=== PATIENT | female | born 1955 | race African-American/Black ===

== ENCOUNTER → 2017-02-01 | Outpatient (CLI) | payer MEDICAID, OTHER ==
--- NOTE | 2017-02-02 12:59 | RADIOLOGY REPORT (SQ) ---
EXAM DESCRIPTION: MRI RT LOWER JOINT WITHOUT COMPLETED DATE/TIME: 02/01/2017 7:17 pm REASON FOR STUDY: Pain in right hip M25.551 PAIN IN RIGHT HIP COMPARISON: None. TECHNIQUE: Righthip images acquired and stored on PACS. Multiplanar images to include fat sensitive sequences as T1, fluid sensitive sequences as T2/STIR and gradient echo sequences. Large FOV fat and fluid sensitive sequences include pelvis and opposite hip. LIMITATIONS: None. FINDINGS: BONE CORTEX AND MARROW: No generalized marrow replacement. No occult fracture. TARGETED HIP: FEMORAL HEAD: Subchondral cystic change posterior humeral head with some adjacent edema. Flattening of the femoral head. Ring osteophytes. A ACETABULUM: No acetabular dysplasia. No subchondral cysts. LABRUM: No loss of cartilage or delamination. Labrum is intact. No paralabral cysts. TROCHANTER: No trochanteric bursal effusion. No edema/fluid at the insertions of the gluteus medius and gluteus minimus. OPPOSITE HIP: [place] shaped area of signal alteration along the femoral head weight-bearing surface without collapse or deformity. PELVIS, LOWER LUMBAR SPINE, SACROILIAC JOINTS: PELVIS : No insufficiency/stress fractures. No significant degenerative changes. Sacroiliac joints normal. L SPINE: Diffuse lumbar did degenerative disc disease with reactive endplate changes. MUSCLES AND SOFT TISSUES: Adductors and piriformis normal. Abductors and greater trochanteric bursa n ormal without edema or fluid. Iliopsoas bursa without fluid. Hamstring attachments without edema or t ear. PELVIC SOFT TISSUES: No masses or adenopathy. SCIATIC NERVE: Identified, without masses or abnormal signal. OTHER: No other significant finding. 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 Avascular necrosis of the left femoral head without contour deformity or fracture. TECHNICAL DOCUMENTATION: JOB ID: [id number]- All Rights Reserved
== END ==
LOC: RAD 18:23
PROVIDERS: ATTEND Orthopaedic Surgery Sports Medicine
DX: M87.851 Other osteonecrosis, right femur (principal); M25.551 Pain in right hip

== ENCOUNTER 2017-09-24 04:21 | Emergency (ER) | payer OTHER ==
[2017-09-24] MEDS ORDERED: IPRATROPIUM/ALBUTEROL 0.5-2.5 MG/3 ML AMPUL NEB ONE ×2 (04:35→04:38)
[2017-09-24] MEDS ORDERED: METHYLPREDNISOLONE INJ 125 MG/2 ML SDV ONE (04:35)
[2017-09-24] MEDS ORDERED: ALBUTEROL SULFATE 0.083% NEB 2.5 MG/3 ML AMPUL NEB ONE ×2 (04:38→05:48)
[2017-09-24] MEDS ORDERED: METHYLPREDNISOLONE INJ 125 MG/2 ML SDV IV ONE (04:38)
--- NOTE | 2017-09-24 04:40 | ER Document Report ---
ED Respiratory Problem - General Mode of Arrival: Ambulatory Information source: Patient TRAVEL OUTSIDE OF THE [place] IN LAST 30 DAYS: No <SELENA GENAO - Last Filed: 09/24/17 06:31> <EVELIA MCKEON - Last Filed: 09/24/17 07:17> - General Chief Complaint: COPD Exacerbation Stated Complaint: DIFFICULTY BREATHING Time Seen by Provider: 09/24/17 04:35 Notes: Patient is a 62 year old female with a history of COPD, asthma, and hypertension presents to the emergency department due to difficulty breathing. Patient states she has had a cough for 2 weeks with intermittent fevers. Patient states she normally takes albuterol although it has not been effective the last 4 days. Patient's breathing is labored at bedside. (SELENA GENAO) - Related Data Allergies/Adverse Reactions: No Known Allergies Allergy (Verified 09/24/17 04:44) Past Medical History - General Information source: Patient - Social History Smoking Status: Former Smoker Cigarette use (# per day): No Chew tobacco use (# tins/day): No Smoking Education Provided: No Frequency of alcohol use: None Drug Abuse: None Family History: Reviewed & Not Pertinent Pulmonary Medical History: Reports: Hx Asthma, Hx COPD GI Medical History: Reports: Hx Gastroesophageal Reflux Disease Past Surgical History: Reports: Hx Hysterectomy, Hx Thyroid Surgery - Immunizations Hx Diphtheria, Pertussis, Tetanus Vaccination: Yes - 2008 Hx Pneumococcal Vaccination: 08/20/09 <SELENA GENAO - Last Filed: 09/24/17 06:31> Review of Systems - Review of Systems Constitutional: See HPI, Fever EENT: No symptoms reported Cardiovascular: No symptoms reported Respiratory: See HPI, Cough, Short of breath Gastrointestinal: No symptoms reported Genitourinary: No symptoms reported Female Genitourinary: No symptoms reported Musculoskeletal: No symptoms reported Skin: No symptoms reported Hematologic/Lymphatic: No symptoms reported Neurological/Psychological: No symptoms reported -: Yes All other systems reviewed and negative <SELENA GENAO - Last Filed: 09/24/17 06:31> Physical Exam <SELENA GENAO - Last Filed: 09/24/17 06:31> <EVELIA MCKEON - Last Filed: 09/24/17 07:17> - Vital signs Vitals: Temp Pulse Resp BP Pulse Ox 97.9 F 104 H 28 H 192/101 H 94 09/24/17 04:29 09/24/17 04:29 09/24/17 04:29 09/24/17 04:29 09/24/17 04:29 - Notes Notes: GENERAL: Alert, anxious, acutely short of breath. HEAD: Normocephalic, atraumatic. EYES: Pupils equal, round, and reactive to light. Extraocular movements intact. ENT: Oral mucosa moist, tongue midline. NECK: Full range of motion. Supple. Trachea midline. LUNGS: Tachypneic. Diffuse expiratory wheezing, prolonged expiratory phase, short of breath, uses accessory muscles. HEART: Tachycardic. No murmurs, gallops, or rubs. ABDOMEN: Soft, non-tender. Non-distended. Bowel sounds present in all 4 quadrants. EXTREMITIES: Moves all 4 extremities spontaneously. NEUROLOGICAL: Alert and oriented x3. Normal speech. PSYCH: Anxious. SKIN: Warm, dry, normal turgor. No rashes or lesions noted. (SELENA GENAO) Course - Laboratory Result Diagrams: 09/24/17 04:41 09/24/17 04:41 <SELENA GENAO - Last Filed: 09/24/17 06:31> - Laboratory Result Diagrams: 09/24/17 04:41 09/24/17 04:41 <EVELIA MCKEON - Last Filed: 09/24/17 07:17> - Re-evaluation Re-evalutation: 09/24/17 07:12 CXR negative, significantly improved after breathing treatments and steroids. Already has an albuterol inhaler. Prescribed steroids and discharged home. No indication for antibiotics. 09/24/17 07:12 CBC and chemistries unremarkable. (EVELIA MCKEON) - Vital Signs Vital signs: Temp Pulse Resp BP Pulse Ox 97.9 F 96 20 164/104 H 100 09/24/17 04:38 09/24/17 04:40 09/24/17 06:01 09/24/17 06:01 09/24/17 06:01 - Laboratory Laboratory results interpreted by me: 09/24/17 04:41 RDW 16.5 H Discharge <SELENA GENAO - Last Filed: 09/24/17 06:31> <EVELIA MCKEON - Last Filed: 09/24/17 07:17> - Discharge Clinical Impression: Viral upper respiratory tract infection Acute asthma exacerbation Qualifiers: Asthma severity: moderate Asthma persistence: persistent Qualified Code(s): J45.41 - Moderate persistent asthma with (acute) exacerbation Hypertension Qualifiers: Hypertension type: essential hypertension Qualified Code(s): I10 - Essential ( primary) hypertension Condition: Stable Disposition: HOME, SELF-CARE Additional Instructions: Please use your inhaler and take the prednisone as directed. If you are not having significant improvement in 3 days please start taking the antibiotics. Otherwise throw away the prescription for the antibiotics. Prescriptions: Amox Tr/Potassium Clavulanate [Augmentin 875-125 Tablet] 1 tab PO BID 7 Days tablet Prednisone 60 mg PO DAILY #12 tablet Forms: Elevated Blood Pressure Referrals: GOLDY HILL FNP [Primary Care Provider] - Follow up in 3-5 days Scribe Attestation: 09/24/17 07:17 I personally performed the services described in the documentation, reviewed and edited the documentation which was dictated to the scribe in my presence, and it accurately records my words and actions. (EVELIA MCKEON) Scribe Documentation - Scribe Written by Olie:: David Anand, 09/24/2017 04:49 acting as scribe for :: Juanjo <SELENA GENAO - Last Filed: 09/24/17 06:31>
[2017-09-24 04:52] LABS: ABSOLUTE EOSINOPHILS # (AUTO) 0.1 10^3/uL (0.0-0.6); ABSOLUTE LYMPHOCYTES (AUTO) 2.3 10^3/uL (0.5-4.7); ABSOLUTE MONOCYTES (AUTO) 0.8 10^3/uL (0.1-1.4); BASOPHILS % (AUTO) 0.4 % (0-2); EOSINOPHILS % (AUTO) 1.6 % (0-6); HEMATOCRIT 41.6 % (36.0-47.0); HEMOGLOBIN 13.7 g/dL (12.0-15.5); LYMPHOCYTES % (AUTO) 32.1 % (13-45); MEAN CORPUSCULAR HEMOGLOBIN 28.6 pg (27.0-33.4); MEAN CORPUSCULAR HGB CONC 32.9 g/dL (32.0-36.0); MEAN CORPUSCULAR VOLUME 87 fl (80-97); MONOCYTES % (AUTO) 10.6 % (3-13); PLATELET COUNT 221 10^3/uL (150-450); RED BLOOD COUNT 4.79 10^6/uL (3.72-5.28); RED CELL DISTRIBUTION WIDTH 16.5 % (11.5-14.0); SEGMENTED NEUTROPHILS % (AUTO) 55.3 % (42-78); TOTAL CELLS COUNTED % (AUTO) 100 %; WHITE BLOOD COUNT 7.2 10^3/uL (4.0-10.5)
[2017-09-24 05:07] LABS: ALANINE AMINOTRANSFERASE 20 U/L (9-52); ALBUMIN 4.6 g/dL (3.5-5.0); ALKALINE PHOSPHATASE 101 U/L (38-126); ANION GAP 14 (5-19); ASPARTATE AMINO TRANSFERASE 20 U/L (14-36); BILIRUBIN,DIRECT 0.2 mg/dL (0.0-0.4); BILIRUBIN,TOTAL 0.3 mg/dL (0.2-1.3); BLOOD UREA NITROGEN 8 mg/dL (7-20); CALCIUM 9.9 mg/dL (8.4-10.2); CARBON DIOXIDE 24 mmol/L (22-30); CHLORIDE 105 mmol/L (98-107); GLUCOSE 99 mg/dL (75-110); SODIUM 142.8 mmol/L (137-145); TOTAL PROTEIN 7.6 g/dL (6.3-8.2)
--- NOTE | 2017-09-24 05:17 | RADIOLOGY REPORT (SQ) ---
EXAM DESCRIPTION: CHEST SINGLE VIEW COMPLETED DATE/TIME: 09/24/2017 5:08 am REASON FOR STUDY: cough, fever, SOB, r/o PNA COMPARISON: Chest x-ray 06/17/2017. EXAM PARAMETERS: NUMBER OF VIEWS: One view. TECHNIQUE: Single frontal radiographic view of the chest acquired. RADIATION DOSE: NA LIMITATIONS: None. FINDINGS: LUNGS AND PLEURA: No consolidation, pneumothorax or pleural effusion. MEDIASTINUM AND HILAR STRUCTURES: No masses. Contour normal. HEART AND VASCULAR STRUCTURES: Heart normal in size. Normal vasculature. BONES: No acute findings. HARDWARE: Surgical clips at the soft tissues of the neck. IMPRESSION: No acute radiographic finding in the chest. TECHNICAL DOCUMENTATION: JOB ID: [id number] [id number]- All Rights Reserved
[2017-09-24 08:03] VITALS: BP 149/89
== END 2017-09-24 08:11 | disposition home or self-care (01) ==
LOC: ER 04:21
DX: J06.9 Acute upper respiratory infection, unspecified (principal); J45.41 Moderate persistent asthma with (acute) exacerbation; I10 Essential (primary) hypertension; Z90.710 Acquired absence of both cervix and uterus
CPT/HCPCS: 94640 ×2; 99285; 96374; 36415; 85025; 80053; 71045; J2930; J7620

== ENCOUNTER 2017-11-09 13:55 | Emergency (ER) | payer OTHER ==
[2017-11-09] MEDS ORDERED: IPRATROPIUM/ALBUTEROL 0.5-2.5 MG/3 ML AMPUL NEB ONE (15:20)
[2017-11-09] MEDS ORDERED: ACETAMINOPHEN 325 MG TABLET PO ONE (15:27)
--- NOTE | 2017-11-09 15:57 | RADIOLOGY REPORT (SQ) ---
EXAM DESCRIPTION: CHEST PA/LAT COMPLETED DATE/TIME: 11/09/2017 3:02 pm REASON FOR STUDY: cough, copd COMPARISON: 2017. NUMBER OF VIEWS: Two view. TECHNIQUE: Frontal and lateral radiographic views of the chest acquired. LIMITATIONS: None. FINDINGS: LUNGS AND PLEURA: No opacities, masses or pneumothorax. No pleural effusion. Attenuated bl ood vessels and flattened mary-diaphragms. MEDIASTINUM AND HILAR STRUCTURES: No masses. No contour abnormalities. HEART AND VASCULAR STRUCTURES: Left ventricular enlargement. No evidence of failure. Stable contour s. BONES: No acute findings. HARDWARE: None in the chest. OTHER: No other significant finding. IMPRESSION: COPD. NO ACUTE RADIOGRAPHIC FINDING IN THE CHEST. TECHNICAL DOCUMENTATION: JOB ID: [id number] [employer]- All Rights Reserved Reading location - IP/workstation name: [email or web address]
[2017-11-09 16:05] VITALS: BP 148/89
--- NOTE | 2017-11-09 16:14 | ER Document Report ---
ED General - General Chief Complaint: Shortness Of Breath Stated Complaint: BREATHING ISSUES Time Seen by Provider: 11/09/17 14:50 Mode of Arrival: Ambulatory Information source: Patient Notes: 62-year-old female history of COPD presents with complaints of cough of one- month duration. Patient notes initially was productive, patient was treated with antibiotics and the productivity of the cough has since resolved, patient admits to shortness of breath on ambulation TRAVEL OUTSIDE OF THE [place] IN LAST 30 DAYS: No - HPI Onset: Other Onset/Duration: Persistent Quality of pain: Achy Severity: Mild Pain Level: 1 Associated symptoms: Nonproductive cough, Shortness of breath Exacerbated by: Walking, Coughing Relieved by: Denies Similar symptoms previously: Yes Recently seen / treated by doctor: Yes - Related Data Allergies/Adverse Reactions: No Known Allergies Allergy (Verified 11/09/17 13:56) Past Medical History - Social History Smoking Status: Never Smoker Cigarette use (# per day): No Chew tobacco use (# tins/day): No Smoking Education Provided: No Family History: Reviewed & Not Pertinent Patient has suicidal ideation: No Patient has homicidal ideation: No Pulmonary Medical History: Reports: Hx Asthma, Hx COPD Renal/ Medical History: Denies: Hx Peritoneal Dialysis GI Medical History: Reports: Hx Gastroesophageal Reflux Disease Past Surgical History: Reports: Hx Hysterectomy, Hx Thyroid Surgery - Immunizations Hx Diphtheria, Pertussis, Tetanus Vaccination: Yes - 2008 Hx Pneumococcal Vaccination: 08/20/09 Review of Systems - Review of Systems Notes: REVIEW OF SYSTEMS: CONSTITUTIONAL : Denies fever, chills, or sweats. Denies recent illness. EENT: Denies eye, ear, throat, or mouth pain or symptoms. Denies nasal or sinus congestion or discharge. Denies throat, tongue, or mouth swelling or difficulty swallowing. CARDIOVASCULAR: Denies chest pain. Denies palpitations or racing or irregular heart beat. Denies ankle edema. RESPIRATORY: Admits to cough shortness of breath GASTROINTESTINAL: Denies abdominal pain or distention. Denies nausea, vomiting , or diarrhea. Denies blood in vomitus, stools, or per rectum. Denies black, tarry stools. Denies constipation. GENITOURINARY: Denies difficulty urinating, painful urination, burning, frequency, blood in urine, or discharge. FEMALE GENITOURINARY: Denies vaginal bleeding, heavy or abnormal periods, irregular periods. Denies vaginal discharge or odor. MUSCULOSKELETAL: Denies back or neck pain or stiffness. Denies joint pain or swelling. SKIN: Denies rash, lesions or sores. HEMATOLOGIC : Denies easy bruising or bleeding. LYMPHATIC: Denies swollen, enlarged glands. NEUROLOGICAL: Denies confusion or altered mental status. Denies passing out or loss of consciousness. Denies dizziness or lightheadedness. Denies headache. Denies weakness or paralysis or loss of use of either side. Denies problems with gait or speech. Denies sensory loss, numbness, or tingling. Denies seizures. PSYCHIATRIC: Denies anxiety or stress. Denies depression, suicidal ideation, or homicidal ideation. ALL OTHER SYSTEMS REVIEWED AND NEGATIVE. PHYSICAL EXAMINATION: GENERAL: Well-appearing, well-nourished and in no acute distress. HEAD: Atraumatic, normocephalic. EYES: Pupils equal round and reactive to light, extraocular movements intact, conjunctiva are normal. ENT: Nares patent, oropharynx clear without exudates. Moist mucous membranes. NECK: Normal range of motion, supple without lymphadenopathy LUNGS: Bilateral inspiratory expiratory wheezing noted initially after breathing treatment and symptoms resolved HEART: Regular rate and rhythm without murmurs ABDOMEN: Soft, nontender, nondistended abdomen. No guarding, no rebound. No masses appreciated. Female : deferred Musculoskeletal: Normal range of motion, no pitting or edema. No cyanosis. NEUROLOGICAL: Cranial nerves grossly intact. Normal speech, normal gait. Normal sensory, motor exams PSYCH: Normal mood, normal affect. SKIN: Warm, Dry, normal turgor, no rashes or lesions noted. Dictation was performed using [employer] voice recognition software Physical Exam - Vital signs Vitals: Temp Pulse Resp BP Pulse Ox 98.0 F 115 H 26 H 171/97 H 92 11/09/17 14:02 11/09/17 14:02 11/09/17 14:02 11/09/17 14:02 11/09/17 14:02 Course - Re-evaluation Re-evalutation: Patient presented with complaints of cough of now 1 month duration she has been on multiple antibiotic and steroid doses, she denies any productivity to cough, x-ray was consistent with COPD, she has no signs of pulmonary emboli therefore I do believe is appropriate treated with further steroids at this time and have her follow-up with primary care physician Patient notes significant improvement of breathing after DuoNeb 11/09/17 20:11 Patient's vital signs which were taken initially are noted to be inaccurate, she has very long acrylic nails and a good pulse ox was not obtained, the pulse ox of 100% is noted on her ear After performing a Medical Screening Examination, I estimate there is LOW risk for ACUTE CORONARY SYNDROME, PULMONARY EMBOLI, RESPIRATORY FAILURE, SEPSIS OR MENINGITIS, thus I consider the discharge disposition reasonable. I have reevaluated this patient multiple times and no significant life threatening changes are noted. The patient and I have discussed the diagnosis and risks, and we agree with discharging home with close follow-up. We also discussed returning to the Emergency Department immediately if new or worsening symptoms occur. We have discussed the symptoms which are most concerning (e.g., changing or worsening pain, trouble swallowing or breathing, neck stiffness, fever) that necessitate immediate return. - Vital Signs Vital signs: Temp Pulse Resp BP Pulse Ox 98.5 F 90 22 H 148/89 H 96 11/09/17 16:04 11/09/17 16:04 11/09/17 16:04 11/09/17 16:04 11/09/17 16:16 - Diagnostic Test Radiology reviewed: Image reviewed - copd noted , report given to patient, Reports reviewed Discharge - Discharge Clinical Impression: COPD exacerbation HTN (hypertension) Qualifiers: Hypertension type: essential hypertension Qualified Code(s): I10 - Essential ( primary) hypertension Condition: Stable Disposition: HOME, SELF-CARE Instructions: Chronic Obstructive Lung Disease ([facility]) Prescriptions: Prednisone [Deltasone 20 mg Tablet] 3 tab PO DAILY 5 Days tablet Referrals: GOLDY HILL FNP [Primary Care Provider] - Follow up in 3-5 days
== END 2017-11-09 16:20 | disposition home or self-care (01) ==
LOC: ER 13:55
DX: J44.1 Chronic obstructive pulmonary disease with (acute) exacerbation (principal); R05 Cough; R06.02 Shortness of breath; I10 Essential (primary) hypertension
CPT/HCPCS: 94640; 99284; 71046; J7620

== ENCOUNTER 2018-01-05 12:20 | Inpatient (IN) | payer OTHER ==
[2018-01-05 12:52] LABS: ABSOLUTE EOSINOPHILS # (AUTO) 0.1 10^3/uL (0.0-0.6); ABSOLUTE LYMPHOCYTES (AUTO) 1.6 10^3/uL (0.5-4.7); ABSOLUTE MONOCYTES (AUTO) 0.6 10^3/uL (0.1-1.4); ABSOLUTE NEUT (AUTO) 3.9 10^3/uL (1.7-8.2); BASOPHILS % (AUTO) 0.4 % (0-2); EOSINOPHILS % (AUTO) 1.2 % (0-6); HEMATOCRIT 42.5 % (36.0-47.0); HEMOGLOBIN 14.2 g/dL (12.0-15.5); LYMPHOCYTES % (AUTO) 25.5 % (13-45); MEAN CORPUSCULAR HEMOGLOBIN 29.9 pg (27.0-33.4); MEAN CORPUSCULAR HGB CONC 33.4 g/dL (32.0-36.0); MEAN CORPUSCULAR VOLUME 90 fl (80-97); MONOCYTES % (AUTO) 9.5 % (3-13); PLATELET COUNT 260 10^3/uL (150-450); RED BLOOD COUNT 4.74 10^6/uL (3.72-5.28); RED CELL DISTRIBUTION WIDTH 13.7 % (11.5-14.0); SEGMENTED NEUTROPHILS % (AUTO) 63.4 % (42-78); TOTAL CELLS COUNTED % (AUTO) 100 %; WHITE BLOOD COUNT 6.1 10^3/uL (4.0-10.5)
--- NOTE | 2018-01-05 12:58 | ER Document Report ---
ED General - General Chief Complaint: Shortness Of Breath Stated Complaint: DIFFICULTY BREATHING Time Seen by Provider: 01/05/18 12:35 Mode of Arrival: Ambulatory Information source: Patient Notes: This is a 62-year-old female with a history of COPD that presents with progressively worsening shortness of breath, wheezing and cough over the past week. Patient was brought in by EMS. She was given to NORBERTO treatments in route along with 125 mg of IV Solu-Medrol. TRAVEL OUTSIDE OF THE [place] IN LAST 30 DAYS: No - HPI Onset: Just prior to arrival Onset/Duration: Gradual Quality of pain: No pain Severity: None Pain Level: Denies Associated symptoms: Shortness of breath. denies: Chest pain, Earache, Fever Exacerbated by: Movement Relieved by: Denies Similar symptoms previously: Yes Recently seen / treated by doctor: No - Related Data Allergies/Adverse Reactions: No Known Allergies Allergy (Verified 11/09/17 13:56) Past Medical History - General Information source: Patient - Social History Smoking Status: Former Smoker Cigarette use (# per day): No Chew tobacco use (# tins/day): No Frequency of alcohol use: None Drug Abuse: None Lives with: Family Family History: Reviewed & Not Pertinent Patient has suicidal ideation: No Patient has homicidal ideation: No - Past Medical History Cardiac Medical History: Reports: Hx Hypertension Pulmonary Medical History: Reports: Hx Asthma, Hx COPD Renal/ Medical History: Denies: Hx Peritoneal Dialysis GI Medical History: Reports: Hx Gastroesophageal Reflux Disease Past Surgical History: Reports: Hx Hysterectomy, Hx Orthopedic Surgery - hip replacement, Hx Thyroid Surgery - Immunizations Hx Diphtheria, Pertussis, Tetanus Vaccination: Yes - 2008 Hx Pneumococcal Vaccination: 08/20/09 Review of Systems - Review of Systems Constitutional: denies: Chills, Fever EENT: No symptoms reported Cardiovascular: No symptoms reported Respiratory: See HPI Gastrointestinal: No symptoms reported Genitourinary: No symptoms reported Female Genitourinary: No symptoms reported Musculoskeletal: No symptoms reported Skin: No symptoms reported Hematologic/Lymphatic: No symptoms reported Neurological/Psychological: No symptoms reported Physical Exam - Vital signs Vitals: Resp 22 H 01/05/18 12:28 Notes: Physical exam: GENERAL: 62-year-old female, alert and oriented 3, appears short of breath, tachypneic (25), tachycardic (105), blood pressure 140/85, O2 sat 97% on 2 L. HEAD: Atraumatic, normocephalic. EYES: Pupils equal round and reactive to light, extraocular movements intact, sclera anicteric, conjunctiva are normal. ENT: TMs normal, nares patent, oropharynx clear without exudates. Moist mucous membranes. NECK: Normal range of motion, supple without obvious mass. LUNGS: Tight breath sounds with bilateral wheezing HEART: Regular rate and rhythm without murmurs, rubs or gallops. ABDOMEN: Soft, normoactive bowel sounds. No tenderness to palpation. No guarding, no rebound. No masses appreciated. EXTREMITIES: Normal range of motion, no pitting or edema. No clubbing or cyanosis. NEUROLOGICAL: Cranial nerves II through XII grossly intact. Normal speech, moving all extremities. PSYCH: Normal mood, normal affect. SKIN: Warm, Dry, normal turgor, no rashes or lesions noted. Course - Vital Signs Vital signs: Temp Pulse Resp BP Pulse Ox 98 F 109 H 18 135/93 H 95 01/05/18 16:50 01/05/18 16:50 01/05/18 16:50 01/05/18 16:50 01/05/18 18:02 - Laboratory Result Diagrams: 01/05/18 12:00 01/05/18 13:13 Laboratory results interpreted by me: 01/05/18 01/05/18 13:13 13:13 Sodium 146.5 H Glucose 113 H Creatine Kinase 278 H - Diagnostic Test Radiology reviewed: Image reviewed, Reports reviewed - Chest x-ray shows no infiltrates - EKG Interpretation by Me Rate: Normal Rhythm: NSR - EKG shows normal sinus rhythm with a ventricular rate of 99, left axis deviation, no acute ST-T wave changes. There are no changes compared to EKG in June 17, 2017 Discharge - Discharge Clinical Impression: COPD exacerbation Condition: Stable Disposition: ADMITTED INPATIENT Admitting Provider: Hospitalist - Dr Rosado Unit Admitted: Telemetry
[2018-01-05] MEDS ORDERED: MAGNESIUM SULFATE/D5W 1 GM/100 ML RTUPB IV ONE (13:00)
[2018-01-05] MEDS ORDERED: IPRATROPIUM/ALBUTEROL 0.5-2.5 MG/3 ML AMPUL NEB ONE ×2 (13:00→14:28)
--- NOTE | 2018-01-05 13:29 | RADIOLOGY REPORT (SQ) ---
EXAM DESCRIPTION: CHEST SINGLE VIEW COMPLETED DATE/TIME: 01/05/2018 1:20 pm REASON FOR STUDY: sob COMPARISON: 11/09/2017. EXAM PARAMETERS: NUMBER OF VIEWS: One view. TECHNIQUE: Single frontal radiographic view of the chest acquired. RADIATION DOSE: NA LIMITATIONS: None. FINDINGS: LUNGS AND PLEURA: No opacities, masses or pneumothorax. No pleural effusion. MEDIASTINUM AND HILAR STRUCTURES: No masses. Contour normal. HEART AND VASCULAR STRUCTURES: Heart normal in size. Normal vasculature. BONES: No acute findings. HARDWARE: Surgical clips in the lower neck. OTHER: No other significant finding. IMPRESSION: NO ACUTE RADIOGRAPHIC FINDING IN THE CHEST. TECHNICAL DOCUMENTATION: JOB ID: [id number] [employer]- All Rights Reserved Reading location - IP/workstation name: [email or web address]
[2018-01-05 13:55] LABS: ALANINE AMINOTRANSFERASE 36 U/L (9-52); ALBUMIN 4.2 g/dL (3.5-5.0); ALKALINE PHOSPHATASE 79 U/L (38-126); ANION GAP 15 (5-19); ASPARTATE AMINO TRANSFERASE 31 U/L (14-36); BILIRUBIN,DIRECT 0.3 mg/dL (0.0-0.4); BILIRUBIN,TOTAL 0.3 mg/dL (0.2-1.3); BLOOD UREA NITROGEN 7 mg/dL (7-20); CALCIUM 9.8 mg/dL (8.4-10.2); CARBON DIOXIDE 29 mmol/L (22-30); CHLORIDE 103 mmol/L (98-107); GLUCOSE 113 mg/dL (75-110); POTASSIUM 4.5 mmol/L (3.6-5.0); SODIUM 146.5 mmol/L (137-145); TOTAL PROTEIN 7.4 g/dL (6.3-8.2)
[2018-01-05 14:03] LABS: CREATINE KINASE MB 3.47 ng/mL (<4.55)
[2018-01-05] MEDS ORDERED: LEVOFLOXACIN 500 MG/D5W RTU 500 MG/100 ML RTUPB IV ONE (14:29)
[2018-01-05] MEDS ORDERED: TEMAZEPAM 7.5 MG CAPSULE PO PRN (15:07)
[2018-01-05] MEDS ORDERED: ONDANSETRON HCL INJ/PF 4 MG/2 ML SDV IV PRN (15:07)
[2018-01-05] MEDS ORDERED: ONDANSETRON 4 MG TAB.RAPDIS PO PRN (15:07)
[2018-01-05] MEDS ORDERED: METHYLPREDNISOLONE INJ 40 MG/1 ML SDV IV SCH (15:15)
--- NOTE | 2018-01-05 15:27 | PDOC H&P ---
History of Present Illness Admission Date/PCP: 01/05/18 14:34 Dr[facility] in [place], [place] Patient complains of: Dyspnea and cough History of Present Illness: 62 year old female with history of COPD not on home O2 Prior smoker Hypertension Home meds: Losartan/HCTZ 100/25 mg daily Prilosec 40mg daily Azelastine one spray both nostrils daily Flonase daily Symbicort Spiriva Cetirizine 10 mg PO daily Duonebs prn Vit D 50,000 units weekly Zileuton ER 600mg BID She presented to the hospital for progressively worsening dyspnea, cough and mucoid expectoration. No fevers/chills/sore throat/sick contacts. Denies exposure to second hand smoke. Full code. Healthcare POA daughter Sanjeev [phone]. Past Medical History Cardiac Medical History: Reports: Hypertension Pulmonary Medical History: Reports: Asthma, Chronic Obstructive Pulmonary Disease (COPD) GI Medical History: Reports: Gastroesophageal Reflux Disease Past Surgical History Past Surgical History: Reports: Hysterectomy, Orthopedic Surgery - hip replacement Social History Smoking Status: Former Smoker Family History Family History: Hypertension Parental Family History Reviewed: Yes Children Family History Reviewed: Yes Sibling(s) Family History Reviewed.: Yes Medication/Allergy Allergies/Adverse Reactions: No Known Allergies Allergy (Verified 11/09/17 13:56) Review of Systems Constitutional: PRESENT: headache(s). ABSENT: fever(s) Eyes: ABSENT: visual disturbances Ears: ABSENT: hearing changes Nose, Mouth, and Throat: ABSENT: sore throat Cardiovascular: PRESENT: dyspnea on exertion. ABSENT: edema Respiratory: PRESENT: cough, dyspnea, sputum Gastrointestinal: ABSENT: diarrhea, vomiting Genitourinary: ABSENT: dysuria Musculoskeletal: ABSENT: joint swelling Integumentary: ABSENT: pruritus Neurological: ABSENT: focal weakness Psychiatric: ABSENT: hallucinations Endocrine: ABSENT: heat intolerance Hematologic/Lymphatic: ABSENT: easy bleeding Allergic/Immunologic: PRESENT: seasonal rhinorrhea Physical Exam Vital Signs: Temp Pulse Resp BP Pulse Ox 20 140/85 H 01/05/18 12:37 01/05/18 12:37 General appearance: PRESENT: mild distress Head exam: PRESENT: normocephalic Eye exam: PRESENT: PERRLA, other - bilateral cataracts Ear exam: PRESENT: normal external ear exam Mouth exam: PRESENT: moist Neck exam: ABSENT: tracheal deviation Respiratory exam: PRESENT: symmetrical, wheezes. ABSENT: crackles Cardiovascular exam: PRESENT: RRR GI/Abdominal exam: PRESENT: normal bowel sounds, soft. ABSENT: tenderness Rectal exam: PRESENT: deferred Gentrourinary exam: ABSENT: indwelling catheter Extremities exam: ABSENT: joint swelling, pedal edema Neurological exam: PRESENT: alert, awake, oriented to person, oriented to place , oriented to time, oriented to situation Psychiatric exam: PRESENT: appropriate affect Skin exam: ABSENT: petechiae Results Impressions: Chest X-Ray 01/05/18 13:00 IMPRESSION: NO ACUTE RADIOGRAPHIC FINDING IN THE CHEST. Assessment & Plan - Diagnosis (1) COPD exacerbation Plan: Supplemental oxygen, duonebs, mucolytics, steroids. Continue Symbicort and flonase. Start spiriva (2) Hypertension Is this a current diagnosis for this admission?: Yes Plan: Continue Losartan (3) GERD (gastroesophageal reflux disease) Is this a current diagnosis for this admission?: Yes Plan: PPI (4) Headache Is this a current diagnosis for this admission?: Yes Plan: Fioricet prn (5) Muscle spasm Is this a current diagnosis for this admission?: Yes Plan: Flexeril prn - Time Time Spent: 50 to 70 Minutes - Inpatient Certification Medical Necessity: Need for Nebulizer Therapy and Monitoring of Response, Risk of Complication if Not Cared For in Hospital
[2018-01-05] MEDS ORDERED: PHARMACY COMMUNICATION ORDER MC NR (15:30)
[2018-01-05] MEDS ORDERED: METHYLPREDNISOLONE INJ 40 MG/1 ML SDV IV ONE (16:00)
[2018-01-05] MEDS: GUAIFENESIN 600 MG TABLET.SA PO SCH (17:15)
[2018-01-05] MEDS: BUDESONIDE/FORMOTEROL 160-4.5 MCG 60 PUFF/6 GM MDI IH SCH (17:15)
[2018-01-05] MEDS: BUTALB/ACETAMINOPHEN/CAFFEINE 1 TAB EACH PO PRN (17:20)
[2018-01-05] MEDS: CYCLOBENZAPRINE HCL 10 MG TABLET PO PRN (17:23)
[2018-01-05] MEDS: IPRATROPIUM/ALBUTEROL 0.5-2.5 MG/3 ML AMPUL NEB SCH (20:08)
--- NOTE | 2018-01-05 20:33 | EKG REPORT ---
SEVERITY:- ABNORMAL ECG - SINUS RHYTHM LAD, CONSIDER LEFT ANTERIOR FASCICULAR BLOCK : Confirmed by: Dao Escobedo 05-Jan-2018 17:32:20
[2018-01-05] MEDS: ACETAMINOPHEN WITH CODEINE #3 TABLET PO PRN (21:21)
[2018-01-05] MEDS: METHYLPREDNISOLONE INJ 40 MG/1 ML SDV IV SCH (21:21)
[2018-01-06] MEDS: ALBUTEROL SULFATE 0.083% NEB 2.5 MG/3 ML AMPUL NEB PRN ×2 (01:43→05:03)
[2018-01-06] MEDS: ACETAMINOPHEN WITH CODEINE #3 TABLET PO PRN ×3 (01:45→21:33)
[2018-01-06] MEDS: BUTALB/ACETAMINOPHEN/CAFFEINE 1 TAB EACH PO PRN ×2 (03:54→09:41)
[2018-01-06] MEDS: GUAIFENESIN 600 MG TABLET.SA PO SCH ×2 (05:03→17:03)
[2018-01-06] MEDS: LANSOPRAZOLE 15 MG TAB.RAP.DR PO SCH (05:03)
[2018-01-06] MEDS: METHYLPREDNISOLONE INJ 40 MG/1 ML SDV IV SCH ×3 (05:04→21:30)
[2018-01-06] MEDS: IPRATROPIUM/ALBUTEROL 0.5-2.5 MG/3 ML AMPUL NEB SCH ×4 (08:57→19:48)
[2018-01-06] MEDS: DOCUSATE SODIUM 100 MG CAPSULE PO SCH (09:42)
[2018-01-06] MEDS: LOSARTAN POTASSIUM 50 MG TABLET PO SCH (09:42)
[2018-01-06] MEDS: MONTELUKAST SODIUM 10 MG TABLET PO SCH (09:43)
[2018-01-06] MEDS: CYCLOBENZAPRINE HCL 10 MG TABLET PO PRN ×2 (09:43→17:03)
[2018-01-06] MEDS: BUDESONIDE/FORMOTEROL 160-4.5 MCG 60 PUFF/6 GM MDI IH SCH ×2 (09:45→17:03)
--- NOTE | 2018-01-06 12:20 | PDOC PROGRESS REPORT ---
Subjective Progress Note for:: 01/06/18 Subjective:: Feels better. Cough and dyspnea improving. Was unable to sleep last night- Temazepam dose will be increased. Reason For Visit: COPD EXACERBATION Physical Exam Vital Signs: Temp Pulse Resp BP Pulse Ox 98.4 F 96 16 113/81 96 01/06/18 10:54 01/06/18 12:03 01/06/18 12:03 01/06/18 10:54 01/06/18 12:03 Intake & Output 01/05/18 01/06/18 01/07/18 06:59 06:59 06:59 Intake Total 1610 Balance 1610 Weight 101.2 kg General appearance: PRESENT: no acute distress Head exam: PRESENT: normocephalic Eye exam: ABSENT: scleral icterus Ear exam: PRESENT: normal external ear exam Mouth exam: PRESENT: moist Neck exam: ABSENT: tracheal deviation Respiratory exam: PRESENT: symmetrical, wheezes Cardiovascular exam: PRESENT: RRR GI/Abdominal exam: PRESENT: normal bowel sounds, soft. ABSENT: tenderness Rectal exam: PRESENT: deferred Gentrourinary exam: ABSENT: indwelling catheter Musculoskeletal exam: PRESENT: normal inspection Neurological exam: PRESENT: alert, awake, oriented to person, oriented to time, oriented to situation Psychiatric exam: PRESENT: appropriate affect Results Impressions: Chest X-Ray 01/05/18 13:00 IMPRESSION: NO ACUTE RADIOGRAPHIC FINDING IN THE CHEST. Assessment & Plan - Diagnosis (1) COPD exacerbation Is this a current diagnosis for this admission?: Yes Plan: Supplemental oxygen, duonebs, mucolytics, steroids. Continue Symbicort and flonase and Spiriva (2) Hypertension Is this a current diagnosis for this admission?: Yes Plan: Continue Losartan (3) GERD (gastroesophageal reflux disease) Is this a current diagnosis for this admission?: Yes Plan: PPI (4) Headache Is this a current diagnosis for this admission?: Yes Plan: Fioricet prn (5) Muscle spasm Is this a current diagnosis for this admission?: Yes Plan: Flexeril prn (6) Insomnia Is this a current diagnosis for this admission?: Yes Plan: Temazepam QHS PRN - Time Time Spent with patient: 35 or more minutes - Inpatient Certification Based on my medical assessment, after consideration of the patient's comorbidities, presenting symptoms, or acuity I expect that the services needed warrant INPATIENT care.: Yes I certify that my determination is in accordance with my understanding of Medicare's requirements for reasonable and necessary INPATIENT services [42 CFR 412.3e].: Yes
[2018-01-06] MEDS ORDERED: NEOMY/BACITRAC ZN/POLY OINT 15 GM TP ONE (12:30)
[2018-01-06] MEDS ORDERED: CETIRIZINE 10 MG TABLET PO SCH (13:00)
[2018-01-06] MEDS: NEOMY/BACITRAC ZN/POLY OINT 15 GM TP SCH (17:04)
[2018-01-06] MEDS: TEMAZEPAM 7.5 MG CAPSULE PO PRN (23:01)
[2018-01-07] MEDS: ALBUTEROL SULFATE 0.083% NEB 2.5 MG/3 ML AMPUL NEB PRN ×2 (00:11→02:46)
[2018-01-07] MEDS: GUAIFENESIN 600 MG TABLET.SA PO SCH ×2 (06:40→17:10)
[2018-01-07] MEDS: LANSOPRAZOLE 15 MG TAB.RAP.DR PO SCH (06:41)
[2018-01-07] MEDS: METHYLPREDNISOLONE INJ 40 MG/1 ML SDV IV SCH ×3 (06:41→21:45)
[2018-01-07] MEDS: IPRATROPIUM/ALBUTEROL 0.5-2.5 MG/3 ML AMPUL NEB SCH ×4 (08:48→19:31)
[2018-01-07] MEDS: DOCUSATE SODIUM 100 MG CAPSULE PO SCH (09:00)
[2018-01-07] MEDS: MONTELUKAST SODIUM 10 MG TABLET PO SCH (09:00)
[2018-01-07] MEDS: NEOMY/BACITRAC ZN/POLY OINT 15 GM TP SCH ×2 (09:01→17:11)
[2018-01-07] MEDS: BUDESONIDE/FORMOTEROL 160-4.5 MCG 60 PUFF/6 GM MDI IH SCH ×2 (09:01→21:45)
[2018-01-07] MEDS: LOSARTAN POTASSIUM 50 MG TABLET PO SCH (09:01)
--- NOTE | 2018-01-07 13:58 | PDOC PROGRESS REPORT ---
Subjective Progress Note for:: 01/07/18 Subjective:: No complaints. feels better. Rested well last night. Still gets quite dyspneic with walking Requesting change of Flexeril to Tizanidine prn muscle spasms. Reason For Visit: COPD EXACERBATION Physical Exam Vital Signs: Temp Pulse Resp BP Pulse Ox 98.5 F 100 16 128/83 H 94 01/07/18 07:23 01/07/18 11:53 01/07/18 11:53 01/07/18 07:23 01/07/18 11:53 Intake & Output 01/06/18 01/07/18 01/08/18 06:59 06:59 06:59 Intake Total 1610 1010 Output Total 3 Balance 1610 1007 Weight 101.2 kg 99.7 kg General appearance: PRESENT: no acute distress, well-developed, well-nourished Head exam: PRESENT: normocephalic Eye exam: ABSENT: scleral icterus Ear exam: PRESENT: normal external ear exam Mouth exam: PRESENT: moist Neck exam: ABSENT: tracheal deviation Respiratory exam: PRESENT: symmetrical, unlabored. ABSENT: crackles Cardiovascular exam: PRESENT: RRR GI/Abdominal exam: PRESENT: normal bowel sounds, soft. ABSENT: tenderness Rectal exam: PRESENT: deferred Gentrourinary exam: ABSENT: indwelling catheter Extremities exam: ABSENT: pedal edema Musculoskeletal exam: PRESENT: normal inspection Neurological exam: PRESENT: alert, awake, oriented to person, oriented to place , oriented to time, oriented to situation Psychiatric exam: PRESENT: appropriate affect, normal mood Results Impressions: Chest X-Ray 01/05/18 13:00 IMPRESSION: NO ACUTE RADIOGRAPHIC FINDING IN THE CHEST. Assessment & Plan - Diagnosis (1) COPD exacerbation Is this a current diagnosis for this admission?: Yes Plan: Supplemental oxygen, duonebs, mucolytics, taper steroids. Continue Symbicort and flonase and Spiriva (2) Hypertension Is this a current diagnosis for this admission?: Yes Plan: Continue Losartan (3) GERD (gastroesophageal reflux disease) Is this a current diagnosis for this admission?: Yes Plan: PPI (4) Headache Is this a current diagnosis for this admission?: Yes Plan: Fioricet prn (5) Muscle spasm Is this a current diagnosis for this admission?: Yes Plan: Tizanidine prn (6) Insomnia Is this a current diagnosis for this admission?: Yes Plan: Temazepam QHS PRN - Time Time Spent with patient: 25-34 minutes
[2018-01-07] MEDS ORDERED: ONDANSETRON HCL INJ/PF 4 MG/2 ML SDV IV PRN (15:00)
[2018-01-07] MEDS ORDERED: ONDANSETRON 4 MG TAB.RAPDIS PO PRN (15:00)
[2018-01-07] MEDS: TIZANIDINE HCL 4 MG TABLET PO PRN (21:49)
[2018-01-07] MEDS: TEMAZEPAM 7.5 MG CAPSULE PO PRN (22:51)
[2018-01-08] MEDS: ALBUTEROL SULFATE 0.083% NEB 2.5 MG/3 ML AMPUL NEB PRN ×2 (00:06→05:23)
[2018-01-08] MEDS: METHYLPREDNISOLONE INJ 40 MG/1 ML SDV IV SCH ×3 (05:35→21:33)
[2018-01-08] MEDS: LANSOPRAZOLE 15 MG TAB.RAP.DR PO SCH (05:35)
[2018-01-08] MEDS: GUAIFENESIN 600 MG TABLET.SA PO SCH ×2 (05:35→17:59)
[2018-01-08] MEDS: IPRATROPIUM/ALBUTEROL 0.5-2.5 MG/3 ML AMPUL NEB SCH ×4 (08:19→20:15)
[2018-01-08] MEDS: TIZANIDINE HCL 4 MG TABLET PO PRN ×2 (08:37→21:33)
[2018-01-08] MEDS: DOCUSATE SODIUM 100 MG CAPSULE PO SCH (09:06)
[2018-01-08] MEDS: CETIRIZINE 10 MG TABLET PO SCH (09:06)
[2018-01-08] MEDS: LOSARTAN POTASSIUM 50 MG TABLET PO SCH (09:06)
[2018-01-08] MEDS: BUDESONIDE/FORMOTEROL 160-4.5 MCG 60 PUFF/6 GM MDI IH SCH ×2 (09:08→21:33)
[2018-01-08] MEDS: NEOMY/BACITRAC ZN/POLY OINT 15 GM TP SCH ×2 (09:08→18:00)
[2018-01-08] MEDS ORDERED: BISACODYL 5 MG TABEC PO ONE (11:57)
--- NOTE | 2018-01-08 13:15 | PDOC PROGRESS REPORT ---
Subjective Progress Note for:: 01/08/18 Subjective:: Breathing is better. Reports constipation Reason For Visit: COPD EXACERBATION Physical Exam Vital Signs: Temp Pulse Resp BP Pulse Ox 98.5 F 85 16 115/63 98 01/08/18 11:09 01/08/18 12:01 01/08/18 12:01 01/08/18 11:09 01/08/18 12:01 Intake & Output 01/07/18 01/08/18 01/09/18 06:59 06:59 06:59 Intake Total 1010 1392 Output Total 3 Balance 1007 1392 Weight 99.7 kg 101 kg General appearance: PRESENT: no acute distress, well-developed, well-nourished Head exam: PRESENT: normocephalic Eye exam: ABSENT: scleral icterus Mouth exam: PRESENT: moist Neck exam: ABSENT: tracheal deviation Respiratory exam: PRESENT: rhonchi, symmetrical, unlabored Cardiovascular exam: PRESENT: RRR GI/Abdominal exam: PRESENT: normal bowel sounds, soft. ABSENT: tenderness Rectal exam: PRESENT: deferred Gentrourinary exam: ABSENT: indwelling catheter Extremities exam: ABSENT: pedal edema Neurological exam: PRESENT: alert, awake, oriented to person, oriented to place Psychiatric exam: PRESENT: appropriate affect Results Impressions: Chest X-Ray 01/05/18 13:00 IMPRESSION: NO ACUTE RADIOGRAPHIC FINDING IN THE CHEST. Assessment & Plan - Diagnosis (1) COPD exacerbation Is this a current diagnosis for this admission?: Yes Plan: Supplemental oxygen, duonebs, mucolytics, taper steroids. Continue Symbicort and flonase and Spiriva (2) Hypertension Is this a current diagnosis for this admission?: Yes Plan: Continue Losartan (3) GERD (gastroesophageal reflux disease) Is this a current diagnosis for this admission?: Yes Plan: PPI (4) Headache Is this a current diagnosis for this admission?: Yes Plan: Fioricet prn (5) Muscle spasm Is this a current diagnosis for this admission?: Yes Plan: Tizanidine prn (6) Insomnia Is this a current diagnosis for this admission?: Yes Plan: Temazepam QHS PRN (7) Constipated Is this a current diagnosis for this admission?: Yes Plan: Laxatives - Time Time Spent with patient: 25-34 minutes
[2018-01-08] MEDS: LACTULOSE SYRUP 20 GM/30 ML UDCUP PO SCH (18:00)
[2018-01-08] MEDS ORDERED: MONTELUKAST SODIUM 10 MG TABLET PO SCH (22:00)
[2018-01-08] MEDS: TEMAZEPAM 7.5 MG CAPSULE PO PRN (23:40)
[2018-01-09] MEDS: ALBUTEROL SULFATE 0.083% NEB 2.5 MG/3 ML AMPUL NEB PRN (01:15)
[2018-01-09] MEDS: GUAIFENESIN 600 MG TABLET.SA PO SCH (05:35)
[2018-01-09] MEDS: LANSOPRAZOLE 15 MG TAB.RAP.DR PO SCH (05:35)
[2018-01-09] MEDS: METHYLPREDNISOLONE INJ 40 MG/1 ML SDV IV SCH ×2 (05:35→13:49)
[2018-01-09] MEDS: IPRATROPIUM/ALBUTEROL 0.5-2.5 MG/3 ML AMPUL NEB SCH ×2 (09:37→12:52)
[2018-01-09] MEDS: LOSARTAN POTASSIUM 50 MG TABLET PO SCH (10:06)
[2018-01-09] MEDS: NEOMY/BACITRAC ZN/POLY OINT 15 GM TP SCH (10:06)
[2018-01-09] MEDS: CETIRIZINE 10 MG TABLET PO SCH (10:06)
[2018-01-09] MEDS: BUDESONIDE/FORMOTEROL 160-4.5 MCG 60 PUFF/6 GM MDI IH SCH (10:06)
[2018-01-09] MEDS: LACTULOSE SYRUP 20 GM/30 ML UDCUP PO SCH (10:06)
[2018-01-09 12:42] VITALS: BP 126/87
--- NOTE | 2018-01-09 18:43 | PDOC DISCHARGE SUMMARY ---
General - Admit/Disc Date/PCP Admission Date/Primary Care Provider: 01/05/18 14:34 IVY ASHER PA-C Discharge Date: 01/09/18 - Discharge Diagnosis (1) Sinusitis Is this a current diagnosis for this admission?: Yes Summary: She will be discharged on a course of Augmentin and follow-up as an outpatient. 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 (3) COPD exacerbation Is this a current diagnosis for this admission?: Yes Summary: Stable on room air. She will be discharged on a course of steroids, and follow- up as an outpatient. (4) Hypertension Is this a current diagnosis for this admission?: Yes Summary: Home medications were continued. - Additional Information Discharge Diet: As Tolerated, Regular Discharge Activity: Activity As Tolerated Prescriptions: Amoxicillin/Potassium Clav [Augmentin 500-125 Tablet] 1 each PO TID #30 tablet Prednisone 20 mg PO BID #10 tablet Home Medications: Ascorbic Acid [Vitamin C 500 mg Tablet] 500 mg PO DAILY 01/05/18 Budesonide/Formoterol Fumarate [Symbicort HFA 160-4.5 mcg Inhaler 6 gm] 2 puff IH Q12 01/05/18 Cetirizine HCl [Zyrtec 10 mg Tablet] 10 mg PO DAILY 01/05/18 Cod Liver Oil 1 cap PO DAILY 01/05/18 Ergocalciferol (Vitamin D2) [Drisdol 50,000 unit (1.25MG) Capsule] 50,000 unit PO FR@1000 01/05/18 Fluticasone Propionate [Flonase Nasal [place] 50 Mcg/[place] 16 gm] 2 sprays NASL DAILY 01/05/18 Fluticasone Propionate [Flovent Hfa 44 Mcg Inhalation Aerosol 10.6 gm] 2 puff IH Q12 01/05/18 Guaifenesin [Mucus Relief] 600 mg PO Q12HP PRN 01/05/18 Ibuprofen/Famotidine [Duexis 800-26.6 mg Tablet] 1 each PO TIDP PRN 01/05/18 Ipratropium/Albuterol Sulfate [Duoneb 3 ml Ampul] 3 ml NEB RTQ6HP PRN 01/05/18 Losartan/Hydrochlorothiazide [Losartan-Hctz 100-25 mg Tab] 1 tab PO DAILY Mepolizumab [Nucala] 100 mg SQ .QMONTHLY 01/05/18 Montelukast Sodium [Singulair 10 mg Tablet] 10 mg PO QHS 01/05/18 Multivitamin [Tab-A-Nupur (Multiple Vitamin) Tablet] 1 tab PO DAILY 01/05/18 Pyridoxine HCl [Vitamin B-6 Tablet 50 mg] 50 mg PO DAILY 01/05/18 Tiotropium [place] [Spiriva Respimat] 2 puff IH DAILY 01/05/18 Amoxicillin/Potassium Clav [Augmentin 500-125 Tablet] 1 each PO TID #30 tablet 01/09/18 Prednisone 20 mg PO BID #10 tablet 01/09/18 History of Present Illness Patient complains of: Short of breath and a cough History of Present Illness: 62 year old female with history of COPD not on home O2 Prior smoker Hypertension Home meds: Losartan/HCTZ 100/25 mg daily Prilosec 40mg daily Azelastine one spray both nostrils daily Flonase daily Symbicort Spiriva Cetirizine 10 mg PO daily Duonebs prn Vit D 50,000 units weekly Zileuton ER 600mg BID She presented to the hospital for progressively worsening dyspnea, cough and mucoid expectoration. No fevers/chills/sore throat/sick contacts. Denies exposure to second hand smoke. Hospital Course Hospital Course: She was treated with steroids, nebulizers, oxygen per nasal cannula. Oxygen has been weaned off, she is maintaining saturations greater than 90% when ambulating on room air. I think she can complete her convalescence at home. She continued to complain of purulent drainage down the back of her throat along with pain and maxillary region, so she was started on empiric antibiotics for sinusitis, and those will be continued at discharge. Physical Exam Vital Signs: Temp Pulse Resp BP Pulse Ox 98.4 F 101 H 18 126/87 H 93 01/09/18 13:45 01/09/18 13:45 01/09/18 13:45 01/09/18 13:45 01/09/18 13:45 Intake & Output 01/08/18 01/09/18 01/10/18 05:59 05:59 05:59 Intake Total 1608 1532 795 Output Total 3 Balance 1605 1532 795 Weight 222 lb 10.67 oz 221 lb 5.506 oz General appearance: PRESENT: no acute distress, obese Respiratory exam: PRESENT: clear to auscultation nayely, decreased breath sounds, unlabored. ABSENT: rhonchi, wheezes Cardiovascular exam: PRESENT: RRR GI/Abdominal exam: PRESENT: soft Extremities exam: ABSENT: pedal edema Neurological exam: PRESENT: alert Psychiatric exam: PRESENT: appropriate affect Skin exam: PRESENT: dry, warm Results Impressions: Chest X-Ray 01/05/18 13:00 IMPRESSION: NO ACUTE RADIOGRAPHIC FINDING IN THE CHEST. Qualifiers - * PATIENT BEING DISCHARGED WITH ANY OF THE FOLLOWING DIAGNOSIS: No
== END 2018-01-09 15:50 | disposition home or self-care (01) | DRG 192 ==
LOC: ER 12:20 → EH 14:34 → 4S 16:49
PROVIDERS: ADMIT Internal Medicine; ATTEND Internal Medicine
PROC: 3E0F73Z Introduction of Anti-inflammatory into Respiratory Tract, Via Natural or Artificial Opening (ICD-10-PCS; principal; 2018-01-05)
DX: J44.1 Chronic obstructive pulmonary disease with (acute) exacerbation (principal); J32.9 Chronic sinusitis, unspecified; J30.9 Allergic rhinitis, unspecified; I10 Essential (primary) hypertension; K21.9 Gastro-esophageal reflux disease without esophagitis; R51 Headache; M62.838 Other muscle spasm; G47.00 Insomnia, unspecified; K59.00 Constipation, unspecified; Z79.899 Other long term (current) drug therapy; Z87.891 Personal history of nicotine dependence; Z90.710 Acquired absence of both cervix and uterus; Z96.649 Presence of unspecified artificial hip joint; Z82.49 Family history of ischemic heart disease and other diseases of the circulatory system
CPT/HCPCS: 36415; 71045; 80053; 82550; 82553; 83735; 83880; 84484; 85025; 87040; 93005; 93010; 94640; 94667; 94799; 96365; 99285; J1956; J2920; J3475; J3490; J7620

== ENCOUNTER 2018-02-17 19:22 | Emergency (ER) | payer OTHER ==
--- NOTE | 2018-02-17 20:01 | ER Document Report ---
ED Medical Screen (RME) - General Chief Complaint: Syncope Stated Complaint: POSSIBLE SYNCOPE Time Seen by Provider: 02/17/18 19:56 Mode of Arrival: Wheelchair Information source: Patient, Relative Notes: 63 yr old female presents with h of copd recently placed on 2 L nasal cannula with complaints of sob, wheezing , 1 episode of syncope on . pt ntoes she gets sob when ambulating. I have greeted and performed a rapid initial assessment of this patient. A comprehensive ED assessment and evaluation of the patient, analysis of test results and completion of the medical decision making process will be conducted by additional ED providers. PHYSICAL EXAMINATION: GENERAL: Well-appearing, well-nourished and in no acute distress. HEAD: Atraumatic, normocephalic. EYES: Pupils equal round extraocular movements intact, conjunctiva are normal. ENT: Nares patent NECK: Normal range of motion LUNGS: No respiratory distress, pt on 2L nc Musculoskeletal: Normal range of motion NEUROLOGICAL: Normal speech, normal gait. PSYCH: Normal mood, normal affect. SKIN: Warm, Dry, normal turgor, no rashes or lesions noted. TRAVEL OUTSIDE OF THE [place] IN LAST 30 DAYS: No - Related Data Allergies/Adverse Reactions: No Known Allergies Allergy (Verified 11/09/17 13:56) Past Medical History - Past Medical History Cardiac Medical History: Reports: Hx Hypertension Pulmonary Medical History: Reports: Hx Asthma, Hx COPD Renal/ Medical History: Denies: Hx Peritoneal Dialysis GI Medical History: Reports: Hx Gastroesophageal Reflux Disease Past Surgical History: Reports: Hx Hysterectomy, Hx Orthopedic Surgery - hip replacement, Hx Thyroid Surgery - Immunizations Hx Diphtheria, Pertussis, Tetanus Vaccination: Yes - 2008 Doctor's Discharge - Discharge Referrals: IVY ASHER PA-C [Primary Care Provider] - Follow up as needed
--- NOTE | 2018-02-17 20:30 | RADIOLOGY REPORT (SQ) ---
EXAM DESCRIPTION: CHEST 2 VIEWS COMPLETED DATE/TIME: 02/17/2018 8:19 pm REASON FOR STUDY: copd COMPARISON: 11/09/2017 EXAM PARAMETERS: NUMBER OF VIEWS: two views TECHNIQUE: Digital Frontal and Lateral radiographic views of the chest acquired. RADIATION DOSE: NA LIMITATIONS: none FINDINGS: LUNGS AND PLEURA: No opacities, masses or pneumothorax. No pleural effusion. MEDIASTINUM AND HILAR STRUCTURES: No masses or contour abnormalities. HEART AND VASCULAR STRUCTURES: Heart normal size. No evidence for failure. BONES: No acute findings. HARDWARE: None in the chest. OTHER: No other significant finding. IMPRESSION: NO ACUTE RADIOGRAPHIC FINDING IN THE CHEST. TECHNICAL DOCUMENTATION: JOB ID: [id number] [employer]- All Rights Reserved Reading location - IP/workstation name: [email or web address]
[2018-02-17 21:23] LABS: ABSOLUTE EOSINOPHILS # (AUTO) 0.1 10^3/uL (0.0-0.6); ABSOLUTE LYMPHOCYTES (AUTO) 1.9 10^3/uL (0.5-4.7); ABSOLUTE MONOCYTES (AUTO) 0.8 10^3/uL (0.1-1.4); ABSOLUTE NEUT (AUTO) 5.5 10^3/uL (1.7-8.2); BASOPHILS % (AUTO) 0.5 % (0-2); EOSINOPHILS % (AUTO) 0.9 % (0-6); HEMATOCRIT 40.5 % (36.0-47.0); HEMOGLOBIN 13.7 g/dL (12.0-15.5); LYMPHOCYTES % (AUTO) 22.9 % (13-45); MEAN CORPUSCULAR HGB CONC 33.9 g/dL (32.0-36.0); MEAN CORPUSCULAR VOLUME 89 fl (80-97); MONOCYTES % (AUTO) 9.1 % (3-13); PLATELET COUNT 263 10^3/uL (150-450); RED BLOOD COUNT 4.57 10^6/uL (3.72-5.28); RED CELL DISTRIBUTION WIDTH 13.9 % (11.5-14.0); SEGMENTED NEUTROPHILS % (AUTO) 66.6 % (42-78); TOTAL CELLS COUNTED % (AUTO) 100 %; WHITE BLOOD COUNT 8.3 10^3/uL (4.0-10.5)
[2018-02-17 21:39] LABS: ALANINE AMINOTRANSFERASE 24 U/L (9-52); ALBUMIN 4.2 g/dL (3.5-5.0); ALKALINE PHOSPHATASE 72 U/L (38-126); ANION GAP 13 (5-19); ASPARTATE AMINO TRANSFERASE 22 U/L (14-36); BILIRUBIN,DIRECT 0.3 mg/dL (0.0-0.4); BILIRUBIN,TOTAL 0.4 mg/dL (0.2-1.3); BLOOD UREA NITROGEN 17 mg/dL (7-20); CALCIUM 9.8 mg/dL (8.4-10.2); CARBON DIOXIDE 28 mmol/L (22-30); CHLORIDE 99 mmol/L (98-107); CREATINE KINASE 97 U/L (30-135); GLUCOSE 121 mg/dL (75-110); POTASSIUM 3.1 mmol/L (3.6-5.0); SODIUM 139.8 mmol/L (137-145); TOTAL PROTEIN 7.4 g/dL (6.3-8.2)
[2018-02-17 21:49] LABS: CREATINE KINASE MB 0.99 ng/mL (<4.55); NT PRO BNP < 11 pg/mL (5-900); TROPONIN I < 0.012 ng/mL
[2018-02-17] MEDS ORDERED: BENZONATATE 100 MG CAPSULE PO ONE (23:24)
--- NOTE | 2018-02-17 23:28 | ER Document Report ---
ED General - General Chief Complaint: Syncope Stated Complaint: POSSIBLE SYNCOPE Time Seen by Provider: 02/17/18 19:56 Mode of Arrival: Wheelchair Notes: Patient is a 63-year-old female with a past medical history of hypertension, morbid obesity, COPD with 2 L of oxygen dependence who presents with several months of exertional dyspnea for which she was recently placed on supplemental oxygen by her charger. The patient relates that she is concerned about an episode of syncope that occurred 4 days ago in which she had persistent coughing and apparently coughs so hard that she actually lost consciousness. The patient has not had a recurrence of similar symptoms since that time. She denies any chest pain or current shortness of breath. She denies any symptoms at the time of my assessment. No change in symptoms that prompted her to come to the emergency department today other than that she states she continues to have severe coughing particularly when she goes outside in humidity. He states he is time she goes outside in the heat she feels that she cannot breathe and has increased secretions in her pharynx that make her feel like she is choking and causes her to persistently cough. Nothing improves or worsens the symptoms when present. She is currently following with her charger regarding these issues. TRAVEL OUTSIDE OF THE [place] IN LAST 30 DAYS: No - Related Data Allergies/Adverse Reactions: No Known Allergies Allergy (Verified 02/17/18 22:57) Past Medical History - General Information source: Patient, Relative - Social History Smoking Status: Former Smoker Chew tobacco use (# tins/day): No Frequency of alcohol use: Occasional Drug Abuse: None Lives with: Family Family History: Reviewed & Not Pertinent Patient has suicidal ideation: No Patient has homicidal ideation: No - Past Medical History Cardiac Medical History: Reports: Hx Hypertension Pulmonary Medical History: Reports: Hx Asthma, Hx COPD Renal/ Medical History: Denies: Hx Peritoneal Dialysis GI Medical History: Reports: Hx Gastroesophageal Reflux Disease Past Surgical History: Reports: Hx Hysterectomy, Hx Orthopedic Surgery - R hip replacement, Hx Thyroid Surgery - Immunizations Hx Diphtheria, Pertussis, Tetanus Vaccination: Yes - 2008 Hx Pneumococcal Vaccination: 08/20/09 Review of Systems - Review of Systems Notes: Constitutional: Negative for fever. HENT: Negative for sore throat. Eyes: Negative for visual changes. Cardiovascular: Negative for chest pain. Respiratory: Positive for shortness of breath. Gastrointestinal: Negative for abdominal pain, vomiting or diarrhea. Genitourinary: Negative for dysuria. Musculoskeletal: Negative for back pain. Skin: Negative for rash. Neurological: Negative for headaches, weakness or numbness. 10 point ROS negative except as marked above and in HPI. Physical Exam - Vital signs Vitals: Resp Pulse Ox 19 95 02/17/18 22:27 02/17/18 22:27 Interpretation: Normal Notes: PHYSICAL EXAMINATION: GENERAL: Well-appearing, well-nourished and in no acute distress. HEAD: Atraumatic, normocephalic. EYES: Pupils equal round and reactive to light, extraocular movements intact, sclera anicteric, conjunctiva are normal. ENT: nares patent, oropharynx clear without exudates. Moist mucous membranes. NECK: Normal range of motion, supple without lymphadenopathy LUNGS: Breath sounds clear to auscultation bilaterally and equal. No wheezes rales or rhonchi. HEART: Regular rate and rhythm without murmurs ABDOMEN: Soft, nontender, normoactive bowel sounds. No guarding, no rebound. No masses appreciated. EXTREMITIES: Normal range of motion, no pitting or edema. No cyanosis. NEUROLOGICAL: No focal neurological deficits. Moves all extremities spontaneously and on command. PSYCH: Normal mood, normal affect. SKIN: Warm, Dry, normal turgor, no rashes or lesions noted. Course - Re-evaluation Re-evalutation: 02/17/18 23:25 Patient presents with a syncopal episode that happened 4 days ago but no recurrence of syncope since that time. The patient's main concern is that each time she exits into the humidity outside she develops a sensation of choking and thick mucosal secretions in her pharynx. She states that this makes her have a persistent cough and when she did have syncope on Sunday it was after apparently coughing for approximately 1 minute. Patient denies any symptoms at the time of my assessment. Her physical examination is unremarkable without any wheezing or diminished air movement. Her vitals are within normal limits on her 2 L of baseline supplemental oxygen. Labs are noted to be unremarkable. EKG without any concerning findings. I have emphasized that the patient needs to follow-up with her general doctor and charger regarding today's concerns and will start her on Tessalon Perles for her persistent cough. I have also emphasized that she should try to stay in a dry, cool place to prevent recurrence of these episodes. Based on exam, history well appearance I do not suspect that the patient has ACS, an acute pulmonary embolus, aortic dissection, pneumothorax, severe COPD exacerbation, or any alternatively threatening pathology. - Vital Signs Vital signs: Temp Pulse Resp BP Pulse Ox 98.0 F 18 106/72 97 02/17/18 23:40 02/17/18 23:39 02/17/18 23:39 02/17/18 23:39 - Laboratory Result Diagrams: 02/17/18 21:01 02/17/18 21:01 Laboratory results interpreted by me: 02/17/18 21:01 Potassium 3.1 L Glucose 121 H - Diagnostic Test Radiology reviewed: Image reviewed, Reports reviewed Radiology results interpreted by me: 02/17/18 23:26 Chest x-ray: No acute infiltrate or pneumothorax - EKG Interpretation by Me Additional EKG results interpreted by me: 02/17/18 23:[address] elevations or depressions. Rate 111. QTC is 468. Discharge - Discharge Clinical Impression: Persistent cough COPD (chronic obstructive pulmonary disease) Qualifiers: COPD type: unspecified COPD Qualified Code(s): J44.9 - Chronic obstructive pulmonary disease, unspecified Syncope Qualifiers: Syncope type: unspecified Qualified Code(s): R55 - Syncope and collapse Condition: Good Disposition: HOME, SELF-CARE Additional Instructions: You were seen today after an episode of passing out. Your EKG here is normal. At this time, we do not feel that your episode of passing out was from any life- threatening cause. Please drink plenty of fluids over the next several days. Return to emergency department if you have any further episodes of syncope, headache, weakness, numbness, chest pain, or shortness of breath. Please follow up closely with your primary care physician. Prescriptions: Benzonatate [Tessalon Perles 100 mg Capsule] 100 mg PO Q8HP PRN #40 capsule PRN Reason: Referrals: IVY ASHER PA-C [NO LOCAL MD] - Follow up tomorrow
[2018-02-17 23:45] VITALS: BP 106/72
--- NOTE | 2018-02-18 06:52 | EKG REPORT ---
SEVERITY:- ABNORMAL ECG - SINUS TACHYCARDIA LEFT ANTERIOR FASCICULAR BLOCK : Confirmed by: Miya Downey MD 18-Feb-2018 06:52:08
== END 2018-02-17 23:45 | disposition home or self-care (01) ==
LOC: ER 19:22
DX: J44.9 Chronic obstructive pulmonary disease, unspecified (principal); R55 Syncope and collapse; R05 Cough; I10 Essential (primary) hypertension; Z99.81 Dependence on supplemental oxygen; Z87.891 Personal history of nicotine dependence; R06.02 Shortness of breath
CPT/HCPCS: 36415; 71046; 80053; 82550; 82553; 83880; 84484; 85025; 93005; 93010; 99284

== ENCOUNTER 2018-07-24 02:50 | Inpatient (IN) | payer OTHER ==
[2018-07-24] MEDS ORDERED: MAGNESIUM SULFATE/D5W 2 GM/200 ML RTUPB IV ONE (02:52)
[2018-07-24] MEDS ORDERED: IPRATROPIUM/ALBUTEROL 0.5-2.5 MG/3 ML AMPUL NEB ONE (02:56)
[2018-07-24] MEDS: MAGNESIUM SULFATE/D5W 1 GM/100 ML RTUPB IV SCH ×2 (02:56→03:12)
[2018-07-24] MEDS ORDERED: ALBUTEROL SULFATE 0.083% NEB 2.5 MG/3 ML AMPUL NEB ONE ×2 (02:56→03:59)
--- NOTE | 2018-07-24 03:03 | ER Document Report ---
ED General - General Stated Complaint: DIFFICULTY BREATHING Time Seen by Provider: 07/24/18 02:56 Notes: Patient is a 63-year-old female who presents with complaint of difficulty breathing and wheezing. No recent fevers or infections. She says she has had some worsening wheezing over the last 3 days. She has a history of COPD and asthma. She is a former smoker who quit 15-20 years ago. She has been on ventilator in the past. She has been admitted several times for difficulty breathing. She is says that approximately week ago she was placed on prednisone by her primary care doctor. She finished that course and her wheezing started to recur again. No other complaints at this time. No chest pain. No abdominal pain. No fever. No headache. No vomiting. In the ambulance she was given Solu-Medrol as well as 2 DuoNeb's. TRAVEL OUTSIDE OF THE [place] IN LAST 30 DAYS: No - Related Data Allergies/Adverse Reactions: No Known Allergies Allergy (Verified 02/17/18 22:57) Past Medical History - Social History Smoking Status: Former Smoker Frequency of alcohol use: None Drug Abuse: None Family History: Reviewed & Not Pertinent - Past Medical History Cardiac Medical History: Reports: Hx Hypertension Pulmonary Medical History: Reports: Hx Asthma, Hx COPD Renal/ Medical History: Denies: Hx Peritoneal Dialysis GI Medical History: Reports: Hx Gastroesophageal Reflux Disease Past Surgical History: Reports: Hx Hysterectomy, Hx Orthopedic Surgery - R hip replacement, Hx Thyroid Surgery - Immunizations Hx Diphtheria, Pertussis, Tetanus Vaccination: Yes - 2008 Hx Pneumococcal Vaccination: 08/20/09 Physical Exam - Vital signs Vitals: Pulse Resp BP Pulse Ox 125 H 38 H 170/100 H 90 L 07/24/18 02:50 07/24/18 02:50 07/24/18 02:50 07/24/18 02:50 Course - Re-evaluation Re-evalutation: 07/24/18 03:59 Patient's work of breathing is much improved on the BiPAP. She is now much more comfortable. She still has a lot of tightness and wheezing in her lung quiles. I will give her another breathing treatment through the BiPAP. 07/24/18 04:48 Mrs. Redman continues to have slightly improved air movement with repeat breathing treatment but still has a lot of tightness and wheezing. Her work of breathing continues to be calm when she is on the BiPAP. She does have a respiratory acidosis for which we will continue the BiPAP. At this time I feel patient is appropriate for admission due to the fact that she still has a lot of tightness and wheezing despite multiple breathing treatments, magnesium, and Solu-Medrol. I will speak with the hospitalist for consideration for admission. Dictation of this chart was performed using voice recognition software; therefore, there may be some unintended grammatical errors. 07/24/18 04:52 Spoke with the hospitalist, Dr. Bess, agrees to await the patient for admission. - Vital Signs Vital signs: Temp Pulse Resp BP Pulse Ox 125 H 19 170/100 H 94 07/24/18 02:50 07/24/18 04:18 07/24/18 02:50 07/24/18 04:18 - Laboratory Result Diagrams: 07/24/18 03:00 07/24/18 03:00 Laboratory results interpreted by me: 07/24/18 07/24/18 07/24/18 03:00 03:00 03:00 WBC 12.2 H VBG pH 7.28 L VBG pCO2 70.5 H* VBG HCO3 32.7 H Glucose 118 H - EKG Interpretation by Me Additional EKG results interpreted by me: 07/24/18 03:20 EKG is reviewed and interpreted by me. EKG shows sinus tachycardia with a rate of [address] segment elevation or depression. No ischemic T wave inversions. ID interval, QRS duration, QTc intervals are within normal range. Discharge - Discharge Clinical Impression: COPD exacerbation, Respiratory acidosis Condition: Stable Disposition: ADMITTED OBSERVATION Admitting Provider: Hospitalist Unit Admitted: Telemetry Referrals: REVA ARGUETA MD [Primary Care Provider] - Follow up as needed
[2018-07-24 03:18] LABS: VENOUS BLOOD BASE EXCESS 3.5 mmol/L; VENOUS BLOOD HCO3 32.7 mmol/L (20-32); VENOUS BLOOD PH 7.28 (7.30-7.42)
[2018-07-24 03:19] LABS: ABSOLUTE BASOPHILS # (AUTO) 0.1 10^3/uL (0.0-0.2); ABSOLUTE EOSINOPHILS # (AUTO) 0.1 10^3/uL (0.0-0.6); ABSOLUTE LYMPHOCYTES (AUTO) 2.9 10^3/uL (0.5-4.7); ABSOLUTE MONOCYTES (AUTO) 1.4 10^3/uL (0.1-1.4); ABSOLUTE NEUT (AUTO) 7.7 10^3/uL (1.7-8.2); BASOPHILS % (AUTO) 0.4 % (0-2); EOSINOPHILS % (AUTO) 0.6 % (0-6); HEMATOCRIT 41.9 % (36.0-47.0); HEMOGLOBIN 13.8 g/dL (12.0-15.5); LYMPHOCYTES % (AUTO) 24.2 % (13-45); MEAN CORPUSCULAR HEMOGLOBIN 29.8 pg (27.0-33.4); MEAN CORPUSCULAR HGB CONC 32.9 g/dL (32.0-36.0); MEAN CORPUSCULAR VOLUME 91 fl (80-97); MONOCYTES % (AUTO) 11.1 % (3-13); PLATELET COUNT 238 10^3/uL (150-450); RED BLOOD COUNT 4.62 10^6/uL (3.72-5.28); RED CELL DISTRIBUTION WIDTH 13.7 % (11.5-14.0); SEGMENTED NEUTROPHILS % (AUTO) 63.7 % (42-78); TOTAL CELLS COUNTED % (AUTO) 100 %; WHITE BLOOD COUNT 12.2 10^3/uL (4.0-10.5)
[2018-07-24 03:22] LABS: VENOUS BLOOD PCO2 70.5 mmHg (35-63)
--- NOTE | 2018-07-24 03:37 | RADIOLOGY REPORT (SQ) ---
EXAM DESCRIPTION: XR CHEST 1 VIEW COMPLETED DATE/TME: 07/24/2018 02:56 CLINICAL HISTORY: 63 years Female, dyspnea COMPARISON:02/17/2018 NUMBER OF VIEWS/TECHNIQUE: 1/AP FINDINGS: Increased lung volume, clear parenchyma, normal cardiac silhouette, atherosclerosis, and lower cervical clips.. IMPRESSION: No acute cardiopulmonary findings.
[2018-07-24 03:39] LABS: ALANINE AMINOTRANSFERASE 27 U/L (9-52); ALBUMIN 4.5 g/dL (3.5-5.0); ALKALINE PHOSPHATASE 88 U/L (38-126); ANION GAP 11 (5-19); ASPARTATE AMINO TRANSFERASE 26 U/L (14-36); BILIRUBIN,DIRECT 0.2 mg/dL (0.0-0.4); BILIRUBIN,TOTAL 0.5 mg/dL (0.2-1.3); BLOOD UREA NITROGEN 9 mg/dL (7-20); CALCIUM 9.6 mg/dL (8.4-10.2); CARBON DIOXIDE 30 mmol/L (22-30); CHLORIDE 101 mmol/L (98-107); GLUCOSE 118 mg/dL (75-110); POTASSIUM 3.8 mmol/L (3.6-5.0); SODIUM 141.8 mmol/L (137-145); TOTAL PROTEIN 7.8 g/dL (6.3-8.2)
[2018-07-24] MEDS ORDERED: IPRATROPIUM/ALBUTEROL 0.5-2.5 MG/3 ML AMPUL NEB PRN (04:54)
[2018-07-24] MEDS ORDERED: HYDRALAZINE HCL INJ/PF 20 MG/1 ML SDV IV PRN (04:54)
[2018-07-24] MEDS ORDERED: CHLORPHENIRAMINE MALEATE 4 MG TABLET PO ONE (05:15)
[2018-07-24] MEDS: HEPARIN SOD (PORCINE) 5,000 UNIT/ML 1 ML SYRINGE SUBCUT SCH ×3 (06:01→21:13)
[2018-07-24] MEDS: LEVOFLOXACIN 750 MG/D5W RTU 750 MG/150 ML RTUPB IV SCH (06:02)
[2018-07-24] MEDS: FLUTICASONE NASAL SPRAY 50 MCG/SPRY 120 SPRAY/16 GM NASL SCH ×3 (06:03→21:13)
--- NOTE | 2018-07-24 07:51 | PDOC H&P ---
History of Present Illness Admission Date/PCP: 07/24/18 05:10 REVA ARGUETA MD Patient complains of: Shortness of breath History of Present Illness: ELIJAH REED is a 63 year old female with a past medical history of oxygen dependent COPD and chronic bronchitis. She presents with 10 days of shortness of breath and nonproductive cough started on prednisone by primary care finishing regiment 24 hours ago with a rapid worsening of symptoms she presents to the emergency room with hypoxia. She received supplemental oxygen, BiPAP, steroids and referred to the hospitalist for admission. She denies rhinorrhea, sore throat, acid reflux. 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 Past Medical History Cardiac Medical History: Reports: Hypertension Pulmonary Medical History: Reports: Asthma, Chronic Obstructive Pulmonary Disease (COPD) GI Medical History: Reports: Gastroesophageal Reflux Disease Past Surgical History Past Surgical History: Reports: Hysterectomy, Orthopedic Surgery - R hip replacement Social History Information Source: Patient Lives with: Family Smoking Status: Former Smoker Frequency of Alcohol Use: None Hx Recreational Drug Use: No Drugs: None - Advance Directive Resuscitation Status: Full Code Family History Family History: COPD Parental Family History Reviewed: Yes Children Family History Reviewed: Yes Sibling(s) Family History Reviewed.: Yes Medication/Allergy Home Medications: Ascorbic Acid [Vitamin C 500 mg Tablet] 500 mg PO DAILY 01/05/18 Budesonide/Formoterol Fumarate [Symbicort HFA 160-4.5 mcg Inhaler 6 gm] 2 puff IH Q12 01/05/18 Cetirizine HCl [Zyrtec 10 mg Tablet] 10 mg PO DAILY 01/05/18 Cod Liver Oil 1 cap PO DAILY 01/05/18 Ergocalciferol (Vitamin D2) [Drisdol 50,000 unit (1.25MG) Capsule] 50,000 unit PO FR@1000 01/05/18 Fluticasone Propionate [Flonase Nasal [place] 50 Mcg/[place] 16 gm] 2 sprays NASL DAILY 01/05/18 Fluticasone Propionate [Flovent Hfa 44 Mcg Inhalation Aerosol 10.6 gm] 2 puff IH Q12 01/05/18 Guaifenesin [Mucus Relief] 600 mg PO Q12HP PRN 01/05/18 Ibuprofen/Famotidine [Duexis 800-26.6 mg Tablet] 1 each PO TIDP PRN 01/05/18 Ipratropium/Albuterol Sulfate [Duoneb 3 ml Ampul] 3 ml NEB RTQ6HP PRN 01/05/18 Losartan/Hydrochlorothiazide [Losartan-Hctz 100-25 mg Tab] 1 tab PO DAILY Mepolizumab [Nucala] 100 mg SQ .QMONTHLY 01/05/18 Montelukast Sodium [Singulair 10 mg Tablet] 10 mg PO QHS 01/05/18 Multivitamin [Tab-A-Nupur (Multiple Vitamin) Tablet] 1 tab PO DAILY 01/05/18 Pyridoxine HCl [Vitamin B-6 Tablet 50 mg] 50 mg PO DAILY 01/05/18 Tiotropium [place] [Spiriva Respimat] 2 puff IH DAILY 01/05/18 Amoxicillin/Potassium Clav [Augmentin 500-125 Tablet] 1 each PO TID #30 tablet 01/09/18 Prednisone 20 mg PO BID #10 tablet 01/09/18 Benzonatate [Tessalon Perles 100 mg Capsule] 100 mg PO Q8HP PRN #40 capsule 09/06 Allergies/Adverse Reactions: No Known Allergies Allergy (Verified 02/17/18 22:57) Review of Systems Constitutional: ABSENT: chills, fever(s), headache(s), weight gain, weight loss Eyes: ABSENT: visual disturbances Ears: ABSENT: hearing changes Cardiovascular: ABSENT: chest pain, dyspnea on exertion, edema, orthropnea, palpitations Respiratory: ABSENT: cough, hemoptysis Gastrointestinal: ABSENT: abdominal pain, constipation, diarrhea, hematemesis, hematochezia, nausea, vomiting Genitourinary: ABSENT: dysuria, hematuria Musculoskeletal: ABSENT: joint swelling Integumentary: ABSENT: rash, wounds Neurological: ABSENT: abnormal gait, abnormal speech, confusion, dizziness, focal weakness, syncope Psychiatric: ABSENT: anxiety, depression, homidical ideation, suicidal ideation Endocrine: ABSENT: cold intolerance, heat intolerance, polydipsia, polyuria Hematologic/Lymphatic: ABSENT: easy bleeding, easy bruising Physical Exam Vital Signs: Temp Pulse Resp BP Pulse Ox 98.6 F 125 H 17 108/63 95 07/24/18 04:21 07/24/18 02:50 07/24/18 07:11 07/24/18 07:11 07/24/18 07:10 General appearance: PRESENT: cooperative, mild distress, obese. ABSENT: disheveled Head exam: PRESENT: atraumatic, normocephalic Eye exam: PRESENT: conjunctiva pink, EOMI, PERRLA. ABSENT: scleral icterus Ear exam: PRESENT: normal external ear exam Mouth exam: PRESENT: moist, tongue midline Neck exam: ABSENT: carotid bruit, JVD, lymphadenopathy, thyromegaly Respiratory exam: PRESENT: accessory muscle use, crackles, retraction, symmetrical, tachypnea, wheezes. ABSENT: rales, rhonchi Cardiovascular exam: PRESENT: RRR. ABSENT: diastolic murmur, rubs, systolic murmur Pulses: PRESENT: normal dorsalis pedis pul Vascular exam: PRESENT: normal capillary refill GI/Abdominal exam: PRESENT: normal bowel sounds, soft. ABSENT: distended, guarding, mass, organolmegaly, rebound, tenderness Rectal exam: PRESENT: deferred Extremities exam: PRESENT: full ROM. ABSENT: calf tenderness, clubbing, pedal edema Neurological exam: PRESENT: alert, awake, oriented to person, oriented to place , oriented to time, oriented to situation, CN II-XII grossly intact. ABSENT: motor sensory deficit Psychiatric exam: PRESENT: appropriate affect, normal mood. ABSENT: homicidal ideation, suicidal ideation Skin exam: PRESENT: dry, intact, warm. ABSENT: cyanosis, rash Results Impressions: Chest X-Ray 07/24/18 02:56 IMPRESSION: No acute cardiopulmonary findings. Assessment & Plan - Diagnosis (1) Acute bronchitis Is this a current diagnosis for this admission?: Yes Plan: Flutter valve, prednisone, aggressive pulmonary toilet. (2) COPD exacerbation Is this a current diagnosis for this admission?: Yes Plan: Incentive spirometry, supplemental oxygen, albuterol and Atrovent. - Time Time Spent: 30 to 50 Minutes
[2018-07-24] MEDS: IPRATROPIUM/ALBUTEROL 0.5-2.5 MG/3 ML AMPUL NEB SCH ×2 (08:22→16:09)
[2018-07-24] MEDS: ASCORBIC ACID 500 MG TABLET PO SCH (10:10)
[2018-07-24] MEDS: PREDNISONE 20 MG TABLET PO SCH ×2 (10:11→18:51)
--- NOTE | 2018-07-24 11:57 | EKG REPORT ---
SEVERITY:- ABNORMAL ECG - SINUS TACHYCARDIA VENTRICULAR PREMATURE COMPLEX AREN, CONSIDER BIATRIAL ABNORMALITIES INCOMPLETE RBBB AND LAFB : Confirmed by: Dao Escobedo 24-Jul-2018 11:57:26
[2018-07-24] MEDS: ACETAMINOPHEN 325 MG TABLET PO PRN (21:48)
[2018-07-25] MEDS: IPRATROPIUM/ALBUTEROL 0.5-2.5 MG/3 ML AMPUL NEB SCH ×3 (00:33→15:21)
[2018-07-25 05:30] LABS: ABSOLUTE LYMPHOCYTES (AUTO) 1.1 10^3/uL (0.5-4.7); ABSOLUTE NEUT (AUTO) 14.8 10^3/uL (1.7-8.2); BASOPHILS % (AUTO) 0.1 % (0-2); HEMOGLOBIN 12.8 g/dL (12.0-15.5); LYMPHOCYTES % (AUTO) 6.5 % (13-45); MEAN CORPUSCULAR HEMOGLOBIN 30.4 pg (27.0-33.4); MEAN CORPUSCULAR HGB CONC 33.6 g/dL (32.0-36.0); MEAN CORPUSCULAR VOLUME 90 fl (80-97); MONOCYTES % (AUTO) 6.2 % (3-13); PLATELET COUNT 216 10^3/uL (150-450); RED BLOOD COUNT 4.21 10^6/uL (3.72-5.28); RED CELL DISTRIBUTION WIDTH 13.4 % (11.5-14.0); SEGMENTED NEUTROPHILS % (AUTO) 87.2 % (42-78); TOTAL CELLS COUNTED % (AUTO) 100 %
[2018-07-25] MEDS: LEVOFLOXACIN 750 MG/D5W RTU 750 MG/150 ML RTUPB IV SCH (05:32)
[2018-07-25] MEDS: HEPARIN SOD (PORCINE) 5,000 UNIT/ML 1 ML SYRINGE SUBCUT SCH ×3 (05:33→21:45)
[2018-07-25 05:53] LABS: ANION GAP 11 (5-19); BLOOD UREA NITROGEN 16 mg/dL (7-20); CALCIUM 9.6 mg/dL (8.4-10.2); CARBON DIOXIDE 28 mmol/L (22-30); CHLORIDE 101 mmol/L (98-107); GLUCOSE 125 mg/dL (75-110); POTASSIUM 4.4 mmol/L (3.6-5.0); SODIUM 139.6 mmol/L (137-145)
[2018-07-25] MEDS: ACETAMINOPHEN 325 MG TABLET PO PRN ×3 (05:58→21:45)
[2018-07-25] MEDS: PREDNISONE 20 MG TABLET PO SCH ×2 (09:51→17:16)
[2018-07-25] MEDS: FLUTICASONE NASAL SPRAY 50 MCG/SPRY 120 SPRAY/16 GM NASL SCH ×2 (09:51→21:47)
[2018-07-25] MEDS: ASCORBIC ACID 500 MG TABLET PO SCH (09:51)
[2018-07-25] MEDS: GUAIFENESIN SYRP 200 MG/10 ML UDC PO PRN (15:15)
--- NOTE | 2018-07-25 16:41 | PDOC PROGRESS REPORT ---
Subjective Progress Note for:: 07/25/18 Subjective:: MS. REED is a 63 year old female with a past medical history of oxygen dependent COPD and chronic bronchitis. She presents with 10 days of shortness of breath and nonproductive cough started on prednisone by primary care finishing regiment 24 hours ago but had recurrence of worsening of symptoms. She presented to the emergency room with hypoxia. She was admitted for COPD exacerbation. No acute event overnight. Patient says her breathing improved overnight but she says she is definitely not at her baseline yet. She is on 2 L of home oxygen. She says at home and on her baseline, she gets short of breath from walking from her bedroom to her car. Reason For Visit: COPD EXACERBATION Physical Exam Vital Signs: Temp Pulse Resp BP Pulse Ox 97.9 F 104 H 18 123/64 98 07/25/18 12:08 07/25/18 15:20 07/25/18 15:20 07/25/18 12:08 07/25/18 15:20 Pulse Oximeter Continuous Start: 07/24/18 04: 55 Freq: RTQ4 Status: Complete Document 07/24/18 12:55 HCR (Rec: 07/24/18 13:39 HCR [id number]) Pulse Oximetry Assessment Oxygen Saturation (92-100) 95 Oxygen Delivery Method Bi-pap Fraction of Inspired Oxygen (FIO2) 62 Equipment Usage Equipment Standby Continuous SpO2 Machine # X Intake & Output 07/24/18 07/25/18 07/26/18 06:59 06:59 06:59 Intake Total 748 Balance 748 Weight 230 lb General appearance: PRESENT: no acute distress, well-developed, well-nourished Head exam: PRESENT: atraumatic, normocephalic Eye exam: PRESENT: conjunctiva pink, EOMI, PERRLA. ABSENT: scleral icterus Ear exam: PRESENT: normal external ear exam Mouth exam: PRESENT: moist, tongue midline Neck exam: ABSENT: carotid bruit, JVD, lymphadenopathy, thyromegaly Respiratory exam: PRESENT: clear to auscultation nayely, wheezes - Occasional bilateral wheezing. ABSENT: rales, rhonchi Cardiovascular exam: PRESENT: RRR. ABSENT: diastolic murmur, rubs, systolic murmur Pulses: PRESENT: normal dorsalis pedis pul Vascular exam: PRESENT: normal capillary refill GI/Abdominal exam: PRESENT: normal bowel sounds, soft. ABSENT: distended, guarding, mass, organolmegaly, rebound, tenderness Rectal exam: PRESENT: deferred Neurological exam: PRESENT: alert, awake, oriented to person, oriented to place , oriented to time, oriented to situation, CN II-XII grossly intact. ABSENT: motor sensory deficit Results Laboratory Results: 07/25/18 04:40 07/25/18 04:40 07/25/18 07/25/18 04:40 04:40 WBC 17.0 H RBC 4.21 Hgb 12.8 Hct 38.0 MCV 90 MCH 30.4 MCHC 33.6 RDW 13.4 Plt Count 216 Seg Neutrophils % 87.2 H Lymphocytes % 6.5 L Monocytes % 6.2 Eosinophils % 0.0 Basophils % 0.1 Absolute Neutrophils 14.8 H Absolute Lymphocytes 1.1 Absolute Monocytes 1.0 Absolute Eosinophils 0.0 Absolute Basophils 0.0 Sodium 139.6 Potassium 4.4 Chloride 101 Carbon Dioxide 28 Anion Gap 11 BUN 16 Creatinine 0.67 Est GFR ( Amer) > 60 Est GFR (Non-Af Amer) > 60 Glucose 125 H Calcium 9.6 Impressions: Chest X-Ray 07/24/18 02:56 IMPRESSION: No acute cardiopulmonary findings. Assessment & Plan - Diagnosis (1) COPD exacerbation Is this a current diagnosis for this admission?: Yes Plan: Continue steroids. Continue breathing treatments with DuoNeb. Discontinue levofloxacin and switch to PO azithromycin. - Time Time Spent with patient: 15-24 minutes
[2018-07-26] MEDS: IPRATROPIUM/ALBUTEROL 0.5-2.5 MG/3 ML AMPUL NEB SCH ×3 (00:27→16:12)
[2018-07-26] MEDS: HEPARIN SOD (PORCINE) 5,000 UNIT/ML 1 ML SYRINGE SUBCUT SCH ×2 (05:54→13:30)
[2018-07-26] MEDS: ACETAMINOPHEN 325 MG TABLET PO PRN ×2 (05:57→20:46)
[2018-07-26] MEDS: FLUTICASONE NASAL SPRAY 50 MCG/SPRY 120 SPRAY/16 GM NASL SCH (09:11)
[2018-07-26] MEDS: ASCORBIC ACID 500 MG TABLET PO SCH (09:11)
[2018-07-26] MEDS: PREDNISONE 20 MG TABLET PO SCH ×2 (09:11→17:29)
[2018-07-26] MEDS: AZITHROMYCIN 250 MG TABLET PO SCH (09:12)
[2018-07-26] MEDS: GUAIFENESIN SYRP 200 MG/10 ML UDC PO PRN ×2 (14:02→20:47)
[2018-07-27] MEDS: HEPARIN SOD (PORCINE) 5,000 UNIT/ML 1 ML SYRINGE SUBCUT SCH ×2 (00:02→05:35)
[2018-07-27] MEDS: IPRATROPIUM/ALBUTEROL 0.5-2.5 MG/3 ML AMPUL NEB SCH ×2 (00:33→09:02)
[2018-07-27] MEDS: AZITHROMYCIN 250 MG TABLET PO SCH (09:06)
[2018-07-27] MEDS: ASCORBIC ACID 500 MG TABLET PO SCH (09:06)
[2018-07-27] MEDS: PREDNISONE 20 MG TABLET PO SCH (09:06)
[2018-07-27] MEDS: FLUTICASONE NASAL SPRAY 50 MCG/SPRY 120 SPRAY/16 GM NASL SCH ×2 (09:06)
--- NOTE | 2018-07-27 10:40 | PDOC PROGRESS REPORT ---
Subjective Progress Note for:: 07/26/18 Subjective:: MS. REED is a 63 year old female with a past medical history of oxygen dependent COPD and chronic bronchitis. She presents with 10 days of shortness of breath and nonproductive cough started on prednisone by primary care finishing regiment 24 hours ago but had recurrence of worsening of symptoms. She presented to the emergency room with hypoxia. She was admitted for COPD exacerbation. No acute event overnight. Patient is saturating well on room air however when she ambulated patient had significant shortness of breath and had wheezing. She is on 2 L of home oxygen. She says at home and on her baseline, she gets short of breath from walking from her bedroom to her car. Reason For Visit: COPD EXACERBATION Physical Exam Vital Signs: Temp Pulse Resp BP Pulse Ox 98.3 F 85 16 123/74 99 07/26/18 15:40 07/26/18 16:14 07/26/18 16:14 07/26/18 15:40 07/26/18 16:14 Pulse Oximeter Continuous Start: 07/24/18 04: 55 Freq: RTQ4 Status: Complete Document 07/24/18 12:55 HCR (Rec: 07/24/18 13:39 HCR [id number]) Pulse Oximetry Assessment Oxygen Saturation (92-100) 95 Oxygen Delivery Method Bi-pap Fraction of Inspired Oxygen (FIO2) 62 Equipment Usage Equipment Standby Continuous SpO2 Machine # X Intake & Output 07/25/18 07/26/18 07/27/18 06:59 06:59 06:59 Intake Total 1498 920 Balance 1498 920 Weight 230 lb 237 lb 10.533 oz General appearance: PRESENT: no acute distress, well-developed, well-nourished Head exam: PRESENT: atraumatic, normocephalic Eye exam: PRESENT: conjunctiva pink, EOMI, PERRLA. ABSENT: scleral icterus Ear exam: PRESENT: normal external ear exam Mouth exam: PRESENT: moist, tongue midline Neck exam: ABSENT: carotid bruit, JVD, lymphadenopathy, thyromegaly Respiratory exam: PRESENT: clear to auscultation nayely, wheezes - occasioanl wheezes. ABSENT: rales, rhonchi Cardiovascular exam: PRESENT: RRR. ABSENT: diastolic murmur, rubs, systolic murmur Pulses: PRESENT: normal dorsalis pedis pul Rectal exam: PRESENT: deferred Neurological exam: PRESENT: alert, awake, oriented to person, oriented to place , oriented to time, oriented to situation, CN II-XII grossly intact. ABSENT: motor sensory deficit Results Laboratory Results: 07/25/18 04:40 07/25/18 04:40 Impressions: Chest X-Ray 07/24/18 02:56 IMPRESSION: No acute cardiopulmonary findings. Assessment & Plan - Diagnosis (1) COPD exacerbation Is this a current diagnosis for this admission?: Yes Plan: Continue steroids. Continue breathing treatments with DuoNeb. On PO azithromycin. - Time Time Spent with patient: 15-24 minutes
[2018-07-27 11:16] VITALS: BP 129/84
--- NOTE | 2018-07-27 17:46 | PDOC DISCHARGE SUMMARY ---
General - Admit/Disc Date/PCP Admission Date/Primary Care Provider: 07/24/18 11:24 REVA ARGUETA MD Discharge Date: 07/27/18 - Discharge Diagnosis (1) COPD exacerbation Is this a current diagnosis for this admission?: Yes - Additional Information Resuscitation Status: Full Code Discharge Diet: Regular Discharge Activity: Activity As Tolerated Prescriptions: Benzonatate [Tessalon Perles 100 mg Capsule] 100 mg PO BID PRN #20 capsule PRN Reason: for cough Prednisone [Deltasone 20 mg Tablet] 20 mg PO BID 5 Days #10 tablet Home Medications: Budesonide/Formoterol Fumarate [Symbicort HFA 160-4.5 mcg Inhaler 6 gm] 1 puff IH Q12 01/05/18 Cetirizine HCl [Zyrtec 10 mg Tablet] 10 mg PO DAILY 01/05/18 Fluticasone Propionate [Flonase Nasal [place] 50 Mcg/[place] 16 gm] 1 sprays NASL DAILY 01/05/18 Ipratropium/Albuterol Sulfate [Duoneb 3 ml Ampul] 3 ml NEB RTQ6HP PRN 01/05/18 Losartan/Hydrochlorothiazide [Losartan-Hctz 100-25 mg Tab] 1 tab PO DAILY Montelukast Sodium [Singulair 10 mg Tablet] 10 mg PO QHS 01/05/18 Multivitamin [Tab-A-Nupur (Multiple Vitamin) Tablet] 1 tab PO DAILY 01/05/18 Tiotropium [place] [Spiriva Respimat] 2 puff IH DAILY 01/05/18 Azelastine HCl 1 spray NS DAILY 07/24/18 Cholecalciferol (Vitamin D3) [Vitamin D3 5000 unit Capsule] 5,000 unit PO DAILY 07/24/18 Esomeprazole Magnesium [Nexium] 20 mg PO DAILY 07/24/18 Magnesium Oxide [Magnesium] 400 mg PO DAILY 07/24/18 Benzonatate [Tessalon Perles 100 mg Capsule] 100 mg PO BID PRN #20 capsule 07/27 Prednisone [Deltasone 20 mg Tablet] 20 mg PO BID 5 Days #10 tablet 07/27/18 History of Present Illness History of Present Illness: Admitting hospitalist's H&P: ELIJAH REED is a 63 year old female with a past medical history of oxygen dependent COPD and chronic bronchitis. She presents with 10 days of shortness of breath and nonproductive cough started on prednisone by primary care finishing regimen 24 hours ago with a rapid worsening of symptoms she presents to the emergency room with hypoxia. She received supplemental oxygen, BiPAP, steroids and referred to the hospitalist for admission. She denies rhinorrhea, sore throat, acid reflux. Patient did have recent sick contact with her mother did have UTI symptoms recently. Hospital Course Hospital Course: MS. REED is a 63 year old female with a past medical history of oxygen dependent COPD and chronic bronchitis who presented with increasing shortness of breath and cough. She presented to the emergency room with hypoxia. She was admitted for COPD exacerbation. Started on IV steroids, azithromycin and scheduled breathing treatments. Patient did have slow but gradual improvement of her breathing status. Upon day of discharge, patient did say that she was back to her baseline. She ambulated well and felt that she was at her baseline. Patient will be discharged on 5 more days of oral steroids. She will continue her home inhaler regimen. Physical Exam Vital Signs: Temp Pulse Resp BP Pulse Ox 98.0 F 102 H 16 129/84 H 98 07/27/18 11:15 07/27/18 11:15 07/27/18 11:15 07/27/18 11:15 07/27/18 11:15 Pulse Oximeter Continuous Start: 07/24/18 04: 55 Freq: RTQ4 Status: Complete Document 07/24/18 12:55 HCR (Rec: 07/24/18 13:39 HCR [id number]) Pulse Oximetry Assessment Oxygen Saturation (92-100) 95 Oxygen Delivery Method Bi-pap Fraction of Inspired Oxygen (FIO2) 62 Equipment Usage Equipment Standby Continuous SpO2 Machine # X Intake & Output 07/26/18 07/27/18 07/28/18 06:59 06:59 06:59 Intake Total 1498 1844 Balance 1498 1844 Weight 237 lb 10.533 oz 184 lb 1.376 oz Results Laboratory Results: 07/25/18 04:40 07/25/18 04:40 Impressions: Chest X-Ray 07/24/18 02:56 IMPRESSION: No acute cardiopulmonary findings. Qualifiers - * PATIENT BEING DISCHARGED WITH ANY OF THE FOLLOWING DIAGNOSIS: No
== END 2018-07-27 11:30 | disposition home or self-care (01) | DRG 192 ==
LOC: ER 02:50 → EH 05:10 → OBSVTOIN 11:24 → 4W 14:11 → 4S 07-25 19:21
PROVIDERS: ADMIT Internal Medicine; ATTEND Internal Medicine
PROC: 5A09457 Assistance with Respiratory Ventilation, 24-96 Consecutive Hours, Continuous Positive Airway Pressure (ICD-10-PCS; principal; 2018-07-24)
DX: J44.1 Chronic obstructive pulmonary disease with (acute) exacerbation (principal); Z99.81 Dependence on supplemental oxygen; Z79.51 Long term (current) use of inhaled steroids; Z90.710 Acquired absence of both cervix and uterus; Z96.641 Presence of right artificial hip joint; Z87.891 Personal history of nicotine dependence; Z83.6 Family history of other diseases of the respiratory system; Z79.899 Other long term (current) drug therapy
CPT/HCPCS: 36415; 71045; 80048; 80053; 82803; 83735; 85025; 93005; 93010; 94640; 94660; 94667; 94668; 96365; 99285; G0378; J1644; J1956; J3475; J3490; J7512; J7620

== ENCOUNTER 2019-02-11 09:55 | Emergency (ER) | payer MEDICARE, OTHER ==
[2019-02-11] MEDS ORDERED: ASPIRIN 81 MG TABLET, CHEWABLE PO ONE (10:22)
[2019-02-11] MEDS ORDERED: MAGNESIUM SULFATE/D5W 1 GM/100 ML RTUPB IV ONE (10:23)
[2019-02-11] MEDS ORDERED: METHYLPREDNISOLONE INJ 125 MG/2 ML SDV IV ONE (10:23)
[2019-02-11] MEDS ORDERED: IPRATROPIUM/ALBUTEROL 0.5-2.5 MG/3 ML AMPUL NEB ONE (10:23)
[2019-02-11 10:43] LABS: ABSOLUTE LYMPHOCYTES (AUTO) 1.1 10^3/uL (0.5-4.7); ABSOLUTE MONOCYTES (AUTO) 0.6 10^3/uL (0.1-1.4); BASOPHILS % (AUTO) 0.6 % (0-2); EOSINOPHILS % (AUTO) 0.7 % (0-6); HEMATOCRIT 40.8 % (36.0-47.0); HEMOGLOBIN 13.5 g/dL (12.0-15.5); LYMPHOCYTES % (AUTO) 19.1 % (13-45); MEAN CORPUSCULAR HEMOGLOBIN 29.8 pg (27.0-33.4); MEAN CORPUSCULAR HGB CONC 33.1 g/dL (32.0-36.0); MEAN CORPUSCULAR VOLUME 90 fl (80-97); PLATELET COUNT 247 10^3/uL (150-450); RED BLOOD COUNT 4.54 10^6/uL (3.72-5.28); SEGMENTED NEUTROPHILS % (AUTO) 69.6 % (42-78); TOTAL CELLS COUNTED % (AUTO) 100 %; WHITE BLOOD COUNT 5.7 10^3/uL (4.0-10.5)
--- NOTE | 2019-02-11 11:02 | RADIOLOGY REPORT (SQ) ---
EXAM DESCRIPTION: CHEST SINGLE VIEW COMPLETED DATE/TIME: 02/11/2019 10:43 am REASON FOR STUDY: sob COMPARISON: 07/24/2018 EXAM PARAMETERS: NUMBER OF VIEWS: One view. TECHNIQUE: Single frontal radiographic view of the chest acquired. RADIATION DOSE: NA LIMITATIONS: None. FINDINGS: LUNGS AND PLEURA: No opacities, masses or pneumothorax. No pleural effusion. MEDIASTINUM AND HILAR STRUCTURES: No masses. Contour normal. HEART AND VASCULAR STRUCTURES: Heart normal in size. Normal vasculature. BONES: No acute findings. HARDWARE: None in the chest. OTHER: No other significant finding. IMPRESSION: NO ACUTE RADIOGRAPHIC FINDING IN THE CHEST. TECHNICAL DOCUMENTATION: JOB ID: [id number] [employer]- All Rights Reserved Reading location - IP/workstation name: [email or web address]
[2019-02-11 11:05] LABS: ALANINE AMINOTRANSFERASE 28 U/L (9-52); ALBUMIN 4.4 g/dL (3.5-5.0); ALKALINE PHOSPHATASE 76 U/L (38-126); ANION GAP 8 (5-19); ASPARTATE AMINO TRANSFERASE 29 U/L (14-36); BILIRUBIN,DIRECT 0.3 mg/dL (0.0-0.4); BILIRUBIN,TOTAL 0.4 mg/dL (0.2-1.3); BLOOD UREA NITROGEN 14 mg/dL (7-20); CALCIUM 9.9 mg/dL (8.4-10.2); CARBON DIOXIDE 33 mmol/L (22-30); CHLORIDE 99 mmol/L (98-107); CREATINE KINASE 361 U/L (30-135); GLUCOSE 103 mg/dL (75-110); TOTAL PROTEIN 7.5 g/dL (6.3-8.2)
[2019-02-11 11:17] LABS: TROPONIN I < 0.012 ng/mL
[2019-02-11 11:52] LABS: VENOUS BLOOD BASE EXCESS 4.5 mmol/L; VENOUS BLOOD HCO3 31.5 mmol/L (20-32); VENOUS BLOOD PCO2 55.1 mmHg (35-63); VENOUS BLOOD PH 7.38 (7.30-7.42)
[2019-02-11] MEDS ORDERED: PREDNISONE 20 MG TABLET PO ONE (12:38)
[2019-02-11] MEDS ORDERED: AZITHROMYCIN 250 MG TABLET PO ONE (12:39)
[2019-02-11 13:07] VITALS: BP 118/74
--- NOTE | 2019-02-11 13:07 | ER Document Report ---
ED General - General Chief Complaint: Shortness Of Breath Stated Complaint: DIFFICULTY BREATHING Time Seen by Provider: 02/11/19 10:22 Primary Care Provider: REVA ARGUETA MD [Primary Care Provider] - Follow up as needed TRAVEL OUTSIDE OF THE [place] IN LAST 30 DAYS: No - HPI Patient complains to provider of: Shortness of breath Notes: Patient has shortness of breath ongoing for the last few days. Patient doesuse home oxygen at home. States saw an urgent care was given to breathing treatments at home patient states no recent steroids no recent antibiotics. Patient states scant yellow sputum production. Patient denies any chest pain denies any fever chills nausea vomiting diarrhea. Patient otherwise resting comfortably upon my evaluation. - Related Data Allergies/Adverse Reactions: No Known Allergies Allergy (Verified 02/11/19 09:59) Past Medical History - Social History Smoking Status: Unknown if Ever Smoked Family History: COPD Patient has suicidal ideation: No Patient has homicidal ideation: No - Past Medical History Cardiac Medical History: Reports: Hx Hypertension Pulmonary Medical History: Reports: Hx Asthma, Hx COPD Renal/ Medical History: Denies: Hx Peritoneal Dialysis GI Medical History: Reports: Hx Gastroesophageal Reflux Disease Past Surgical History: Reports: Hx Hysterectomy, Hx Orthopedic Surgery - R hip replacement, Hx Thyroid Surgery - Immunizations Hx Diphtheria, Pertussis, Tetanus Vaccination: Yes - 2008 Hx Pneumococcal Vaccination: 08/20/09 Review of Systems - Review of Systems Constitutional: No symptoms reported EENT: No symptoms reported Cardiovascular: No symptoms reported Respiratory: Short of breath Gastrointestinal: No symptoms reported Genitourinary: No symptoms reported Female Genitourinary: No symptoms reported Musculoskeletal: No symptoms reported Skin: No symptoms reported Hematologic/Lymphatic: No symptoms reported Neurological/Psychological: No symptoms reported Physical Exam - Vital signs Vitals: Temp Pulse Resp BP Pulse Ox 98.2 F 113 H 26 H 124/80 88 L 02/11/19 09:59 02/11/19 09:59 02/11/19 09:59 02/11/19 09:59 02/11/19 09:59 Interpretation: Normal - General General appearance: Appears well, Alert - HEENT Head: Normocephalic, Atraumatic Eyes: Normal Pupils: PERRL - Respiratory Respiratory status: No respiratory distress Chest status: Nontender Breath sounds: Wheezing Chest palpation: Normal - Cardiovascular Rhythm: Regular Heart sounds: Normal auscultation Murmur: No - Abdominal Inspection: Normal Distension: No distension Bowel sounds: Normal Tenderness: Nontender Organomegaly: No organomegaly - Back Back: Normal, Nontender - Extremities General upper extremity: Normal inspection, Nontender, Normal color, Normal ROM, Normal temperature General lower extremity: Normal inspection, Nontender, Normal color, Normal ROM, Normal temperature, Normal weight bearing. No: Andrey's sign - Neurological Neuro grossly intact: Yes Cognition: Normal Orientation: AAOx4 Leggett Coma Scale Eye Opening: Spontaneous Leggett Coma Scale Verbal: Oriented Tony Coma Scale Motor: Obeys Commands Tony Coma Scale Total: 15 Speech: Normal Motor strength normal: LUE, RUE, LLE, RLE Sensory: Normal - Psychological Associated symptoms: Normal affect, Normal mood - Skin Skin Temperature: Warm Skin Moisture: Dry Skin Color: Normal Course - Re-evaluation Re-evalutation: 02/11/19 14:28 pt able to able to ambulate states feeling better. We will start patient on steroids azithromycin for the scant sputum production. Patient is continue her treatments at home. - Vital Signs Vital signs: Temp Pulse Resp BP Pulse Ox 97.9 F 113 H 19 118/74 95 02/11/19 13:01 02/11/19 09:59 02/11/19 13:01 02/11/19 13:01 02/11/19 13:01 - Laboratory Result Diagrams: 02/11/19 10:26 02/11/19 10:26 Laboratory results interpreted by me: 02/11/19 10:26 Carbon Dioxide 33 H Creatine Kinase 361 H Discharge - Discharge Clinical Impression: COPD exacerbation Condition: Good Disposition: HOME, SELF-CARE Instructions: Chronic Obstructive Lung Disease ([facility]) Additional Instructions: Your chest x-ray laboratory studies not show any critical pathology at this time. You have improved vital signs and states that your breathing has improved. We will start you on steroids and antibiotic called azithromycin. Please make sure you continue nebulizer treatments at least every 4 hours for the next 3 days and then performing nebulizer treatments as needed. Follow-up with your primary care physician in 48 hours. Prescriptions: Azithromycin [Zithromax] 250 mg PO DAILY #4 tablet Metaxalone [Skelaxin 800 mg Tablet] 800 mg PO ASDIR PRN #20 tablet PRN Reason: Prednisone [Deltasone] 60 mg PO DAILY #24 tablet Forms: Return to Work Referrals: REVA ARGUETA MD [Primary Care Provider] - Follow up as needed
--- NOTE | 2019-02-11 20:23 | EKG REPORT ---
SEVERITY:- ABNORMAL ECG - SINUS RHYTHM RIGHT ATRIAL ABNORMALITY LEFT ANTERIOR FASCICULAR BLOCK : Confirmed by: Dao Escobedo 11-Feb-2019 20:23:02
== END 2019-02-11 13:41 | disposition home or self-care (01) ==
LOC: ER 09:55
DX: J44.1 Chronic obstructive pulmonary disease with (acute) exacerbation (principal); Z99.81 Dependence on supplemental oxygen; R06.02 Shortness of breath; I10 Essential (primary) hypertension
CPT/HCPCS: 93005; 94640; 99285; 96374; 96375; 36415; 82553; 82550; 85025; 80053; 84484; 82803; 71045; 93010; A9270 ×4; J2930; J3475; J7512; J7620

== ENCOUNTER 2019-04-06 08:16 | Inpatient (IN) | payer MEDICARE, OTHER ==
[2019-04-06] MEDS ORDERED: ALBUTEROL SULFATE 0.083% NEB 2.5 MG/3 ML AMPUL NEB ONE (08:28)
[2019-04-06] MEDS ORDERED: MAGNESIUM SULFATE/D5W 1 GM/100 ML RTUPB IV ONE ×2 (08:28→08:33)
--- NOTE | 2019-04-06 08:39 | ER Document Report ---
ED General - General Stated Complaint: DIFFICULTY BREATHING Time Seen by Provider: 04/06/19 08:21 Primary Care Provider: REVA ARGUETA MD [Primary Care Provider] - Follow up as needed TRAVEL OUTSIDE OF THE [place] IN LAST 30 DAYS: No - HPI Notes: Patient is a 64-year-old female with a history of asthma and COPD that is oxygen dependent at home who presents complaining of shortness of breath, wheezing, dry semi-productive cough that began 2 weeks ago, but has continued to worsen. Patient is a former smoker. She has been on a ventilator in the past. Patient has been admitted several times for COPD exacerbation as well. Patient arrived by EMS and was given 1 DuoNeb treatment, 1 albuterol nebulizer treatment, and Solu-Medrol 125 mg. Patient states that she feels like she needs to be on BiPAP . She has no other concerns or complaints. She is urinating normally and having normal bowel movements. Denies any headache, fever, neck pain, URI, sore throat, chest pain, palpitations, syncope, abdominal pain, nausea/vomiting/diarrhea, urinary retention, dysuria, hematuria, or rash. - Related Data Allergies/Adverse Reactions: No Known Allergies Allergy (Verified 02/11/19 09:59) Past Medical History - Social History Smoking Status: Former Smoker Family History: COPD - Past Medical History Cardiac Medical History: Reports: Hx Hypertension Pulmonary Medical History: Reports: Hx Asthma, Hx COPD Renal/ Medical History: Denies: Hx Peritoneal Dialysis GI Medical History: Reports: Hx Gastroesophageal Reflux Disease Past Surgical History: Reports: Hx Hysterectomy, Hx Orthopedic Surgery - R hip replacement, Hx Thyroid Surgery - Immunizations Hx Diphtheria, Pertussis, Tetanus Vaccination: Yes - 2008 Hx Pneumococcal Vaccination: 08/20/09 Review of Systems - Review of Systems -: Yes All other systems reviewed and negative Physical Exam - Vital signs Vitals: Pulse Ox 100 04/06/19 08:27 - Notes Notes: PHYSICAL EXAMINATION: GENERAL: moderate resp distress noted with diaphoresis on her forehead. HEAD: Atraumatic, normocephalic. EYES: Pupils equal round and reactive to light, extraocular movements intact, sclera anicteric, conjunctiva are normal. ENT: Nares patent and without discharge. oropharynx clear without exudates. No tonsilar hypertrophy or erythema. Moist mucous membranes. NECK: Normal range of motion, supple without lymphadenopathy LUNGS: diminished throughout, wheezing throughout, some pursed lip breathing noted. no retractions HEART: Regular rate and rhythm without murmurs, rubs, gallops. ABDOMEN: Soft, nontender, nondistended abdomen. No guarding, no rebound. Normal bowel sounds present. No CVA tenderness bilaterally. Extremities: Peripheral pulses 2+. Capillary refill less than 3 seconds. NEUROLOGICAL: Normal speech. Cranial nerves grossly intact. PSYCH: Normal mood, normal affect. SKIN: see above Course - Re-evaluation Re-evalutation: 04/06/19 08:34 Patient arrived by EMS after receiving 1 DuoNeb treatment, 1 albuterol treatment, Solu-Medrol 125 mg. Patient continues to be on oxygen via nonrebreather at 7 L. Patient is in moderate respiratory distress at this time with diminished breath sounds throughout as well as wheezing. We will continue management of COPD exacerbation (add magnesium IV and give more breathing treatments) and place the patient on BiPAP. Patient has been placed on cardiac monitoring. Labs and imaging ordered. 04/06/19 10:08 Call placed for admission for hypercarbia, respiratory acidosis, COPD exacer bation and on Bipap. Hospitalist wants an ABG ordered. She is feeling much better on Bipap. Vitals currently acceptable with HR 70, RR 22, O2 95%, 122/86. 04/06/19 10:10 CMP resulted so I called Dr. Fajardo back who will come evaluate the patient and accept for admission. - Vital Signs Vital signs: Temp Pulse Resp BP Pulse Ox 97.6 F 23 H 127/96 H 100 04/06/19 08:34 04/06/19 09:00 04/06/19 09:01 04/06/19 09:00 - Laboratory Result Diagrams: 04/06/19 09:32 04/06/19 09:32 Laboratory results interpreted by me: 04/06/19 04/06/19 04/06/19 09:32 09:32 09:32 Seg Neutrophils % 80.8 H Lymphocytes % 12.9 L VBG pH 7.26 L VBG pCO2 70.1 H* Glucose 157 H Magnesium 3.2 H Direct Bilirubin 0.5 H Critical Care Note - Critical Care Note Total time excluding time spent on procedures (mins): 36 Comments: spent with consults and pt care Discharge - Discharge Clinical Impression: Hypercarbia, Respiratory acidosis, COPD exacerbation Condition: Stable Disposition: ADMITTED INPATIENT Admitting Provider: Scotty (Hospitalist) Unit Admitted: IMCU Referrals: REVA ARGUETA MD [Primary Care Provider] - Follow up as needed
[2019-04-06 09:42] LABS: VENOUS BLOOD BASE EXCESS 1.6 mmol/L; VENOUS BLOOD HCO3 30.8 mmol/L (20-32); VENOUS BLOOD PH 7.26 (7.30-7.42)
--- NOTE | 2019-04-06 09:42 | RADIOLOGY REPORT (SQ) ---
EXAM DESCRIPTION: CHEST SINGLE VIEW COMPLETED DATE/TIME: 04/06/2019 9:21 am REASON FOR STUDY: wheeze, sob COMPARISON: 02/11/2019 EXAM PARAMETERS: NUMBER OF VIEWS: One view. TECHNIQUE: Single frontal radiographic view of the chest acquired. RADIATION DOSE: NA LIMITATIONS: None. FINDINGS: LUNGS AND PLEURA: No opacities, masses or pneumothorax. No pleural effusion. MEDIASTINUM AND HILAR STRUCTURES: No masses. Contour normal. HEART AND VASCULAR STRUCTURES: Heart normal in size. Normal vasculature. BONES: No acute findings. HARDWARE: None in the chest. OTHER: No other significant finding. IMPRESSION: NO ACUTE RADIOGRAPHIC FINDING IN THE CHEST. TECHNICAL DOCUMENTATION: JOB ID: [id number] [email or web address] All Rights Reserved Reading location - IP/workstation name: [email or web address]
[2019-04-06 09:45] LABS: VENOUS BLOOD PCO2 70.1 mmHg (35-63)
[2019-04-06 09:50] LABS: ABSOLUTE EOSINOPHILS # (AUTO) 0.2 10^3/uL (0.0-0.6); ABSOLUTE LYMPHOCYTES (AUTO) 1.2 10^3/uL (0.5-4.7); ABSOLUTE MONOCYTES (AUTO) 0.4 10^3/uL (0.1-1.4); ABSOLUTE NEUT (AUTO) 7.5 10^3/uL (1.7-8.2); BASOPHILS % (AUTO) 0.4 % (0-2); EOSINOPHILS % (AUTO) 1.8 % (0-6); HEMATOCRIT 41.6 % (36.0-47.0); HEMOGLOBIN 13.8 g/dL (12.0-15.5); LYMPHOCYTES % (AUTO) 12.9 % (13-45); MEAN CORPUSCULAR HEMOGLOBIN 30.1 pg (27.0-33.4); MEAN CORPUSCULAR HGB CONC 33.2 g/dL (32.0-36.0); MEAN CORPUSCULAR VOLUME 91 fl (80-97); MONOCYTES % (AUTO) 4.1 % (3-13); PLATELET COUNT 218 10^3/uL (150-450); RED BLOOD COUNT 4.59 10^6/uL (3.72-5.28); RED CELL DISTRIBUTION WIDTH 13.8 % (11.5-14.0); SEGMENTED NEUTROPHILS % (AUTO) 80.8 % (42-78); TOTAL CELLS COUNTED % (AUTO) 100 %; WHITE BLOOD COUNT 9.3 10^3/uL (4.0-10.5)
[2019-04-06 10:07] LABS: ALBUMIN 4.2 g/dL (3.5-5.0); ALKALINE PHOSPHATASE 77 U/L (38-126); ANION GAP 11 (5-19); ASPARTATE AMINO TRANSFERASE 33 U/L (14-36); BILIRUBIN,DIRECT 0.5 mg/dL (0.0-0.4); BILIRUBIN,TOTAL 0.6 mg/dL (0.2-1.3); BLOOD UREA NITROGEN 12 mg/dL (7-20); CALCIUM 9.3 mg/dL (8.4-10.2); CARBON DIOXIDE 29 mmol/L (22-30); CHLORIDE 99 mmol/L (98-107); GLUCOSE 157 mg/dL (75-110); POTASSIUM 3.8 mmol/L (3.6-5.0); TOTAL PROTEIN 7.4 g/dL (6.3-8.2)
[2019-04-06 10:23] LABS: ARTERIAL BLOOD BASE EXCESS 4.6 mmol/L; ARTERIAL BLOOD H2CO3 1.63 mmol/L (1.05-1.35); ARTERIAL BLOOD HCO3 31.3 mmol/L (20-24); ARTERIAL BLOOD O2 SATURATION 90.5 % (94-98); ARTERIAL BLOOD PCO2 54.3 mmHg (35-45); ARTERIAL BLOOD PH 7.38 (7.35-7.45); ARTERIAL BLOOD TOTAL CO2 32.9 mmol/L (21-25)
[2019-04-06 10:26] LABS: ARTERIAL BLOOD FIO2 25%
[2019-04-06] MEDS ORDERED: PROMETHAZINE HCL 25 MG TABLET PO PRN (10:44)
--- NOTE | 2019-04-06 10:44 | PDOC H&P ---
History of Present Illness Admission Date/PCP: 04/06/19 10:29 REVA ARGUETA MD History of Present Illness: ELIJAH REED is a 64 year old black female patient with past medical history of COPD/asthma chronic respiratory failure O2 dependent 12/03, hypertension, former smoker presented with chief complaint of shortness of breath cough productive of whitish sputum and associated wheezing. Patient reports this despite using her home oxygen and breathing treatment continue to have shortness of breath which is worsening progressively. Patient denies any fever, chills, chest pain, palpitation, diaphoresis, nausea, vomiting, abdominal pain, urinary complaints in the form of urinary retention, dysuria hematuria or urgency. No headache dizziness or blurring of vision. Her blood works are unremarkable except her VBG shows PCO2 of 71. Her chest x-ray is also unremarkable. After patient started on BiPAP she reports this improvement in her breathing status. Past Medical History Cardiac Medical History: Reports: Hypertension Pulmonary Medical History: Reports: Asthma, Chronic Obstructive Pulmonary Disease (COPD) GI Medical History: Reports: Gastroesophageal Reflux Disease Past Surgical History Past Surgical History: Reports: Hysterectomy, Orthopedic Surgery - R hip replacement Social History Smoking Status: Former Smoker Frequency of Alcohol Use: Occasional Hx Recreational Drug Use: No Drugs: None Hx Prescription Drug Abuse: No - Advance Directive Resuscitation Status: Full Code Family History Family History: COPD Parental Family History Reviewed: Yes Children Family History Reviewed: Yes Sibling(s) Family History Reviewed.: Yes Medication/Allergy Home Medications: Budesonide/Formoterol Fumarate [Symbicort HFA 160-4.5 mcg Inhaler 6 gm] 1 puff IH Q12 01/05/18 Cetirizine HCl [Zyrtec 10 mg Tablet] 10 mg PO DAILY 01/05/18 Fluticasone Propionate [Flonase Nasal [place] 50 Mcg/[place] 16 gm] 1 sprays NASL DAILY 01/05/18 Ipratropium/Albuterol Sulfate [Duoneb 3 ml Ampul] 3 ml NEB [id number] PRN 01/05/18 Losartan/Hydrochlorothiazide [Losartan-Hctz 100-25 mg Tab] 1 tab PO DAILY 01/05/18 Montelukast Sodium [Singulair 10 mg Tablet] 10 mg PO QHS 01/05/18 Multivitamin [Tab-A-Nupur (Multiple Vitamin) Tablet] 1 tab PO DAILY 01/05/18 Tiotropium [place] [Spiriva Respimat] 2 puff IH DAILY 01/05/18 Azelastine HCl 1 spray NS DAILY 07/24/18 Cholecalciferol (Vitamin D3) [Vitamin D3 5000 unit Capsule] 5,000 unit PO DAILY 07/24/18 Esomeprazole Magnesium [Nexium] 20 mg PO DAILY 07/24/18 Magnesium Oxide [Magnesium] 400 mg PO DAILY 07/24/18 Benzonatate [Tessalon Perles 100 mg Capsule] 100 mg PO BID PRN #20 capsule 07/27/18 Prednisone [Deltasone 20 mg Tablet] 20 mg PO BID 5 Days #10 tablet 07/27/18 Azithromycin [Zithromax] 250 mg PO DAILY #4 tablet 02/11/19 Metaxalone [Skelaxin 800 mg Tablet] 800 mg PO ASDIR PRN #20 tablet 02/11/19 Prednisone [Deltasone] 60 mg PO DAILY #24 tablet 02/11/19 Allergies/Adverse Reactions: No Known Allergies Allergy (Verified 02/11/19 09:59) Review of Systems Respiratory: PRESENT: cough, dyspnea, other - Wheezing Physical Exam Vital Signs: Temp Pulse Resp BP Pulse Ox 97.6 F 21 H 122/86 H 96 04/06/19 08:34 04/06/19 10:00 04/06/19 10:00 04/06/19 10:00 Intake & Output 04/05/19 04/06/19 04/07/19 06:59 06:59 06:59 Intake Total 200 Balance 200 Weight 99.8 kg General appearance: PRESENT: mild distress Eye exam: PRESENT: conjunctiva pale Neck exam: ABSENT: carotid bruit, JVD, lymphadenopathy, thyromegaly Respiratory exam: PRESENT: decreased breath sounds, wheezes GI/Abdominal exam: PRESENT: normal bowel sounds, soft. ABSENT: distended, guarding, mass, organolmegaly, rebound, tenderness Neurological exam: PRESENT: alert, awake, oriented to person, oriented to place, oriented to time Results Laboratory Results: 04/06/19 09:32 04/06/19 09:32 04/06/19 04/06/19 04/06/19 09:32 09:32 09:32 WBC 9.3 RBC 4.59 Hgb 13.8 Hct 41.6 MCV 91 MCH 30.1 MCHC 33.2 RDW 13.8 Plt Count 218 Seg Neutrophils % 80.8 H Lymphocytes % 12.9 L Monocytes % 4.1 Eosinophils % 1.8 Basophils % 0.4 Absolute Neutrophils 7.5 Absolute Lymphocytes 1.2 Absolute Monocytes 0.4 Absolute Eosinophils 0.2 Absolute Basophils 0.0 Carbonic Acid HCO3/H2CO3 Ratio ABG pH ABG pCO2 ABG pO2 ABG HCO3 ABG O2 Saturation ABG Base Excess VBG pH 7.26 L VBG pCO2 70.1 H* VBG HCO3 30.8 VBG Base Excess 1.6 FiO2 Sodium 138.5 Potassium 3.8 Chloride 99 Carbon Dioxide 29 Anion Gap 11 BUN 12 Creatinine 0.63 Est GFR ( Amer) > 60 Est GFR (Non-Af Amer) > 60 Glucose 157 H Calcium 9.3 Magnesium 3.2 H Total Bilirubin 0.6 AST 33 Alkaline Phosphatase 77 Total Protein 7.4 Albumin 4.2 04/06/19 10:13 WBC RBC Hgb Hct MCV MCH MCHC RDW Plt Count Seg Neutrophils % Lymphocytes % Monocytes % Eosinophils % Basophils % Absolute Neutrophils Absolute Lymphocytes Absolute Monocytes Absolute Eosinophils Absolute Basophils Carbonic Acid 1.63 H HCO3/H2CO3 Ratio 19:1 ABG pH 7.38 ABG pCO2 54.3 H ABG pO2 61.0 L ABG HCO3 31.3 H ABG O2 Saturation 90.5 L ABG Base Excess 4.6 VBG pH VBG pCO2 VBG HCO3 VBG Base Excess FiO2 25% Sodium Potassium Chloride Carbon Dioxide Anion Gap BUN Creatinine Est GFR ( Amer) Est GFR (Non-Af Amer) Glucose Calcium Magnesium Total Bilirubin AST Alkaline Phosphatase Total Protein Albumin 04/06/19 09:32 Troponin I 0.051 Impressions: Chest X-Ray 04/06/19 08:23 IMPRESSION: NO ACUTE RADIOGRAPHIC FINDING IN THE CHEST. Assessment and Plan - Diagnosis (1) Acute and chronic respiratory failure with hypercapnia Is this a current diagnosis for this admission?: Yes Plan: We will continue intermittent BiPAP and supplemental oxygen. (2) COPD exacerbation Is this a current diagnosis for this admission?: Yes Plan: We will put her on bronchodilators, supplemental oxygen and Solu-Medrol. (3) Hypertension Qualifiers: Hypertension type: essential hypertension Qualified Code(s): I10 - [place] [facility] (primary) hypertension Is this a current diagnosis for this admission?: Yes Plan: Continue home medication - Inpatient Certification Medical Necessity: Need for IV Antibiotics Post Hospital Care: Other - Failed outpatient treatment
[2019-04-06] MEDS ORDERED: AZITHROMYCIN INJ 500 MG VIAL IV ONE (11:04)
[2019-04-06] MEDS: ENOXAPARIN SODIUM INJ 40 MG/0.4 ML DISP.SYRIN SUBCUT SCH (11:11)
[2019-04-06] MEDS: PANTOPRAZOLE SODIUM 40 MG TABLET.DR PO SCH (11:11)
[2019-04-06] MEDS: AZITHROMYCIN 500 MG in DEXTROSE 5%-WATER 250 ML IV SCH (11:14)
--- NOTE | 2019-04-06 11:29 | EKG REPORT ---
SEVERITY:- ABNORMAL ECG - SINUS RHYTHM RIGHT ATRIAL ABNORMALITY LAD, CONSIDER LEFT ANTERIOR FASCICULAR BLOCK : Confirmed by: Dao Escobedo 06-Apr-2019 11:28:29
[2019-04-06] MEDS: IPRATROPIUM/ALBUTEROL 0.5-2.5 MG/3 ML AMPUL NEB SCH ×4 (12:29→23:14)
[2019-04-06] MEDS: METHYLPREDNISOLONE INJ 125 MG/2 ML SDV IV SCH ×2 (13:51→21:03)
[2019-04-06] MEDS: ACETAMINOPHEN 325 MG TABLET PO PRN ×2 (13:51→22:27)
[2019-04-06] MEDS ORDERED: METHYLPREDNISOLONE INJ 40 MG/1 ML SDV IV SCH (14:00)
[2019-04-06] MEDS ORDERED: (PENDING PHARMACY ID) (Telmisartan/Hydrochlorothiazid [Micardis Hct 80-25 Mg Tablet] 1 EAC PO SCH (18:45)
[2019-04-06] MEDS ORDERED: DULOXETINE HCL 20 MG CAPSULE.DR PO ONE (19:45)
[2019-04-06] MEDS ORDERED: LOSARTAN POTASSIUM 50 MG TABLET PO ONE (20:00)
[2019-04-06] MEDS ORDERED: METHOCARBAMOL 750 MG TABLET PO ONE (20:00)
[2019-04-06] MEDS ORDERED: HYDROCHLOROTHIAZIDE 25 MG TABLET PO ONE (20:00)
[2019-04-06] MEDS: MONTELUKAST SODIUM 10 MG TABLET PO SCH (21:04)
[2019-04-06] MEDS ORDERED: AMOXICILLIN PO SCH (22:00)
[2019-04-06] MEDS ORDERED: POTASSIUM CLAV PO SCH (22:00)
[2019-04-06] MEDS ORDERED: (PENDING PHARMACY ID) (Budesonide/Formoterol Fumarate 1 PUFF) IH SCH (22:00)
[2019-04-07] MEDS: IPRATROPIUM/ALBUTEROL 0.5-2.5 MG/3 ML AMPUL NEB SCH ×5 (03:36→20:14)
[2019-04-07] MEDS: PANTOPRAZOLE SODIUM 40 MG TABLET.DR PO SCH (05:53)
[2019-04-07] MEDS: METHYLPREDNISOLONE INJ 125 MG/2 ML SDV IV SCH ×3 (05:53→21:07)
[2019-04-07] MEDS ORDERED: (PENDING PHARMACY ID) (Donepezil Hcl [Aricept] 10 MG) PO SCH (10:00)
[2019-04-07] MEDS ORDERED: (PENDING PHARMACY ID) (Tiotropium Bromide [Spiriva Respimat] 2 PUFF) IH SCH (10:00)
[2019-04-07] MEDS: FLUTICASONE/VILANTEROL 100-25 MCG/DOSE IH SCH (10:15)
[2019-04-07] MEDS: HYDROCHLOROTHIAZIDE 25 MG TABLET PO SCH (10:16)
[2019-04-07] MEDS: DONEPEZIL HCL 5 MG TABLET PO SCH (10:16)
[2019-04-07] MEDS: TIOTROPIUM BROMIDE DPI 5 CAP/KIT (18 MCG/CAP) IH SCH (10:16)
[2019-04-07] MEDS: DULOXETINE HCL 20 MG CAPSULE.DR PO SCH (10:16)
[2019-04-07] MEDS: CETIRIZINE 10 MG TABLET PO SCH (10:16)
[2019-04-07] MEDS: LOSARTAN POTASSIUM 50 MG TABLET PO SCH (10:17)
[2019-04-07] MEDS: METHOCARBAMOL 750 MG TABLET PO SCH ×2 (10:17→21:08)
[2019-04-07] MEDS: ENOXAPARIN SODIUM INJ 40 MG/0.4 ML DISP.SYRIN SUBCUT SCH (10:18)
--- NOTE | 2019-04-07 12:43 | PDOC PROGRESS REPORT ---
Subjective Progress Note for:: 04/07/19 Subjective:: ELIJAH REED is a 64 year old black female patient with past medical history of COPD/asthma chronic respiratory failure O2 dependent 12/03, hypertension, former smoker presented with chief complaint of shortness of breath cough productive of whitish sputum and associated wheezing. Patient reports this despite using her home oxygen and breathing treatment continue to have shortness of breath which is worsening progressively. Patient denies any fever, chills, chest pain, palpitation, diaphoresis, nausea, vomiting, abdominal pain, urinary complaints in the form of urinary retention, dysuria hematuria or urgency. No headache dizziness or blurring of vision. Her blood works are unremarkable except her VBG shows PCO2 of 71. Her chest x-ray is also unremarkable. After patient started on BiPAP she reports this improvement in her breathing status. 04/07/2019: Patient seen and examined while sitting back up in bed. She is being on full facemask BiPAP. She is awake alert and oriented. She reported some shortness of breath is subsiding. On examination he states she has occasional wheezing bilaterally and mild distress. If patient remained stable she is candidate for discharge in the coming 24 to 48 hours. Reason For Visit: ACUTE ON CHRONIC HYPERCARBIC RESPIRATORY FAILURE Physical Exam Vital Signs: Temp Pulse Resp BP Pulse Ox 97.8 F 100 23 H 121/69 97 04/07/19 09:43 04/07/19 11:04 04/07/19 11:04 04/07/19 11:04 04/07/19 11:04 Intake & Output 04/06/19 04/07/19 04/08/19 06:59 06:59 06:59 Intake Total 700 Balance 700 Weight 101.9 kg General appearance: PRESENT: mild distress Neck exam: ABSENT: carotid bruit, JVD, lymphadenopathy, thyromegaly Respiratory exam: PRESENT: wheezes Cardiovascular exam: PRESENT: RRR. ABSENT: diastolic murmur, rubs, systolic murmur GI/Abdominal exam: PRESENT: normal bowel sounds, soft. ABSENT: distended, guarding, mass, organolmegaly, rebound, tenderness Neurological exam: PRESENT: alert, awake, oriented to person, oriented to place, oriented to time, oriented to situation Results Laboratory Results: 04/06/19 09:32 04/06/19 09:32 08/19/19 06:04 Magnesium 2.2 D 04/06/19 09:32 Troponin I 0.051 Impressions: Chest X-Ray 04/06/19 08:23 IMPRESSION: NO ACUTE RADIOGRAPHIC FINDING IN THE CHEST. Assessment and Plan - Diagnosis (1) Acute and chronic respiratory failure with hypercapnia Is this a current diagnosis for this admission?: Yes Plan: Has be resolving (2) COPD exacerbation Is this a current diagnosis for this admission?: Yes Plan: Continue current regimen (3) Hypertension Qualifiers: Hypertension type: essential hypertension Qualified Code(s): I10 - Essential (primary) hypertension Is this a current diagnosis for this admission?: Yes Plan: Continue home medication
[2019-04-07] MEDS: AZITHROMYCIN 500 MG in DEXTROSE 5%-WATER 250 ML IV SCH (13:43)
--- NOTE | 2019-04-07 15:48 | EKG REPORT ---
SEVERITY:- ABNORMAL ECG - SINUS RHYTHM LAD Diffuse T inversion consistent with ischemia. : Confirmed by: Miya Downey MD 07-Apr-2019 15:47:42
[2019-04-07 16:04] LABS: CREATINE KINASE MB 2.47 ng/mL (<4.55)
[2019-04-07 16:20] LABS: TROPONIN I 0.168 ng/mL
[2019-04-07] MEDS: NITROGLYCERIN 2% OINTMENT 1 GM PACKET TP SCH (17:51)
[2019-04-07] MEDS ORDERED: ENOXAPARIN SODIUM INJ 100 MG/1 ML DISP.SYRIN SUBCUT SCH (18:00)
--- NOTE | 2019-04-07 19:36 | PDOC CONSULTATION ---
Consultation-Blank Consultation: CARDIOLOGY CONSULTATION by Dr. Miya Downey on 04/07/2019. Patient seen at 1600. 60 minutes spent on this patient with more than 50% time spent under patient care. REASON FOR CONSULTATION: Patient with you subendocardial T wave inversions diffusely and also elevated troponin. CONSULT REQUESTING PHYSICIAN: [facility]. HISTORY OF PRESENT ILLNESS: Patient is a 64-year-old Afro-[place] female with known history of asthma and COPD and chronic respiratory failure with hypercapnia, admitted with increasing shortness of breath and wheezing and cough productive of whitish sputum. The patient did improve slightly with the patient being on respiratory treatments and BiPAP and antibiotics. The patient today although she is asymptomatic without any chest pain or discomfort has some bradycardia with T wave inversion diffuse leads and a troponin elevation consist ent with a non-ST elevation MN. These T wave changes are dramatic and new. On repeated questioning the patient denies any anginal or anginal equal symptoms symptoms. She continues to have some shortness of breath although she is not wheezing anymore. She still requires BiPAP. Her venous blood gases on admission showed a high PCO2. She was also slightly hypoxic on ABGs. She denies any history of coronary artery disease, past MN or anginal symptoms. No prior history of congestive heart failure or arrhythmias. She denies any history of diabetes mellitus or thyroid disease. Of note the patient has no palpitations or history of tachyarrhythmia this admission or arrhythmia seen on this monitor this admission. Hence cannot invoke a diagnosis of post tachycardia T wave inversions syndrome. Also the patient is awake alert and has no [employer] symptoms suggest suggest that this is cerebral T waves inversions. Hence need to assume that the patient is having a non-ST elevation MN, and treat accordingly. Past Medical History Cardiac Medical History: Reports: Hypertension. Denies history of coronary artery disease, prior history of MN or anginal symptoms. There is no history of hyperlipidemia. There is no history of cardiac arrhythmia. No history of congestive heart failure. No syncope. Pulmonary Medical History: Reports: Asthma, Chronic Obstructive Pulmonary Disease (COPD) no history of pulmonary embolism or sleep apnea. GI Medical History: Reports: Gastroesophageal Reflux Disease. No history of GI bleed. ENDOCRINE: No history of thyroid disease. No history of diabetes mellitus. Musculoskeletal: She has a history of chronic back pain and arthritis. [employer]OR [employer]S: No history of TIA CVA. No history of headaches migraines or seizures. PSYCHIATRIC: No history of anxiety or depression. Renal: She has no history of chronic kidney disease. History of recurrent urinary tract infections. Past Surgical History Past Surgical History: Reports: Hysterectomy, Orthopedic Surgery - R hip replacement Social History Smoking Status: Former Smoker, she states she quit smoking about 10 years ago. Frequency of Alcohol Use: Occasional Hx Recreational Drug Use: No Drugs: None Hx Prescription Drug Abuse: No - Advance Directive Resuscitation Status: Full Code. Her daughter is her surrogate healthcare decision maker. Family History Family History: COPD Parental Family History Reviewed: Yes Children Family History Reviewed: Yes Sibling(s) Family History Reviewed.: Yes Medication/Allergy Home Medications: Budesonide/Formoterol Fumarate [Symbicort HFA 160-4.5 mcg Inhaler 6 gm] 1 puff IH Q12 01/05/18 Cetirizine HCl [Zyrtec 10 mg Tablet] 10 mg PO DAILY 01/05/18 Fluticasone Propionate [Flonase Nasal Sheldon 50 Mcg/Sheldon 16 gm] 1 sprays NASL DAILY 01/05/18 Ipratropium/Albuterol Sulfate [Duoneb 3 ml Ampul] 3 ml NEB RTQ6HP PRN 01/05/18 Losartan/Hydrochlorothiazide [Losartan-Hctz 100-25 mg Tab] 1 tab PO DAILY 01/05/18 Montelukast Sodium [Singulair 10 mg Tablet] 10 mg PO QHS 01/05/18 Multivitamin [Tab-A-Nupur (Multiple Vitamin) Tablet] 1 tab PO DAILY 01/05/18 Tiotropium Martin [Spiriva Respimat] 2 puff IH DAILY 01/05/18 Azelastine HCl 1 spray NS DAILY 07/24/18 Cholecalciferol (Vitamin D3) [Vitamin D3 5000 unit Capsule] 5,000 unit PO DAILY 07/24/18 Esomeprazole Magnesium [Nexium] 20 mg PO DAILY 07/24/18 Magnesium Oxide [Magnesium] 400 mg PO DAILY 07/24/18 Benzonatate [Tessalon Perles 100 mg Capsule] 100 mg PO BID PRN #20 capsule 07/27/18 Prednisone [Deltasone 20 mg Tablet] 20 mg PO BID 5 Days #10 tablet 07/27/18 Azithromycin [Zithromax] 250 mg PO DAILY #4 tablet 02/11/19 Metaxalone [Skelaxin 800 mg Tablet] 800 mg PO ASDIR PRN #20 tablet 02/11/19 Prednisone [Deltasone] 60 mg PO DAILY #24 tablet 02/11/19 Allergies/Adverse Reactions: No Known Allergies Allergy Review of Systems Respiratory: PRESENT: cough, dyspnea, other - Wheezing. Cough productive of whitish sputum. No pleuritic chest pain. No history of proptosis. CONSTITUTIONAL: Denies any fever chills or rigors. Complains of generalized fatigue and weakness. HEAD: No history of headaches or head injury. EYES: No swelling palpate diplopia no history of amaurosis fugax. EARS: No history of tinnitus. No history of recurrent ear infections. NOSE: No history of deviated nasal septum. No nosebleeds. No nasal polyps. MOUTH: Nose to bleeding from the gums. No altered taste sensation THROAT: No history of odynophagia or dysphagia. No recurrent sore throats. SKIN: No history of pruritus. No history of yellowish discoloration of the skin. No history of eczema or psoriasis. NECK: No history of swelling in the neck. No goiter. Heart: No history of coronary artery disease. Patient with traumatic subepicardial T wave inversions diffusely and with elevated troponin this admission. No prior history of MN. The patient in spite of this is no anginal symptoms at present. She has no history of PND or leg edema. She does have orthopnea. There is no palpitations or syncope. Review of the monitor shows no arrhythmias. RENAL: No history of hematuria prior dysuria. No symptoms a UTI. ENDOCRINE: No polydipsia polyuria. No history of heat or cold intolerance. [employer]: No history of TIA CVA. No history of C headaches migraines or seizures. No gait imbalance. PSYCHIATRIC: No history of anxiety or depression. No suicidal ideation. No homicidal ideation. GI: History of GERD present. No history of GI bleed. No history of cirrhosis. No history of fatty food intolerance. VASCULAR: No history of DVT. No history of calf or buttock claudication. HEMATOLOGICAL: No history of bleeding diathesis or clotting disorders. MUSCULAR skeletal: Does have chronic back pain and arthritis but no collagen vascular disease. PHYSICAL EXAMINATION: The patient is mildly obese. She appears to be chronically ill. She is in mild distress she is on the BiPAP. Selected Entries 04/07/19 16:00 Temperature 97.4 F Temperature Oral Source Pulse Rate 91 Respiratory 22 H Rate Blood Pressure 103/64 [Left Upper Arm ] Blood Pressure 77 Mean [Left Upper Arm] O2 Sat by Pulse 97 Oximetry Oxygen Delivery Bi-pap Method ( includes room air) HEAD: Is atraumatic normocephalic. EYES: Pupils are equal round regular reactive light accommodation. Extraocular movements are normal. There is no conjunctival pallor. There is no scleral icterus. EARS: Tympanic membranes are intact. External auditory canals are clear. NOSE: There is no deviated nasal septum. There is no inflammation of the nasal mucous membrane. MOUTH:. Mucous membranes of mouth are moist. There is no ulcers. There is no bleeding from the gums. THROAT: There is no redness of the oropharynx. There is no neck EXUDATES. Skin: There is no skin rashes or skin lesions. There is no particular ecchymosis. NECK: Supple. There is no JVD. Carotids are equal there is no bruit there is no lymphadenopathy. There is no goiter. There is no accessory muscle respiration use. Trachea central. LUNGS: Shows diminished air entry with few scattered rhonchi. There is diminished air entry and prolonged expiration throughout. On percussion there is hyperresonance. There is no crackles of pneumonia or rales of CHF. Palpation there is no chest wall tenderness. HEART: S1-S2 is heard. There is no S3 gallop. There is no S4 gallop. There is systolic murmur left sternal border and the apex there is no rub. ABDOMEN: Is soft. There are nontender. There is no hepatospleno megaly. Bowel sounds are well heard. EXTREMITIES: Femorals are diminished femorals are deep. There is no femoral bruits. Leg pulses are diminished. There is trace pedal edema bilaterally. There is no DVT or cellulitis. There is no sinus or clubbing. Capillary refill is normal. [employer]: The patient is conscious awake alert oriented x3 with no focal deficit. PSYCHIATRIC: The patient judgment insight are intact her affect is normal. Current Medications Acetaminophen (Tylenol 325 Mg Tablet) 650 mg PO Q6HP PRN PRN Reason: FOR PAIN Stop: 05/06/19 13:01 Last Admin: 04/06/19 22:27 Dose: 650 mg Documented by: Albuterol/Ipratropium (Duoneb 3 Ml Ampul) 3 ml NEB RTQ4 BRANDY Stop: 05/06/19 11:59 Last Admin: 04/07/19 15:47 Dose: 3 ml Documented by: Cetirizine HCl (Zyrtec 10 Mg Tablet) 10 mg PO DAILY BRANDY Stop: 05/07/19 09:59 Last Admin: 04/07/19 10:16 Dose: 10 mg Documented by: Donepezil HCl (Aricept 5 Mg Tablet) 10 mg PO DAILY BRANDY Stop: 05/07/19 09:59 Last Admin: 04/07/19 10:16 Dose: 10 mg Documented by: Duloxetine HCl (Cymbalta 20 Mg Capsule.Dr) 20 mg PO DAILY BRANDY Stop: 05/07/19 09:59 Last Admin: 04/07/19 10:16 Dose: 20 mg Documented by: Enoxaparin Sodium (Lovenox Inj 100 Mg/1 Ml Disp.Syrin) 100 mg SUBCUT Q12 BRANDY Stop: 05/07/19 21:59 Fluticasone/Vilanterol (Breo 100-25 Mcg Ellipta 14 Dose/Dpi) 1 inh IH RTDAILY [facility] Stop: 05/07/19 07:59 Last Admin: 04/07/19 10:15 Dose: 1 inhaler Documented by: Hydrochlorothiazide (Hydrodiuril 25 Mg Tablet) 25 mg PO DAILY BR[facility]Y Stop: 05/07/19 09:59 Last Admin: 04/07/19 10:16 Dose: 25 mg Documented by: Azithromycin 500 mg/ Dextrose 250 mls @ 250 mls/hr IV NOON [facility] Stop: 04/13/19 11:59 Last Infusion: 04/07/19 14:57 Dose: Infused Documented by: Losartan Potassium (Cozaar 50 Mg Tablet) 100 mg PO DAILY [facility] Stop: 05/07/19 09:59 Last Admin: 04/07/19 10:17 Dose: 100 mg Documented by: Methocarbamol (Robaxin 750 Mg Tablet) 750 mg PO Q12 [facility] Stop: 05/07/19 09:59 Last Admin: 04/07/19 10:17 Dose: 750 mg Documented by: Methylprednisolone Sodium Succinate (Solu-Medrol Inj/Pf 125 Mg/2 Ml Sdv) 80 mg IV Q8 [facility] Stop: 05/06/19 13:59 Last Admin: 04/07/19 13:43 Dose: 80 mg Documented by: Montelukast Sodium (Singulair 10 Mg Tablet) 10 mg PO QHS [facility] Stop: 05/06/19 21:59 Last Admin: 04/06/19 21:04 Dose: 10 mg Documented by: Nitroglycerin (Nitrol 2% Ointment 1gm Packet) 1 gm TP Q6 [facility] Stop: 05/07/19 17:59 Last Admin: 04/07/19 17:51 Dose: 1 gm Documented by: Pantoprazole Sodium (Protonix [address] Tablet) 40 mg PO Q6AM [facility] Stop: 05/06/19 10:59 Last Admin: 04/07/19 05:53 Dose: 40 mg Documented by: Promethazine HCl (Phenergan 25 Mg Tablet) 12.5 mg PO Q4HP PRN PRN Reason: FOR NAUSEA/VOMITING Stop: 05/06/19 10:43 Tiotropium Martin (Spiriva Handihaler 5 Cap/Kit (18 Mcg/Cap)) 1 cap IH RTDAILY [facility] Stop: 05/07/19 07:59 Last Admin: 04/07/19 10:16 Dose: 1 cap Documented by: Discontinued Medications Albuterol (Ventolin 0.083% Neb 2.5 Mg/3 Ml Ampul) 5 mg NEB NOW ONE Stop: 04/06/19 08:29 Last Admin: 04/06/19 08:41 Dose: 5 mg Documented by: Azithromycin (Zithromax Inj 500 Mg Vial) Confirm Administered Dose 500 mg IV .STK-MED ONE Stop: 04/06/19 11:05 Last Admin: 04/06/19 11:14 Dose: Not Given Documented by: Duloxetine HCl (Cymbalta 20 Mg Capsule.Dr) 20 mg PO NOW ONE Stop: 04/06/19 19:46 Last Admin: 04/06/19 20:59 Dose: 20 mg Documented by: Enoxaparin Sodium (Lovenox Inj 40 Mg/0.4 Ml Disp.Syrin) 40 mg SUBCUT DAILY [facility] Stop: 05/06/19 10:59 Last Admin: 04/07/19 10:18 Dose: 40 mg Documented by: Enoxaparin Sodium (Lovenox Inj 100 Mg/1 Ml Disp.Syrin) 100 mg SUBCUT Q12A [facility] Stop: 05/07/19 17:59 Hydrochlorothiazide (Hydrodiuril 25 Mg Tablet) 25 mg PO NOW ONE Stop: 04/06/19 20:01 Last Admin: 04/06/19 21:00 Dose: 25 mg Documented by: Magnesium Sulfate/Dextrose (Magnesium Sulfate Rtu-D5w 1 Gm/100 Ml Premix) 1 gm in 100 mls @ 0 mls/hr IV NOW ONE Stop: 04/06/19 08:29 Last Infusion: 04/06/19 08:53 Dose: Infused Documented by: Magnesium Sulfate/Dextrose (Magnesium Sulfate Rtu-D5w 1 Gm/100 Ml Premix) 1 gm in 100 mls @ 0 mls/hr IV NOW ONE Stop: 04/06/19 08:34 Last Infusion: 04/06/19 09:04 Dose: Infused Documented by: Losartan Potassium (Cozaar 50 Mg Tablet) 100 mg PO NOW ONE Stop: 04/06/19 20:01 Last Admin: 04/06/19 21:04 Dose: 100 mg Documented by: Methocarbamol (Robaxin 750 Mg Tablet) 750 mg PO NOW ONE Stop: 04/06/19 20:01 Last Admin: 04/06/19 20:59 Dose: 750 mg Documented by: Patient Own Medication (Amoxicillin/Potassium Clav [Amox-Clav 875-125 Mg Tablet]) 1 each PO Q12 [facility] Stop: 05/06/19 21:59 Labs- Entire Visit 04/06/19 04/06/19 04/06/19 09:32 09:32 09:32 WBC 9.3 RBC 4.59 Hgb 13.8 Hct 41.6 MCV 91 MCH 30.1 MCHC 33.2 RDW 13.8 Plt Count 218 Seg Neutrophils % 80.8 H Lymphocytes % 12.9 L Monocytes % 4.1 Eosinophils % 1.8 Basophils % 0.4 Absolute Neutrophils 7.5 Absolute Lymphocytes 1.2 Absolute Monocytes 0.4 Absolute Eosinophils 0.2 Absolute Basophils 0.0 Carbonic Acid HCO3/H2CO3 Ratio ABG pH ABG pCO2 ABG pO2 ABG HCO3 ABG Total CO2 ABG O2 Saturation ABG Base Excess VBG pH 7.26 L VBG pCO2 70.1 H* VBG HCO3 30.8 VBG Base Excess 1.6 FiO2 Sodium 138.5 Potassium 3.8 Chloride 99 Carbon Dioxide 29 Anion Gap 11 BUN 12 Creatinine 0.63 Est GFR ( Amer) > 60 Est GFR (Non-Af Amer) > 60 Glucose 157 H Calcium 9.3 Magnesium 3.2 H Total Bilirubin 0.6 Direct Bilirubin 0.5 H Neonat Total Bilirubin Not Reportable Neonat Direct Bilirubin Not Reportable Neonat Indirect Bili Not Reportable AST 33 ALT 21 Alkaline Phosphatase 77 Creatine Kinase CK-MB (CK-2) Troponin I Total Protein 7.4 Albumin 4.2 04/06/19 04/06/19 04/07/19 09:32 10:13 06:04 WBC RBC Hgb Hct MCV MCH MCHC RDW Plt Count Seg Neutrophils % Lymphocytes % Monocytes % Eosinophils % Basophils % Absolute Neutrophils Absolute Lymphocytes Absolute Monocytes Absolute Eosinophils Absolute Basophils Carbonic Acid 1.63 H HCO3/H2CO3 Ratio 19:1 ABG pH 7.38 ABG pCO2 54.3 H ABG pO2 61.0 L ABG HCO3 31.3 H ABG Total CO2 32.9 H ABG O2 Saturation 90.5 L ABG Base Excess 4.6 VBG pH VBG pCO2 VBG HCO3 VBG Base Excess FiO2 25% Sodium Potassium Chloride Carbon Dioxide Anion Gap BUN Creatinine Est GFR ( Amer) Est GFR (Non-Af Amer) Glucose Calcium Magnesium 2.2 D Total Bilirubin Direct Bilirubin Neonat Total Bilirubin Neonat Direct Bilirubin Neonat Indirect Bili AST ALT Alkaline Phosphatase Creatine Kinase CK-MB (CK-2) Troponin I 0.051 Total Protein Albumin 04/07/19 04/07/19 14:52 14:52 WBC RBC Hgb Hct MCV MCH MCHC RDW Plt Count Seg Neutrophils % Lymphocytes % Monocytes % Eosinophils % Basophils % Absolute Neutrophils Absolute Lymphocytes Absolute Monocytes Absolute Eosinophils Absolute Basophils Carbonic Acid HCO3/H2CO3 Ratio ABG pH ABG pCO2 ABG pO2 ABG HCO3 ABG Total CO2 ABG O2 Saturation ABG Base Excess VBG pH VBG pCO2 VBG HCO3 VBG Base Excess FiO2 Sodium Potassium Chloride Carbon Dioxide Anion Gap BUN Creatinine Est GFR ( Amer) Est GFR (Non-Af Amer) Glucose Calcium Magnesium Total Bilirubin Direct Bilirubin Neonat Total Bilirubin Neonat Direct Bilirubin Neonat Indirect Bili AST ALT Alkaline Phosphatase Creatine Kinase 119 CK-MB (CK-2) 2.47 Troponin I 0.168 Total Protein Albumin Chest X-Ray 04/06/19 08:23 IMPRESSION: NO ACUTE RADIOGRAPHIC FINDING IN THE CHEST. The patient is EKG from 04/06 shows sinus rhythm left intravascular block. Left atrial enlargement. The patient is EKG of today shows sinus rhythm. Left intravascular block. Diffuse subendocardial T wave inversion consistent with subendocardial ischemia. In view of the patient's troponin being elevated this becomes a non-ST elevation MN. Impression/RECOMMENDATION: 1. Non-ST elevation MN: This diagnosed this has to be made in view of the patient's significant EKG changes and elevated troponin I, in spite of the patient having no anginal symptoms. The patient has no [employer] symptoms or history of any tachyarrhythmia to make a diagnosis of cerebral T wave inversions versus post tachycardia T wave syndrome. Hence would strongly recommend to treat this as a non-ST elevation MN. We will start the patient on Lovenox at 1 mg/kg subcutaneous every 12 hours. We will also add Nitropaste 1 inch to the chest wall every 6 hours. Will later start the patient on a beta-kat, since beta- blockers are known to decrease her subendocardial l ischemia. We will continue the patient on aspirin. Will get serial EKGs and enzymes. Also check the patient's echocardiogram this has been discussed with the patient and patient's daughter. Later depending on the patient's clinical scenario that unfolds will decide whether to subject the patient to a IV Lexiscan Cardiolite stress test versus directly go to cardiac catheterization. 2. Acute on chronic hypoxic hypercapnic respiratory failure: Continue the patient on BiPAP, continue the patient on oxygen and continue the patient on antibiotics, steroids and respiratory treatments. 3. Acute asthmatic attack in a patient with history of asthma. Continue anti- asthmatic treatments and steroids. 4. Hypertension: Blood pressure seems to be well controlled. 5.? Lipid status. We will check the patient's lipid status in a.m. Medications reviewed. Medications added. Medical decision making is of high complexity. Management plan discussed with attending physician on the case. 60 minutes spent with patient with more than 50% of time spent on direct patient care. Will follow.
[2019-04-07] MEDS: ASPIRIN 81 MG TABLET, ENT COATED PO SCH (21:08)
[2019-04-07] MEDS: MONTELUKAST SODIUM 10 MG TABLET PO SCH (21:08)
[2019-04-07] MEDS: ENOXAPARIN SODIUM INJ 100 MG/1 ML DISP.SYRIN SUBCUT SCH (21:08)
[2019-04-08] MEDS: NITROGLYCERIN 2% OINTMENT 1 GM PACKET TP SCH ×4 (00:08→18:10)
[2019-04-08] MEDS: IPRATROPIUM/ALBUTEROL 0.5-2.5 MG/3 ML AMPUL NEB SCH ×6 (00:27→20:38)
[2019-04-08] MEDS: METHYLPREDNISOLONE INJ 125 MG/2 ML SDV IV SCH ×3 (05:52→22:09)
[2019-04-08] MEDS: PANTOPRAZOLE SODIUM 40 MG TABLET.DR PO SCH (05:52)
[2019-04-08] MEDS: FLUTICASONE/VILANTEROL 100-25 MCG/DOSE IH SCH (08:50)
[2019-04-08] MEDS: TIOTROPIUM BROMIDE DPI 5 CAP/KIT (18 MCG/CAP) IH SCH (08:50)
[2019-04-08] MEDS: DULOXETINE HCL 20 MG CAPSULE.DR PO SCH (08:59)
[2019-04-08] MEDS: HYDROCHLOROTHIAZIDE 25 MG TABLET PO SCH (08:59)
[2019-04-08] MEDS: LOSARTAN POTASSIUM 50 MG TABLET PO SCH (08:59)
[2019-04-08] MEDS: DONEPEZIL HCL 5 MG TABLET PO SCH (08:59)
[2019-04-08] MEDS: METHOCARBAMOL 750 MG TABLET PO SCH ×2 (09:00→22:08)
[2019-04-08] MEDS: CETIRIZINE 10 MG TABLET PO SCH (09:00)
[2019-04-08] MEDS: ENOXAPARIN SODIUM INJ 100 MG/1 ML DISP.SYRIN SUBCUT SCH ×2 (09:00→22:09)
--- NOTE | 2019-04-08 10:10 | EKG REPORT ---
SEVERITY:- ABNORMAL ECG - SINUS RHYTHM NONSPECIFIC IVCD WITH LAD DIFFUDE T INVRSION CONSISTENT WITH SUBENDOCARDIAL ISCHEMIA : Confirmed by: Miya Downey MD 08-Apr-2019 10:10:21
[2019-04-08] MEDS: DOCUSATE SODIUM 100 MG CAPSULE PO SCH ×2 (13:05→18:10)
[2019-04-08] MEDS: METOPROLOL TARTRATE 25 MG TABLET PO SCH ×2 (13:05→22:08)
[2019-04-08] MEDS: AZITHROMYCIN 500 MG in DEXTROSE 5%-WATER 250 ML IV SCH (13:06)
--- NOTE | 2019-04-08 16:15 | Progress Note Acknowledgement ---
Progress Note Acknowledgement Progess Note Acknowledgement: I, the undersigned member of the medical staff with appropriate privileges and with supervisory authority over [ PAC ], a dependent practice allied health professional, acknowledge that I have reviewed the progress notes entered on this patient, and in my professional judgment believe that the assessment made and/or any care evidenced was appropriate
--- NOTE | 2019-04-08 16:21 | PDOC PROGRESS REPORT ---
Subjective Progress Note for:: 04/08/19 Subjective:: 64-year-old female knitted 2 days ago shortness of breath, cough, sputum production, increased wheezing. Patient has been using her home oxygen and nebulizer treatments but getting worse patient was started on BiPAP in the emergency room and is feeling better with BiPAP On admission her white counts [id number] patient will be admitted with BiPAP and supplemental oxygen bronchodilators Solu-Medrol other home meds Reason For Visit: ACUTE ON CHRONIC HYPERCARBIC RESPIRATORY FAILURE Physical Exam Vital Signs: Temp Pulse Resp BP Pulse Ox 98.4 F 86 18 126/80 H 94 04/08/19 11:52 04/08/19 14:00 04/08/19 13:41 04/08/19 11:52 04/08/19 13:41 Intake & Output 04/07/19 04/08/19 04/09/19 06:59 06:59 06:59 Intake Total 700 250 250 Balance 700 250 250 Weight 101.9 kg 102.3 kg General appearance: PRESENT: mild distress Respiratory exam: PRESENT: decreased breath sounds, wheezes Cardiovascular exam: PRESENT: RRR. ABSENT: diastolic murmur, rubs, systolic murmur Neurological exam: PRESENT: alert, awake, oriented to person, oriented to place, oriented to time, oriented to situation, CN II-XII grossly intact. ABSENT: motor sensory deficit Psychiatric exam: PRESENT: appropriate affect, normal mood. ABSENT: homicidal ideation, suicidal ideation Results Laboratory Results: 04/06/19 09:32 04/06/19 09:32 04/06/19 04/07/19 04/07/19 09:32 14:52 14:52 Creatine Kinase 119 CK-MB (CK-2) 2.47 Troponin I 0.051 0.168 04/08/19 05:36 Creatine Kinase CK-MB (CK-2) Troponin I 0.075 Impressions: Chest X-Ray 04/06/19 08:23 IMPRESSION: NO ACUTE RADIOGRAPHIC FINDING IN THE CHEST. Assessment and Plan - Diagnosis (1) COPD exacerbation Is this a current diagnosis for this admission?: Yes Plan: Is on Zithromax tablets, Singulair 10 mg daily, Breo 100/25 daily, Spiriva daily albuterol as needed, and Solu-Medrol 80 mg IV every 8 hours (2) Hypertension Qualifiers: Hypertension type: essential hypertension Qualified Code(s): I10 - Essent ial (primary) hypertension Is this a current diagnosis for this admission?: Yes Plan: Continue home medication 04/08/2019 patient is on Toprol 25 mg every 12 hours and HCTZ milligrams daily patient is also taking Cozaar 100 mg a day - Time Time Spent with patient: 25-34 minutes
[2019-04-08] MEDS: MONTELUKAST SODIUM 10 MG TABLET PO SCH (22:08)
[2019-04-08] MEDS: ASPIRIN 81 MG TABLET, ENT COATED PO SCH (22:08)
--- NOTE | 2019-04-08 22:58 | Progress Note ---
Provider Note Provider Note: CARDIOLOGY PROGRESS NOTE by Dr. Miya Fried on 04/08/2019. SUBJECTIVE: The patient's wheezing is stopped. She is still short of breath. She is off the BiPAP. She is now on a nasal cannula. She denies any chest pain or discomfort. There is orthopnea but no PND. There is no leg edema. There is no arrhythmia seen on the monitor. Note that the patient is EKG still shows subendocardial diffuse T wave inversion. But the patient's troponin I peaked at 0.168 and is trended down to 0.075. We will start the patient on Lopressor. We will continue the patient on Lovenox at 1 mg/g subcutaneously every 12 hours for 48 hours. We will recheck the patient's troponin and EKG in the a.m. PHYSICAL EXAMINATION: The patient is moderately obese. In no acute distress. Selected Entries 04/08/19 04/08/19 08:00 08:17 Temperature 98.4 F Temperature Oral Source Pulse Rate 107 H Respiratory 24 H Rate Blood Pressure 145/59 H [Left Upper Arm ] Blood Pressure 87 Mean [Left Upper Arm] O2 Sat by Pulse 98 Oximetry Oxygen Delivery Nasal Cannula Method ( includes room air) Oxygen Flow 2 Rate HEAD: Is atraumatic normocephalic. EYES: Pupils are equal round regular reactive light accommodation. Extraocular movements are normal. There is no conjunctival pallor. There is no scleral icterus. EARS: Tympanic membranes are intact. External auditory canals are clear. NOSE: There is no deviated nasal septum. There is no inflammation of the nasal mucous membrane. MOUTH:. Mucous membranes of mouth are moist. There is no ulcers. There is no bleeding from the gums. THROAT: There is no redness of the oropharynx. There is no neck EXUDATES. Skin: There is no skin rashes or skin lesions. There is no particular ecchymosis. NECK: Supple. There is no JVD. Carotids are equal there is no bruit there is no lymphadenopathy. There is no goiter. There is no accessory muscle of respiration use. Trachea central. LUNGS: Shows diminished air entry without rhonchi. There is diminished air entry and prolonged expiration throughout. On percussion there is hyperresonance. There is no crackles of pneumonia or rales of CHF. There is no wheezing. Palpation there is no chest wall tenderness. HEART: S1-S2 is heard. There is no S3 gallop. There is no S4 gallop. There is systolic murmur left sternal border and the apex there is no rub. ABDOMEN: Is soft. There are nontender. There is no hepatospleno megaly. Bowel sounds are well heard. EXTREMITIES: Femorals are diminished femorals are deep. There is no femoral bruits. Leg pulses are diminished. There is trace pedal edema bilaterally. There is no DVT or cellulitis. There is no sinus or clubbing. Capillary refill is normal. PAIN MANAGEMENT PHYSICIAN: The patient is conscious awake alert oriented x3 with no focal deficit. PSYCHIATRIC: The patient judgment insight are intact her affect is normal. Labs- All tests 24 hr 04/08/19 05:36 Troponin I 0.075 Chest X-Ray 04/06/19 08:23 IMPRESSION: NO ACUTE RADIOGRAPHIC FINDING IN THE CHEST. Patient is EKG shows sinus rhythm left axis deviation with left anterior hemiblock. Nonspecific IVCD. Diffuse subendocardial T wave inversion unchanged. Impression/RECOMMENDATION: 1. Non-ST elevation CT: This diagnosed this has to be made in view of the patient's significant EKG changes and elevated troponin I, in spite of the patient having no anginal symptoms. The patient has no PAIN MANAGEMENT PHYSICIAN symptoms or history of any tachyarrhythmia to make a diagnosis of cerebral T wave inversions versus post tachycardia T wave syndrome. Hence would strongly recommend to treat this as a non-ST elevation CT. We will start the patient on Lovenox at 1 mg/kg subcutaneous every 12 hours. We will also continue Nitropaste 1 inch to the chest wall every 6 hours. Will later start the patient on a beta-kat, since beta-blockers are known to decrease her subendocardial l ischemia. We will continue the patient on aspirin. Will get serial EKGs and enzymes. Also check the patient's echocardiogram this has been discussed with the patient and patient's daughter. Beta-kat has been started. We will increase it to 50 mg p.o. every 12 hours. Later depending on the patient's clinical scenario that unfolds will decide whether to subject the patient to a IV Lexiscan Cardiolite stress test versus directly go to cardiac catheterization. 2. Acute on chronic hypoxic hypercapnic respiratory failure: Continue the patient on BiPAP, continue the patient on oxygen and continue the patient on antibiotics, steroids and respiratory treatments. 3. Acute asthmatic attack in a patient with history of asthma. Continue anti- asthmatic treatments and steroids. 4. Hypertension: Blood pressure seems to be well controlled. 5.? Lipid status. We will check the patient's lipid status in a.m. Medications reviewed. Medications adjusted. Management plan discussed with the attending provider on the case. Medical decision making is of high complexity. 40 minutes spent on this patient more than 50% of time spent in direct patient care. Will follow.
[2019-04-09] MEDS: IPRATROPIUM/ALBUTEROL 0.5-2.5 MG/3 ML AMPUL NEB SCH ×6 (00:20→20:00)
[2019-04-09] MEDS: NITROGLYCERIN 2% OINTMENT 1 GM PACKET TP SCH ×4 (00:30→17:55)
[2019-04-09] MEDS ORDERED: MORPHINE SULFATE 10 MG/ML INJ ONE (05:41)
[2019-04-09] MEDS: METHYLPREDNISOLONE INJ 125 MG/2 ML SDV IV SCH ×3 (05:48→22:18)
[2019-04-09] MEDS: PANTOPRAZOLE SODIUM 40 MG TABLET.DR PO SCH (05:50)
[2019-04-09] MEDS ORDERED: MORPHINE SULFATE 10 MG/ML INJ IV PRN ×3 (06:42→06:43)
[2019-04-09 08:28] LABS: CHOLESTEROL 225.66 mg/dL (0-200); TRIGLYCERIDES 108 mg/dL (<150)
[2019-04-09 08:39] LABS: DIRECT LDL 127 mg/dL (<100)
[2019-04-09] MEDS: TIOTROPIUM BROMIDE DPI 5 CAP/KIT (18 MCG/CAP) IH SCH (08:43)
[2019-04-09] MEDS: FLUTICASONE/VILANTEROL 100-25 MCG/DOSE IH SCH (08:43)
[2019-04-09] MEDS: LOSARTAN POTASSIUM 50 MG TABLET PO SCH (10:13)
[2019-04-09] MEDS: CETIRIZINE 10 MG TABLET PO SCH (10:13)
[2019-04-09] MEDS: METOPROLOL TARTRATE 50 MG TABLET PO SCH ×2 (10:13→22:19)
[2019-04-09] MEDS: ENOXAPARIN SODIUM INJ 100 MG/1 ML DISP.SYRIN SUBCUT SCH (10:14)
[2019-04-09] MEDS: DONEPEZIL HCL 5 MG TABLET PO SCH (10:14)
[2019-04-09] MEDS: DOCUSATE SODIUM 100 MG CAPSULE PO SCH ×2 (10:14→18:01)
[2019-04-09] MEDS: HYDROCHLOROTHIAZIDE 25 MG TABLET PO SCH (10:14)
[2019-04-09] MEDS: AZITHROMYCIN 250 MG TABLET PO SCH (10:14)
[2019-04-09] MEDS: DULOXETINE HCL 20 MG CAPSULE.DR PO SCH (10:15)
[2019-04-09] MEDS: METHOCARBAMOL 750 MG TABLET PO SCH ×2 (10:16→22:18)
--- NOTE | 2019-04-09 14:04 | PDOC PROGRESS REPORT ---
Subjective Progress Note for:: 04/09/19 Subjective:: 64-year-old female knitted 2 days ago shortness of breath, cough, sputum production, increased wheezing. Patient has been using her home oxygen and nebulizer treatments but getting worse patient was started on BiPAP in the emergency room and is feeling better with BiPAP On admission her white counts 9300 patient will be admitted with BiPAP and supplemental oxygen bronchodilators Solu-Medrol other home meds 04/09/2019 she is vital signs are stable blood pressure 110/69 temperature 98.2 pulse 79 O2 sat 96% on 3 L nasal cannula Cultures no growth in [address] Erwin has seen the patient in consultation audiology follow-up. Appreciate his input concerning medications and treatment recommending Lovenox every 12 hours well as Cozaar 100 mg daily pressor 50 mg every 12 hours, nitroglycerin paste every 6 hours daily aspirin It is his thought that the patient has had non-ST AR will follow with troponins as well as EKGs and echo will continue treating hypertension asthma as well as her lipids Reason For Visit: ACUTE ON CHRONIC HYPERCARBIC RESPIRATORY FAILURE Physical Exam Vital Signs: Temp Pulse Resp BP Pulse Ox 98.2 F 79 20 110/69 96 04/09/19 11:14 04/09/19 11:43 04/09/19 11:43 04/09/19 11:14 04/09/19 11:43 Intake & Output 04/08/19 04/09/19 04/10/19 06:59 06:59 06:59 Intake Total 250 250 Balance 250 250 Weight 102.3 kg 102 kg General appearance: PRESENT: no acute distress, well-developed, well-nourished, other - Patient seems comfortable in no distress Respiratory exam: PRESENT: clear to auscultation nayely. ABSENT: rales, rhonchi, wheezes Cardiovascular exam: PRESENT: RRR. ABSENT: diastolic murmur, rubs, systolic murmur Neurological exam: PRESENT: alert, awake, oriented to person, oriented to place, oriented to time, oriented to situation, CN II-XII grossly intact. ABSENT: motor sensory deficit Psychiatric exam: PRESENT: appropriate affect, normal mood, other - Very ple asant. ABSENT: homicidal ideation, suicidal ideation Results Laboratory Results: 04/06/19 09:32 04/06/19 09:32 04/09/19 07:30 Triglycerides 108 Cholesterol 225.66 H LDL Cholesterol Direct 127 H VLDL Cholesterol 22.0 HDL Cholesterol 79 04/06/19 04/07/19 04/07/19 09:32 14:52 14:52 Creatine Kinase 119 CK-MB (CK-2) 2.47 Troponin I 0.051 0.168 04/08/19 04/09/19 05:36 07:30 Creatine Kinase CK-MB (CK-2) Troponin I 0.075 0.021 Impressions: Chest X-Ray 04/06/19 08:23 IMPRESSION: NO ACUTE RADIOGRAPHIC FINDING IN THE CHEST. Assessment and Plan - Diagnosis (1) COPD exacerbation Is this a current diagnosis for this admission?: Yes Plan: Is on Zithromax tablets, Singulair 10 mg daily, Breo 100/25 daily, Spiriva daily albuterol as needed, and Solu-Medrol 80 mg IV every 8 hours Continue COPD treatment with her BiPAP, as well as her other medications respiratory distress (2) Hypertension Qualifiers: Hypertension type: essential hypertension Qualified Code(s): I10 - Essential (primary) hypertension Is this a current diagnosis for this admission?: Yes Plan: Continue home medication 04/08/2019 patient is on Toprol 25 mg every 12 hours and HCTZ milligrams daily patient is also taking Cozaar 100 mg a day 04/09/2019 blood pressures well controlled 110/69 pulse is approximately 80 she is afebrile 98 2 O2 sat 96% on 3 L Continue above medications in addition to new cardiac meds (3) NSTEMI (non-ST elevated myocardial infarction) Is this a current diagnosis for this admission?: Yes Plan: Appreciate cardiology's input will follow with serial EKGs as well as troponins as troponin was 0.021 which is normal these have been trending down, echo is pending currently treating with Lovenox 100 mg subcu every 12 hours, as well as the Lopressor 50 mg every 12 hours. With the addition of Nitropaste every 6 hours. Admit patient is medically stable having no chest pain and has had no chest pain - Time Time Spent with patient: 25-34 minutes
--- NOTE | 2019-04-09 17:28 | EKG REPORT ---
SEVERITY:- ABNORMAL ECG - SINUS RHYTHM NONSPECIFIC IVCD WITH LAD DIFFUSE T INVERSION CONSISTENT WITH ISCHEMIA : Confirmed by: Miya Downey MD 09-Apr-2019 17:27:39
--- NOTE | 2019-04-09 21:32 | Progress Note ---
Provider Note Provider Note: CARDIOLOGY PROGRESS NOTE by Dr. Miya Fried on 04/09/2019. SUBJECTIVE: The patient states that shortness of breath is better. She still came she is wheezing but on examination there is no wheezing. She denies any cough. She has orthopnea but no PND. There is no chest pain or discomfort. There is no leg edema. There is no arrhythmia seen on the monitor. There is no TIA CVA symptoms. There is no bleeding on full dose Lovenox. Physical EXAMINATION: The patient is mild to moderately obese. In no acute d istress. She is well-groomed. Selected Entries 04/09/19 15:29 Temperature 98.9 F Temperature Oral Source Pulse Rate 64 Respiratory 16 Rate Blood Pressure 119/67 Blood Pressure 84 Mean BP Location Right Arm BP Position Supine O2 Sat by Pulse 94 Oximetry Oxygen Flow 3.00 Rate Oxygen Delivery Nasal Cannula Method HEAD: Is atraumatic normocephalic. EYES: Pupils are equal round regular reactive light accommodation. Extraocular movements are normal. There is no conjunctival pallor. There is no scleral icterus. EARS: Tympanic membranes are intact. External auditory canals are clear. NOSE: There is no deviated nasal septum. There is no inflammation of the nasal mucous membrane. MOUTH:. Mucous membranes of mouth are moist. There is no ulcers. There is no bleeding from the gums. THROAT: There is no redness of the oropharynx. There is no neck EXUDATES. Skin: There is no skin rashes or skin lesions. There is no particular ecchymosis. NECK: Supple. There is no JVD. Carotids are equal there is no bruit there is no lymphadenopathy. There is no goiter. There is no accessory muscle of respiration use. Trachea central. LUNGS: Shows diminished air entry without rhonchi. There is diminished air entry and prolonged expiration throughout. On percussion there is hyperresonance. There is no crackles of pneumonia or rales of CHF. There is no wheezing. Palpation there is no chest wall tenderness. HEART: S1-S2 is heard. There is no S3 gallop. There is no S4 gallop. There is systolic murmur left sternal border and the apex there is no rub. ABDOMEN: Is soft. There are nontender. There is no hepatospleno megaly. Bowel sounds are well heard. EXTREMITIES: Femorals are diminished femorals are deep. There is no femoral bruits. Leg pulses are diminished. There is trace pedal edema bilaterally. There is no DVT or cellulitis. There is no sinus or clubbing. Capillary refill is normal. 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 PSYCHIATRIC: The patient judgment insight are intact her affect is normal. The patient is EKG: Shows sinus rhythm. Left axis deviation due to left an terior fascicular block. Nonspecific IVCD. Diffuse T wave inversion consistent with subendocardial ischemia. Labs- All tests 24 hr 04/09/19 04/09/19 07:30 07:30 Troponin I 0.021 Triglycerides 108 Cholesterol 225.66 H LDL Cholesterol Direct 127 H VLDL Cholesterol 22.0 HDL Cholesterol 79 Chest X-Ray 04/06/19 08:23 IMPRESSION: NO ACUTE RADIOGRAPHIC FINDING IN THE CHEST. 1. Non-ST elevation [place]: This diagnosed this has to be made in view of the patient's significant EKG changes and elevated troponin I, in spite of the patient having no anginal symptoms. The patient has no HOUSE FURNISHINGS SUPERVISOR symptoms or history of any tachyarrhythmia to make a diagnosis of cerebral T wave inversions versus post tachycardia T wave syndrome. Hence would strongly recommend to treat this as a non-ST elevation [place]. We will start the patient on Lovenox at 1 mg/kg subcutaneous every 12 hours. We will also continue Nitropaste 1 inch to the chest wall every 6 hours. Will later start the patient on a beta-kat, since beta-blockers are known to decrease her subendocardial l ischemia. We will continue the patient on aspirin. Will get serial EKGs and enzymes. Also check the patient's echocardiogram this has been discussed with the patient and patient's daughter. In spite of dramatic EKG changes., There is only marginally increase the patient's troponin I which is decreased. Also patient has no anginal symptoms. Hence we will schedule the patient for IV Lexiscan Cardiolite stress test. The risk of sometimes Lexiscan triggering an asthmatic attack has been discussed with the patient and the patient's daughter. But will have Aminophyllin to be given intravenously if necessary radiate had during the stress test. In view of the stress test will stop the patient's Nitropaste and also hold the patient's beta-kat. Will also stop the patient's Lovenox at 1 mg/kg subcutaneously every 12 hours in view of patient having received it for 48 hours, and the troponin trending down. 2. Acute on chronic hypoxic hypercapnic respiratory failure: Continue the patient on BiPAP, continue the patient on oxygen and continue the patient on antibiotics, steroids and respiratory treatments. 3. Acute asthmatic attack in a patient with history of asthma. Continue anti- asthmatic treatments and steroids. 4. Hypertension: Blood pressure seems to be well controlled. 5. Hyperlipidemia: We will start the patient on statin. Occasions reviewed medications adjusted. Medical decision making is of high complexity. Stress test ordered. The procedure the benefits risks and complications stress test have been discussed in detail with the patient and the patient's daughter. Discussed management plan with attending physician on the case. 40 minutes spent on this patient with more than 50% of time spent in direct patient care. Will follow.
[2019-04-09] MEDS ORDERED: ATORVASTATIN CALCIUM 40 MG TABLET PO SCH (22:00)
[2019-04-09] MEDS: MONTELUKAST SODIUM 10 MG TABLET PO SCH (22:18)
[2019-04-09] MEDS: ASPIRIN 81 MG TABLET, ENT COATED PO SCH (22:18)
[2019-04-09] MEDS: ATORVASTATIN CALCIUM 20 MG TABLET PO SCH (22:18)
[2019-04-10] MEDS: IPRATROPIUM/ALBUTEROL 0.5-2.5 MG/3 ML AMPUL NEB SCH ×6 (00:02→20:24)
[2019-04-10] MEDS: PANTOPRAZOLE SODIUM 40 MG TABLET.DR PO SCH (05:33)
[2019-04-10] MEDS: METHYLPREDNISOLONE INJ 125 MG/2 ML SDV IV SCH (05:38)
[2019-04-10] MEDS: DONEPEZIL HCL 5 MG TABLET PO SCH (09:58)
[2019-04-10] MEDS: DOCUSATE SODIUM 100 MG CAPSULE PO SCH ×2 (09:59→17:14)
[2019-04-10] MEDS: LOSARTAN POTASSIUM 50 MG TABLET PO SCH (09:59)
[2019-04-10] MEDS: CETIRIZINE 10 MG TABLET PO SCH (09:59)
[2019-04-10] MEDS: AZITHROMYCIN 250 MG TABLET PO SCH (09:59)
[2019-04-10] MEDS: HYDROCHLOROTHIAZIDE 25 MG TABLET PO SCH (10:01)
[2019-04-10] MEDS: FLUTICASONE/VILANTEROL 100-25 MCG/DOSE IH SCH (10:02)
[2019-04-10] MEDS: TIOTROPIUM BROMIDE DPI 5 CAP/KIT (18 MCG/CAP) IH SCH (10:02)
[2019-04-10] MEDS: DULOXETINE HCL 20 MG CAPSULE.DR PO SCH (10:31)
[2019-04-10] MEDS: METHOCARBAMOL 750 MG TABLET PO SCH ×2 (10:31→22:44)
[2019-04-10] MEDS ORDERED: REGADENOSON INJ 0.4 MG/5 ML DISP.SYRIN IV ONE (11:51)
[2019-04-10] MEDS: ACETAMINOPHEN 325 MG TABLET PO PRN (11:56)
--- NOTE | 2019-04-10 15:39 | PDOC PROGRESS REPORT ---
Subjective Progress Note for:: 04/10/19 Subjective:: 64-year-old female knitted 2 days ago shortness of breath, cough, sputum production, increased wheezing. Patient has been using her home oxygen and nebulizer treatments but getting worse patient was started on BiPAP in the emergency room and is feeling better with BiPAP On admission her white counts 9300 patient will be admitted with BiPAP and supplemental oxygen bronchodilators Solu-Medrol other home meds 04/09/2019 she is vital signs are stable blood pressure 110/69 temperature 98.2 pulse 79 O2 sat 96% on 3 L nasal cannula Cultures no growth in [address] Erwin has seen the patient in consultation cardiology follow-up. Appreciate his input concerning medications and treatment recommending Lovenox every 12 hours well as Cozaar 100 mg daily lopressor 50 mg every 12 hours, nitroglycerin paste every 6 hours daily aspirin It is his thought that the patient has had non-ST AR will follow with troponins as well as EKGs and echo will continue treating hypertension asthma as well as her lipids 03/31/2019 patient's cardiac work-up has been completed and it is felt that the patient is safe to discharge tomorrow, follow-up in the office. She has req [employer] come to her house to 3 days a week for couple hours. I will consult discharge planning to assist with this IV Solu-Medrol has been tapered back to 40 mg IV every 12 hours we will discharge her home on a Medrol Dosepak as well as the above cardiac meds Patient did have a Cardiolite stress test done today which did not show any anemia Reason For Visit: ACUTE ON CHRONIC HYPERCARBIC RESPIRATORY FAILURE Physical Exam Vital Signs: Temp Pulse Resp BP Pulse Ox 97.5 F 77 18 113/64 95 04/10/19 04:07 04/10/19 12:07 04/10/19 12:07 04/10/19 04:07 04/10/19 12:07 Intake & Output 04/09/19 04/10/19 04/11/19 06:59 06:59 06:59 Intake Total 250 360 720 Output Total 1500 Balance 250 360 -780 Weight 102 kg 101.5 kg General appearance: PRESENT: no acute distress, well-developed, well-nourished, other - She is up at the sink and walking around the room Respiratory exam: PRESENT: clear to auscultation nayely. ABSENT: rales, rhonchi, wheezes Cardiovascular exam: PRESENT: RRR. ABSENT: diastolic murmur, rubs, systolic murmur Neurological exam: PRESENT: alert, awake, oriented to person, oriented to place, oriented to time, oriented to situation, CN II-XII grossly intact. ABSENT: motor sensory deficit Psychiatric exam: PRESENT: appropriate affect, normal mood. ABSENT: homicidal ideation, suicidal ideation Results Laboratory Results: 04/06/19 09:32 04/06/19 09:32 04/06/19 04/07/19 04/07/19 09:32 14:52 14:52 Creatine Kinase 119 CK-MB (CK-2) 2.47 Troponin I 0.051 0.168 04/08/19 04/09/19 05:36 07:30 Creatine Kinase CK-MB (CK-2) Troponin I 0.075 0.021 Impressions: Chest X-Ray 04/06/19 08:23 IMPRESSION: NO ACUTE RADIOGRAPHIC FINDING IN THE CHEST. Assessment and Plan - Diagnosis (1) COPD exacerbation Is this a current diagnosis for this admission?: Yes Plan: Is on Zithromax tablets, Singulair 10 mg daily, Breo 100/25 daily, Spiriva daily albuterol as needed, and Solu-Medrol 80 mg IV every 8 hours Continue COPD treatment with her BiPAP, as well as her other medications respiratory distress 04/10/2019 Solu-Medrol has been decreased to 40 mg every 12 hours, patient's O2 sats are well-maintained 2.5 L cannula 5%. Does not require BiPAP (2) Hypertension Qualifiers: Hypertension type: essential hypertension Qualified Code(s): I10 - Essential (primary) hypertension Is this a current diagnosis for this admission?: Yes Plan: Continue home medication 04/08/2019 patient is on Toprol 25 mg every 12 hours and HCTZ milligrams daily patient is also taking Cozaar 100 mg a day 04/09/2019 blood pressures well controlled 110/69 pulse is approximately 80 she is afebrile 98 2 O2 sat 96% on 3 L Continue above medications in addition to new cardiac meds 04/10/2019 patient's blood pressure is well controlled and remained stable at 113/64 (3) NSTEMI (non-ST elevated myocardial infarction) Is this a current diagnosis for this admission?: Yes Plan: Appreciate cardiology's input will follow with serial EKGs as well as troponins as troponin was 0.021 which is normal these have been trending down, echo is pending currently treating with Lovenox 100 mg subcu every 12 hours, as well as the Lopressor 50 mg every 12 hours. With the addition of Nitropaste every 6 hours. Admit patient is medically stable having no chest pain and has had no chest pain 04/10/2019 she is currently taking HydroDIURIL 25 mg daily, enteric-coated 81 mg aspirin daily, Lopressor 50 mg every 12 hours, Lipitor 20 mg daily. Zithromax 500 mg daily was started yesterday. She will need 3 more days after being discharged - Time Time Spent with patient: 25-34 minutes
[2019-04-10] MEDS: METHYLPREDNISOLONE INJ 40 MG/1 ML SDV IV SCH (17:14)
--- NOTE | 2019-04-10 18:35 | XCELERA REPORT ---
[address] [address] Transthoracic Echocardiogram Report Name: ELIJAH REED Age: 64 yrs Gender: Female : 1955 Patient Status: Inpatient Patient Location: [address] [place] [address] Study Date: 04/09/2019 08:53 AM Height: 68 in Weight: 225 lb BSA: 2.1 m2 Procedure: A two-dimensional transthoracic echocardiogram with color flow and Doppler was performed. Study Quality: Poor. The study was technically limited with all images being suboptimal in quality. Images were not obtained from all of the standard acoustic windows due to the limited scope of the study. Reason For Study: Abnormal EKG / SOB History: Abnormal EKG / SOB. Ordering Physician: MIYA ALMEIDA Performed By: Lamar Parkinson Interpretation Summary The left ventricle is normal in size. There is normal left ventricular wall thickness. No 'True 2 chamber ' views obtained.Hence cannot comment on the apical and basal inferior ,and the apical and basal anterior bean.The mid anterior ,the mid inferior , and the rest of the LV waaaalls contract normally.The LVEF in these limited views is normal and greater than 60%. Doppler measurements suggest impaired left ventricular relaxation, which is associated with grade I/IV or mild diastolic dysfunction No Thrombus.Cannot assess ASD ,VSD , or PFO. The right ventricle is not well visualized secondary to technical limitations Right atrium not well visualized secondary to technical limitations The left atrial size is normal. There is no evidence of mitral valve prolapse. There is no vegetation seen on the mitral valve. There is no mitral valve stenosis. There is a trace amount of mitral regurgitation There is no aortic valvular vegetation. There is aortic sclerosis without aortic stenosis. There is no aortic valve stenosis No aortic regurgitation is present. There is no tricuspid stenosis. There is a trace amount of tricuspid regurgitation There is moderate pulmonary hypertension by echo RVSP is at least 50 mm of Hg , with RA mean of at least 20. The pulmonic valve is not well visualized. The aortic root is not well visualized but is probably normal size. The inferior vena cava appeared dilated and did not change with respiration (RAP > 20 mmHg) There is no pericardial effusion. MMode/2D Measurements & Calculations RVDd: 3.2 cm LVIDd: 4.5 cm FS: 35.1 % Ao root diam: 3.0 cm IVSd: 0.98 cm LVIDs: 2.9 cm EDV(Teich): 94.5 ml Ao root area: 7.0 cm2 LVPWd: 1.0 cm ESV(Teich): 33.6 ml EF(Teich): 64.5 % Doppler Measurements & Calculations MV E max simoen: MV dec slope: Ao V2 max: LV V1 max P.8 cm/sec 480.9 cm/sec2 155.5 cm/sec 4.2 mmHg MV A max simeon: MV dec time: 0.15 secAo max PG: LV V1 max: 79.4 cm/sec 9.7 mmHg 102.3 cm/sec MV E/A: 0.90 PA V2 max: TR max simeon: 134.7 cm/sec 274.9 cm/sec PA max P.3 mmHg TR max P.2 mmHg Left Ventricle The left ventricle is normal in size. There is normal left ventricular wall thickness. No 'True 2 chamber ' views obtained.Hence cannot comment on the apical and basal inferior ,and the apical and basal anterior bean.The mid anterior ,the mid inferior , and the rest of the LV waaaalls contract normally.The LVEF in these limited views is normal and greater than 60%. Doppler measurements suggest impaired left ventricular relaxation, which is associated with grade I/IV or mild diastolic dysfunction. No Thrombus.Cannot assess ASD ,VSD , or PFO. Right Ventricle The right ventricle is not well visualized secondary to technical limitations. Atria Right atrium not well visualized secondary to technical limitations. The left atrial size is normal. Mitral Valve There is no evidence of mitral valve prolapse. There is no vegetation seen on the mitral valve. There is no mitral valve stenosis. There is a trace amount of mitral regurgitation. Aortic Valve There is no aortic valvular vegetation. There is aortic sclerosis without aortic stenosis. There is no aortic valve stenosis. No aortic regurgitation is present. Tricuspid Valve There is no tricuspid stenosis. There is a trace amount of tricuspid regurgitation. There is moderate pulmonary hypertension by echo. RVSP is at least 50 mm of Hg , with RA mean of at least 20. Pulmonic Valve The pulmonic valve is not well visualized. Great Vessels The aortic root is not well visualized but is probably normal size. The inferior vena cava appeared dilated and did not change with respiration (RAP > 20 mmHg). Effusions There is no pericardial effusion. : MIYA ALMEIDA > Miya Almeida
--- NOTE | 2019-04-10 22:05 | Progress Note ---
Provider Note Provider Note: CARDIOLOGY PROGRESS NOTE by Dr. Miya Downey on 04/10/2019. SUBJECTIVE: The patient denies any further chest pain or discomfort. There is no further wheezing. There is no shortness of breath. There is no PND orthopnea. The patient underwent IV Lexiscan Cardiolite stress test. Surprisingly this did not show any reversible ischemia or scar. The patient's echocardiogram done yesterday shows moderate pulmonary hypertension with normal left ventricular systolic function although some bean may not seen due to technical limitations of the study. This raises the possibility of pulmonary emboli chronic. Hence we will get a CT scan of the chest. Physical EXAMINATION: The patient is mildly obese in no acute distress. Selected Entries 04/10/19 15:25 Temperature 99.1 F Temperature Oral Source Pulse Rate 80 Respiratory 18 Rate Blood Pressure 135/70 H Blood Pressure 91 Mean BP Location Right Arm BP Position Supine O2 Sat by Pulse 97 Oximetry Oxygen Flow 2.00 Rate Oxygen Delivery Nasal Cannula Method HEAD: Is atraumatic normocephalic. EYES: Pupils are equal round regular reactive light accommodation. Extraocular movements are normal. There is no conjunctival pallor. There is no scleral icterus. EARS: Tympanic membranes are intact. External auditory canals are clear. NOSE: There is no deviated nasal septum. There is no inflammation of the nasal mucous membrane. MOUTH:. Mucous membranes of mouth are moist. There is no ulcers. There is no bleeding from the gums. THROAT: There is no redness of the oropharynx. There is no neck EXUDATES. Skin: There is no skin rashes or skin lesions. There is no particular ecchymosis. NECK: Supple. There is no JVD. Carotids are equal there is no bruit there is no lymphadenopathy. There is no goiter. There is no accessory muscle of respiration use. Trachea central. LUNGS: Shows diminished air entry without rhonchi. There is diminished air entry and prolonged expiration throughout. On percussion there is hyperresonance. There is no crackles of pneumonia or rales of CHF. There is no wheezing. Palpation there is no chest wall tenderness. HEART: S1-S2 is heard. There is no S3 gallop. There is no S4 gallop. There is systolic murmur left sternal border and the apex there is no rub. ABDOMEN: Is soft. There are nontender. There is no hepatospleno megaly. Bowel sounds are well heard. EXTREMITIES: Femorals are diminished femorals are deep. There is no femoral bruits. Leg pulses are diminished. There is trace pedal edema bilaterally. There is no DVT or cellulitis. There is no sinus or clubbing. Capillary refill is normal. 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 PSYCHIATRIC: The patient judgment insight are intact her affect is normal. IMPRESSION/RECOMMENDATION: 1. Non-ST elevation MT: Patient only with a mild elevation of troponin, but very abnormal EKG patient had a negative IV Lexiscan Cardiolite stress test for MT or ischemia. 2. Moderate pulmonary hypertension: Will check a pulmonary CT angiogram to make sure per patient does not have chronic pulmonary emboli. In view of the patient's recent Cardiolite stress test, cannot do a VQ scan. In view of the patient moderate pulmonary hypertension we will change the patient to Cardizem CD. 3. Acute asthmatic attack in a patient with history of asthma. There is a resolved. Patient back to baseline. 4. Hypertension: Blood pressure seems to be well controlled. 5. Hyperlipidemia: We will start the patient on statin. . Abnormal EKG with subendocardial ischemia. As mentioned earlier we will treat the patient with aspirin, nitrates and Cardizem.
[2019-04-10] MEDS: ASPIRIN 81 MG TABLET, ENT COATED PO SCH (22:44)
[2019-04-10] MEDS: MONTELUKAST SODIUM 10 MG TABLET PO SCH (22:44)
[2019-04-10] MEDS: METOPROLOL TARTRATE 50 MG TABLET PO SCH (22:44)
[2019-04-10] MEDS: ATORVASTATIN CALCIUM 20 MG TABLET PO SCH (22:44)
[2019-04-11] MEDS: IPRATROPIUM/ALBUTEROL 0.5-2.5 MG/3 ML AMPUL NEB SCH ×4 (00:04→11:49)
[2019-04-11] MEDS: METHYLPREDNISOLONE INJ 40 MG/1 ML SDV IV SCH (06:42)
[2019-04-11] MEDS: PANTOPRAZOLE SODIUM 40 MG TABLET.DR PO SCH (06:42)
[2019-04-11] MEDS: TIOTROPIUM BROMIDE DPI 5 CAP/KIT (18 MCG/CAP) IH SCH (08:14)
[2019-04-11] MEDS: FLUTICASONE/VILANTEROL 100-25 MCG/DOSE IH SCH (08:14)
[2019-04-11] MEDS: DONEPEZIL HCL 5 MG TABLET PO SCH (09:36)
[2019-04-11] MEDS: AZITHROMYCIN 250 MG TABLET PO SCH (09:36)
[2019-04-11] MEDS: DOCUSATE SODIUM 100 MG CAPSULE PO SCH (09:36)
[2019-04-11] MEDS: CETIRIZINE 10 MG TABLET PO SCH (09:37)
[2019-04-11] MEDS: METHOCARBAMOL 750 MG TABLET PO SCH (09:37)
[2019-04-11] MEDS: HYDROCHLOROTHIAZIDE 25 MG TABLET PO SCH (09:37)
[2019-04-11] MEDS: DULOXETINE HCL 20 MG CAPSULE.DR PO SCH (09:37)
[2019-04-11] MEDS: LOSARTAN POTASSIUM 50 MG TABLET PO SCH (09:39)
[2019-04-11] MEDS ORDERED: DILTIAZEM HCL 120 MG CAP.SR.24H PO SCH ×2 (10:00)
--- NOTE | 2019-04-11 10:38 | RADIOLOGY REPORT (SQ) ---
EXAM DESCRIPTION: CTA CHEST COMPLETED DATE/TIME: 04/11/2019 10:26 am REASON FOR STUDY: Assess Pulmonary emboli COMPARISON: CHEST X-RAY DATED 04/06/2019 TECHNIQUE: CT scan of the chest performed using helical scanning technique with dynamic intravenous contrast injection. Images reviewed with lung, soft tissue and bone windows. Reconstructed coronal and sagittal MPR images reviewed. Additional 3 dimensional post-processing performed to develop Maximal Intensity Projection images (MO P). All images stored on PACS. All CT scanners at this facility use dose modulation, iterative reconstruction, and/or weight based d osing when appropriate to reduce radiation dose to as low as reasonably achievable (ALARA). [facility]: Dose Right [facility]: CareDose [facility]: Dose Right [facility]: Teradose 4D [facility]: GridCure CONTRAST TYPE AND DOSE: contrast/concentration: Isovue 350.00 mg/ml; Total Contrast Delivered: 64.0 ml; Total Saline Delivered: 80.0 ml Contrast bolus not optimized for the pulmonary arteries. RENAL FUNCTION: BUN 12, CREATININE 0.63 RADIATION DOSE: CT Rad equipment meets quality standard of care and radiation dose reduction techniq ues were employed. CTDIvol: 15.0 - 15.2 mGy. DLP: 567 mGy-cm. . LIMITATIONS: DUE TO TIMING OF THE BOLUS THE SEGMENTAL AND SUBSEGMENTAL BRANCHES CANNOT BE ADEQUATELY EVALUATED. FINDINGS: LUNGS AND PLEURA: Minimal linear atelectasis in the lung bases. No consolidation or effus ions. AORTA AND GREAT VESSELS: No aneurysm. Contrast bolus not optimized for the aorta. HEART: No pericardial effusion. No significant coronary artery calcifications. PULMONARY ARTERIES: No central pulmonary emboli. Smaller branches cannot be adequately evaluated due to timing of the bolus. HILAR AND MEDIASTINAL STRUCTURES: No identified masses or abnormal nodes. HARDWARE: None in the chest. UPPER ABDOMEN: No significant findings. Limited exam. THYROID AND OTHER SOFT TISSUES: Enlarged left lobe of the thyroid g with multiple nodules. Presumabl e right thyroidectomy. BONES: No acute or significant finding. 3D MIPS: Confirm above findings. OTHER: No other significant finding. IMPRESSION: Limited study due to timing of the bolus. No central pulmonary emboli. Smaller branche s cannot be adequately assessed due to timing of the bolus. COMMENT: Quality ID # [id number]: Final reports with documentation of one or more dose reduction techniques (e.g., Automated exposure control, adjustment of the mA and/or kV according to patient size, use of iterative reconstruction technique) TECHNICAL DOCUMENTATION: JOB ID: [id number] [employer]- All Rights Reserved Reading location - IP/workstation name: [email or web address]
[2019-04-11 14:49] VITALS: BP 114/57
--- NOTE | 2019-04-13 01:08 | DRAGON STRESS TEST REPORT ---
Intravenous Lexiscan Cardiolite stress test using single photon emmision computerized tomography. Date of procedure: 04/10/2019. Ordering Provider: Dr. Miya Downey.Patient's status: Inpatient. Indication: Abnormal EKG, shortness of breath, and elevated troponin.. Coronary risk factors: Age, hypertension, dyslipidemia, and family history of coronary artery disease. Resting EKG: Sinus Rhythm. Diffuse T inversion Stress EKG: No changes of Lexiscan induced ischemia. The patient had no chest pain or discomfort, and there were no arrhythmias seen. Reason for termination: Protocol. Conclusions: Normal EKG and hemodynamic response to IV Lexiscan. Nuclear data: At rest the patient was given 14.97 millicuries of technetium 99m sestamibi injected intravenously. As per protocol rest non gated SPECT images were obtained. Subsequently the patient was given intravenous Lexiscan at a dose of 0.4 mg in 5 mL intravenously, followed by flush with normal saline. Subsequently the stress dose of 44.6 millicuries of technetium 99m sestamibi was injected intravenously. As per protocol stress gated images were obtained. Nuclear interpretation: Review of images showed that there was breast attenuation artifact. In spite of this all segments of the myocardium had normal perfusion at rest, and normal perfusion post stress with IV Lexiscan. All segments of the myocardium had normal motion, contraction, and thickening by gated study. T. I D. ratio was normal at 1.11. There is no transient ischemic dilatation of the left ventricle. Computer read rest, and stress left ventricular ejection fraction were 57 %, and 55 %, respectively. Conclusion: 1. There is no scintigraphic evidence of Lexiscan induced myocardial ischemia. 2. There is no scintigraphic evidence of myocardial infarction/scar. Recommendations: Aggressive risk factor modification, and treating the underlying co- morbidities. [facility]
== END 2019-04-11 15:10 | disposition home or self-care (01) | DRG 280 ==
LOC: ER 08:16 → EH 10:29 → 3S 11:56
PROVIDERS: ADMIT Internal Medicine; ATTEND Internal Medicine
DX: I21.4 Non-ST elevation (NSTEMI) myocardial infarction (principal); J96.22 Acute and chronic respiratory failure with hypercapnia; J96.21 Acute and chronic respiratory failure with hypoxia; J44.1 Chronic obstructive pulmonary disease with (acute) exacerbation; E87.2 Acidosis; I44.4 Left anterior fascicular block; I10 Essential (primary) hypertension; K21.9 Gastro-esophageal reflux disease without esophagitis; Z96.641 Presence of right artificial hip joint; Z99.81 Dependence on supplemental oxygen; Z87.891 Personal history of nicotine dependence; Z79.51 Long term (current) use of inhaled steroids; Z79.899 Other long term (current) drug therapy
CPT/HCPCS: 36415; 71045; 71275; 78452; 80053; 80061; 82550; 82553; 82803; 82962; 83735; 84484; 85025; 87040; 93005; 93010; 93017; 93306; 94660; 96374; 99291; A9500; J0456; J1650; J2270; J2785; J2920; J2930; J3475; J3490; J7060; J7620; Q9969

== ENCOUNTER → 2019-09-24 | Outpatient (CLI) | payer MEDICARE, OTHER ==
--- NOTE | 2019-09-24 17:25 | RADIOLOGY REPORT (SQ) ---
EXAM DESCRIPTION: CHEST 2 VIEWS COMPLETED DATE/TIME: 09/24/2019 5:12 pm REASON FOR STUDY: J06.9 ACUTE UPPER RESPIRATORY INFECTION, UNSPECIFIED COMPARISON: 04/06/2019. EXAM PARAMETERS: NUMBER OF VIEWS: two views TECHNIQUE: Digital Frontal and Lateral radiographic views of the chest acquired. RADIATION DOSE: NA LIMITATIONS: none FINDINGS: LUNGS AND PLEURA: No opacities, masses or pneumothorax. No pleural effusion. MEDIASTINUM AND HILAR STRUCTURES: No masses or contour abnormalities. HEART AND VASCULAR STRUCTURES: Heart normal size. No evidence for failure. BONES: No acute findings. HARDWARE: None in the chest. Clips in the soft tissues of the neck. OTHER: No other significant finding. IMPRESSION: NO ACUTE RADIOGRAPHIC FINDING IN THE CHEST. TECHNICAL DOCUMENTATION: JOB ID: [id number] [employer]- All Rights Reserved Reading location - IP/workstation name: [email or web address]
== END ==
LOC: RAD 16:55
PROVIDERS: ATTEND Internal Medicine Pulmonary Disease
DX: J06.9 Acute upper respiratory infection, unspecified (principal)
CPT/HCPCS: 71046

== ENCOUNTER → 2019-10-13 | Outpatient (CLI) | payer MEDICARE, OTHER | LOC: RAD 07:35 | PROVIDERS: ATTEND Physician Assistant | DX: R10.30 Lower abdominal pain, unspecified (principal) | CPT/HCPCS: 74021 ==

== ENCOUNTER → 2020-01-02 | Outpatient (CLI) | payer MEDICARE, OTHER ==
--- NOTE | 2020-01-02 11:23 | RADIOLOGY REPORT (SQ) ---
EXAM DESCRIPTION: U/S ABDOMEN LIMITED W/O DOP IMAGES COMPLETED DATE/TIME: 01/02/2020 11:09 am REASON FOR STUDY: R74.8 ABNORMAL LEVELS OF OTHER SERUM ENZYMES R74.8 ABNORMAL LEVELS OF OTHER SERUM ENZYMES R10.84 GENERALIZED ABDOMINAL PAIN COMPARISON: None. TECHNIQUE: Dynamic and static grayscale images acquired of the abdomen and recorded on PACS. Additio nal selected color Doppler and spectral images recorded. LIMITATIONS: None. FINDINGS: PANCREAS: No masses. Visualized pancreatic duct normal caliber. LIVER: Normal size Echo texture normal. No focal masses LIVER VASCULATURE: Normal directional flow of the main portal vein and hepatic veins. GALLBLADDER: No stones. Normal wall thickness. No pericholecystic fluid. ULTRASOUND-DETECTED LASSITER'S SIGN: Negative. INTRAHEPATIC DUCTS AND COMMON DUCT: CBD and intrahepatic ducts normal caliber. No filling defects. RIGHT KIDNEY: Normal size. Normal echogenicity. No solid or suspicious masses. There is a small right renal cyst. No hydronephrosis. No calcifications. PERITONEAL AND RIGHT PLEURAL SPACE: No ascites or effusions. OTHER: No other significant findings. IMPRESSION: NORMAL RIGHT UPPER QUADRANT ULTRASOUND VISUALIZED. TECHNICAL DOCUMENTATION: JOB ID: [id number] 2010 [employer]- All Rights Reserved Reading location - IP/workstation name: [email or web address]
== END ==
LOC: RAD 10:43
PROVIDERS: ATTEND Physician Assistant
DX: R74.8 Abnormal levels of other serum enzymes (principal); R10.84 Generalized abdominal pain
CPT/HCPCS: 76705

== ENCOUNTER 2020-02-25 06:58 | Day surgery (SDC) | payer MEDICARE, OTHER ==
[2020-02-25] MEDS ORDERED: PROPOFOL INJ 200 MG/20 ML VIAL IV ONE (07:58)
[2020-02-25 09:39] VITALS: BP 129/89
--- NOTE | 2020-02-25 11:05 | Operative Report ---
Operative Report DATE OF SURGERY: 02/25/20 Operative Report: The risk, benefits and alternatives of the procedure including the risk of bleeding, perforation requiring surgery have been explained to the patient in detail and informed consent has been obtained. Patient is placed in the left, lateral decubital position. Timeout was called. Propofol medication is administered. Rectal examination is done which did not reveal any masses, tears or fissures. An Olympus videoscope was introduced into the patient's rectum. Scope was then carefully advanced all the way to the cecum. Cecum was identified by the usual anatomical landmarks of the ileocecal valve as well as the appendiceal office. Photodocumentation is obtained. Scope was then sequentially pulled back via the various segments of the colon including the ascending colon, hepatic flexure, transverse colon, splenic flexure, descending colon finally into the rectosigmoid portions of the colon. Retroflexion maneuvers performed. The risks benefits and alternatives of the procedure explained to the patient in detail and informed consent is obtained.A GIF Olympus video scope was inserted into the patient's mouth and hypopharynx, the esophagus is identified intubated and insufflated ,the scope was then advanced through the esophagus stomach and duodenum, retroflexion maneuver is done ,the esophagus stomach and first and second portions of the duodenum examined PREOPERATIVE DIAGNOSIS: Change of bowel habits. Nausea vomiting POSTOPERATIVE DIAGNOSIS: Full colon polyps in the ascending colon. 1 was approximating 1 cm at least in diameter and sessile it was removed via snare polypectomy, the site was injected with Alis ink for future determination if pathology does show malignancy. Diverticulosis. Internal hemorrhoids. Gastritis status post biopsy OPERATION: Colonoscopy with snare polypectomy. Submucosal injection of tattoo ink. EGD with biopsy SURGEON: AARON GARCIA ANESTHESIA: LMAC TISSUE REMOVED OR ALTERED: As noted above. COMPLICATIONS: None. ESTIMATED BLOOD LOSS: None. INTRAOPERATIVE FINDINGS: As noted above. PROCEDURE: Patient tolerated the procedure well. No immediate postprocedure complications are noted. Patient is discharged in good condition. Discharge date 02/25/2020. Discharge diet: Regular. Discharge activity: Regular. 2 to 3-week follow-up to discuss findings. 3 to 5-year surveillance colonoscopy depending on the pathology of the polyp. Patient is instructed to call the office or proceed to the emergency room should there be any further problems or questions.
== END 2020-02-25 09:45 | disposition home or self-care (01) ==
LOC: END 06:58
PROVIDERS: ATTEND Internal Medicine Gastroenterology
DX: D12.3 Benign neoplasm of transverse colon (principal); K57.30 Diverticulosis of large intestine without perforation or abscess without bleeding; K64.8 Other hemorrhoids; K29.50 Unspecified chronic gastritis without bleeding; Z87.891 Personal history of nicotine dependence; Z86.010 Personal history of colon polyps; E89.0 Postprocedural hypothyroidism; Z79.899 Other long term (current) drug therapy; Z79.82 Long term (current) use of aspirin; J43.9 Emphysema, unspecified; J45.909 Unspecified asthma, uncomplicated; Z99.81 Dependence on supplemental oxygen; Z03.818 Encounter for observation for suspected exposure to other biological agents ruled out
CPT/HCPCS: 43239; 45385; 45381; 88305 ×2; U0003; J2704; C9803; 813; 87635

== ENCOUNTER → 2020-03-05 | Outpatient (CLI) | payer MEDICARE, OTHER ==
[2020-03-05 13:19] LABS: ABSOLUTE LYMPHOCYTES (AUTO) 1.4 10^3/uL (0.5-4.7); ABSOLUTE MONOCYTES (AUTO) 0.5 10^3/uL (0.1-1.4); ABSOLUTE NEUT (AUTO) 4.2 10^3/uL (1.7-8.2); BASOPHILS % (AUTO) 0.4 % (0-2); HEMATOCRIT 36.6 % (36.0-47.0); LYMPHOCYTES % (AUTO) 23.3 % (13-45); MEAN CORPUSCULAR HGB CONC 32.9 g/dL (32.0-36.0); MEAN CORPUSCULAR VOLUME 88 fl (80-97); MONOCYTES % (AUTO) 7.6 % (3-13); PLATELET COUNT 244 10^3/uL (150-450); RED BLOOD COUNT 4.15 10^6/uL (3.72-5.28); RED CELL DISTRIBUTION WIDTH 13.1 % (11.5-14.0); SEGMENTED NEUTROPHILS % (AUTO) 68.7 % (42-78); TOTAL CELLS COUNTED % (AUTO) 100 %; WHITE BLOOD COUNT 6.2 10^3/uL (4.0-10.5)
== END ==
LOC: OD 12:28
PROVIDERS: ATTEND Internal Medicine Pulmonary Disease
DX: J45.20 Mild intermittent asthma, uncomplicated (principal)
CPT/HCPCS: 36415; 82785; 85025

== ENCOUNTER 2020-05-04 18:37 | Inpatient (IN) | payer MEDICARE, OTHER ==
--- NOTE | 2020-05-04 18:47 | ER Document Report ---
ED GI/ - General Chief Complaint: Abdominal Pain Stated Complaint: ABDOMINAL PAIN Time Seen by Provider: 05/04/20 18:40 Primary Care Provider: DARON JACKSON MD [ACTIVE STAFF] - Follow up as needed TRAVEL OUTSIDE OF THE [place] IN LAST 30 DAYS: No - HPI Notes: 65-year-old female presents with abdominal pain. Patient states that she developed abdominal pain around 3 AM this morning. States that is mainly located in her left upper quadrant, however now is generalized and radiates down to the lower abdomen. Pain is sharp and stabbing, has been constant its onset since this morning. She has had nausea, no vomiting. She states that she has had 2 small bowel movements described as being hard and orange, these are not normal for her, no blood in stool. She states that potentially she might have food poisoning, as her symptoms started after eating a [employer] barbecue, and has had food poisoning in the past and this feels similar. No fever. No previous abdominal surgeries. Has history of diverticulitis. Has not taken any medications at home. Denies chronic narcotic use. - Related Data Allergies/Adverse Reactions: No Known Allergies Allergy (Verified 02/25/20 07:13) Past Medical History - General Information source: Patient - Social History Smoking Status: Unknown if Ever Smoked Family History: COPD - Past Medical History Cardiac Medical History: Reports: Hx Hypertension Denies: Hx Coronary Artery Disease, Hx Heart Attack Pulmonary Medical History: Reports: Hx Asthma, Hx Bronchitis, Hx COPD Denies: Hx Pneumonia Neurological Medical History: Denies: Hx Cerebrovascular Accident, Hx Seizures Renal/ Medical History: Denies: Hx Peritoneal Dialysis GI Medical History: Reports: Hx Gastroesophageal Reflux Disease Musculoskeletal Medical History: Reports Hx Arthritis Past Surgical History: Reports: Hx Hysterectomy, Hx Orthopedic Surgery - R hip replacement, Hx Thyroid Surgery - Immunizations Hx Diphtheria, Pertussis, Tetanus Vaccination: Yes - 2008 Hx Pneumococcal Vaccination: 08/20/09 Review of Systems - Review of Systems Constitutional: denies: Fever EENT: No symptoms reported Cardiovascular: denies: Chest pain Respiratory: denies: Cough, Short of breath Gastrointestinal: Abdominal pain, Nausea, Constipation. denies: Vomiting Genitourinary: No symptoms reported Musculoskeletal: No symptoms reported Skin: No symptoms reported Neurological/Psychological: No symptoms reported Physical Exam - Vital signs Vitals: Resp Pulse Ox 19 100 05/04/20 18:44 05/04/20 18:44 - General General appearance: Appears well, Alert In distress: None - HEENT Head: Normocephalic, Atraumatic Conjunctiva: No: Icteric Extraocular movements intact: Yes Pupils: PERRL - Respiratory Breath sounds: Normal - Cardiovascular Rhythm: Regular - Abdominal Distension: No distension Bowel sounds: Normal Tenderness: Tender - Generalized. No: Guarding, Rebound - Extremities General lower extremity: No: Edema - Neurological Neuro grossly intact: Yes Cognition: Normal Orientation: AAOx4 - Psychological Associated symptoms: Normal affect - Skin Skin Temperature: Warm Course - Re-evaluation Re-evalutation: 65-year-old female with abdominal pain onset this morning at 3 AM along with what sounds like some constipation, potentially related to consuming barbecue food. On exam she is well-appearing, nontoxic, has some generalized tenderness, abdomen is overall non-peritoneal. Possible foodborne illness versus gastritis versus PUD versus diverticulitis. CT abdomen ordered to assess. Will start with Pepcid and Toradol for symptoms. 05/04/20 20:28 Labs reviewed. No leukocytosis. No acute anemia. Electrolytes within normal limits. Creatinine within normal limits. No elevation of LFTs, T bili or lipase. 05/04/20 20:50 CT abdomen has resulted, there is concern for high-grade small bowel obstruction. I went in to update patient on results. She is feeling better. She states that she has had a hysterectomy. She is passing a small amount of gas. She also states that a couple months ago she had a colonoscopy, states that she was told there was some polyps however negative for cancer per her report. NG tube with continuous low wall suction ordered. Additionally states it is time for a breathing treatment, duoneb ordered. 05/04/20 21:20 Surgery paged x2 05/04/20 21:30 Surgery paged 05/04/20 21:40 I discussed patient and CT with report concerning for high grade SBO with Dr Rosario. He has requested small bowel follow thru with gastrografin then a call back. Care turned over to Dr Owens - Vital Signs Vital signs: Temp Pulse Resp BP Pulse Ox 97.7 F 72 22 H 138/85 H 100 05/04/20 18:54 05/04/20 18:54 05/04/20 19:01 05/04/20 19:01 05/04/20 19:01 - Laboratory Result Diagrams: 05/04/20 19:08 05/04/20 19:08 Laboratory results interpreted by me: 05/04/20 05/04/20 19:08 19:08 RDW 15.4 H Seg Neutrophils % 80.4 H Sodium 136.9 L Creatinine 0.51 L Glucose 129 H Alkaline Phosphatase 129 H Lipase 21.9 L - Diagnostic Test Radiology reviewed: Image reviewed, Reports reviewed Discharge - Discharge Clinical Impression: SBO (small bowel obstruction) Disposition: ADMITTED INPATIENT Unit Admitted: Surgical Floor Referrals: DARON JACKSON MD [ACTIVE STAFF] - Follow up as needed
[2020-05-04] MEDS ORDERED: FAMOTIDINE INJ/PF 20 MG/2 ML SDV IV ONE (18:49)
[2020-05-04] MEDS ORDERED: KETOROLAC TROMETHAMINE INJ/PF 30 MG/1 ML SDV IV ONE (18:50)
[2020-05-04 19:23] LABS: ABSOLUTE BASOPHILS # (AUTO) 0.1 10^3/uL (0.0-0.2); ABSOLUTE LYMPHOCYTES (AUTO) 1.4 10^3/uL (0.5-4.7); ABSOLUTE MONOCYTES (AUTO) 0.5 10^3/uL (0.1-1.4); BASOPHILS % (AUTO) 0.5 % (0-2); HEMATOCRIT 42.2 % (36.0-47.0); HEMOGLOBIN 14.1 g/dL (12.0-15.5); LYMPHOCYTES % (AUTO) 14.3 % (13-45); MEAN CORPUSCULAR HEMOGLOBIN 28.8 pg (27.0-33.4); MEAN CORPUSCULAR HGB CONC 33.4 g/dL (32.0-36.0); MEAN CORPUSCULAR VOLUME 86 fl (80-97); MONOCYTES % (AUTO) 4.8 % (3-13); PLATELET COUNT 288 10^3/uL (150-450); RED BLOOD COUNT 4.89 10^6/uL (3.72-5.28); RED CELL DISTRIBUTION WIDTH 15.4 % (11.5-14.0); SEGMENTED NEUTROPHILS % (AUTO) 80.4 % (42-78); TOTAL CELLS COUNTED % (AUTO) 100 %
[2020-05-04 19:45] LABS: ALBUMIN 4.1 g/dL (3.5-5.0); ALKALINE PHOSPHATASE 129 U/L (38-126); ANION GAP 6 (5-19); ASPARTATE AMINO TRANSFERASE 20 U/L (14-36); BILIRUBIN,DIRECT 0.3 mg/dL (0.0-0.4); BILIRUBIN,TOTAL 0.6 mg/dL (0.2-1.3); BLOOD UREA NITROGEN 10 mg/dL (7-20); CALCIUM 9.5 mg/dL (8.4-10.2); CARBON DIOXIDE 28 mmol/L (22-30); CHLORIDE 103 mmol/L (98-107); GLUCOSE 129 mg/dL (75-110); POTASSIUM 4.5 mmol/L (3.6-5.0); TOTAL PROTEIN 7.1 g/dL (6.3-8.2)
--- NOTE | 2020-05-04 20:43 | RADIOLOGY REPORT (SQ) ---
EXAM DESCRIPTION: CT ABDOMEN PELVIS WITH IV CONTRAST COMPLETED DATE/TME: 05/04/2020 18:48 CLINICAL HISTORY: 65 years Female generalized abd pain COMPARISON: None. TECHNIQUE: Contiguous axial images obtained through the abdomen and pelvis following IV contrast. Reformatted images obtained. This exam was performed according to our department optimization program which includes automated exposure control, adjustment of the mA and/or kv according to patient size and/or use of iterative reconstruction technique. FINDINGS: Motion artifact limits evaluation. There is free fluid in the abdomen and pelvis. Liver, spleen and pancreas appear unremarkable. No adrenal masses. The kidneys appear unremarkable. No hydronephrosis. The gallbladder is visualized. No aneurysmal dilatation of the aorta. There is moderate fluid-filled distention of small bowel in a pattern consistent with obstruction. There is edema in the mesentery. Distal small bowel is decompressed. Suspect that the area of transition is in the central anterior abdomen where loops of small bowel are closely applied to the anterior abdominal wall which may reflect adhesion. The appendix is nonvisualized. IMPRESSION: Findings consistent with high-grade small bowel obstruction with zone of transition in the anterior lower pelvis Edema and fluid in the mesentery and within the abdomen and pelvis
[2020-05-04] MEDS ORDERED: IPRATROPIUM/ALBUTEROL 0.5-2.5 MG/3 ML AMPUL NEB ONE (20:50)
[2020-05-04] MEDS ORDERED: RINGERS SOLUTION,LACTATED 1,000 ML IV ONE (21:07)
[2020-05-04 21:16] LABS: APPEARANCE,URINE CLEAR; BILIRUBIN,URINE NEGATIVE (NEGATIVE); COLOR,URINE YELLOW; GLUCOSE, URINE NEGATIVE (NEGATIVE); KETONES,URINE NEGATIVE (NEGATIVE); LEUKOCYTE ESTERASE,URINE NEGATIVE (NEGATIVE); NITRITE,URINE NEGATIVE (NEGATIVE); PROTEIN,URINE NEGATIVE (NEGATIVE); URINE SPECIFIC GRAVITY 1.042; UROBILINOGEN,URINE NEGATIVE mg/dL (<2.0)
[2020-05-04] MEDS ORDERED: ALBUTEROL SULFATE 0.083% NEB 2.5 MG/3 ML AMPUL NEB ONE (22:03)
[2020-05-04] MEDS ORDERED: METHYLPREDNISOLONE INJ 125 MG/2 ML SDV IV ONE (22:35)
[2020-05-04] MEDS ORDERED: ACETAMINOPHEN 325 MG TABLET PO PRN (22:45)
--- NOTE | 2020-05-04 23:14 | RADIOLOGY REPORT (SQ) ---
EXAM DESCRIPTION: XR CHEST 1 VIEW COMPLETED DATE/TME: 05/04/2020 22:33 CLINICAL HISTORY: 65 years, Female, SOB COPD COMPARISON: 04/06/2019 chest NUMBER OF VIEWS: 1 TECHNIQUE: Portable chest LIMITATIONS: None. FINDINGS: Heart size is normal. Underlying COPD. No pneumothorax. Surgical clips in the neck. Lungs are clear. IMPRESSION: COPD. Lungs are clear copyright 2010 [employer]- All Rights Reserved
[2020-05-04 23:19] LABS: VENOUS BLOOD BASE EXCESS -1.9 mmol/L; VENOUS BLOOD HCO3 25.5 mmol/L (20-32); VENOUS BLOOD PCO2 53.5 mmHg (35-63); VENOUS BLOOD PH 7.3 (7.30-7.42)
[2020-05-04 23:22] LABS: NT PRO BNP 29 pg/mL (<125)
[2020-05-04 23:39] LABS: TROPONIN I < 0.012 ng/mL
[2020-05-04] MEDS: IPRATROPIUM/ALBUTEROL 0.5-2.5 MG/3 ML AMPUL NEB SCH ×2 (23:42→23:43)
[2020-05-04] MEDS ORDERED: BUDESONIDE NEB 0.5 MG/2 ML AMPUL NEB ONE (23:45)
[2020-05-04] MEDS ORDERED: PANTOPRAZOLE SODIUM 40 MG VIAL IV ONE (23:45)
[2020-05-04] MEDS ORDERED: CEFEPIME 2 GM/D5W RTU 2 GM/50 ML RTUPB IV ONE (23:45)
--- NOTE | 2020-05-05 00:34 | PDOC CONSULTATION ---
Consultation Consult Date: 05/05/20 Attending physician:: JEYSON TAYLOR Provider Consulted: JENY TOBIAS Consult reason:: abdomina pain, small bowel obstruction History of Present Illness Admission Date/PCP: 05/04/20 23:02 JEYSON TAYLOR MD History of Present Illness: ELIJAH REED is a 65 year old female6 presents with abdominal pain for 1 day. Patient states that she developed abdominal pain around 3 AM this morning. States that is mainly located in her left upper quadrant, however now is generalized and radiates down to the lower abdomen. Pain is sharp and stabbing, has been constant its onset since this morning. She has had nausea, no vomiting. She states that she has had 2 small bowel movements described as being hard and orange, these are not normal for her, no blood in stool. She states that potentially she might have food poisoning, as her symptoms started after eating a [employer] barbecue, and has had food poisoning in the past and this feels similar. No fever. No previous abdominal surgeries. Has history of diverticulitis. Has not taken any medications at home. Denies chronic narcotic use pt states she has had chronic abd pains for last yr, with cramps and bloating. Past Medical History Cardiac Medical History: Reports: Hypertension Denies: Coronary Artery Disease, Myocardial Infarction Pulmonary Medical History: Reports: Asthma, Bronchitis, Chronic Obstructive P ulmonary Disease (COPD) Denies: Pneumonia Neurological Medical History: Denies: Seizures GI Medical History: Reports: Gastroesophageal Reflux Disease Musculoskeltal Medical History: Reports: Arthritis Hematology: Denies: Anemia Past Surgical History Past Surgical History: Reports: Hysterectomy, Orthopedic Surgery - R hip replacement Social History Smoking Status: Unknown if Ever Smoked Frequency of Alcohol Use: Occasional Hx Recreational Drug Use: No Drugs: None Hx Prescription Drug Abuse: No Family History Family History: COPD Parental Family History Reviewed: No Children Family History Reviewed: NA Sibling(s) Family History Reviewed.: NA Medication/Allergy Home Medications: Budesonide/Formoterol Fumarate [Symbicort HFA 160-4.5 mcg Inhaler 6 gm] 1 puff IH Q12 01/05/18 Cetirizine HCl [Zyrtec 10 mg Tablet] 10 mg PO DAILY 01/05/18 Ipratropium/Albuterol Sulfate [Duoneb 3 ml Ampul] 3 ml NEB RTQ6HP PRN 01/05/18 Montelukast Sodium [Singulair 10 mg Tablet] 10 mg PO QHS 01/05/18 Tiotropium [place] [Spiriva Respimat] 2 puff IH DAILY 01/05/18 Donepezil HCl [Aricept] 10 mg PO DAILY 04/06/19 Duloxetine HCl [Cymbalta 20 mg Capsule.dr] 20 mg PO DAILY 04/06/19 Telmisartan/Hydrochlorothiazid [Micardis HCT 80-25 mg Tablet] 1 each PO DAILY 04/06/19 Allergies/Adverse Reactions: No Known Allergies Allergy (Verified 02/25/20 07:13) Physical Exam Vital Signs: Temp Pulse Resp BP Pulse Ox 97.7 F 72 44 H 104/82 100 05/04/20 18:54 05/04/20 18:54 05/04/20 22:30 05/04/20 22:30 05/04/20 22:30 Intake & Output 05/03/20 05/04/20 05/05/20 06:59 06:59 06:59 Intake Total 10 Balance 10 Weight 85.9 kg General appearance: PRESENT: mild distress Head exam: PRESENT: normocephalic Eye exam: PRESENT: EOMI Ear exam: PRESENT: normal external ear exam Mouth exam: PRESENT: other - on bipap Neck exam: PRESENT: full ROM Respiratory exam: PRESENT: decreased breath sounds, wheezes Cardiovascular exam: PRESENT: RRR, tachycardia Pulses: PRESENT: normal radial pulses, normal femoral pulses Vascular exam: PRESENT: normal capillary refill Breast: PRESENT: Normal GI/Abdominal exam: PRESENT: diminished bowel sounds, distended, tenderness Rectal exam: PRESENT: deferred Extremities exam: PRESENT: full ROM Musculoskeletal exam: PRESENT: full ROM Neurological exam: PRESENT: alert, awake, oriented to person, oriented to place Psychiatric exam: PRESENT: appropriate affect Skin exam: PRESENT: dry Results Laboratory Results: 05/04/20 19:08 05/04/20 19:08 05/04/20 05/04/20 05/04/20 19:08 19:08 20:39 WBC 10.0 RBC 4.89 Hgb 14.1 Hct 42.2 MCV 86 MCH 28.8 MCHC 33.4 RDW 15.4 H Plt Count 288 Seg Neutrophils % 80.4 H VBG pH VBG pCO2 VBG HCO3 VBG Base Excess Sodium 136.9 L Potassium 4.5 Chloride 103 Carbon Dioxide 28 Anion Gap 6 BUN 10 Creatinine 0.51 L Est GFR ( Amer) > 60 Glucose 129 H Calcium 9.5 Total Bilirubin 0.6 AST 20 Alkaline Phosphatase 129 H Total Protein 7.1 Albumin 4.1 Lipase 21.9 L Urine Color YELLOW Urine Appearance CLEAR Urine pH 5.0 Ur Specific [place] 1.042 Urine Protein NEGATIVE Urine Glucose (UA) NEGATIVE Urine Ketones NEGATIVE Urine Blood NEGATIVE Urine Nitrite NEGATIVE Ur Leukocyte Esterase NEGATIVE Urine WBC (Auto) 2 Urine RBC (Auto) 4 05/04/20 22:50 WBC RBC Hgb Hct MCV MCH MCHC RDW Plt Count Seg Neutrophils % VBG pH 7.30 VBG pCO2 53.5 VBG HCO3 25.5 VBG Base Excess -1.9 Sodium Potassium Chloride Carbon Dioxide Anion Gap BUN Creatinine Est GFR ( Amer) Glucose Calcium Total Bilirubin AST Alkaline Phosphatase Total Protein Albumin Lipase Urine Color Urine Appearance Urine pH Ur Specific [place] Urine Protein Urine Glucose (UA) Urine Ketones Urine Blood Urine Nitrite Ur Leukocyte Esterase Urine WBC (Auto) Urine RBC (Auto) 05/04/20 19:08 Troponin I < 0.012 NT-Pro-B Natriuret Pep 29 Impressions: Abdomen/Pelvis CT 05/04/20 18:48 IMPRESSION: Findings consistent with high-grade small bowel obstruction with zone of transition in the anterior lower pelvis Edema and fluid in the mesentery and within the abdomen and pelvis Chest X-Ray 05/04/20 22:33 IMPRESSION: COPD. Lungs are clear copyright 2010 [employer]- All Rights Reserved Assessment & Plan - Plan Summary Plan Summary: impression small bowel obstruction vs constipation complicated by exacerbation of her copd requiring bipap ct c/w sbo with transition pt recommend ng tube as her stomach is distended and full of fluid and with bipap she is a aspiration risk hold off on small bowel series for now untill her respiratory status improves surgery will follow.
--- NOTE | 2020-05-05 00:47 | EKG REPORT ---
SEVERITY:- ABNORMAL ECG - SINUS TACHYCARDIA LEFT ANTERIOR FASCICULAR BLOCK PROBABLE LEFT VENTRICULAR HYPERTROPHY : Confirmed by: Dao Escobedo 05-May-2020 00:46:31
--- NOTE | 2020-05-05 01:20 | RADIOLOGY REPORT (SQ) ---
CLINICAL HISTORY: VERIFY NG TUBE PLACEMENT COMPARISON: 05/04/2020. TECHNIQUE: XR CHEST 1 VIEW 05/05/2020 12:38 AM CDT FINDINGS: Cardiac silhouette is normal in size. Lungs are clear without consolidation, atelectasis, mass or edema. There is no pleural effusion. There is no pneumothorax. There are no acute osseous findings. NG tube tip is in the stomach. IMPRESSION: NG tube tip in the stomach.
[2020-05-05] MEDS ORDERED: METHYLPREDNISOLONE INJ 125 MG/2 ML SDV IV SCH ×2 (06:00)
[2020-05-05 06:11] LABS: HEMOGLOBIN 13.3 g/dL (12.0-15.5); MEAN CORPUSCULAR HEMOGLOBIN 28.9 pg (27.0-33.4); MEAN CORPUSCULAR HGB CONC 33.2 g/dL (32.0-36.0); MEAN CORPUSCULAR VOLUME 87 fl (80-97); PLATELET COUNT 279 10^3/uL (150-450); RED CELL DISTRIBUTION WIDTH 15.1 % (11.5-14.0); WHITE BLOOD COUNT 15.4 10^3/uL (4.0-10.5)
[2020-05-05 06:17] LABS: ALBUMIN 3.8 g/dL (3.5-5.0); ALKALINE PHOSPHATASE 110 U/L (38-126); ANION GAP 12 (5-19); ASPARTATE AMINO TRANSFERASE 19 U/L (14-36); BILIRUBIN,DIRECT 0.3 mg/dL (0.0-0.4); BILIRUBIN,TOTAL 0.7 mg/dL (0.2-1.3); BLOOD UREA NITROGEN 18 mg/dL (7-20); CALCIUM 9.3 mg/dL (8.4-10.2); CARBON DIOXIDE 23 mmol/L (22-30); CHLORIDE 102 mmol/L (98-107); GLUCOSE 145 mg/dL (75-110); PHOSPHORUS 4.9 mg/dL (2.5-4.5); POTASSIUM 4.8 mmol/L (3.6-5.0); TOTAL PROTEIN 6.5 g/dL (6.3-8.2)
[2020-05-05 06:49] LABS: ABSOLUTE LYMPHOCYTES# (MANUAL) 0.6 10^3/uL (0.5-4.7); ABSOLUTE MONOCYTES # (MANUAL) 0.3 10^3/uL (0.1-1.4); BASOPHILS % (MANUAL) 0 % (0-2); EOSINOPHILS % (MANUAL) 0 % (0-6); LYMPHOCYTES % (MANUAL) 4 % (13-45); MONOCYTES % (MANUAL) 2 % (3-13); SEGMENTED NEUTROPHILS % (MAN) 94 % (42-78); TOTAL CELLS COUNTED 100
[2020-05-05] MEDS: ONDANSETRON HCL INJ/PF 4 MG/2 ML SDV IV PRN ×3 (06:50→14:53)
[2020-05-05 06:51] LABS: ANISOCYTOSIS SLIGHT; OVALOCYTES SLIGHT; PLATELET COMMENT ADEQUATE; POIKILOCYTOSIS SLIGHT; TEAR DROP CELLS SLIGHT; TOXIC GRANULATION SLIGHT
[2020-05-05] MEDS: IPRATROPIUM/ALBUTEROL 0.5-2.5 MG/3 ML AMPUL NEB SCH ×4 (07:47→20:57)
[2020-05-05] MEDS: BUDESONIDE NEB 0.5 MG/2 ML AMPUL NEB SCH ×2 (07:47→20:57)
[2020-05-05] MEDS: PANTOPRAZOLE SODIUM 40 MG VIAL IV SCH ×2 (09:29→22:25)
[2020-05-05] MEDS: NORMAL SALINE 1000 ML 1,000 ML IV PRN ×2 (09:30→22:24)
[2020-05-05] MEDS: ENOXAPARIN SODIUM INJ 40 MG/0.4 ML DISP.SYRIN SUBCUT SCH (09:30)
--- NOTE | 2020-05-05 09:50 | RADIOLOGY REPORT (SQ) ---
EXAM DESCRIPTION: KUB/ABDOMEN (SINGLE VIEW) IMAGES COMPLETED DATE/TIME: 05/05/2020 9:15 am REASON FOR STUDY: NG tube placement COMPARISON: None. NUMBER OF VIEWS: One view. TECHNIQUE: Supine radiographic image of the abdomen acquired. LIMITATIONS: None. FINDINGS: BOWEL GAS PATTERN: Mild dilated small bowel loops. CALCIFICATIONS: No suspicious calcifications. SOFT TISSUES: No gross mass or suggestion of organomegaly. HARDWARE: NG tube tip in the stomach BONES: Right total hip replacement. OTHER: Contrast in the bladder. IMPRESSION: NG tube tip in the stomach. TECHNICAL DOCUMENTATION: JOB ID: [id number] 2010 [employer]- All Rights Reserved Reading location - IP/workstation name: [email or web address]
[2020-05-05] MEDS ORDERED: CEFEPIME 2 GM/D5W RTU 2 GM/50 ML RTUPB IV SCH (10:00)
[2020-05-05] MEDS: CEFEPIME HCL 2 GM in DEXTROSE 5%-WATER 50 ML IV SCH ×2 (10:24→22:24)
--- NOTE | 2020-05-05 11:46 | PDOC H&P ---
History of Present Illness Admission Date/PCP: 05/04/20 23:02 JEYSON TAYLOR MD Patient complains of: Abdominal pain History of Present Illness: ELIJAH REED is a 65 year old female This 65-year-old female's with a history of the COPD steroid-dependent using the BiPAP at night with a history of the coronary artery disease history of the hypertensions hyperlipidemia came to the emergency department with a complaining of sudden onset of abdominal pain for 1 day after eating the barbecue especially describing the left lower quadrant area and the patient's in the emergency department CT abdomen pelvis suggest them small bowel obstructions Surgery was consulted and suggest that require more further testing and a put NG tube Patient have a history of the hysterectomy in the past and recently a colonoscopy done by Dr. Rodríguez couple of months back was all stable Patient also have a significant history of the COPD currently follow Dr. Rock with the significant history of the steroid dependent currently try to wean off from the steroid History of non-ST CO seen by Dr. Atkinson last stress test was done in March 2019 was all stable In the emergency department patient's started developing the shortness of the breath and wheezing and required a BiPAP and patient giving the steroid and nebulizer treatments and getting better When I saw the patient on the floor the daughter is on the bedside patient is feeling much better patient's denied any abdominal pain anymore currently an NG tube was in place patient's denied any chest pain no short of breath Discussed with the Dr. Rock with a significant history of the COPD to follow- up in the hospital for further adjustment of the medications Past Medical History Cardiac Medical History: Reports: Coronary Artery Disease, Myocardial Infarction, Hypertension Pulmonary Medical History: Reports: Asthma, Bronchitis, Chronic Obstructive Pu lmonary Disease (COPD) Denies: Pneumonia Neurological Medical History: Denies: Seizures GI Medical History: Reports: Gastroesophageal Reflux Disease Musculoskeltal Medical History: Reports: Arthritis Psychiatric Medical History: Denies: Depression Hematology: Denies: Anemia Past Surgical History Past Surgical History: Reports: Hysterectomy, Orthopedic Surgery - R hip replacement Social History Information Source: Patient Smoking Status: Former Smoker Frequency of Alcohol Use: Occasional Hx Recreational Drug Use: No Drugs: None Hx Prescription Drug Abuse: No Family History Family History: COPD Parental Family History Reviewed: Yes Children Family History Reviewed: Yes Sibling(s) Family History Reviewed.: Yes Medication/Allergy Home Medications: Budesonide/Formoterol Fumarate [Symbicort HFA 160-4.5 mcg Inhaler 6 gm] 1 puff IH Q12 01/05/18 Cetirizine HCl [Zyrtec 10 mg Tablet] 10 mg PO DAILY 01/05/18 Ipratropium/Albuterol Sulfate [Duoneb 3 ml Ampul] 3 ml NEB [id number] PRN 01/05/18 Montelukast Sodium [Singulair 10 mg Tablet] 10 mg PO QHS 01/05/18 Tiotropium [place] [Spiriva Respimat] 2 puff IH DAILY 01/05/18 Donepezil HCl [Aricept] 10 mg PO DAILY 04/06/19 Duloxetine HCl [Cymbalta 20 mg Capsule.dr] 20 mg PO DAILY 04/06/19 Telmisartan/Hydrochlorothiazid [Micardis HCT 80-25 mg Tablet] 1 each PO DAILY 04/06/19 Allergies/Adverse Reactions: No Known Allergies Allergy (Verified 02/25/20 07:13) Review of Systems Constitutional: ABSENT: chills, fever(s), headache(s), weight gain, weight loss Eyes: ABSENT: visual disturbances Ears: ABSENT: hearing changes Cardiovascular: ABSENT: chest pain, dyspnea on exertion, edema, orthropnea, palpitations Respiratory: ABSENT: cough, hemoptysis Gastrointestinal: PRESENT: abdominal pain, nausea. ABSENT: constipation, diarrhea, hematemesis, hematochezia, vomiting Genitourinary: ABSENT: dysuria, hematuria Musculoskeletal: ABSENT: joint swelling Integumentary: ABSENT: rash, wounds Neurological: ABSENT: abnormal gait, abnormal speech, confusion, dizziness, focal weakness, syncope Psychiatric: ABSENT: anxiety, depression, homidical ideation, suicidal ideation Endocrine: ABSENT: cold intolerance, heat intolerance, menstrual abnormalities, polydipsia, polyuria Hematologic/Lymphatic: ABSENT: easy bleeding, easy bruising, lymphadenopathy Physical Exam Vital Signs: Temp Pulse Resp BP Pulse Ox 98.1 F 121 H 18 109/72 98 05/05/20 04:15 05/05/20 07:47 05/05/20 07:47 05/05/20 04:15 05/05/20 07:47 Intake & Output 05/04/20 05/05/20 05/06/20 06:59 06:59 06:59 Intake Total 60 60 Balance 60 60 Weight 85.9 kg General appearance: PRESENT: no acute distress, well-developed, well-nourished Head exam: PRESENT: atraumatic, normocephalic Eye exam: PRESENT: conjunctiva pink, EOMI, PERRLA. ABSENT: scleral icterus Ear exam: PRESENT: normal external ear exam Mouth exam: PRESENT: moist, tongue midline Neck exam: PRESENT: full ROM. ABSENT: carotid bruit, JVD, lymphadenopathy, thyromegaly Respiratory exam: PRESENT: decreased breath sounds Cardiovascular exam: PRESENT: RRR. ABSENT: diastolic murmur, rubs, systolic murmur Pulses: PRESENT: normal dorsalis pedis pul, +2 pedal pulses bilateral Vascular exam: PRESENT: normal capillary refill GI/Abdominal exam: PRESENT: diminished bowel sounds, soft. ABSENT: distended, guarding, mass, organolmegaly, rebound, tenderness Rectal exam: PRESENT: deferred Neurological exam: PRESENT: alert, awake, oriented to person, oriented to place, oriented to time, oriented to situation, CN II-XII grossly intact. ABSENT: motor sensory deficit Psychiatric exam: PRESENT: appropriate affect, normal mood. ABSENT: homicidal ideation, suicidal ideation Skin exam: PRESENT: dry, intact, warm. ABSENT: cyanosis, rash Results Laboratory Results: 05/05/20 05:26 05/05/20 05:26 05/04/20 05/04/20 05/04/20 19:08 19:08 20:39 WBC 10.0 RBC 4.89 Hgb 14.1 Hct 42.2 MCV 86 MCH 28.8 MCHC 33.4 RDW 15.4 H Plt Count 288 Seg Neutrophils % 80.4 H VBG pH VBG pCO2 VBG HCO3 VBG Base Excess Sodium 136.9 L Potassium 4.5 Chloride 103 Carbon Dioxide 28 Anion Gap 6 BUN 10 Creatinine 0.51 L Est GFR ( Amer) > 60 Glucose 129 H Calcium 9.5 Phosphorus Total Bilirubin 0.6 AST 20 Alkaline Phosphatase 129 H Total Protein 7.1 Albumin 4.1 Lipase 21.9 L Urine Color YELLOW Urine Appearance CLEAR Urine pH 5.0 Ur Specific [place] 1.042 Urine Protein NEGATIVE Urine Glucose (UA) NEGATIVE Urine Ketones NEGATIVE Urine Blood NEGATIVE Urine Nitrite NEGATIVE Ur Leukocyte Esterase NEGATIVE Urine WBC (Auto) 2 Urine RBC (Auto) 4 09/05/05/20 05/05/20 22:50 05:26 05:26 WBC 15.4 H RBC 4.60 Hgb 13.3 Hct 40.0 MCV 87 MCH 28.9 MCHC 33.2 RDW 15.1 H Plt Count 279 Seg Neutrophils % Not Reportable VBG pH 7.30 VBG pCO2 53.5 VBG HCO3 25.5 VBG Base Excess -1.9 Sodium 137.4 Potassium 4.8 Chloride 102 Carbon Dioxide 23 Anion Gap 12 BUN 18 Creatinine 0.73 Est GFR ( Amer) > 60 Glucose 145 H Calcium 9.3 Phosphorus 4.9 H Total Bilirubin 0.7 AST 19 Alkaline Phosphatase 110 Total Protein 6.5 Albumin 3.8 Lipase Urine Color Urine Appearance Urine pH Ur Specific [place] Urine Protein Urine Glucose (UA) Urine Ketones Urine Blood Urine Nitrite Ur Leukocyte Esterase Urine WBC (Auto) Urine RBC (Auto) 05/04/20 19:08 Troponin I < 0.012 NT-Pro-B Natriuret Pep 29 Impressions: Abdomen/Pelvis CT 05/04/20 18:48 IMPRESSION: Findings consistent with high-grade small bowel obstruction with zone of transition in the anterior lower pelvis Edema and fluid in the mesentery and within the abdomen and pelvis KUB X-Ray 05/05/20 00:00 IMPRESSION: NG tube tip in the stomach. Chest X-Ray 05/05/20 00:38 IMPRESSION: NG tube tip in the stomach. Assessment & Plan - Diagnosis (1) SBO (small bowel obstruction) Is this a current diagnosis for this admission?: Yes Plan: Currently follow with the surgery and NG tube in place (2) COPD with exacerbation Is this a current diagnosis for this admission?: Yes Plan: Continues on nebulizer treatment and IV Solu-Medrol (3) Coronary artery disease Qualifiers: Coronary Disease-Associated Artery/Lesion type: unspecified vessel or lesion type Is this a current diagnosis for this admission?: Yes Plan: We will consult the cardiology for further evaluations if the patient is going for the surgery (4) Acute and chronic respiratory failure with hypercapnia Is this a current diagnosis for this admission?: Yes Plan: Patients require BiPAP at night but unfortunately right now in the NG tube un able to use the BiPAP will continues to monitor consult the Dr. Milner and discussed with him to further evaluate (5) GERD (gastroesophageal reflux disease) Qualifiers: Esophagitis presence: without esophagitis Qualified Code(s): K21.9 - Gastro-esophageal reflux disease without esophagitis Is this a current diagnosis for this admission?: Yes Plan: Will continues the Protonix (6) Hypertension Qualifiers: Hypertension type: essential hypertension Qualified Code(s): I10 - Essential (primary) hypertension Is this a current diagnosis for this admission?: Yes Plan: Currently all stable - Time Time Spent: 50 to 70 Minutes Medications reviewed and adjusted accordingly: Yes Anticipated Discharge Disposition: Home with Home Health Anticipated Discharge Timeframe: When the patients get better - Inpatient Certification Based on my medical assessment, after consideration of the patient's comorbidities, presenting symptoms, or acuity I expect that the services needed warrant INPATIENT care.: Yes I certify that my determination is in accordance with my understanding of [facility]'s requirements for reasonable and necessary INPATIENT services [42 CFR 412.3e].: Yes Medical Necessity: Significant Comorbidiites Make Outpatient Treatment Too Risky, Need Close Monitoring Due to Risk of Patient Decompensation, Need For IV Fluids, Need For Continuous Telemetry Monitoring, Need for Nebulizer Therapy and Monitoring of Response, Need for Pain Control, Need for IV Antibiotics Post Hospital Care: D/C Youth [employer] Director Documentation - Plan Summary Plan Summary: Discussed with the patient and the daughter at bedside regarding the patient's current conditions discussed with the other individual pension consultant
--- NOTE | 2020-05-05 13:43 | PDOC CONSULTATION ---
Consultation Consult Date: 05/05/20 Attending physician:: JEYSON TAYLOR Provider Consulted: DARON JACKSON Consult reason:: Chronic respiratory failure History of Present Illness Admission Date/PCP: 05/04/20 23:02 JEYSON TAYLOR MD History of Present Illness: ELIJAH REED is a 65 year old female complaining of increasing abdominal pain for the last 3 days. She denies having a bowel movement in that time. She uses noninvasive positive pressure ventilation at home along with oxygen due to COPD she has hypoxic as well as hypercapnic respiratory failure smoking 2 packs a day for 44 years she has not smoked in the last 7 years. She denies hemoptysis or cough or PPD there is negative dates unknown she has no history of chronic lung disease as a child or adolescent she admits to exposure to past smoke as a child as well as an adult. 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 She has no pets no recent travel she denies anginal-like chest pain sleeps on 2 pillows no PND no nocturnal cough intermittent episodes of edema. She again carries a diagnosis of obstructive sleep apnea and wears CPAP at home Past Medical History Cardiac Medical History: Reports: Hypertension Denies: Coronary Artery Disease, Myocardial Infarction Pulmonary Medical History: Reports: Asthma, Bronchitis, Chronic Obstructive Pulmonary Disease (COPD) Denies: Pneumonia Neurological Medical History: Denies: Seizures GI Medical History: Reports: Gastroesophageal Reflux Disease Musculoskeltal Medical History: Reports: Arthritis Psychiatric Medical History: Denies: Depression Hematology: Reports: Sickle Cell Disease Denies: Anemia Infectious Medical History: Denies: Clostridium Difficile Past Surgical History Past Surgical History: Reports: Hysterectomy, Orthopedic Surgery - R hip replacement Social History Information Source: Patient, PENDING SALE TO [facility] Records Smoking Status: Former Smoker Passive smoke exposure as: Both Frequency of Alcohol Use: Occasional Hx Recreational Drug Use: No Drugs: None Hx Prescription Drug Abuse: No Do you have pets?: No Have you had any respiratory illnesses as a child?: No Have you been exposed to any sick contacts recently?: No Have you had any recent respiratory illnesses?: No Have you travelled outside of [facility] in the past 12 months?: No Family History Family History: COPD, Hypertension Parental Family History Reviewed: Yes Children Family History Reviewed: Yes Sibling(s) Family History Reviewed.: Yes Medication/Allergy Home Medications: Cetirizine HCl [Zyrtec 10 mg Tablet] 10 mg PO DAILY 01/05/18 Ipratropium/Albuterol Sulfate [Duoneb 3 ml Ampul] 3 ml NEB RTQ6HP PRN 01/05/18 Montelukast Sodium [Singulair 10 mg Tablet] 10 mg PO QHS 01/05/[address] [place] [Spiriva Respimat] 2 puff IH DAILY 01/05/18 Donepezil HCl [Aricept] 10 mg PO QHS 04/06/19 Duloxetine HCl [Cymbalta 20 mg Capsule.dr] 40 mg PO DAILY 04/06/19 Telmisartan/Hydrochlorothiazid [Micardis HCT 80-25 mg Tablet] 1 each PO DAILY 04/06/19 Atorvastatin Calcium [Lipitor 20 mg Tablet] 20 mg PO QHS 05/05/20 Benzonatate [Tessalon Perles 100 mg Capsule] 200 mg PO Q8HP PRN 05/05/20 Methocarbamol [Robaxin 750 mg Tablet] 750 mg PO Q12 05/05/20 Ondansetron [Zofran Odt 4 mg Tablet] 4 mg PO Q8HP PRN 05/05/20 Polyethylene Glycol 3350 [Miralax Powder 17 gm/Packet] 1 packet PO DAILYP PRN 05/05/20 Prednisone [Deltasone 5 mg Tablet] 5 mg PO DAILY 05/05/20 Roflumilast [Daliresp] 500 mcg PO DAILY 05/05/20 Allergies/Adverse Reactions: No Known Allergies Allergy (Verified 02/25/20 07:13) Review of Systems All systems: reviewed and no additional remarkable complaints except as stated Physical Exam Vital Signs: Temp Pulse Resp BP Pulse Ox 98.1 F 121 H 18 109/72 98 05/05/20 04:15 05/05/20 07:47 05/05/20 07:47 05/05/20 04:15 05/05/20 07:47 Intake & Output 05/04/20 05/05/20 05/06/20 06:59 06:59 06:59 Intake Total 60 60 Balance 60 60 Weight 85.9 kg General appearance: PRESENT: cooperative, disheveled, mild distress, morbidly obese, well-developed, well-nourished. ABSENT: hard of hearing Head exam: PRESENT: atraumatic, normocephalic Eye exam: PRESENT: conjunctiva pale, EOMI. ABSENT: nystagmus, periorbital swelling, scleral icterus Mouth exam: PRESENT: dry mucosa, neck supple, tongue midline Neck exam: ABSENT: carotid bruit, full ROM, JVD, lymphadenopathy, meningismus, tenderness, thyromegaly, tracheal deviation, tracheostomy, other Respiratory exam: PRESENT: decreased breath sounds, prolonged expiratory phas, rhonchi, symmetrical, unlabored. ABSENT: retraction, stridor, tachypnea, wheezes Cardiovascular exam: PRESENT: RRR, +S1, +S2 Pulses: PRESENT: normal radial pulses GI/Abdominal exam: PRESENT: guarding, soft, tenderness. ABSENT: mass Extremities exam: ABSENT: calf tenderness, clubbing, joint swelling, pedal e ava, tenderness Musculoskeletal exam: ABSENT: deformity, dislocation Neurological exam: PRESENT: alert, awake Psychiatric exam: PRESENT: appropriate affect, flat affect Skin exam: PRESENT: dry, warm Results Laboratory Results: 05/05/20 05:26 05/05/20 05:26 05/04/20 05/04/20 05/04/20 19:08 19:08 20:39 WBC 10.0 RBC 4.89 Hgb 14.1 Hct 42.2 MCV 86 MCH 28.8 MCHC 33.4 RDW 15.4 H Plt Count 288 Seg Neutrophils % 80.4 H VBG pH VBG pCO2 VBG HCO3 VBG Base Excess Sodium 136.9 L Potassium 4.5 Chloride 103 Carbon Dioxide 28 Anion Gap 6 BUN 10 Creatinine 0.51 L Est GFR ( Amer) > 60 Glucose 129 H Calcium 9.5 Phosphorus Total Bilirubin 0.6 AST 20 Alkaline Phosphatase 129 H Total Protein 7.1 Albumin 4.1 Lipase 21.9 L Urine Color YELLOW Urine Appearance CLEAR Urine pH 5.0 Ur Specific [place] 1.042 Urine Protein NEGATIVE Urine Glucose (UA) NEGATIVE Urine Ketones NEGATIVE Urine Blood NEGATIVE Urine Nitrite NEGATIVE Ur Leukocyte Esterase NEGATIVE Urine WBC (Auto) 2 Urine RBC (Auto) 4 05/04/20 05/05/20 05/05/20 22:50 05:26 05:26 WBC 15.4 H RBC 4.60 Hgb 13.3 Hct 40.0 MCV 87 MCH 28.9 MCHC 33.2 RDW 15.1 H Plt Count 279 Seg Neutrophils % Not Reportable VBG pH 7.30 VBG pCO2 53.5 VBG HCO3 25.5 VBG Base Excess -1.9 Sodium 137.4 Potassium 4.8 Chloride 102 Carbon Dioxide 23 Anion Gap 12 BUN 18 Creatinine 0.73 Est GFR ( Amer) > 60 Glucose 145 H Calcium 9.3 Phosphorus 4.9 H Total Bilirubin 0.7 AST 19 Alkaline Phosphatase 110 Total Protein 6.5 Albumin 3.8 Lipase Urine Color Urine Appearance Urine pH Ur Specific [place] Urine Protein Urine Glucose (UA) Urine Ketones Urine Blood Urine Nitrite Ur Leukocyte Esterase Urine WBC (Auto) Urine RBC (Auto) 05/04/20 19:08 Troponin I < 0.012 NT-Pro-B Natriuret Pep 29 Impressions: Abdomen/Pelvis CT 05/04/20 18:48 IMPRESSION: Findings consistent with high-grade small bowel obstruction with zone of transition in the anterior lower pelvis Edema and fluid in the mesentery and within the abdomen and pelvis KUB X-Ray 05/05/20 00:00 IMPRESSION: NG tube tip in the stomach. Chest X-Ray 05/05/20 00:38 IMPRESSION: NG tube tip in the stomach. Assessment & Plan - Diagnosis (1) Respiratory failure Qualifiers: Chronicity: acute on chronic Respiratory failure complication: hypoxia and hypercapnia Qualified Code(s): J96.21 - Acute and chronic respiratory failure with hypoxia; J96.22 - Acute and chronic respiratory failure with hypercapnia Is this a current diagnosis for this admission?: Yes Plan: Dependent on noninvasive positive pressure ventilation at home not able to use successfully. PFT April 2019 severe obstruction(FEVI/FVC 48% predicted) with limited response to bronchodilator. no restriction hyperinflation .severe air trapping .moderate decrease in diffusion capacity. She has NG tube for decompression (2) SBO (small bowel obstruction) Is this a current diagnosis for this admission?: Yes Plan: As per surgery (3) Hypertension Qualifiers: Hypertension type: essential hypertension Qualified Code(s): I10 - Essential (primary) hypertension Is this a current diagnosis for this admission?: Yes Plan: At this time - Time Time Spent with patient: 50 min
[2020-05-05] MEDS: METHYLPREDNISOLONE INJ 125 MG/2 ML SDV IV SCH ×2 (14:46→22:25)
--- NOTE | 2020-05-05 14:58 | RADIOLOGY REPORT (SQ) ---
EXAM DESCRIPTION: SMALL BOWEL SERIES IMAGES COMPLETED DATE/TIME: 05/05/2020 2:43 pm REASON FOR STUDY: eval SBO, please use gastrograffin COMPARISON: An abdominal film from earlier the same day and a CT abdomen pelvis from 05/04/2020 FLUOROSCOPY TIME: Fluoroscopy not used X-ray images saved to PACS. LIMITATIONS: None. PROCEDURE: Initial museum host/hostess image of abdomen acquired, followed by administration of Gastrografin throu gh an NG tube. Serial radiographic images acquired immediately following administration of Gastrogra fin through the NG tube, 1 hour, 3 hour, and 5 hour. All images stored on PACS. FINDINGS: BARREL HEADER KUB: NG tube in place with the tip within the lumen of the stomach. Air-filled loop s small bowel are identified. Contrast seen within the bladder from recent CT the abdomen pelvis. STOMACH: Reflux is identified on the 1 hour image. Normal distention without abnormality. SMALL BOWEL: Immediate image shows contrast filling of the proximal small bowel. There is a filling of the small bowel to approximately the proximal or mid ileum seen on the 1 hour film. There is mil d dilatation of the small bowel. There is no further progression of contrast on the 5 hour film comp ared to the 1 hour film. OTHER: No other significant finding. IMPRESSION: FINDINGS ARE CONSISTENT WITH A SMALL BOWEL OBSTRUCTION WITH POINT OBSTRUCTION PRESUMABLY IN THE PROXIMAL TO MID ILEUM. FOLLOWING THE 5 HOUR IMAGE, PATIENT'S NG TUBE WAS PLACED TO SUCTION D UE TO PATIENT VOMITING. FINDINGS WERE DISCUSSED WITH DR. TAYLOR AT APPROXIMATELY 1400 HOURS. COMMENT: Quality ID [id number]: Final reports for procedures using fluoroscopy that document radiation exp osure indices, or exposure time and number of fluorographic images (if radiation exposure indices are not available) TECHNICAL DOCUMENTATION: JOB ID: [id number] 2010 [employer]- All Rights Reserved Reading location - IP/workstation name: [email or web address] [id number]
[2020-05-05] MEDS ORDERED: DEXTROSE 50%-WATER 25 GM/50 ML DISP.SYRIN IV PRN (15:06)
[2020-05-05] MEDS ORDERED: DEXTROSE 40% GEL 15 GM TUBE PO PRN ×2 (15:06)
[2020-05-05] MEDS ORDERED: GLUCAGON,HUMAN RECOMB 1 MG INJ SUBCUT PRN (15:06)
[2020-05-05] MEDS ORDERED: KETOROLAC TROMETHAMINE INJ/PF 30 MG/1 ML SDV IV ONE (18:00)
--- NOTE | 2020-05-05 19:24 | PDOC CONSULTATION ---
Consultation-Blank Consultation: CARDIOLOGY CONSULTATION by Dr. Miya Downey on 05/05/2020. Patient seen at 3:30 PM. 60 minutes spent with patient more than 50% time spent direct patient care. CARDIOLOGY CONSULTATION requested by Dr. Gabrielle Taylor. REASON FOR CONSULTATION: Patient with prior history of non-ST elevation AK in March 2019 admitted with small bowel obstruction cardiac risk assessment for possible surgical intervention if medical treatment fails. HISTORY OF PRESENT ILLNESS: Patient is 65-year-old -Turkmen female with known history of hypertension, history of asthma, and steroid-dependent COPD states that since 1 year she has been having intermittent abdominal pains. Patient recently admitted with severe abdominal pain which is generalized with constipation and nausea and vomiting. The patient diagnosed with small bowel obstruction. In the emergency room the patient also had acute wheezing and shortness of breath initially required BiPAP. This was due to acute asthmatic attack and acute exacerbation of COPD. The patient now is off BiPAP and is on nasal cannula. She still has some shortness of breath and still some wheezing but is much less than before. She has an NG tube in situ. Of note the patient was admitted in March 2019 with acute exacerbation of asthma and COPD and was admitted with acute hypoxic respiratory failure. She had elevated troponin levels and subendocardial T wave inversion and was diagnosed with non-ST relation AK. Subsequently the patient underwent a IV Lexiscan Cardiolite stress test which showed no ischemia or scar/AK, making that time diagnosis has type II myocardial infarction secondary to supply demand mismatch causing troponin leak. Since discharge the patient has no anginal symptoms. There is no PND, palpitations or syncope. She does have orthopnea. This is chronic due to COPD. She has no history of sleep apnea. There is no history of TIA or CVA symptoms. There is no headaches migraines or seizures. At present in spite of all this patient's cardiac status is stable Past Medical History Cardiac Medical History: Reports: Coronary Artery Disease, Myocardial Infarction, Hypertension Pulmonary Medical History: Reports: Asthma, Bronchitis, Chronic Obstructive Pulmonary Disease (COPD) Denies: Pneumonia Neurological Medical History: Denies: Seizures GI Medical History: Reports: Gastroesophageal Reflux Disease Musculoskeltal Medical History: Reports: Arthritis Psychiatric Medical History: Denies: Depression Hematology: Denies: Anemia Past Surgical History Past Surgical History: Reports: Hysterectomy, Orthopedic Surgery - R hip replacement Social History Information Source: Patient Smoking Status: Former Smoker Frequency of Alcohol Use: Occasional Hx Recreational Drug Use: No Drugs: None Hx Prescription Drug Abuse: No RESUSCITATION STATUS: The patient is a full code. Her daughter is her surrogate healthcare decision maker. Family History Family History: COPD Parental Family History Reviewed: Yes Children Family History Reviewed: Yes Sibling(s) Family History Reviewed.: Yes Medication/Allergy Home Medications: Budesonide/Formoterol Fumarate [Symbicort HFA 160-4.5 mcg Inhaler 6 gm] 1 puff IH Q12 01/05/18 Cetirizine HCl [Zyrtec 10 mg Tablet] 10 mg PO DAILY 01/05/18 Ipratropium/Albuterol Sulfate [Duoneb 3 ml Ampul] 3 ml NEB [id number] PRN 01/05/18 Montelukast Sodium [Singulair 10 mg Tablet] 10 mg PO QHS 01/05/18 Tiotropium [place] [Spiriva Respimat] 2 puff IH DAILY 01/05/18 Donepezil HCl [Aricept] 10 mg PO DAILY 04/06/19 Duloxetine HCl [Cymbalta 20 mg Capsule.dr] 20 mg PO DAILY 04/06/19 Telmisartan/Hydrochlorothiazid [Micardis HCT 80-25 mg Tablet] 1 each PO DAILY 04/06/19 Allergies/Adverse Reactions: No Known Allergies Allergy (Verified 02/25/20 07:13) Current Medications Generic Name Dose Route Start Last Admin Trade Name Freq PRN Reason Stop Dose Admin Acetaminophen 650 mg 05/04/20 22:45 05/05/20 16:18 Tylenol 325 Mg Tablet PO 06/03/20 22:44 650 mg Q4HP PRN Administration FOR PAIN OR TEMP Albuterol/Ipratropium 3 ml 05/04/20 08:00 05/05/20 20:57 Duoneb 3 Ml Ampul NEB 06/03/20 07:59 3 ml [id number] BRANDY Administration Budesonide 0.5 mg 05/05/20 08:00 05/05/20 20:57 Pulmicort Neb 0.5 Mg/2 Ml Ampul NEB 06/04/20 07:59 0.5 mg RTQ12 BRANDY Administration Dextrose 12.5 gm 05/05/20 15:06 Dextrose Inj 50% Syringe (25 Gm/50 Ml) IV 06/04/20 15:05 PRN PRN FOR BG 50-69 IN ALERT PATIENT Protocol Dextrose 25 gm 05/05/20 15:06 Dextrose Inj 50% Syringe (25 Gm/50 Ml) IV 06/04/20 15:05 PRN PRN See Label Comments Protocol Duloxetine HCl 40 mg 05/06/20 10:00 Cymbalta 20 Mg Capsule.Dr PO 06/05/20 09:59 DAILY BARNDY Enoxaparin Sodium 40 mg 05/05/20 10:00 05/05/20 09:30 Lovenox Inj 40 Mg/0.4 Ml Disp.Syrin SUBCUT 06/04/20 09:59 40 mg DAILY BRANDY Administration Glucagon 1 mg 05/05/20 15:06 Glucagen Inj 1 Mg Vial SUBCUT 06/04/20 15:05 PRN PRN Evaluate for BG < 70 Protocol Glucose 15 gm 05/05/20 15:06 Glutose 40% Gel 15 Gm Tube PO 06/04/20 15:05 PRN PRN For BG 50-69 in Alert Patient Protocol Glucose 30 gm 05/05/20 15:06 Glutose 40% Gel 15 Gm Tube PO 06/04/20 15:05 PRN PRN FOR BG < 50 IN ALERT PATIENT Protocol Sodium Chloride 1,000 mls @ 100 mls/hr 05/04/20 22:45 05/05/20 22:24 Nacl 0.9% 1000 Ml Iv Soln IV 06/03/20 22:44 100 mls/hr CONTINUOUS PRN Administration THIS MED IS NOT "PRN" Cefepime HCl 2 gm/ Dextrose 50 mls @ 100 mls/hr 05/05/20 10:00 05/05/20 22:24 IV 05/12/20 09:59 100 mls/hr Q12 BRANDY Administration Ketorolac Tromethamine 10 mg 05/05/20 22:27 Toradol Inj/Pf 30 Mg/1 Ml Sdv IV 05/10/20 22:26 Q8HP PRN PAIN Melatonin 3 mg 05/05/20 22:27 Melatonin 3 Mg Tablet PO 06/04/20 22:26 HSP PRN SLEEP OR INSOMNIA Methylprednisolone Sodium Succinate 80 mg 05/05/20 14:00 05/05/20 22:25 Solu-Medrol Inj/Pf 125 Mg/2 Ml Sdv IV 06/04/20 13:59 80 mg Q8 BRANDY Administration Ondansetron HCl 4 mg 05/04/20 22:45 05/05/20 14:53 Zofran Inj/Pf 4 Mg/2 Ml Sdv IV 06/03/20 22:44 4 mg Q4HP PRN Administration FOR NAUSEA/VOMITING Pantoprazole Sodium 40 mg 05/05/20 10:00 05/05/20 22:25 Protonix Iv Inj 40 Mg Vial IV 05/12/20 09:59 40 mg Q12 BRANDY Administration Discontinued Medications Generic Name Dose Route Start Last Admin Trade Name Freq PRN Reason Stop Dose Admin Albuterol 2.5 mg 05/04/20 22:03 05/04/20 22:25 Ventolin 0.083% Neb 2.5 Mg/3 Ml Ampul NEB 05/04/20 22:04 2.5 mg NOW ONE Administration Albuterol/Ipratropium 9 ml 05/04/20 20:50 05/04/20 21:11 Duoneb 3 Ml Ampul NEB 05/04/20 20:51 9 ml NOW ONE Administration Budesonide 0.5 mg 05/04/20 23:45 05/04/20 23:42 Pulmicort Neb 0.5 Mg/2 Ml Ampul NEB 05/04/20 23:46 0.5 mg NOW ONE Administration Famotidine 20 mg 05/04/20 18:49 05/04/20 19:42 Pepcid Inj/Pf 20 Mg/2 Ml Sdv IV 05/04/20 18:50 20 mg NOW ONE Administration Lactated Ringer's 1,000 mls @ 125 mls/hr 05/04/20 21:07 05/04/20 21:20 Lactated Ringers 1000 Ml Iv Soln IV 05/05/20 05:06 125 mls/hr NOW ONE Administration Cefepime HCl 2 gm in 50 mls @ 100 mls/hr 05/05/20 10:00 Maxipime Rtu 2 Gm-D5w 50 Ml Premix Bag IV 05/12/20 09:59 Q12 BRANDY Cefepime HCl 2 gm in 50 mls @ 100 mls/hr 05/04/20 23:45 05/05/20 00:38 Maxipime Rtu 2 Gm-D5w 50 Ml Premix Bag IV 05/05/20 00:14 Infused NOW ONE Infusion Ketorolac Tromethamine 15 mg 05/04/20 18:50 05/04/20 19:43 Toradol Inj/Pf 30 Mg/1 Ml Sdv IV 05/04/20 18:51 15 mg NOW ONE Administration Ketorolac Tromethamine 10 mg 05/05/20 18:00 05/05/20 17:41 Toradol Inj/Pf 30 Mg/1 Ml Sdv IV 05/05/20 18:01 10 mg NOW ONE Administration Methylprednisolone Sodium Succinate 90 mg 05/04/20 22:35 05/04/20 22:43 Solu-Medrol Inj/Pf 125 Mg/2 Ml Sdv IV 05/04/20 22:36 90 mg NOW ONE Administration Methylprednisolone Sodium Succinate 125 mg 05/05/20 00:00 Solu-Medrol Inj/Pf 125 Mg/2 Ml Sdv IV 06/04/20 00:00 Q6 BRANDY Methylprednisolone Sodium Succinate 125 mg 05/05/20 06:00 05/05/20 06:15 Solu-Medrol Inj/Pf 125 Mg/2 Ml Sdv IV 06/04/20 05:59 125 mg Q8 BRANDY Administration Pantoprazole Sodium 40 mg 05/04/20 23:45 05/04/20 23:46 Protonix Iv Inj 40 Mg Vial IV 05/04/20 23:46 40 mg NOW ONE Administration Review of Systems Constitutional: ABSENT: chills, fever(s), headache(s), weight gain, weight loss Eyes: ABSENT: visual disturbances Ears: ABSENT: hearing changes Cardiovascular: ABSENT: chest pain, dyspnea on exertion, edema, orthropnea, palpitations Respiratory: ABSENT: cough, hemoptysis Gastrointestinal: PRESENT: abdominal pain, nausea. ABSENT: constipation, diarrhea, hematemesis, hematochezia, vomiting Genitourinary: ABSENT: dysuria, hematuria Musculoskeletal: ABSENT: joint swelling Integumentary: ABSENT: rash, wounds Neurological: ABSENT: abnormal gait, abnormal speech, confusion, dizziness, focal weakness, syncope Psychiatric: ABSENT: anxiety, depression, homidical ideation, suicidal ideation Endocrine: ABSENT: cold intolerance, heat intolerance, menstrual abnormalities, polydipsia, polyuria Hematologic/Lymphatic: ABSENT: easy bleeding, easy bruising, lymphadenopathy PHYSICAL EXAMINATION: The patient is a frail build and appears to be chronically ill. She is in distress due to abdominal pain. Selected Entries 05/05/20 15:14 Temperature 97.6 F Temperature Oral Source Pulse Rate 101 H Respiratory 19 Rate Blood Pressure 151/98 H Blood Pressure 115 Mean BP Location Left Arm BP Position Supine O2 Sat by Pulse 95 Oximetry Oxygen Flow 2.00 Rate Oxygen Delivery Nasal Cannula Method HEAD: Is atraumatic normocephalic. EYES: Pupils are equal round regular reactive light accommodation. Extraocular movements are normal. There is no conjunctival pallor. There is no scleral icterus. EARS: Tympanic membranes are intact. External auditory canals are clear. NOSE: There is no deviated nasal septum. There is no inflammation of the nasal mucous membrane. MOUTH:. Tongue and Mucous membranes of mouth are dry. There is no ulcers. There is no bleeding from the gums. NG TUBE in situ THROAT: There is no redness of the oropharynx. There is no neck EXUDATES. Skin: There is no skin rashes or skin lesions. There is no particular ecchymosis. NECK: Supple. There is no JVD. Carotids are equal there is no bruit there is no lymphadenopathy. There is no goiter. There is no accessory muscle respiration use. Trachea central. LUNGS: Shows diminished air entry with scattered rhonchi, and wheezing.. There is diminished air entry and prolonged expiration throughout. On percussion there is hyperresonance. There is no crackles of pneumonia or rales of CHF. Palpation there is no chest wall tenderness. HEART: S1-S2 is heard. There is no S3 gallop. There is no S4 gallop. There is systolic murmur left sternal border and the apex there is no rub. ABDOMEN: Is soft. Abdomen is distended. There is mild diffuse tenderness without any rebound guarding rebound or rigidity. Bowel sounds are absent. EXTREMITIES: Femorals are diminished femorals are deep. There is no femoral bruits. Leg pulses are diminished. There is trace pedal edema bilaterally. There is no DVT or cellulitis. There is no sinus or clubbing. Capillary refill is normal. LIFE SCIENTIST: The patient is conscious awake alert oriented x3 with no focal deficit. PSYCHIATRIC: The patient judgment insight are intact her affect is normal. EKG: Sinus tachycardia. Left anterior fascicular block. Probable left ventricular hypertrophy. Labs- Entire Visit 05/04/20 05/04/20 05/04/20 19:08 19:08 19:08 WBC 10.0 RBC 4.89 Hgb 14.1 Hct 42.2 MCV 86 MCH 28.8 MCHC 33.4 RDW 15.4 H Plt Count 288 Lymph % (Auto) 14.3 [place] % (Auto) 4.8 Eos % (Auto) 0.0 Baso % (Auto) 0.5 Absolute Neuts (auto) 8.0 Absolute Lymphs (auto) 1.4 Absolute Monos (auto) 0.5 Absolute Eos (auto) 0.0 Absolute Basos (auto) 0.1 Total Counted Seg Neutrophils % 80.4 H Seg Neuts % (Manual) Lymphocytes % (Manual) Monocytes % (Manual) Eosinophils % (Manual) Basophils % (Manual) Abs Neuts (Manual) Abs Lymphs (Manual) Abs Monocytes (Manual) Absolute Eos (Manual) Abs Basophils (Manual) Toxic Granulation Platelet Comment Poikilocytosis Anisocytosis Tear Drop Cells Ovalocytes VBG pH VBG pCO2 VBG HCO3 VBG Base Excess Sodium 136.9 L Potassium 4.5 Chloride 103 Carbon Dioxide 28 Anion Gap 6 BUN 10 Creatinine 0.51 L Est GFR ( Amer) > 60 Est GFR (MDRD) Non-Af > 60 Glucose 129 H POC Glucose Calcium 9.5 Phosphorus Total Bilirubin 0.6 Direct Bilirubin 0.3 Neonat Total Bilirubin Not Reportable Neonat Direct Bilirubin Not Reportable Neonat Indirect Bili Not Reportable AST 20 ALT 14 Alkaline Phosphatase 129 H Troponin I < 0.012 NT-Pro-B Natriuret Pep 29 Total Protein 7.1 Albumin 4.1 Lipase 21.9 L Urine Color Urine Appearance Urine pH Ur Specific [place] Urine Protein Urine Glucose (UA) Urine Ketones Urine Blood Urine Nitrite Urine Bilirubin Urine Urobilinogen Ur Leukocyte Esterase Urine WBC (Auto) Urine RBC (Auto) Squamous Epi Cells Auto Urine Mucus (Auto) Urine Ascorbic Acid 05/04/20 05/04/20 05/05/20 20:39 22:50 05:26 WBC 15.4 H RBC 4.60 Hgb 13.3 Hct 40.0 MCV 87 MCH 28.9 MCHC 33.2 RDW 15.1 H Plt Count 279 Lymph % (Auto) Not Reportable [place] % (Auto) Not Reportable Eos % (Auto) Not Reportable Baso % (Auto) Not Reportable Absolute Neuts (auto) Not Reportable Absolute Lymphs (auto) Not Reportable Absolute Monos (auto) Not Reportable Absolute Eos (auto) Not Reportable Absolute Basos (auto) Not Reportable Total Counted 100 Seg Neutrophils % Not Reportable Seg Neuts % (Manual) 94 H Lymphocytes % (Manual) 4 L Monocytes % (Manual) 2 L Eosinophils % (Manual) 0 Basophils % (Manual) 0 Abs Neuts (Manual) 14.5 H Abs Lymphs (Manual) 0.6 Abs Monocytes (Manual) 0.3 Absolute Eos (Manual) 0.0 Abs Basophils (Manual) 0.0 Toxic Granulation SLIGHT Platelet Comment ADEQUATE Poikilocytosis SLIGHT Anisocytosis SLIGHT Tear Drop Cells SLIGHT Ovalocytes SLIGHT VBG pH 7.30 VBG pCO2 53.5 VBG HCO3 25.5 VBG Base Excess -1.9 Sodium Potassium Chloride Carbon Dioxide Anion Gap BUN Creatinine Est GFR ( Amer) Est GFR (MDRD) Non-Af Glucose POC Glucose Calcium Phosphorus Total Bilirubin Direct Bilirubin Neonat Total Bilirubin Neonat Direct Bilirubin Neonat Indirect Bili AST ALT Alkaline Phosphatase Troponin I NT-Pro-B Natriuret Pep Total Protein Albumin Lipase Urine Color YELLOW Urine Appearance CLEAR Urine pH 5.0 Ur Specific [place] 1.042 Urine Protein NEGATIVE Urine Glucose (UA) NEGATIVE Urine Ketones NEGATIVE Urine Blood NEGATIVE Urine Nitrite NEGATIVE Urine Bilirubin NEGATIVE Urine Urobilinogen NEGATIVE Ur Leukocyte Esterase NEGATIVE Urine WBC (Auto) 2 Urine RBC (Auto) 4 Squamous Epi Cells Auto 2 Urine Mucus (Auto) FEW Urine Ascorbic Acid NEGATIVE 05/05/20 05/05/20 05:26 11:34 WBC RBC Hgb Hct MCV MCH MCHC RDW Plt Count Lymph % (Auto) [place] % (Auto) Eos % (Auto) Baso % (Auto) Absolute Neuts (auto) Absolute Lymphs (auto) Absolute Monos (auto) Absolute Eos (auto) Absolute Basos (auto) Total Counted Seg Neutrophils % Seg Neuts % (Manual) Lymphocytes % (Manual) Monocytes % (Manual) Eosinophils % (Manual) Basophils % (Manual) Abs Neuts (Manual) Abs Lymphs (Manual) Abs Monocytes (Manual) Absolute Eos (Manual) Abs Basophils (Manual) Toxic Granulation Platelet Comment Poikilocytosis Anisocytosis Tear Drop Cells Ovalocytes VBG pH VBG pCO2 VBG HCO3 VBG Base Excess Sodium 137.4 Potassium 4.8 Chloride 102 Carbon Dioxide 23 Anion Gap 12 BUN 18 Creatinine 0.73 Est GFR ( Amer) > 60 Est GFR (MDRD) Non-Af > 60 Glucose 145 H POC Glucose 139 H Calcium 9.3 Phosphorus 4.9 H Total Bilirubin 0.7 Direct Bilirubin 0.3 Neonat Total Bilirubin Not Reportable Neonat Direct Bilirubin Not Reportable Neonat Indirect Bili Not Reportable AST 19 ALT 15 Alkaline Phosphatase 110 Troponin I NT-Pro-B Natriuret Pep Total Protein 6.5 Albumin 3.8 Lipase Urine Color Urine Appearance Urine pH Ur Specific [place] Urine Protein Urine Glucose (UA) Urine Ketones Urine Blood Urine Nitrite Urine Bilirubin Urine Urobilinogen Ur Leukocyte Esterase Urine WBC (Auto) Urine RBC (Auto) Squamous Epi Cells Auto Urine Mucus (Auto) Urine Ascorbic Acid Abdomen/Pelvis CT 05/04/20 18:48 IMPRESSION: Findings consistent with high-grade small bowel obstruction with zone of transition in the anterior lower pelvis Edema and fluid in the mesentery and within the abdomen and pelvis Chest X-Ray 05/04/20 22:33 IMPRESSION: COPD. Lungs are clear copyright 2010 [employer]- All Rights Reserved KUB X-Ray 05/05/20 00:00 IMPRESSION: NG tube tip in the stomach. Chest X-Ray 05/05/20 00:38 IMPRESSION: NG tube tip in the stomach. Small Bowel X-Ray 05/05/20 21:39 IMPRESSION: FINDINGS ARE CONSISTENT WITH A SMALL BOWEL OBSTRUCTION WITH POINT OBSTRUCTION PRESUMABLY IN THE PROXIMAL TO MID ILEUM. FOLLOWING THE 5 HOUR IMAGE, PATIENT'S NG TUBE WAS PLACED TO SUCTION DUE TO PATIENT VOMITING. FINDINGS WERE DISCUSSED WITH DR. TAYLOR AT APPROXIMATELY 1400 HOURS. IMPRESSION/RECOMMENDATION: 1. Small bowel obstruction patient being treated conservatively with NG tube and IV fluids. Surgery on consult on this case. 2. Acute respiratory failure secondary to acute exacerbation of COPD and acute asthmatic attack. Seems to be improving patient now off the BiPAP and is on nasal cannula. 3. Hypertension. Will observe the patient's blood pressure and start the patient on IV hydralazine or IV Vasotec if blood pressure consistently high. 4. History of asthma . 5 history of COPD steroid-dependent. 6. Systolic murmur? Severity of mitral regurgitation. Check echo for LV ejection fraction and severity of mitral regurgitation. 7. Patient with history of elevated troponin and subendocardial T wave inversion in March 2019. Most likely secondary to supply demand mismatch and not a definite non-ST elevation AK. The patient's stress test at that time was negative. 8. History of hyperlipidemia. Medications reviewed. Would recommend watch the patient's blood pressure. Would place the patient on IV hydralazine or IV Vasotec if systolic blood pressure remains consistently elevated. Medical decision and management plan discussed with Dr. Torres and [place]. Cardiac status is presently stable. Medical decision making at present is of moderate complexity.
[2020-05-06] MEDS: MELATONIN 3 MG TABLET PO PRN (00:56)
[2020-05-06] MEDS: KETOROLAC TROMETHAMINE INJ/PF 30 MG/1 ML SDV IV PRN ×2 (00:56→08:06)
[2020-05-06] MEDS: METHYLPREDNISOLONE INJ 125 MG/2 ML SDV IV SCH (06:15)
[2020-05-06] MEDS: ONDANSETRON HCL INJ/PF 4 MG/2 ML SDV IV PRN ×2 (06:33→16:39)
[2020-05-06 07:18] LABS: ABSOLUTE LYMPHOCYTES (AUTO) 0.5 10^3/uL (0.5-4.7); ABSOLUTE MONOCYTES (AUTO) 0.9 10^3/uL (0.1-1.4); ABSOLUTE NEUT (AUTO) 4.1 10^3/uL (1.7-8.2); BASOPHILS % (AUTO) 0.2 % (0-2); HEMATOCRIT 38.9 % (36.0-47.0); HEMOGLOBIN 13.1 g/dL (12.0-15.5); LYMPHOCYTES % (AUTO) 9.7 % (13-45); MEAN CORPUSCULAR HEMOGLOBIN 29.1 pg (27.0-33.4); MEAN CORPUSCULAR HGB CONC 33.7 g/dL (32.0-36.0); MEAN CORPUSCULAR VOLUME 86 fl (80-97); MONOCYTES % (AUTO) 16.8 % (3-13); PLATELET COUNT 298 10^3/uL (150-450); RED CELL DISTRIBUTION WIDTH 15.1 % (11.5-14.0); SEGMENTED NEUTROPHILS % (AUTO) 73.3 % (42-78); TOTAL CELLS COUNTED % (AUTO) 100 %; WHITE BLOOD COUNT 5.7 10^3/uL (4.0-10.5)
[2020-05-06 07:33] LABS: ANION GAP 10 (5-19); BLOOD UREA NITROGEN 36 mg/dL (7-20); CALCIUM 8.9 mg/dL (8.4-10.2); CARBON DIOXIDE 27 mmol/L (22-30); CHLORIDE 102 mmol/L (98-107); GLUCOSE 142 mg/dL (75-110); POTASSIUM 4.8 mmol/L (3.6-5.0)
[2020-05-06] MEDS: IPRATROPIUM/ALBUTEROL 0.5-2.5 MG/3 ML AMPUL NEB SCH ×4 (07:45→19:53)
[2020-05-06] MEDS: BUDESONIDE NEB 0.5 MG/2 ML AMPUL NEB SCH ×2 (07:45→19:53)
[2020-05-06] MEDS: FAMOTIDINE INJ/PF 20 MG/2 ML SDV IV SCH (09:57)
[2020-05-06] MEDS: ENOXAPARIN SODIUM INJ 40 MG/0.4 ML DISP.SYRIN SUBCUT SCH (09:57)
[2020-05-06] MEDS: PANTOPRAZOLE SODIUM 40 MG VIAL IV SCH (09:58)
[2020-05-06] MEDS: DULOXETINE HCL 20 MG CAPSULE.DR PO SCH (09:58)
--- NOTE | 2020-05-06 10:51 | PDOC PROGRESS REPORT ---
Subjective Progress Note for:: 05/06/20 Subjective:: Patient is currently doing same Patient's denied any chest pain no short of breath Some abdominal discomfort and nausea Currently on NG tube in place Reason For Visit: SMALL BOWEL OBSTRUCTION, COPD ACUTE Physical Exam Vital Signs: Temp Pulse Resp BP Pulse Ox 98.2 F 92 16 120/70 95 05/06/20 07:41 05/06/20 07:45 05/06/20 07:45 05/06/20 07:41 05/06/20 07:45 Pulse Oximeter Continuous Start: 05/05/20 14:08 Freq: RTQ4 Status: Active Protocol: Document 05/06/20 07:45 HCR (Rec: 05/06/20 08:00 HCR [id number]) Pulse Oximetry Assessment Oxygen Saturation (92-100) 95 Oxygen Flow Rate (L/min) 2 Equipment Usage Equipment in Use Continuous Pulse Oximeter 24 Hour Charge Charge Now Continuous SpO2 Machine # 5 Intake & Output 05/05/20 05/06/20 05/07/20 06:59 06:59 06:59 Intake Total 60 1110 Output Total 1850 Balance 60 -740 Weight 85.9 kg 85.6 kg General appearance: PRESENT: no acute distress, well-developed, well-nourished Head exam: PRESENT: atraumatic, normocephalic Eye exam: PRESENT: conjunctiva pink, EOMI, PERRLA. ABSENT: scleral icterus Ear exam: PRESENT: normal external ear exam Mouth exam: PRESENT: moist, tongue midline Neck exam: PRESENT: full ROM. ABSENT: carotid bruit, JVD, lymphadenopathy, thyromegaly Respiratory exam: PRESENT: clear to auscultation nayely Cardiovascular exam: PRESENT: RRR. ABSENT: diastolic murmur, rubs, systolic murmur Vascular exam: PRESENT: normal capillary refill GI/Abdominal exam: PRESENT: diminished bowel sounds, soft, tenderness. ABSENT: distended, guarding, mass, organolmegaly, rebound Rectal exam: PRESENT: deferred Neurological exam: PRESENT: alert, awake, oriented to person, oriented to place, oriented to time, oriented to situation, CN II-XII grossly intact. ABSENT: motor sensory deficit Psychiatric exam: PRESENT: appropriate affect, normal mood. ABSENT: homicidal ideation, suicidal ideation Skin exam: PRESENT: dry, intact, warm. ABSENT: cyanosis, rash Results Laboratory Results: 05/06/20 06:09 05/06/20 06:09 05/06/20 05/06/20 06:09 06:09 WBC 5.7 RBC 4.50 Hgb 13.1 Hct 38.9 MCV 86 MCH 29.1 MCHC 33.7 RDW 15.1 H Plt Count 298 Seg Neutrophils % 73.3 Sodium 138.7 Potassium 4.8 Chloride 102 Carbon Dioxide 27 Anion Gap 10 BUN 36 H Creatinine 0.87 Est GFR ( Amer) > 60 Glucose 142 H Calcium 8.9 05/04/20 19:08 Troponin I < 0.012 NT-Pro-B Natriuret Pep 29 Impressions: Abdomen/Pelvis CT 05/04/20 18:48 IMPRESSION: Findings consistent with high-grade small bowel obstruction with zone of transition in the anterior lower pelvis Edema and fluid in the mesentery and within the abdomen and pelvis Chest X-Ray 05/05/20 00:38 IMPRESSION: NG tube tip in the stomach. Small Bowel X-Ray 05/05/20 21:39 IMPRESSION: FINDINGS ARE CONSISTENT WITH A SMALL BOWEL OBSTRUCTION WITH POINT OBSTRUCTION PRESUMABLY IN THE PROXIMAL TO MID ILEUM. FOLLOWING THE 5 HOUR I MAGE, PATIENT'S NG TUBE WAS PLACED TO SUCTION DUE TO PATIENT VOMITING. FINDINGS WERE DISCUSSED WITH DR. TAYLOR AT APPROXIMATELY 1400 HOURS. Assessment & Plan - Diagnosis (1) SBO (small bowel obstruction) Is this a current diagnosis for this admission?: Yes Plan: Currently follow with the surgery discussed with the surgeon currently NG tube (2) COPD with exacerbation Is this a current diagnosis for this admission?: Yes Plan: Continues IV Solu-Medrol nebulizer treatment (3) Coronary artery disease Qualifiers: Coronary Disease-Associated Artery/Lesion type: unspecified vessel or lesion type Is this a current diagnosis for this admission?: Yes Plan: Currently all stable follow-up with the cardiology (4) Acute and chronic respiratory failure with hypercapnia Is this a current diagnosis for this admission?: Yes Plan: Currently all stable (5) GERD (gastroesophageal reflux disease) Qualifiers: Esophagitis presence: without esophagitis Qualified Code(s): K21.9 - Gastro-esophageal reflux disease without esophagitis Is this a current diagnosis for this admission?: Yes Plan: Continues the Protonix (6) Hypertension Qualifiers: Hypertension type: essential hypertension Qualified Code(s): I10 - Essential (primary) hypertension Is this a current diagnosis for this admission?: Yes - Time Time Spent with patient: 15-24 minutes Level of Care: TELE Medications reviewed and adjusted accordingly: Yes Anticipated DC Timeframe: Other - Plan Summary Plan Summary: Discussed with the daughter and the patient on the bedside discussed with the surgery
--- NOTE | 2020-05-06 11:03 | RADIOLOGY REPORT (SQ) ---
EXAM DESCRIPTION: KUB/ABDOMEN (SINGLE VIEW) IMAGES COMPLETED DATE/TIME: 05/06/2020 10:47 am REASON FOR STUDY: follow up abdominal series COMPARISON: Previous day. NUMBER OF VIEWS: One view. TECHNIQUE: Supine radiographic image of the abdomen acquired. LIMITATIONS: None. FINDINGS: Persistent loops of dilated small bowel containing contrast. No contrast visualized in th e colon. Nasogastric tube in good position. IMPRESSION: No significant change. TECHNICAL DOCUMENTATION: JOB ID: [id number] 2010 [employer]- All Rights Reserved Reading location - IP/workstation name: [email or web address]
[2020-05-06] MEDS: CEFEPIME HCL 2 GM in DEXTROSE 5%-WATER 50 ML IV SCH (12:48)
[2020-05-06] MEDS ORDERED: METHYLPREDNISOLONE INJ 125 MG/2 ML SDV IV SCH (14:00)
--- NOTE | 2020-05-06 14:05 | PDOC PROGRESS REPORT ---
Subjective Progress Note for:: 05/06/20 Reason For Visit: SMALL BOWEL OBSTRUCTION, COPD ACUTE Patient was seen earlier this morning. Nasogastric tube put out over a liter and a half overnight. Patient is voiding. IV fluids at 100 an hour. Physical Exam Vital Signs: Temp Pulse Resp BP Pulse Ox 98.2 F 98 18 120/70 95 05/06/20 07:41 05/06/20 12:43 05/06/20 12:43 05/06/20 07:41 05/06/20 12:43 Pulse Oximeter Continuous Start: 05/05/20 14:08 Freq: RTQ4 Status: Active Protocol: Document 05/06/20 12:43 HCR (Rec: 05/06/20 13:11 HCR [id number]) Pulse Oximetry Assessment Oxygen Saturation (92-100) 95 Oxygen Flow Rate (L/min) 2 Oxygen Delivery Method Nasal Cannula Equipment Usage Equipment in Use Continuous SpO2 Machine # 5 Intake & Output 05/05/20 05/06/20 05/07/20 06:59 06:59 06:59 Intake Total 60 1110 Output Total 1850 Balance 60 -740 Weight 85.9 kg 85.6 kg General appearance: PRESENT: no acute distress GI/Abdominal exam: PRESENT: other - Abdomen examined. There is mild distention but no peritoneal signs no rigidity. There is diffuse abdominal tenderness but only to deep palpation. Nasogastric tube did successfully. Results Laboratory Results: 05/06/20 06:09 05/06/20 06:09 05/06/20 05/06/20 06:09 06:09 WBC 5.7 RBC 4.50 Hgb 13.1 Hct 38.9 MCV 86 MCH 29.1 MCHC 33.7 RDW 15.1 H Plt Count 298 Seg Neutrophils % 73.3 Sodium 138.7 Potassium 4.8 Chloride 102 Carbon Dioxide 27 Anion Gap 10 BUN 36 H Creatinine 0.87 Est GFR ( Amer) > 60 Glucose 142 H Calcium 8.9 05/04/20 19:08 Troponin I < 0.012 NT-Pro-B Natriuret Pep 29 Impressions: Abdomen/Pelvis CT 05/04/20 18:48 IMPRESSION: Findings consistent with high-grade small bowel obstruction with zone of transition in the anterior lower pelvis Edema and fluid in the mesentery and within the abdomen and pelvis Chest X-Ray 05/05/20 00:38 IMPRESSION: NG tube tip in the stomach. Small Bowel X-Ray 05/05/20 21:39 IMPRESSION: FINDINGS ARE CONSISTENT WITH A SMALL BOWEL OBSTRUCTION WITH POINT OBSTRUCTION PRESUMABLY IN THE PROXIMAL TO MID ILEUM. FOLLOWING THE 5 HOUR IMAGE, PATIENT'S NG TUBE WAS PLACED TO SUCTION DUE TO PATIENT VOMITING. FINDINGS WERE DISCUSSED WITH DR. TAYLOR AT APPROXIMATELY 1400 HOURS. KUB X-Ray 05/06/20 00:00 IMPRESSION: No significant change. Assessment & Plan - Diagnosis (1) SBO (small bowel obstruction) Is this a current diagnosis for this admission?: Yes Plan: Impression: Patient has not opened up yet clinically, and radiographically 2 days abdominal film shows no progression of contrast in the colon. No peritoneal signs at this time. Patient not on narcotics. Recommendations 1. Continue n.p.o., NG tube, and IV fluids 2. We will obtain rapid COVID test 3. IV fluid bolus; 4. Patient does not improve in the next 12 to 24 hours, she may require exploratory laparoscopy versus laparotomy - Time Time Spent: 30 to 50 Minutes Critical Time spent with patient: Less than 15 minutes Medications reviewed and adjusted accordingly: Yes Anticipated Discharge Disposition: Home, Self Care Anticipated Discharge Timeframe: within 72 hours
[2020-05-06] MEDS ORDERED: NORMAL SALINE 1000 ML 1,000 ML IV PRN (14:16)
[2020-05-06] MEDS: METHYLPREDNISOLONE INJ 40 MG/1 ML SDV IV SCH (15:08)
--- NOTE | 2020-05-06 17:25 | XCELERA REPORT ---
[address] [address] Transthoracic Echocardiogram Report Name: ELIJAH REED Age: 65 yrs Gender: Female : 1955 Patient Status: [facility] Study Date: 05/06/2020 10:09 AM Height: 68 in Weight: 189 lb BSA: 2.0 m2 Procedure: A two-dimensional transthoracic echocardiogram with color flow and Doppler was performed. The study was technically limited with all images being suboptimal in quality. Reason For Study: MR / Preop History: MR / Preop. Ordering Physician: MIYA ALMEIDA Performed By: Anuradha Mcmullen Interpretation Summary The left ventricle is normal in size. There is mild concentric left ventricular hypertrophy. LV EF is > than 60% Left ventricular systolic function is normal. Doppler measurements suggest impaired left ventricular relaxation, which is associated with grade I/IV or mild diastolic dysfunction The left ventricular wall motion is normal. There is no thrombus. No ddddefenite ASD , VSD,or PFO seen. The right ventricle is grossly normal size. Right atrium not well visualized secondary to technical limitations The left atrial size is normal. There is no evidence of mitral valve prolapse. There is no mitral valve stenosis. There is a trace amount of mitral regurgitation There is no aortic valvular vegetation. There is no aortic valve stenosis There is no LVOT obstruction. No aortic regurgitation is present. There is no tricuspid stenosis. There is a trace to mild amount of tricuspid regurgitation Right ventricular systolic pressure is normal. RVSP is 24 to 29 mm of Hg , with RA mean of 5 to 10. There is no pulmonic valvular regurgitation. The aortic root is not well visualized but is probably normal size. The inferior vena cava appeared normal and decreased > 50% with respiration (RAP 5-10 mmHg) MMode/2D Measurements & Calculations RVDd: 2.4 cm LVIDd: 3.3 cm FS: 27.5 % Ao root diam: 3.1 cm IVSd: 1.3 cm LVIDs: 2.4 cm EDV(Teich): 45.0 ml Ao root area: 7.4 cm2 LVPWd: 1.2 cm ESV(Teich): 20.4 ml EF(Teich): 54.6 % Doppler Measurements & Calculations MV E max simeon: MV dec slope: Ao V2 max: LV V1 max P.0 cm/sec 379.1 cm/sec2 111.2 cm/sec 4.4 mmHg MV A max simeon: MV dec time: 0.15 sec Ao max P.9 mmHgLV V1 max: 82.6 cm/sec 105.4 cm/sec MV E/A: 0.67 PA V2 max: PI end-d simeon: TR max simeon: 86.3 cm/sec 137.4 cm/sec 218.7 cm/sec PA max P.0 mmHg TR max P.2 mmHg Left Ventricle The left ventricle is normal in size. There is mild concentric left ventricular hypertrophy. LV EF is > than 60%. Left ventricular systolic function is normal. Doppler measurements suggest impaired left ventricular relaxation, which is associated with grade I/IV or mild diastolic dysfunction. The left ventricular wall motion is normal. There is no thrombus. No ddddefenite ASD , VSD,or PFO seen. Right Ventricle The right ventricle is grossly normal size. Atria The right atrium is normal in size. Right atrium not well visualized secondary to technical limitations. The left atrial size is normal. Mitral Valve There is no evidence of mitral valve prolapse. There is no mitral valve stenosis. There is a trace amount of mitral regurgitation. Aortic Valve There is no aortic valvular vegetation. There is no aortic valve stenosis. There is no LVOT obstruction. No aortic regurgitation is present. Tricuspid Valve There is no tricuspid stenosis. There is a trace to mild amount of tricuspid regurgitation. Right ventricular systolic pressure is normal. RVSP is 24 to 29 mm of Hg , with RA mean of 5 to 10. Pulmonic Valve There is no pulmonic valvular stenosis. There is no pulmonic valvular regurgitation. Great Vessels The aortic root is not well visualized but is probably normal size. The inferior vena cava appeared normal and decreased > 50% with respiration (RAP 5-10 mmHg). Effusions There is no pericardial effusion. : MIYA ALMEIDA Lakshmi
--- NOTE | 2020-05-06 18:10 | Progress Note ---
Provider Note Provider Note: CARDIOLOGY PROGRESS NOTE by Dr. Miya Downey on 05/06/2020 OBJECTIVE: The patient continues to have nausea and still has NG tube with the significant residual being aspirated. She still has abdominal pain. She denies any chest pain or discomfort. She states her shortness of breath much improved and she is not short of breath at rest. She is on nasal cannula. There is no wheezing today there is no cough she does have orthopnea but no PND or leg edema there is no palpitations. There is no arrhythmias seen on the monitor. The patient has no anginal symptoms. As per Dr. Cool, the surgeon, the patient will be taken to the OR for surgical remedy of her small bowel obstruction tonight. PHYSICAL EXAMINATION: The patient is a frail build and appears to be chronically ill Selected Entries 05/06/20 15:18 Temperature 98.6 F Temperature Oral Source Pulse Rate 88 Respiratory 17 Rate Blood Pressure 149/70 H Blood Pressure 96 Mean BP Location Right Arm BP Position Supine O2 Sat by Pulse 100 Oximetry Oxygen Flow 2.00 Rate Oxygen Delivery Nasal Cannula Method HEAD: Is atraumatic normocephalic. EYES: Pupils are equal round regular reactive light accommodation. Extraocular movements are normal. There is no conjunctival pallor. There is no scleral icterus. EARS: Tympanic membranes are intact. External auditory canals are clear. NOSE: There is no deviated nasal septum. There is no inflammation of the nasal mucous membrane. MOUTH:. Tongue and Mucous membranes of mouth are dry. There is no ulcers. There is no bleeding from the gums. NG TUBE in situ THROAT: There is no redness of the oropharynx. There is no neck EXUDATES. Skin: There is no skin rashes or skin lesions. There is no particular ecchymosis. NECK: Supple. There is no JVD. Carotids are equal there is no bruit there is no lymphadenopathy. There is no goiter. There is no accessory muscle respiration use. Trachea central. LUNGS: There is diminished air entry and prolonged expiration throughout. On percussion there is hyperresonance. There is no crackles of pneumonia or rales of CHF. Palpation there is no chest wall tenderness. HEART: S1-S2 is heard. There is no S3 gallop. There is no S4 gallop. There is systolic murmur left sternal border and the apex there is no rub. ABDOMEN: Is soft. Abdomen is distended. There is mild diffuse tenderness without any rebound guarding rebound or rigidity. Bowel sounds are absent. EXTREMITIES: Femorals are diminished femorals are deep. There is no femoral bruits. Leg pulses are diminished. There is trace pedal edema bilaterally. There is no DVT or cellulitis. There is no sinus or clubbing. Capillary refill is normal. WOOL BUYER: The patient is conscious awake alert oriented x3 with no focal deficit. PSYCHIATRIC: The patient judgment insight are intact her affect is normal. Echocardiogram: Shows normal left ventricular systolic function with LV diastolic dysfunction which is mild. There is no aortic stenosis or aortic regurgitation. There is no significant mitral or tricuspid regurgitation, and the right ventricle systolic pressure is normal. Please see report Labs- All tests 24 hr 05/06/20 05/06/20 05/06/20 00:50 06:09 06:09 WBC 5.7 RBC 4.50 Hgb 13.1 Hct 38.9 MCV 86 MCH 29.1 MCHC 33.7 RDW 15.1 H Plt Count 298 Lymph % (Auto) 9.7 L [place] % (Auto) 16.8 H Eos % (Auto) 0.0 Baso % (Auto) 0.2 Absolute Neuts (auto) 4.1 Absolute Lymphs (auto) 0.5 Absolute Monos (auto) 0.9 Absolute Eos (auto) 0.0 Absolute Basos (auto) 0.0 Seg Neutrophils % 73.3 Sodium 138.7 Potassium 4.8 Chloride 102 Carbon Dioxide 27 Anion Gap 10 BUN 36 H Creatinine 0.87 Est GFR ( Amer) > 60 Est GFR (MDRD) Non-Af > 60 Glucose 142 H POC Glucose 134 H Calcium 8.9 COVID-19 Source COVID-19 (STAR) SARS-CoV-2 (PCR) 05/06/20 05/06/20 05/06/20 06:36 15:20 15:20 WBC RBC Hgb Hct MCV MCH MCHC RDW Plt Count Lymph % (Auto) [place] % (Auto) Eos % (Auto) Baso % (Auto) Absolute Neuts (auto) Absolute Lymphs (auto) Absolute Monos (auto) Absolute Eos (auto) Absolute Basos (auto) Seg Neutrophils % Sodium Potassium Chloride Carbon Dioxide Anion Gap BUN Creatinine Est GFR ( Amer) Est GFR (MDRD) Non-Af Glucose POC Glucose 124 H Calcium COVID-19 Source Cancelled COVID-19 (STAR) Cancelled SARS-CoV-2 (PCR) NEGATIVE Abdomen/Pelvis CT 05/04/20 18:48 IMPRESSION: Findings consistent with high-grade small bowel obstruction with zone of transition in the anterior lower pelvis Edema and fluid in the mesentery and within the abdomen and pelvis Chest X-Ray 05/04/20 22:33 IMPRESSION: COPD. Lungs are clear copyright 2011 [employer]- All Rights Reserved KUB X-Ray 05/05/20 00:00 IMPRESSION: NG tube tip in the stomach. Chest X-Ray 05/05/20 00:38 IMPRESSION: NG tube tip in the stomach. Small Bowel X-Ray 05/05/20 21:39 IMPRESSION: FINDINGS ARE CONSISTENT WITH A SMALL BOWEL OBSTRUCTION WITH POINT OBSTRUCTION PRESUMABLY IN THE PROXIMAL TO MID ILEUM. FOLLOWING THE 5 HOUR IMAGE, PATIENT'S NG TUBE WAS PLACED TO SUCTION DUE TO PATIENT VOMITING. FINDINGS WERE DISCUSSED WITH DR. SHIRLEY AT APPROXIMATELY 1400 HOURS. KUB X-Ray 05/06/20 00:00 IMPRESSION: No significant change. IMPRESSION/RECOMMENDATION: 1. Small bowel obstruction patient being treated conservatively with NG tube and IV fluids. Surgery on consult on this case. 2. Acute respiratory failure secondary to acute exacerbation of COPD and acute asthmatic attack. Seems to be improving patient now off the BiPAP and is on nasal cannula. 3. Hypertension. Will observe the patient's blood pressure and start the patient on IV hydralazine or IV Vasotec if blood pressure consistently high. 4. History of asthma . 5 history of COPD steroid-dependent. 6. Systolic murmur? Severity of mitral regurgitation. Check echo for LV ejection fraction and severity of mitral regurgitation. 7. Patient with history of elevated troponin and subendocardial T wave i nversion in March 2019. Most likely secondary to supply demand mismatch and not a definite non-ST elevation WI. The patient's stress test at that time was negative. 8. History of hyperlipidemia. 9. Preoperative cardiac risk assessment: THIS PATIENT WILL BE AVERAGE/LOW CARDIAC RISK FOR THIS ABDOMINAL SURGERY. Discussed with Dr. Ennis, and the attending physician Dr. Shirley. Medication reviewed. Medical regimen management plan discussed with attending physician Dr. Shirley. Medical decision making today is of high complexity. 40 minutes spent on the patient more than 50% of time spent in direct patient care. Will follow
[2020-05-06] MEDS ORDERED: AMPICILLIN SOD/SULBACTAM 1.5 GM VIAL ONE (19:15)
[2020-05-06] MEDS ORDERED: ROPIVACAINE HCL 0.2% INJ/PF (2 MG/ML) 20 ML SDV ONE (19:24)
[2020-05-06] MEDS ORDERED: HYDROMORPHONE HCL INJ/PF 2 MG/ML AMPULE ONE (19:25)
[2020-05-06] MEDS ORDERED: ROPIVACAINE HCL 0.5% INJ/PF (5 MG/1 ML) 30 ML SDV ONE (19:25)
[2020-05-06] MEDS ORDERED: FENTANYL CITRATE INJ/PF 250 MCG/5 ML AMPULE ONE (19:25)
[2020-05-06] MEDS ORDERED: PROPOFOL INJ 200 MG/20 ML VIAL IV ONE (19:25)
[2020-05-06] MEDS ORDERED: MIDAZOLAM 2 MG/2 ML INJ ONE (19:25)
[2020-05-06] MEDS ORDERED: LIDOCAINE 2% JELLY 5 ML TUBE ONE (19:46)
[2020-05-06] MEDS ORDERED: MEPERIDINE HCL/PF INJ 25 MG/1 ML DISP.SYRIN IV PRN (21:13)
[2020-05-06] MEDS ORDERED: MORPHINE SULFATE 10 MG/ML INJ IV PRN (21:13)
[2020-05-06] MEDS ORDERED: DIPHENHYDRAMINE HCL 50 MG/ML VIAL IV PRN (21:13)
[2020-05-06] MEDS ORDERED: FENTANYL CITRATE INJ/PF 100 MCG/2 ML AMPUL IV PRN ×3 (21:13)
[2020-05-06] MEDS ORDERED: OXYCODONE-ACETAMINOPHEN 5-325 MG TABLET PO PRN ×2 (21:13)
[2020-05-06] MEDS ORDERED: PROMETHAZINE HCL INJ 25 MG/1 ML VIAL IV PRN ×2 (21:13)
[2020-05-06] MEDS ORDERED: ONDANSETRON HCL INJ/PF 4 MG/2 ML SDV IV PRN (21:51)
[2020-05-06] MEDS ORDERED: IPRATROPIUM BROMIDE 0.02% NEB 0.5 MG/2.5 ML AMPUL NEB ONE (22:06)
--- NOTE | 2020-05-06 22:13 | Operative Report ---
Operative Report DATE OF SURGERY: 05/06/20 PREOPERATIVE DIAGNOSIS: 1. Complete small bowel obstruction. 2. Steroid-depe ndent COPD POSTOPERATIVE DIAGNOSIS: Same with two obstructing small bowel loops adhesed to right lower anterior abdominal wall OPERATION: 1. Exploratory laparotomy. 2. Lysis of adhesions. 3. Closure of all bowel enterotomy. 4. Drainage of peritoneal and pelvic cavities SURGEON: KOBE HALLMAN ANESTHESIA: GA TISSUE REMOVED OR ALTERED: None COMPLICATIONS: None ESTIMATED BLOOD LOSS: 100 cc INTRAOPERATIVE FINDINGS: See below PROCEDURE: The patient was taken over the preop holding area to the main operating room and general anesthesia was induced. Additional peripheral IV access was established. Avery catheter was inserted with return of dark but fairly clear urine. The anesthesiologist, Dr. Blankenship, deployed a transabdominal Marcaine block using ultrasonography. The abdomen was then prepped and draped in sterile fashion. Surgical plan surgical timeout were conducted. The abdomen was opened through a standard midline incision above and below the umbilicus. Of note the abdominal wall was very thick due to generous adipose tissue. The fascia was opened in midline above and below the umbilicus. Several centimeters below the umbilicus we encountered tethered loops of small bowel attached to the right anterior abdominal wall far from midline. The omentum was stuck to this area and it was divided with electrocautery with successful release. I extended the fascial opening below the area where the small bowel was adhesed to the anterior abdominal wall to facilitate exposure. A Bookwalter retractor system was also set up to assist with exposure. I switched from the right to the left side of the patient, and proceeded to perform adhesio lysis between the small bowel adhesed as described above. 1 section of small bowel had an elongated portion of serosa affixed to the anterior abdominal wall. Once it was released, there was a deserosalized section approximately 2 x 4 cm on the antimesenteric side, however the bowel integrity was otherwise intact; this was referred to as the first loop. The second loop of small bowel appeared to be twisted on itself and part of the wall actually penetrating the fascia, perhaps at the site of previous laparoscopy. This too was taken down sharply with scissors, by opening up the small fascial defect again just to the right of midline. In summary there were 2 areas of deserosalized small bowel, the small twisted and kinked area which was 45 cm from the ileocecal valve, refer to above is the second loop, and the longer section, described above, approximately 30 cm prior to the kinked area, referred to as the first loop. The terminal 45 cm of small bowel was completely decompressed. Of note there was tattooing of the cecum consistent with a previous colonoscopic inking. We now begin milking the small bowel contents in a retrograde fashion towards the stomach with the intent of decompressing the dilated small bowel. Anesthesia inserted a 18 Bangladeshi nasogastric tube to facilitate evacuation of succus entericus. During this process, the small bowel perforated approximately 40cm proximal to the first deserosalized loop of small bowel described above. This would be about the distal jejunum. The perforation immediately released copious quantities of small bowel contents, including an extensive amount of vegetable matter. This is an opportunity to completely decompress the distended small bowel from the duodenum to the deserosalized area as described above. Once this was accomplished, I closed the perforation transversely with 2 running 3-0 Vicryl sutures. There was no compromise to the lumen. No indication for bowel resection. The perforation was felt due to pressure on a distended small bowel loop whose integrity was likely compromised secondary to systemic steroid therapy. We now spent about 30 minutes irrigating debriding and aspirating all of the contamination as a result of the enterotomy. All visible vegetable matter was evacuated. The above small bowel repair and deserosalized areas were reinspected and felt to be stable and in no need of further attention. We placed 2 large Rigo drains 1 the patient's right lower quadrant, with the free end placed in the right paracolic gutter, and the other drain in the left lower quadrant with its free end in the pelvis. There was secured to the skin with 2-0 Prolene suture I reinspected the abdominal cavity check for any mechanical bleeding and there was none. I reinspected the above areas of small bowel and they appeared to be intact. The nasogastric tube was confirmed to be in good position. The abdominal wall fascia was closed with 2 double stranded #1 PDS sutures, skin approximated with yana and Telfa eve. Abdominal binder applied. Patient tolerated procedure well, extubated, taken to the recovery room in guarded condition.
[2020-05-06] MEDS ORDERED: DILTIAZEM HCL INJ 25 MG/5 ML VIAL ONE (22:42)
[2020-05-06] MEDS ORDERED: ACETAMINOPHEN 1,000 MG/100 ML RTUPB IV ONE (22:45)
[2020-05-07] MEDS ORDERED: ACETAMINOPHEN INJ/PF 1000 MG/100 ML SDV IV SCH
[2020-05-07] MEDS ORDERED: IPRATROPIUM BROMIDE 0.02% NEB 0.5 MG/2.5 ML AMPUL NEB ONE (00:15)
[2020-05-07] MEDS: CEFEPIME HCL 2 GM in DEXTROSE 5%-WATER 50 ML IV SCH ×3 (01:05→21:59)
[2020-05-07] MEDS: FAMOTIDINE INJ/PF 20 MG/2 ML SDV IV SCH ×2 (01:06→09:35)
[2020-05-07] MEDS: METHYLPREDNISOLONE INJ 40 MG/1 ML SDV IV SCH ×2 (01:06→05:48)
[2020-05-07] MEDS: AMPICILLIN SODIUM/SULBACTAM NA 3 GM in NORMAL SALINE 100 ML IV SCH ×4 (01:06→22:01)
[2020-05-07] MEDS: PANTOPRAZOLE SODIUM 40 MG VIAL IV SCH ×2 (01:06→09:35)
--- NOTE | 2020-05-07 01:49 | CRITICAL CARE ADMISSION REPORT ---
HPI Date:: 05/07/20 Time:: 01:09 Reason for ICU Reason:: sinus tachycardia. respiratory decompensation Admission Date/Time & PCP: Admission Date/Time: 05/04/20 23:02 Primary Care Provider: JEYSON TAYLOR MD HPI: ELIJAH REED is a 65 year old female complaining of increasing abdominal pain for the last 3 days and was admitted to [facility] by her primary care provider Dr. Taylor. The patient does have a past medical history to include COPD and is ome oxygen dependent and wears cpap at home at night. The patient was found to have a small bowel obstruction nd surgery was consulted by primary for assistance in management. Initial treatment consist of NG tube and fluids however the patient had continued worsening symptoms and the decision was made to take the pateint to surgery on 05/06/2020. The patient was taken to the OR for an exploratory laparotomy and during the procedure had a small bowel perforation and per the surgery noted a wash out was performed and the perforated area was repaired without requiring resection. Post operatively the patient was extubated and was doing well. She then became tachycardic and began having respiratory issues. The patient was placed on BIPAP and was given IV cardizem for the tachycardia. The patient was given IV fluids and her tachycardia slowed and the use of bipap improved her respiratory issues ( the patient is home dependent [place] oxygen and requires cpap at night). The surgeon felt the patient needed to be transferred to the ICU due to her tachycardia and increased resp effort. Transfer orders was placed by the surgeon. - Diagnosis/Plan (1) SBO (small bowel obstruction) Is this a current diagnosis for this admission?: Yes Plan: continue to follow surgeon recommendations (2) COPD with exacerbation Is this a current diagnosis for this admission?: Yes Plan: Bipap therapy tonight wean to nasal canula in AM continue home CPAP therapy regimen at night (3) Acute and chronic respiratory failure with hypercapnia Is this a current diagnosis for this admission?: Yes Plan: BIPAP therapy tonight wean in AM Plan Summary: Have nursing staff notify Dr. Taylor that his patient is in the ICU. Monitor overnight in ICU continue BIPAP therapy wean in AM and continue oxygen and CPAP per home regimen Past Medical History Cardiac Medical History: Reports: Hypertension Denies: Coronary Artery Disease, Myocardial Infarction Pulmonary Medical History: Reports: Asthma, Bronchitis, Chronic Obstructive Pulmonary Disease (COPD), Respiratory Failure Denies: Pneumonia EENT Medical History: Reports: None Neurological Medical History: Reports: None Denies: Seizures Renal/ Medical History: Reports: None GI Medical History: Reports: Gastroesophageal Reflux Disease Musculoskeltal Medical History: Reports: Arthritis Psychiatric Medical History: Reports: Tobacco Dependency Denies: Depression Hematology: Reports: Sickle Cell Disease Denies: Anemia Infectious Medical History: Denies: Clostridium Difficile Past Surgical History Past Surgical History: Reports: Hysterectomy, Orthopedic Surgery - R hip replace ment, Other - exploratory lap with perforation Social/Family History - Social History Smoking Status: Former Smoker Frequency of Alcohol Use: Occasional Hx Recreational Drug Use: No Drugs: None Hx Prescription Drug Abuse: No - Medication/Allergies Home Medications: Cetirizine HCl [Zyrtec 10 mg Tablet] 10 mg PO DAILY 01/05/18 Ipratropium/Albuterol Sulfate [Duoneb 3 ml Ampul] 3 ml NEB RTQ6HP PRN 01/05/18 Montelukast Sodium [Singulair 10 mg Tablet] 10 mg PO QHS 01/05/18 Tiotropium [place] [Spiriva Respimat] 2 puff IH DAILY 01/05/18 Donepezil HCl [Aricept] 10 mg PO QHS 04/06/19 Duloxetine HCl [Cymbalta 20 mg Capsule.dr] 40 mg PO DAILY 04/06/19 Telmisartan/Hydrochlorothiazid [Micardis HCT 80-25 mg Tablet] 1 each PO DAILY 04/06/19 Atorvastatin Calcium [Lipitor 20 mg Tablet] 20 mg PO QHS 05/05/20 Benzonatate [Tessalon Perles 100 mg Capsule] 200 mg PO Q8HP PRN 05/05/20 Methocarbamol [Robaxin 750 mg Tablet] 750 mg PO Q12 05/05/20 Ondansetron [Zofran Odt 4 mg Tablet] 4 mg PO Q8HP PRN 05/05/20 Polyethylene Glycol 3350 [Miralax Powder 17 gm/Packet] 1 packet PO DAILYP PRN 05/05/20 Prednisone [Deltasone 5 mg Tablet] 5 mg PO DAILY 05/05/20 Roflumilast [Daliresp] 500 mcg PO DAILY 05/05/20 Allergies/Adverse Reactions: No Known Allergies Allergy (Verified 02/25/20 07:13) Review of Systems Constitutional: PRESENT: as per HPI, fatigue Eyes: PRESENT: as per HPI Cardiovascular: PRESENT: dyspnea on exertion Respiratory: PRESENT: dyspnea Gastrointestinal: PRESENT: abdominal pain Musculoskeletal: PRESENT: as per HPI Neurological: PRESENT: lack of coordination, memory loss, weakness Physical Exam Vital Signs: Temp Pulse Resp BP Pulse Ox 98 F 130 H 24 H 122/57 L 95 05/06/20 22:03 05/06/20 22:48 05/06/20 22:55 05/06/20 22:48 05/06/20 22:55 Pulse Oximeter Continuous Start: 05/05/20 14:08 Freq: RTQ4 Status: Active Protocol: Document 05/06/20 16:01 HCR (Rec: 05/06/20 18:57 HCR [id number]) Additional RT Notes Other DR. Taylor called about bipap, pt wears one at home. he didn' t want her to have it bc of ng tube in place. He wanted Shweta to be called and asked . I was unable to reach Dr. Rock Pulse Oximetry Assessment Oxygen Saturation (92-100) 95 Oxygen Flow Rate (L/min) 2 Oxygen Delivery Method Nasal Cannula Equipment Usage Equipment in Use Continuous SpO2 Machine # 5 Intake & Output 05/05/20 05/06/20 05/07/20 06:59 06:59 06:59 Intake Total 60 1110 7600 Output Total 1850 6250 Balance 60 -740 1350 Weight 85.9 kg 85.6 kg Weight/Height Weight 85.6 kg Height 5 ft 8 in General appearance: PRESENT: no acute distress, well-developed, well-nourished Head exam: PRESENT: atraumatic, normocephalic Ear exam: PRESENT: normal external ear exam Mouth exam: PRESENT: dry mucosa Neck exam: PRESENT: full ROM, tenderness. ABSENT: lymphadenopathy, tracheal deviation Respiratory exam: PRESENT: decreased breath sounds Cardiovascular exam: PRESENT: +S1, +S2 Pulses: PRESENT: normal femoral pulses, normal dorsalis pedis pul GI/Abdominal exam: PRESENT: diminished bowel sounds, hyperactive bowel sounds, hypoactive bowel sounds Rectal exam: PRESENT: deferred Gentrourinary exam: PRESENT: indwelling catheter Musculoskeletal exam: PRESENT: full ROM Neurological exam: PRESENT: altered, awake, oriented to person, oriented to place, oriented to time Psychiatric exam: PRESENT: anxious Skin exam: PRESENT: dry, warm Tubes/Lines: PRESENT: Endotracheal Tube, Chest Tube, Central Line, Arterial Catheter, Dialysis catheter Laboratory/Radiographs Laboratory Results: 05/06/20 06:09 05/06/20 06:09 05/06/20 05/06/20 06:09 06:09 WBC 5.7 RBC 4.50 Hgb 13.1 Hct 38.9 MCV 86 MCH 29.1 MCHC 33.7 RDW 15.1 H Plt Count 298 Seg Neutrophils % 73.3 Sodium 138.7 Potassium 4.8 Chloride 102 Carbon Dioxide 27 Anion Gap 10 BUN 36 H Creatinine 0.87 Est GFR ( Amer) > 60 Glucose 142 H Calcium 8.9 05/04/20 19:08 Troponin I < 0.012 NT-Pro-B Natriuret Pep 29 Impressions: Abdomen/Pelvis CT 05/04/20 18:48 IMPRESSION: Findings consistent with high-grade small bowel obstruction with zone of transition in the anterior lower pelvis Edema and fluid in the mesentery and within the abdomen and pelvis Chest X-Ray 05/05/20 00:38 IMPRESSION: NG tube tip in the stomach. Small Bowel X-Ray 05/05/20 21:39 IMPRESSION: FINDINGS ARE CONSISTENT WITH A SMALL BOWEL OBSTRUCTION WITH POINT OBSTRUCTION PRESUMABLY IN THE PROXIMAL TO MID ILEUM. FOLLOWING THE 5 HOUR IMAGE, PATIENT'S NG TUBE WAS PLACED TO SUCTION DUE TO PATIENT VOMITING. FINDINGS WERE DISCUSSED WITH DR. TAYLOR AT APPROXIMATELY 1400 HOURS. KUB X-Ray 05/06/20 00:00 IMPRESSION: No significant change. All labs, radiographs, diagnostic studies and EKGs were personally reviewed: Yes In addition, reports of radiographic and diagnostic studies were read: Yes Critical Time Critical Time (minutes): 55 -: The care of a critically ill patient is dynamic. This note represents a static moment in the admission process. Orders and treatments may be given simultaneously and urgently, and time is not guest relations representative of the treatment process. This patient requires Critical Care secondary to life threatening organ or limb dysfunction. Without Critical Care services, the patient is at risk for increased mortality and morbidity.
[2020-05-07] MEDS ORDERED: ACETAMINOPHEN 2,000 MG/200 ML RTUPB IV ONE (01:53)
[2020-05-07] MEDS: ACETAMINOPHEN 1,000 MG/100 ML RTUPB IV SCH ×4 (02:05→17:38)
[2020-05-07] MEDS ORDERED: FENTANYL CITRATE INJ/PF 100 MCG/2 ML AMPUL ONE (03:47)
[2020-05-07] MEDS: FENTANYL CITRATE INJ/PF 100 MCG/2 ML AMPUL IV PRN (03:50)
[2020-05-07 04:28] LABS: HEMATOCRIT 41.7 % (36.0-47.0); HEMOGLOBIN 13.8 g/dL (12.0-15.5); MEAN CORPUSCULAR HEMOGLOBIN 28.9 pg (27.0-33.4); MEAN CORPUSCULAR HGB CONC 33.1 g/dL (32.0-36.0); MEAN CORPUSCULAR VOLUME 88 fl (80-97); RED BLOOD COUNT 4.76 10^6/uL (3.72-5.28); RED CELL DISTRIBUTION WIDTH 15.4 % (11.5-14.0)
[2020-05-07 04:40] LABS: ALBUMIN 2.9 g/dL (3.5-5.0); ALKALINE PHOSPHATASE 67 U/L (38-126); ANION GAP 8 (5-19); ASPARTATE AMINO TRANSFERASE 22 U/L (14-36); BILIRUBIN,DIRECT 0.7 mg/dL (0.0-0.4); BILIRUBIN,TOTAL 0.8 mg/dL (0.2-1.3); BLOOD UREA NITROGEN 27 mg/dL (7-20); CARBON DIOXIDE 23 mmol/L (22-30); CHLORIDE 108 mmol/L (98-107); GLUCOSE 116 mg/dL (75-110); POTASSIUM 4.4 mmol/L (3.6-5.0); TOTAL PROTEIN 5.2 g/dL (6.3-8.2)
[2020-05-07 05:06] LABS: WHITE BLOOD COUNT 2.5 10^3/uL (4.0-10.5)
[2020-05-07 05:18] LABS: ABSOLUTE LYMPHOCYTES# (MANUAL) 0.5 10^3/uL (0.5-4.7); ABSOLUTE MONOCYTES # (MANUAL) 0.3 10^3/uL (0.1-1.4); BAND NEUTROPHILS % (MANUAL) 8 % (3-5); BASOPHILS % (MANUAL) 0 % (0-2); EOSINOPHILS % (MANUAL) 0 % (0-6); LYMPHOCYTES % (MANUAL) 21 % (13-45); MONOCYTES % (MANUAL) 13 % (3-13); SEGMENTED NEUTROPHILS % (MAN) 58 % (42-78); TOTAL CELLS COUNTED 100
[2020-05-07 05:20] LABS: ANISOCYTOSIS SLIGHT; BURR CELLS SLIGHT; OVALOCYTES SLIGHT; PLATELET CLUMPS PRESENT; PLATELET COMMENT ADEQUATE; PLATELET COUNT 252 10^3/uL (150-450); POIKILOCYTOSIS SLIGHT; TEAR DROP CELLS SLIGHT; TOXIC GRANULATION SLIGHT; TOXIC VACUOLATION PRESENT
[2020-05-07] MEDS ORDERED: AMPICILLIN SOD/SULBACTAM 3 GM VIAL ONE (05:21)
[2020-05-07] MEDS: NORMAL SALINE 1000 ML 1,000 ML IV PRN ×2 (06:09→17:37)
[2020-05-07 06:25] LABS: ARTERIAL BLOOD BASE EXCESS -3.4 mmol/L; ARTERIAL BLOOD HCO3 23.6 mmol/L (20-24); ARTERIAL BLOOD O2 SATURATION 94.4 % (94-98); ARTERIAL BLOOD PCO2 49.8 mmHg (35-45); ARTERIAL BLOOD PH 7.29 (7.35-7.45); ARTERIAL BLOOD PO2 79.8 mmHg (80-100); ARTERIAL BLOOD TOTAL CO2 25.1 mmol/L (21-25)
[2020-05-07 06:27] LABS: ARTERIAL BLOOD FIO2 40%
[2020-05-07 06:46] LABS: HEMATOCRIT 41.1 % (36.0-47.0); HEMOGLOBIN 13.6 g/dL (12.0-15.5); MEAN CORPUSCULAR HEMOGLOBIN 28.8 pg (27.0-33.4); MEAN CORPUSCULAR HGB CONC 33.2 g/dL (32.0-36.0); MEAN CORPUSCULAR VOLUME 87 fl (80-97); PLATELET COUNT 258 10^3/uL (150-450); RED BLOOD COUNT 4.73 10^6/uL (3.72-5.28); RED CELL DISTRIBUTION WIDTH 15.1 % (11.5-14.0); WHITE BLOOD COUNT 4.1 10^3/uL (4.0-10.5)
[2020-05-07 06:49] LABS: ALBUMIN 2.9 g/dL (3.5-5.0); ALKALINE PHOSPHATASE 61 U/L (38-126); ANION GAP 6 (5-19); ASPARTATE AMINO TRANSFERASE 31 U/L (14-36); BILIRUBIN,DIRECT 0.6 mg/dL (0.0-0.4); BILIRUBIN,TOTAL 0.7 mg/dL (0.2-1.3); BLOOD UREA NITROGEN 28 mg/dL (7-20); CALCIUM 7.6 mg/dL (8.4-10.2); CARBON DIOXIDE 25 mmol/L (22-30); CHLORIDE 107 mmol/L (98-107); GLUCOSE 106 mg/dL (75-110); POTASSIUM 4.4 mmol/L (3.6-5.0); TOTAL PROTEIN 5.5 g/dL (6.3-8.2)
[2020-05-07 07:06] LABS: ABSOLUTE LYMPHOCYTES# (MANUAL) 0.9 10^3/uL (0.5-4.7); ABSOLUTE MONOCYTES # (MANUAL) 0.3 10^3/uL (0.1-1.4); BASOPHILS % (MANUAL) 1 % (0-2); EOSINOPHILS % (MANUAL) 0 % (0-6); LYMPHOCYTES % (MANUAL) 22 % (13-45); MONOCYTES % (MANUAL) 7 % (3-13); SEGMENTED NEUTROPHILS % (MAN) 36 % (42-78); TOTAL CELLS COUNTED 100
[2020-05-07 07:07] LABS: ANISOCYTOSIS SLIGHT; BAND NEUTROPHILS % (MANUAL) 26 % (3-5); BURR CELLS SLIGHT; PLATELET CLUMPS PRESENT; PLATELET COMMENT ADEQUATE; POIKILOCYTOSIS SLIGHT
[2020-05-07 07:08] LABS: METAMYELOCYTES % (MANUAL) 8 % (0-1)
[2020-05-07] MEDS: DEXAMETHASONE SOD PHOSPHATE INJ 4 MG/1 ML VIAL IV SCH ×3 (08:27→21:57)
[2020-05-07] MEDS: KETOROLAC TROMETHAMINE INJ/PF 30 MG/1 ML SDV IV PRN (08:27)
[2020-05-07] MEDS: IPRATROPIUM/ALBUTEROL 0.5-2.5 MG/3 ML AMPUL NEB SCH ×4 (08:35→20:28)
[2020-05-07] MEDS: BUDESONIDE NEB 0.5 MG/2 ML AMPUL NEB SCH ×2 (08:35→20:28)
[2020-05-07] MEDS ORDERED: ONDANSETRON HCL INJ/PF 4 MG/2 ML SDV ONE (10:31)
[2020-05-07] MEDS ORDERED: DEXAMETHASONE SOD PHOSPHATE INJ 4 MG/1 ML VIAL ONE (10:31)
[2020-05-07] MEDS ORDERED: METOPROLOL TARTRATE PF/INJ 5 MG/5 ML SDV IV ONE (10:31)
[2020-05-07] MEDS ORDERED: SUCCINYLCHOLINE CHLORIDE INJ 200 MG/10 ML VIAL ONE (10:31)
[2020-05-07] MEDS ORDERED: NEOSTIGMINE METHYLSULFATE 10 MG/10 ML VIAL ONE (10:31)
[2020-05-07] MEDS ORDERED: GLYCOPYRROLATE 1 MG/5 ML VIAL ONE (10:31)
[2020-05-07] MEDS ORDERED: LIDOCAINE 2% INJ-PF (20 MG/ML) 2 ML AMPUL ONE (10:31)
[2020-05-07] MEDS ORDERED: ROCURONIUM BROMIDE INJ 50 MG/5 ML VIAL IV ONE (10:31)
--- NOTE | 2020-05-07 10:42 | PDOC PROGRESS REPORT ---
Subjective Progress Note for:: 05/07/20 Subjective:: pod 1 Reason For Visit: SMALL BOWEL OBSTRUCTION, COPD ACUTE Physical Exam Vital Signs: Temp Pulse Resp BP Pulse Ox 98.2 F 135 H 22 H 110/82 97 05/07/20 08:00 05/07/20 09:04 05/07/20 08:36 05/07/20 08:00 05/07/20 08:36 Pulse Oximeter Continuous Start: 05/05/20 14:08 Freq: RTQ4 Status: Hold Protocol: Document 05/07/20 03:52 PMU (Rec: 05/07/20 03:56 PMU [id number]) Pulse Oximetry Assessment Oxygen Saturation (92-100) 997 Oxygen Delivery Method Bi-pap Fraction of Inspired Oxygen (FIO2) 40 Equipment Usage Equipment Standby Continuous SpO2 Machine # - Intake & Output 05/06/20 05/07/20 05/08/20 06:59 06:59 06:59 Intake Total 1510 7800 Output Total 1850 6755 5 Balance -340 1045 -5 Weight 85.6 kg 87.2 kg General appearance: PRESENT: mild distress Head exam: PRESENT: normocephalic Eye exam: PRESENT: EOMI Ear exam: PRESENT: normal external ear exam Mouth exam: PRESENT: moist Neck exam: PRESENT: full ROM Respiratory exam: PRESENT: crackles, tachypnea, wheezes Cardiovascular exam: PRESENT: tachycardia Pulses: PRESENT: normal radial pulses, normal femoral pulses Vascular exam: PRESENT: normal capillary refill Breast: PRESENT: Normal GI/Abdominal exam: PRESENT: soft Rectal exam: PRESENT: deferred Extremities exam: PRESENT: full ROM Musculoskeletal exam: PRESENT: full ROM Neurological exam: PRESENT: alert, awake, oriented to person, oriented to place Skin exam: PRESENT: dry Results Laboratory Results: 05/07/20 06:05 05/07/20 06:05 05/07/20 05/07/20 05/07/20 03:58 03:58 06:05 WBC 2.5 L D 4.1 RBC 4.76 4.73 Hgb 13.8 13.6 Hct 41.7 41.1 MCV 88 87 MCH 28.9 28.8 MCHC 33.1 33.2 RDW 15.4 H 15.1 H Plt Count 252 258 Seg Neutrophils % Not Reportable Not Reportable Carbonic Acid HCO3/H2CO3 Ratio ABG pH ABG pCO2 ABG pO2 ABG HCO3 ABG O2 Saturation ABG Base Excess FiO2 Sodium 138.7 Potassium 4.4 Chloride 108 H Carbon Dioxide 23 Anion Gap 8 BUN 27 H Creatinine 0.95 Est GFR ( Amer) > 60 Glucose 116 H Calcium 8.0 L Magnesium Total Bilirubin 0.8 AST 22 Alkaline Phosphatase 67 Total Protein 5.2 L Albumin 2.9 L 05/07/20 05/07/20 06:05 06:15 WBC RBC Hgb Hct MCV MCH MCHC RDW Plt Count Seg Neutrophils % Carbonic Acid 1.50 H HCO3/H2CO3 Ratio 15:1 ABG pH 7.29 L ABG pCO2 49.8 H ABG pO2 79.8 L ABG HCO3 23.6 ABG O2 Saturation 94.4 ABG Base Excess -3.4 FiO2 40% Sodium 138.3 Potassium 4.4 Chloride 107 Carbon Dioxide 25 Anion Gap 6 BUN 28 H Creatinine 1.21 Est GFR ( Amer) 54 L Glucose 106 Calcium 7.6 L Magnesium 2.2 Total Bilirubin 0.7 AST 31 Alkaline Phosphatase 61 Total Protein 5.5 L Albumin 2.9 L 05/04/20 19:08 Troponin I < 0.012 NT-Pro-B Natriuret Pep 29 Impressions: Abdomen/Pelvis CT 05/04/20 18:48 IMPRESSION: Findings consistent with high-grade small bowel obstruction with zone of transition in the anterior lower pelvis Edema and fluid in the mesentery and within the abdomen and pelvis Chest X-Ray 05/05/20 00:38 IMPRESSION: NG tube tip in the stomach. Small Bowel X-Ray 05/05/20 21:39 IMPRESSION: FINDINGS ARE CONSISTENT WITH A SMALL BOWEL OBSTRUCTION WITH POINT OBSTRUCTION PRESUMABLY IN THE PROXIMAL TO MID ILEUM. FOLLOWING THE 5 HOUR IMAGE, PATIENT'S NG TUBE WAS PLACED TO SUCTION DUE TO PATIENT VOMITING. FINDINGS WERE DISCUSSED WITH DR. TAYLOR AT APPROXIMATELY 1400 HOURS. KUB X-Ray 05/06/20 00:00 IMPRESSION: No significant change. Assessment & Plan - Time Anticipated Discharge Disposition: None Anticipated Discharge Timeframe: Unknown - Plan Summary Plan Summary: s/p exploratory laparotomy last pm for sbo with enterotomy x1 pt with hx of copd, asthma, bipap, steroid dependent now extubated pt remains somewhat tachypneic And tachycardic Case discussed with Dr. Rouse from critical care who feels that she may require further IV steroids which would be satisfactory in this case. Currently her abdominal exam is soft and nontender and patient is doing well from surgical standpoint.
--- NOTE | 2020-05-07 11:52 | Progress Note ---
Provider Note Provider Note: Patient seen this AM. She is stable says she is in need of prednisone being restarted. Lung sounds have no wheeze but sound tight. Will start IV decadron and reassess. She has a midline abd incision, OSWALD on CPAP at home. Has COPD and home O2 and is at relatively high risk for pulmonary complications.
[2020-05-07 13:04] LABS: PATH REVIEW PATHOLOGIST REVIEWED
[2020-05-07] MEDS: DULOXETINE HCL 20 MG CAPSULE.DR PO SCH ×2 (13:27→13:32)
[2020-05-07] MEDS: DEXTROSE 50%-WATER 25 GM/50 ML DISP.SYRIN IV PRN ×2 (13:32→18:57)
[2020-05-07] MEDS ORDERED: DEXAMETHASONE SOD PHOSPHATE INJ 4 MG/1 ML VIAL IV SCH (14:00)
--- NOTE | 2020-05-07 14:24 | Progress Note ---
Provider Note Provider Note: CARDIOLOGY PROGRESS NOTE by Dr. Miya Downey on 05/07/2020 SUBJECTIVE: The patient had surgical treatment of her small bowel obstruction last night. At present she has incisional pain. There is no anginal symptoms. The patient has sinus tachycardia. She is on the BiPAP although she denies any shortness of breath. There is no arrhythmias seen on the monitor. There is no leg edema. PHYSICAL EXAMINATION: The patient appears to be chronically ill, but at present in no acute distress. Selected Entries 05/07/20 05/07/20 05/07/20 12:00 13:40 13:41 Heart Rate ( 121 Monitors) Respiratory 18 Rate Blood Pressure 102/72 Blood Pressure 82 Mean O2 Sat by Pulse 99 Oximetry Oxygen Delivery Bi-pap Method ( includes room air) Percent of 40 Oxygen HEAD: Is atraumatic normocephalic. EYES: Pupils are equal round regular reactive light accommodation. Extraocular movements are normal. There is no conjunctival pallor. There is no scleral icterus. EARS: Tympanic membranes are intact. External auditory canals are clear. NOSE: There is no deviated nasal septum. There is no inflammation of the nasal mucous membrane. MOUTH:. Tongue and Mucous membranes of mouth are dry. There is no ulcers. There is no bleeding from the gums. NG TUBE in situ THROAT: There is no redness of the oropharynx. There is no neck EXUDATES. Skin: There is no skin rashes or skin lesions. There is no particular ecchymosis. NECK: Supple. There is no JVD. Carotids are equal there is no bruit there is no lymphadenopathy. There is no goiter. There is no accessory muscle respiration use. Trachea central. LUNGS: There is diminished air entry and prolonged expiration throughout. On percussion there is hyperresonance. There is no crackles of pneumonia or rales of CHF. Palpation there is no chest wall tenderness. HEART: S1-S2 is heard. There is no S3 gallop. There is no S4 gallop. There is systolic murmur left sternal border and the apex there is no rub. ABDOMEN: Is soft. Abdomen is distended. There is mild diffuse tenderness without any rebound guarding rebound or rigidity. Bowel sounds are absent. EXTREMITIES: Femorals are diminished femorals are deep. There is no femoral bruits. Leg pulses are diminished. There is trace pedal edema bilaterally. There is no DVT or cellulitis. There is no sinus or clubbing. Capillary refill is normal. ENGINEERING PSYCHOLOGIST: The patient is conscious awake alert oriented x3 with no focal deficit. PSYCHIATRIC: The patient judgment insight are intact her affect is normal. EKG: Sinus tachycardia. Left atrial fascicular block. Labs- All tests 24 hr 05/07/20 05/07/20 05/07/20 01:36 03:58 03:58 WBC 2.5 L D RBC 4.76 Hgb 13.8 Hct 41.7 MCV 88 MCH 28.9 MCHC 33.1 RDW 15.4 H Plt Count 252 Lymph % (Auto) Not Reportable [place] % (Auto) Not Reportable Eos % (Auto) Not Reportable Baso % (Auto) Not Reportable Absolute Neuts (auto) Not Reportable Absolute Lymphs (auto) Not Reportable Absolute Monos (auto) Not Reportable Absolute Eos (auto) Not Reportable Absolute Basos (auto) Not Reportable Total Counted 100 Seg Neutrophils % Not Reportable Seg Neuts % (Manual) 58 Band Neutrophils % 8 H Lymphocytes % (Manual) 21 Monocytes % (Manual) 13 Eosinophils % (Manual) 0 Basophils % (Manual) 0 Metamyelocytes % Abs Neuts (Manual) 1.7 Abs Lymphs (Manual) 0.5 Abs Monocytes (Manual) 0.3 Absolute Eos (Manual) 0.0 Abs Basophils (Manual) 0.0 Toxic Granulation SLIGHT Toxic Vacuolation PRESENT Clumped Platelets PRESENT Platelet Comment ADEQUATE Poikilocytosis SLIGHT Anisocytosis SLIGHT Tear Drop Cells SLIGHT Ovalocytes SLIGHT [place]ad Cells SLIGHT Carbonic Acid HCO3/H2CO3 Ratio ABG pH ABG pCO2 ABG pO2 ABG HCO3 ABG Total CO2 ABG O2 Saturation ABG Base Excess FiO2 Sodium 138.7 Potassium 4.4 Chloride 108 H Carbon Dioxide 23 Anion Gap 8 BUN 27 H Creatinine 0.95 Est GFR ( Amer) > 60 Est GFR (MDRD) Non-Af 59 L Glucose 116 H POC Glucose 101 Calcium 8.0 L Magnesium Total Bilirubin 0.8 Direct Bilirubin 0.7 H Neonat Total Bilirubin Not Reportable Neonat Direct Bilirubin Not Reportable Neonat Indirect Bili Not Reportable AST 22 ALT 13 Alkaline Phosphatase 67 Total Protein 5.2 L Albumin 2.9 L Urine Color Urine Appearance Urine pH Ur Specific [place] Urine Protein Urine Glucose (UA) Urine Ketones Urine Blood Urine Nitrite Urine Bilirubin Urine Urobilinogen Ur Leukocyte Esterase Urine WBC (Auto) Urine RBC (Auto) Squamous Epi Cells Auto Urine Mucus (Auto) Urine Ascorbic Acid Slides for Path Review 05/07/20 05/07/20 05/07/20 06:03 06:05 06:05 WBC 4.1 RBC 4.73 Hgb 13.6 Hct 41.1 MCV 87 MCH 28.8 MCHC 33.2 RDW 15.1 H Plt Count 258 Lymph % (Auto) Not Reportable [place] % (Auto) Not Reportable Eos % (Auto) Not Reportable Baso % (Auto) Not Reportable Absolute Neuts (auto) Not Reportable Absolute Lymphs (auto) Not Reportable Absolute Monos (auto) Not Reportable Absolute Eos (auto) Not Reportable Absolute Basos (auto) Not Reportable Total Counted 100 Seg Neutrophils % Not Reportable Seg Neuts % (Manual) 36 L Band Neutrophils % 26 H D Lymphocytes % (Manual) 22 Monocytes % (Manual) 7 Eosinophils % (Manual) 0 Basophils % (Manual) 1 Metamyelocytes % 8 H Abs Neuts (Manual) 2.9 Abs Lymphs (Manual) 0.9 Abs Monocytes (Manual) 0.3 Absolute Eos (Manual) 0.0 Abs Basophils (Manual) 0.0 Toxic Granulation Toxic Vacuolation Clumped Platelets PRESENT Platelet Comment ADEQUATE Poikilocytosis SLIGHT Anisocytosis SLIGHT Tear Drop Cells Ovalocytes [place] Cells SLIGHT Carbonic Acid HCO3/H2CO3 Ratio ABG pH ABG pCO2 ABG pO2 ABG HCO3 ABG Total CO2 ABG O2 Saturation ABG Base Excess FiO2 Sodium 138.3 Potassium 4.4 Chloride 107 Carbon Dioxide 25 Anion Gap 6 BUN 28 H Creatinine 1.21 Est GFR ( Amer) 54 L Est GFR (MDRD) Non-Af 45 L Glucose 106 POC Glucose 92 Calcium 7.6 L Magnesium 2.2 Total Bilirubin 0.7 Direct Bilirubin 0.6 H Neonat Total Bilirubin Not Reportable Neonat Direct Bilirubin Not Reportable Neonat Indirect Bili Not Reportable AST 31 ALT 13 Alkaline Phosphatase 61 Total Protein 5.5 L Albumin 2.9 L Urine Color Urine Appearance Urine pH Ur Specific [place] Urine Protein Urine Glucose (UA) Urine Ketones Urine Blood Urine Nitrite Urine Bilirubin Urine Urobilinogen Ur Leukocyte Esterase Urine WBC (Auto) Urine RBC (Auto) Squamous Epi Cells Auto Urine Mucus (Auto) Urine Ascorbic Acid Slides for Path Review PATHOLOGIST REVIEWED 05/07/20 05/07/20 05/07/20 06:15 12:32 13:47 WBC RBC Hgb Hct MCV MCH MCHC RDW Plt Count Lymph % (Auto) [place] % (Auto) Eos % (Auto) Baso % (Auto) Absolute Neuts (auto) Absolute Lymphs (auto) Absolute Monos (auto) Absolute Eos (auto) Absolute Basos (auto) Total Counted Seg Neutrophils % Seg Neuts % (Manual) Band Neutrophils % Lymphocytes % (Manual) Monocytes % (Manual) Eosinophils % (Manual) Basophils % (Manual) Metamyelocytes % Abs Neuts (Manual) Abs Lymphs (Manual) Abs Monocytes (Manual) Absolute Eos (Manual) Abs Basophils (Manual) Toxic Granulation Toxic Vacuolation Clumped Platelets Platelet Comment Poikilocytosis Anisocytosis Tear Drop Cells Ovalocytes [place] Cells Carbonic Acid 1.50 H HCO3/H2CO3 Ratio 15:1 ABG pH 7.29 L ABG pCO2 49.8 H ABG pO2 79.8 L ABG HCO3 23.6 ABG Total CO2 25.1 H ABG O2 Saturation 94.4 ABG Base Excess -3.4 FiO2 40% Sodium Potassium Chloride Carbon Dioxide Anion Gap BUN Creatinine Est GFR ( Amer) Est GFR (MDRD) Non-Af Glucose POC Glucose 69 L 127 H Calcium Magnesium Total Bilirubin Direct Bilirubin Neonat Total Bilirubin Neonat Direct Bilirubin Neonat Indirect Bili AST ALT Alkaline Phosphatase Total Protein Albumin Urine Color Urine Appearance Urine pH Ur Specific [place] Urine Protein Urine Glucose (UA) Urine Ketones Urine Blood Urine Nitrite Urine Bilirubin Urine Urobilinogen Ur Leukocyte Esterase Urine WBC (Auto) Urine RBC (Auto) Squamous Epi Cells Auto Urine Mucus (Auto) Urine Ascorbic Acid Slides for Path Review 05/07/20 05/07/20 05/07/20 14:34 18:53 19:14 WBC RBC Hgb Hct MCV MCH MCHC RDW Plt Count Lymph % (Auto) [place] % (Auto) Eos % (Auto) Baso % (Auto) Absolute Neuts (auto) Absolute Lymphs (auto) Absolute Monos (auto) Absolute Eos (auto) Absolute Basos (auto) Total Counted Seg Neutrophils % Seg Neuts % (Manual) Band Neutrophils % Lymphocytes % (Manual) Monocytes % (Manual) Eosinophils % (Manual) Basophils % (Manual) Metamyelocytes % Abs Neuts (Manual) Abs Lymphs (Manual) Abs Monocytes (Manual) Absolute Eos (Manual) Abs Basophils (Manual) Toxic Granulation Toxic Vacuolation Clumped Platelets Platelet Comment Poikilocytosis Anisocytosis Tear Drop Cells Ovalocytes [place] Cells Carbonic Acid HCO3/H2CO3 Ratio ABG pH ABG pCO2 ABG pO2 ABG HCO3 ABG Total CO2 ABG O2 Saturation ABG Base Excess FiO2 Sodium Potassium Chloride Carbon Dioxide Anion Gap BUN Creatinine Est GFR ( Amer) Est GFR (MDRD) Non-Af Glucose POC Glucose 65 L 102 Calcium Magnesium Total Bilirubin Direct Bilirubin Neonat Total Bilirubin Neonat Direct Bilirubin Neonat Indirect Bili AST ALT Alkaline Phosphatase Total Protein Albumin Urine Color YELLOW Urine Appearance SLIGHTLY-CLOUDY Urine pH 5.0 Ur Specific [place] 1.031 Urine Protein 30 H Urine Glucose (UA) NEGATIVE Urine Ketones NEGATIVE Urine Blood LARGE H Urine Nitrite NEGATIVE Urine Bilirubin NEGATIVE Urine Urobilinogen NEGATIVE Ur Leukocyte Esterase NEGATIVE Urine WBC (Auto) 3 Urine RBC (Auto) 12 Squamous Epi Cells Auto <1 Urine Mucus (Auto) OCC Urine Ascorbic Acid NEGATIVE Slides for Path Review Abdomen/Pelvis CT 05/04/20 18:48 IMPRESSION: Findings consistent with high-grade small bowel obstruction with zone of transition in the anterior lower pelvis Edema and fluid in the mesentery and within the abdomen and pelvis Chest X-Ray 05/04/20 22:33 IMPRESSION: COPD. Lungs are clear copyright 2011 [employer]- All Rights Reserved KUB X-Ray 05/05/20 00:00 IMPRESSION: NG tube tip in the stomach. Chest X-Ray 05/05/20 00:38 IMPRESSION: NG tube tip in the stomach. Small Bowel X-Ray 05/05/20 21:39 IMPRESSION: FINDINGS ARE CONSISTENT WITH A SMALL BOWEL OBSTRUCTION WITH POINT OBSTRUCTION PRESUMABLY IN THE PROXIMAL TO MID ILEUM. FOLLOWING THE 5 HOUR IMAGE, PATIENT'S NG TUBE WAS PLACED TO SUCTION DUE TO PATIENT VOMITING. FINDINGS WERE DISCUSSED WITH DR. TAYLOR AT APPROXIMATELY 1400 HOURS. KUB X-Ray 05/06/20 00:00 IMPRESSION: No significant change. IMPRESSION/RECOMMENDATION: 1. Small bowel obstruction. Patient underwent surgery for this. 2. Acute respiratory failure secondary to acute exacerbation of COPD and acute asthmatic attack. Patient although does not appear to be in any significant distress postoperatively she is on BiPAP. 3. Sinus tachycardia: Secondary to postop state and possibly dehydration. Continue IV fluids 4. Hypertension. Patient's blood pressure is low normal. 5. History of asthma 6. History of COPD steroid-depende 7. History of hyperlipidemia. At present cardiac status is stable in spite of sinus tachycardia. Medication reviewed. Medical regimen management plan reviewed. . Medical decision making today is of moderate complexity. 40 minutes spent on the patient more than 50% of time spent in direct patient care. Will follow
[2020-05-07] MEDS: ENOXAPARIN SODIUM INJ 40 MG/0.4 ML DISP.SYRIN SUBCUT SCH (14:30)
[2020-05-07 14:58] LABS: APPEARANCE,URINE SLIGHTLY-CLOUDY; BILIRUBIN,URINE NEGATIVE (NEGATIVE); COLOR,URINE YELLOW; GLUCOSE, URINE NEGATIVE (NEGATIVE); KETONES,URINE NEGATIVE (NEGATIVE); LEUKOCYTE ESTERASE,URINE NEGATIVE (NEGATIVE); NITRITE,URINE NEGATIVE (NEGATIVE); PROTEIN,URINE 30 mg/dL (NEGATIVE); URINE SPECIFIC GRAVITY 1.031; UROBILINOGEN,URINE NEGATIVE mg/dL (<2.0)
[2020-05-07] MEDS: DOCUSATE SODIUM 100 MG CAPSULE PO SCH (18:00)
--- NOTE | 2020-05-07 20:53 | EKG REPORT ---
SEVERITY:- ABNORMAL ECG - SINUS TACHYCARDIA LEFT ANTERIOR FASCICULAR BLOCK : Confirmed by: Dao Escobedo 07-May-2020 20:53:07
[2020-05-08] MEDS: ACETAMINOPHEN 1,000 MG/100 ML RTUPB IV SCH ×4 (00:20→19:23)
[2020-05-08] MEDS: NORMAL SALINE 1000 ML 1,000 ML IV PRN ×2 (00:47→14:08)
[2020-05-08] MEDS: MELATONIN 3 MG TABLET PO PRN (00:55)
[2020-05-08 05:01] LABS: HEMATOCRIT 37.9 % (36.0-47.0); HEMOGLOBIN 12.5 g/dL (12.0-15.5); MEAN CORPUSCULAR HEMOGLOBIN 28.7 pg (27.0-33.4); MEAN CORPUSCULAR HGB CONC 33.1 g/dL (32.0-36.0); MEAN CORPUSCULAR VOLUME 87 fl (80-97); PLATELET COUNT 203 10^3/uL (150-450); RED BLOOD COUNT 4.37 10^6/uL (3.72-5.28); RED CELL DISTRIBUTION WIDTH 15.3 % (11.5-14.0)
[2020-05-08 05:13] LABS: ANION GAP 9 (5-19); BLOOD UREA NITROGEN 31 mg/dL (7-20); CALCIUM 7.3 mg/dL (8.4-10.2); CARBON DIOXIDE 24 mmol/L (22-30); CHLORIDE 109 mmol/L (98-107); GLUCOSE 81 mg/dL (75-110)
[2020-05-08] MEDS: DEXAMETHASONE SOD PHOSPHATE INJ 4 MG/1 ML VIAL IV SCH ×3 (05:35→23:10)
[2020-05-08] MEDS: AMPICILLIN SODIUM/SULBACTAM NA 3 GM in NORMAL SALINE 100 ML IV SCH ×3 (05:35→23:56)
[2020-05-08 05:38] LABS: WHITE BLOOD COUNT 12.7 10^3/uL (4.0-10.5)
[2020-05-08 05:43] LABS: ABSOLUTE LYMPHOCYTES# (MANUAL) 0.4 10^3/uL (0.5-4.7); ABSOLUTE MONOCYTES # (MANUAL) 1.3 10^3/uL (0.1-1.4); BAND NEUTROPHILS % (MANUAL) 1 % (3-5); BASOPHILS % (MANUAL) 0 % (0-2); EOSINOPHILS % (MANUAL) 0 % (0-6); LYMPHOCYTES % (MANUAL) 3 % (13-45); MONOCYTES % (MANUAL) 10 % (3-13); SEGMENTED NEUTROPHILS % (MAN) 86 % (42-78); TOTAL CELLS COUNTED 100
[2020-05-08 05:44] LABS: ANISOCYTOSIS SLIGHT; BURR CELLS SLIGHT; OVALOCYTES SLIGHT; PLATELET COMMENT ADEQUATE; TEAR DROP CELLS SLIGHT
[2020-05-08 05:45] LABS: TOXIC GRANULATION 1+
[2020-05-08] MEDS: BUDESONIDE NEB 0.5 MG/2 ML AMPUL NEB SCH ×2 (08:01→21:07)
[2020-05-08] MEDS: IPRATROPIUM/ALBUTEROL 0.5-2.5 MG/3 ML AMPUL NEB SCH ×4 (08:01→21:07)
--- NOTE | 2020-05-08 09:07 | PDOC CRITICAL CARE PROG REPORT ---
General Date:: 05/08/20 ICU Day:: 2 Hospital Day:: 2 Resuscitation Status: Full Code Events in the past 12 to 24 Hours:: Off bipap during the day. Breathing easier. Has been OOB Review of systems relevant to events:: Pulmonary, GI Reason for ICU Addmission:: sinus tachycardia. respiratory decompensation - Medications: Medications reviewed and adjusted accordingly: Yes Vasopressors:: None Sedation:: None Physical Exam Vital Signs: Temp Pulse Resp BP Pulse Ox 97.5 F 127 H 19 122/76 96 05/08/20 03:50 05/08/20 08:30 05/08/20 08:02 05/08/20 07:11 05/08/20 08:02 Pulse Oximeter Continuous Start: 05/05/20 14:08 Freq: RTQ4 Status: Hold Protocol: Document 05/07/20 03:52 PMU (Rec: 05/07/20 03:56 PMU [email or web address]) Pulse Oximetry Assessment Oxygen Saturation (92-100) 997 Oxygen Delivery Method Bi-pap Fraction of Inspired Oxygen (FIO2) 40 Equipment Usage Equipment Standby Continuous SpO2 Machine # - Intake & Output 05/07/20 05/08/20 05/09/20 06:59 06:59 06:59 Intake Total 7800 2650 Output Total 6755 1345 Balance 1045 1305 Weight 87.2 kg 89.1 kg Weight/Height Weight 89.1 kg Height 5 ft 8 in General appearance: PRESENT: no acute distress, cooperative, well-developed, well-nourished Head exam: PRESENT: atraumatic, normocephalic Eye exam: PRESENT: conjunctiva pink, EOMI, PERRLA. ABSENT: scleral icterus Ear exam: PRESENT: normal external ear exam Mouth exam: PRESENT: moist, tongue midline Respiratory exam: PRESENT: clear to auscultation nayely, other - Lungs much less tight.. ABSENT: rales, rhonchi, wheezes Cardiovascular exam: PRESENT: RRR, tachycardia. ABSENT: diastolic murmur, rubs, systolic murmur GI/Abdominal exam: PRESENT: diminished bowel sounds, soft, tenderness. ABSENT: distended, guarding, mass, organolmegaly, rebound Rectal exam: PRESENT: deferred Extremities exam: PRESENT: full ROM. ABSENT: calf tenderness, clubbing, pedal edema Musculoskeletal exam: PRESENT: normal inspection Neurological exam: PRESENT: alert, awake, oriented to person, oriented to place, oriented to time, oriented to situation, CN II-XII grossly intact. ABSENT: motor sensory deficit Psychiatric exam: PRESENT: appropriate affect, normal mood. ABSENT: homicidal ideation, suicidal ideation Skin exam: PRESENT: dry, intact, warm. ABSENT: cyanosis, rash Tubes/Lines: PRESENT: Nasogastic Tube Laboratory/Radiographs Laboratory Results: 05/08/20 04:39 05/08/20 04:39 05/07/20 05/08/20 05/08/20 14:34 04:39 04:39 WBC 12.7 H D RBC 4.37 Hgb 12.5 Hct 37.9 MCV 87 MCH 28.7 MCHC 33.1 RDW 15.3 H Plt Count 203 Seg Neutrophils % Not Reportable Sodium 142.0 Potassium 4.0 Chloride 109 H Carbon Dioxide 24 Anion Gap 9 BUN 31 H Creatinine 0.98 Est GFR ( Amer) > 60 Glucose 81 Calcium 7.3 L Magnesium 2.3 Urine Color YELLOW Urine Appearance SLIGHTLY-CLOUDY Urine pH 5.0 Ur Specific [place] 1.031 Urine Protein 30 H Urine Glucose (UA) NEGATIVE Urine Ketones NEGATIVE Urine Blood LARGE H Urine Nitrite NEGATIVE Ur Leukocyte Esterase NEGATIVE Urine WBC (Auto) 3 Urine RBC (Auto) 12 05/04/20 19:08 Troponin I < 0.012 NT-Pro-B Natriuret Pep 29 Impressions: Abdomen/Pelvis CT 05/04/20 18:48 IMPRESSION: Findings consistent with high-grade small bowel obstruction with zone of transition in the anterior lower pelvis Edema and fluid in the mesentery and within the abdomen and pelvis Small Bowel X-Ray 05/05/20 21:39 IMPRESSION: FINDINGS ARE CONSISTENT WITH A SMALL BOWEL OBSTRUCTION WITH POINT OBSTRUCTION PRESUMABLY IN THE PROXIMAL TO MID ILEUM. FOLLOWING THE 5 HOUR IMAGE, PATIENT'S NG TUBE WAS PLACED TO SUCTION DUE TO PATIENT VOMITING. FINDINGS WERE DISCUSSED WITH DR. TAYLOR AT APPROXIMATELY 1400 HOURS. KUB X-Ray 05/06/20 00:00 IMPRESSION: No significant change. EKG: Sinus tachycadia, LAFB All labs, radiographs, diagnostic studies and EKGs were personally reviewed: Yes In addition, reports of radiographic and diagnostic studies were read: Yes Assessment and Plan - Diagnosis (1) COPD exacerbation Is this a current diagnosis for this admission?: Yes Plan: She has not had wheezing but subjectively felt her lungs tight yesterday. Much improved with decadron. Start weaning in deference to wound healing. (2) OSWALD (obstructive sleep apnea) Is this a current diagnosis for this admission?: Yes Plan: Will need CPAP or Bipap at night. (3) SBO (small bowel obstruction) Is this a current diagnosis for this admission?: Yes Plan: Resolved with surgery. Getting OOB. Needs to walk. Plan Summary: Downgrade to telemetry floor where she can be give IV rate or BP meds if needed. Critical Time Critical Time (minutes): 25 Level of Care: TELE Anticipated discharge: Home Anticipated DC Timeframe: Other -: 1. The care of a critical patient is a dynamic process. This note is a bilingual sales representative synopsis but static in nature. The timeframe for treatments gi carlee in order is not necessarily the actual time these treatments may have been done. 2. This patient requires critical care secondary to ongoing requirements for therapy not offered or safe outside the critical care environment. Transfer to a lower level of care will result in altered life or limb morbidity and mortality. 3. Multidisciplinary rounds completed. 4. ABCDE bundle addressed.
[2020-05-08] MEDS: DULOXETINE HCL 20 MG CAPSULE.DR PO SCH (09:57)
[2020-05-08] MEDS: PANTOPRAZOLE SODIUM 40 MG VIAL IV SCH (10:00)
[2020-05-08] MEDS: ENOXAPARIN SODIUM INJ 40 MG/0.4 ML DISP.SYRIN SUBCUT SCH (10:00)
--- NOTE | 2020-05-08 11:12 | RADIOLOGY REPORT (SQ) ---
EXAM DESCRIPTION: CHEST SINGLE VIEW IMAGES COMPLETED DATE/TIME: 05/08/2020 5:44 am REASON FOR STUDY: copd COMPARISON: Chest radiograph 05/05/2020 NUMBER OF VIEWS: One view. TECHNIQUE: Single frontal radiographic view of the chest acquired. LIMITATIONS: None. FINDINGS: LUNGS AND PLEURA: No opacities, masses or pneumothorax. There may be a tiny left pleural effusion. MEDIASTINUM AND HILAR STRUCTURES: No masses. Contour normal. HEART AND VASCULAR STRUCTURES: Heart normal in size. Normal vasculature. BONES: No acute findings. HARDWARE: Enteric tube courses subdiaphragmatic with the tip projecting over the mid epigastrium. OTHER: No other significant finding. IMPRESSION: Possible tiny left pleural effusion. Otherwise, no acute pulmonary process. TECHNICAL DOCUMENTATION: JOB ID: [id number] 2010 [employer]- All Rights Reserved Reading location - IP/workstation name: [email or web address]
[2020-05-08] MEDS: CEFEPIME HCL 2 GM in DEXTROSE 5%-WATER 50 ML IV SCH ×2 (11:23→23:10)
--- NOTE | 2020-05-08 13:58 | PDOC PROGRESS REPORT ---
Subjective Progress Note for:: 05/08/20 Reason For Visit: SMALL BOWEL OBSTRUCTION, COPD ACUTE Physical Exam Vital Signs: Temp Pulse Resp BP Pulse Ox 98.3 F 109 H 20 111/68 98 05/08/20 12:00 05/08/20 12:25 05/08/20 12:25 05/08/20 12:12 05/08/20 12:25 Pulse Oximeter Continuous Start: 05/05/20 14:08 Freq: RTQ4 Status: Hold Protocol: Document 05/07/20 03:52 PMU (Rec: 05/07/20 03:56 PMU [email or web address]) Pulse Oximetry Assessment Oxygen Saturation (92-100) 997 Oxygen Delivery Method Bi-pap Fraction of Inspired Oxygen (FIO2) 40 Equipment Usage Equipment Standby Continuous SpO2 Machine # - Intake & Output 05/07/20 05/08/20 05/09/20 06:59 06:59 06:59 Intake Total 7800 2650 Output Total 6755 1345 755 Balance 1045 1305 -755 Weight 87.2 kg 89.1 kg Results Laboratory Results: 05/08/20 04:39 05/08/20 04:39 05/07/20 05/08/20 05/08/20 14:34 04:39 04:39 WBC 12.7 H D RBC 4.37 Hgb 12.5 Hct 37.9 MCV 87 MCH 28.7 MCHC 33.1 RDW 15.3 H Plt Count 203 Seg Neutrophils % Not Reportable Sodium 142.0 Potassium 4.0 Chloride 109 H Carbon Dioxide 24 Anion Gap 9 BUN 31 H Creatinine 0.98 Est GFR ( Amer) > 60 Glucose 81 Calcium 7.3 L Magnesium 2.3 Urine Color YELLOW Urine Appearance SLIGHTLY-CLOUDY Urine pH 5.0 Ur Specific [place] 1.031 Urine Protein 30 H Urine Glucose (UA) NEGATIVE Urine Ketones NEGATIVE Urine Blood LARGE H Urine Nitrite NEGATIVE Ur Leukocyte Esterase NEGATIVE Urine WBC (Auto) 3 Urine RBC (Auto) 12 05/06/20 06:40 Clean Catch Midstream Urine Culture - Final NO GROWTH 2 DAYS 05/04/20 19:08 Troponin I < 0.012 NT-Pro-B Natriuret Pep 29 Impressions: Abdomen/Pelvis CT 05/04/20 18:48 IMPRESSION: Findings consistent with high-grade small bowel obstruction with zone of transition in the anterior lower pelvis Edema and fluid in the mesentery and within the abdomen and pelvis Small Bowel X-Ray 05/05/20 21:39 IMPRESSION: FINDINGS ARE CONSISTENT WITH A SMALL BOWEL OBSTRUCTION WITH POINT OBSTRUCTION PRESUMABLY IN THE PROXIMAL TO MID ILEUM. FOLLOWING THE 5 HOUR IMAGE, PATIENT'S NG TUBE WAS PLACED TO SUCTION DUE TO PATIENT VOMITING. FINDINGS WERE DISCUSSED WITH DR. TAYLOR AT APPROXIMATELY 1400 HOURS. KUB X-Ray 05/06/20 00:00 IMPRESSION: No significant change. Chest X-Ray 05/08/20 05:00 IMPRESSION: Possible tiny left pleural effusion. Otherwise, no acute pulmonary process. Assessment & Plan - Diagnosis (1) SBO (small bowel obstruction) Is this a current diagnosis for this admission?: Yes - Time Anticipated Discharge Disposition: Home, Self Care Anticipated Discharge Timeframe: unknown - Plan Summary Plan Summary: 65-year-old female status post laparotomy for a small bowel obstruction. The patient is doing well today. I have removed her dressing, and inspected her incision. There is no evidence of infection. Her SKINNY continues to produce serosanguineous fluid. She is breathing without difficulty. I have encouraged her to get out of bed and ambulate. Continue with aggressive pulmonary toilet. Okay for downgrade to medical bed, from a surgical perspective.
[2020-05-08] MEDS ORDERED: ACETAMINOPHEN IV ONE (19:08)
[2020-05-08] MEDS: KETOROLAC TROMETHAMINE INJ/PF 30 MG/1 ML SDV IV PRN (20:41)
--- NOTE | 2020-05-08 22:44 | Progress Note ---
Provider Note Provider Note: CARDIOLOGY PROGRESS NOTE by Dr. Miya Downey on 05/08/2020. SUBJECTIVE: The patient had surgical treatment of her small bowel obstruction on the night of 05/06/2020.. As per the nurse the patient took some sips of water and subsequently had abdominal discomfort and nausea. This is resolved now at p resent she has incisional pain. There is no anginal symptoms. The patient has sinus tachycardia. She is on the BiPAP and states her shortness of breath has improved.. There is no arrhythmias seen on the monitor. There is no leg edema. PHYSICAL EXAMINATION: The patient appears to be chronically ill, but at present in no acute distress. Selected Entries 05/08/20 12:00 Temperature 98.3 F Temperature Axillary Source Pulse Rate 105 H Respiratory 18 Rate Blood Pressure 115/67 [Upper Arm] Blood Pressure 83 Mean [Upper Arm ] O2 Sat by Pulse 98 Oximetry Oxygen Delivery Bi-pap Method ( includes room air) HEAD: Is atraumatic normocephalic. EYES: Pupils are equal round regular reactive light accommodation. Extraocular movements are normal. There is no conjunctival pallor. There is no scleral icterus. EARS: Tympanic membranes are intact. External auditory canals are clear. NOSE: There is no deviated nasal septum. There is no inflammation of the nasal mucous membrane. MOUTH:. Tongue and Mucous membranes of mouth are dry. There is no ulcers. There is no bleeding from the gums. NG TUBE in situ THROAT: There is no redness of the oropharynx. There is no neck EXUDATES. Skin: There is no skin rashes or skin lesions. There is no particular ecchymosis. NECK: Supple. There is no JVD. Carotids are equal there is no bruit there is no lymphadenopathy. There is no goiter. There is no accessory muscle respiration use. Trachea central. LUNGS: There is diminished air entry and prolonged expiration throughout. On percussion there is hyperresonance. There is no crackles of pneumonia or rales of CHF. Palpation there is no chest wall tenderness. HEART: S1-S2 is heard. There is no S3 gallop. There is no S4 gallop. There is systolic murmur left sternal border and the apex there is no rub. ABDOMEN: Is soft. Abdomen is distended. There is mild diffuse tenderness without any rebound guarding rebou nd or rigidity. Bowel sounds are absent. EXTREMITIES: Femorals are diminished femorals are deep. There is no femoral bruits. Leg pulses are diminished. There is trace pedal edema bilaterally. There is no DVT or cellulitis. There is no sinus or clubbing. Capillary refill is normal. PATROL INSPECTOR: The patient is conscious awake alert oriented x3 with no focal deficit. PSYCHIATRIC: The patient judgment insight are intact her affect is normal. Labs- Entire Visit 05/04/20 05/04/20 05/04/20 19:08 19:08 19:08 WBC 10.0 RBC 4.89 Hgb 14.1 Hct 42.2 MCV 86 MCH 28.8 MCHC 33.4 RDW 15.4 H Plt Count 288 Lymph % (Auto) 14.3 [place] % (Auto) 4.8 Eos % (Auto) 0.0 Baso % (Auto) 0.5 Absolute Neuts (auto) 8.0 Absolute Lymphs (auto) 1.4 Absolute Monos (auto) 0.5 Absolute Eos (auto) 0.0 Absolute Basos (auto) 0.1 Total Counted Seg Neutrophils % 80.4 H Seg Neuts % (Manual) Band Neutrophils % Lymphocytes % (Manual) Monocytes % (Manual) Eosinophils % (Manual) Basophils % (Manual) Metamyelocytes % Abs Neuts (Manual) Abs Lymphs (Manual) Abs Monocytes (Manual) Absolute Eos (Manual) Abs Basophils (Manual) Toxic Granulation Toxic Vacuolation Dohle Bodies Clumped Platelets Platelet Comment Poikilocytosis Anisocytosis Tear Drop Cells Ovalocytes [place] Cells Carbonic Acid HCO3/H2CO3 Ratio ABG pH ABG pCO2 ABG pO2 ABG HCO3 ABG Total CO2 ABG O2 Saturation ABG Base Excess VBG pH VBG pCO2 VBG HCO3 VBG Base Excess FiO2 Sodium 136.9 L Potassium 4.5 Chloride 103 Carbon Dioxide 28 Anion Gap 6 BUN 10 Creatinine 0.51 L Est GFR ( Amer) > 60 Est GFR (MDRD) Non-Af > 60 Glucose 129 H POC Glucose Calcium 9.5 Phosphorus Magnesium Total Bilirubin 0.6 Direct Bilirubin 0.3 Neonat Total Bilirubin Not Reportable Neonat Direct Bilirubin Not Reportable Neonat Indirect Bili Not Reportable AST 20 ALT 14 Alkaline Phosphatase 129 H Troponin I < 0.012 NT-Pro-B Natriuret Pep 29 Total Protein 7.1 Albumin 4.1 Lipase 21.9 L Urine Color Urine Appearance Urine pH Ur Specific [place] Urine Protein Urine Glucose (UA) Urine Ketones Urine Blood Urine Nitrite Urine Bilirubin Urine Urobilinogen Ur Leukocyte Esterase Urine WBC (Auto) Urine RBC (Auto) Squamous Epi Cells Auto Urine Mucus (Auto) Urine Ascorbic Acid COVID-19 Source COVID-19 (STAR) SARS-CoV-2 (PCR) Slides for Path Review 05/04/20 05/04/20 05/05/20 20:39 22:50 05:26 WBC 15.4 H RBC 4.60 Hgb 13.3 Hct 40.0 MCV 87 MCH 28.9 MCHC 33.2 RDW 15.1 H Plt Count 279 Lymph % (Auto) Not Reportable [place] % (Auto) Not Reportable Eos % (Auto) Not Reportable Baso % (Auto) Not Reportable Absolute Neuts (auto) Not Reportable Absolute Lymphs (auto) Not Reportable Absolute Monos (auto) Not Reportable Absolute Eos (auto) Not Reportable Absolute Basos (auto) Not Reportable Total Counted 100 Seg Neutrophils % Not Reportable Seg Neuts % (Manual) 94 H Band Neutrophils % Lymphocytes % (Manual) 4 L Monocytes % (Manual) 2 L Eosinophils % (Manual) 0 Basophils % (Manual) 0 Metamyelocytes % Abs Neuts (Manual) 14.5 H Abs Lymphs (Manual) 0.6 Abs Monocytes (Manual) 0.3 Absolute Eos (Manual) 0.0 Abs Basophils (Manual) 0.0 Toxic Granulation SLIGHT Toxic Vacuolation Dohle Bodies Clumped Platelets Platelet Comment ADEQUATE Poikilocytosis SLIGHT Anisocytosis SLIGHT Tear Drop Cells SLIGHT Ovalocytes SLIGHT [place] Cells Carbonic Acid HCO3/H2CO3 Ratio ABG pH ABG pCO2 ABG pO2 ABG HCO3 ABG Total CO2 ABG O2 Saturation ABG Base Excess VBG pH 7.30 VBG pCO2 53.5 VBG HCO3 25.5 VBG Base Excess -1.9 FiO2 Sodium Potassium Chloride Carbon Dioxide Anion Gap BUN Creatinine Est GFR ( Amer) Est GFR (MDRD) Non-Af Glucose POC Glucose Calcium Phosphorus Magnesium Total Bilirubin Direct Bilirubin Neonat Total Bilirubin Neonat Direct Bilirubin Neonat Indirect Bili AST ALT Alkaline Phosphatase Troponin I NT-Pro-B Natriuret Pep Total Protein Albumin Lipase Urine Color YELLOW Urine Appearance CLEAR Urine pH 5.0 Ur Specific [place] 1.042 Urine Protein NEGATIVE Urine Glucose (UA) NEGATIVE Urine Ketones NEGATIVE Urine Blood NEGATIVE Urine Nitrite NEGATIVE Urine Bilirubin NEGATIVE Urine Urobilinogen NEGATIVE Ur Leukocyte Esterase NEGATIVE Urine WBC (Auto) 2 Urine RBC (Auto) 4 Squamous Epi Cells Auto 2 Urine Mucus (Auto) FEW Urine Ascorbic Acid NEGATIVE COVID-19 Source COVID-19 (STAR) SARS-CoV-2 (PCR) Slides for Path Review 05/05/20 05/05/20 05/06/20 05:26 11:34 00:50 WBC RBC Hgb Hct MCV MCH MCHC RDW Plt Count Lymph % (Auto) [place] % (Auto) Eos % (Auto) Baso % (Auto) Absolute Neuts (auto) Absolute Lymphs (auto) Absolute Monos (auto) Absolute Eos (auto) Absolute Basos (auto) Total Counted Seg Neutrophils % Seg Neuts % (Manual) Band Neutrophils % Lymphocytes % (Manual) Monocytes % (Manual) Eosinophils % (Manual) Basophils % (Manual) Metamyelocytes % Abs Neuts (Manual) Abs Lymphs (Manual) Abs Monocytes (Manual) Absolute Eos (Manual) Abs Basophils (Manual) Toxic Granulation Toxic Vacuolation Dohle Bodies Clumped Platelets Platelet Comment Poikilocytosis Anisocytosis Tear Drop Cells Ovalocytes [place] Cells Carbonic Acid HCO3/H2CO3 Ratio ABG pH ABG pCO2 ABG pO2 ABG HCO3 ABG Total CO2 ABG O2 Saturation ABG Base Excess VBG pH VBG pCO2 VBG HCO3 VBG Base Excess FiO2 Sodium 137.4 Potassium 4.8 Chloride 102 Carbon Dioxide 23 Anion Gap 12 BUN 18 Creatinine 0.73 Est GFR ( Amer) > 60 Est GFR (MDRD) Non-Af > 60 Glucose 145 H POC Glucose 139 H 134 H Calcium 9.3 Phosphorus 4.9 H Magnesium Total Bilirubin 0.7 Direct Bilirubin 0.3 Neonat Total Bilirubin Not Reportable Neonat Direct Bilirubin Not Reportable Neonat Indirect Bili Not Reportable AST 19 ALT 15 Alkaline Phosphatase 110 Troponin I NT-Pro-B Natriuret Pep Total Protein 6.5 Albumin 3.8 Lipase Urine Color Urine Appearance Urine pH Ur Specific [place] Urine Protein Urine Glucose (UA) Urine Ketones Urine Blood Urine Nitrite Urine Bilirubin Urine Urobilinogen Ur Leukocyte Esterase Urine WBC (Auto) Urine RBC (Auto) Squamous Epi Cells Auto Urine Mucus (Auto) Urine Ascorbic Acid COVID-19 Source COVID-19 (STAR) SARS-CoV-2 (PCR) Slides for Path Review 05/06/20 05/06/20 05/06/20 06:09 06:09 06:36 WBC 5.7 RBC 4.50 Hgb 13.1 Hct 38.9 MCV 86 MCH 29.1 MCHC 33.7 RDW 15.1 H Plt Count 298 Lymph % (Auto) 9.7 L [place] % (Auto) 16.8 H Eos % (Auto) 0.0 Baso % (Auto) 0.2 Absolute Neuts (auto) 4.1 Absolute Lymphs (auto) 0.5 Absolute Monos (auto) 0.9 Absolute Eos (auto) 0.0 Absolute Basos (auto) 0.0 Total Counted Seg Neutrophils % 73.3 Seg Neuts % (Manual) Band Neutrophils % Lymphocytes % (Manual) Monocytes % (Manual) Eosinophils % (Manual) Basophils % (Manual) Metamyelocytes % Abs Neuts (Manual) Abs Lymphs (Manual) Abs Monocytes (Manual) Absolute Eos (Manual) Abs Basophils (Manual) Toxic Granulation Toxic Vacuolation Dohle Bodies Clumped Platelets Platelet Comment Poikilocytosis Anisocytosis Tear Drop Cells Ovalocytes [place] Cells Carbonic Acid HCO3/H2CO3 Ratio ABG pH ABG pCO2 ABG pO2 ABG HCO3 ABG Total CO2 ABG O2 Saturation ABG Base Excess VBG pH VBG pCO2 VBG HCO3 VBG Base Excess FiO2 Sodium 138.7 Potassium 4.8 Chloride 102 Carbon Dioxide 27 Anion Gap 10 BUN 36 H Creatinine 0.87 Est GFR ( Amer) > 60 Est GFR (MDRD) Non-Af > 60 Glucose 142 H POC Glucose 124 H Calcium 8.9 Phosphorus Magnesium Total Bilirubin Direct Bilirubin Neonat Total Bilirubin Neonat Direct Bilirubin Neonat Indirect Bili AST ALT Alkaline Phosphatase Troponin I NT-Pro-B Natriuret Pep Total Protein Albumin Lipase Urine Color Urine Appearance Urine pH Ur Specific [place] Urine Protein Urine Glucose (UA) Urine Ketones Urine Blood Urine Nitrite Urine Bilirubin Urine Urobilinogen Ur Leukocyte Esterase Urine WBC (Auto) Urine RBC (Auto) Squamous Epi Cells Auto Urine Mucus (Auto) Urine Ascorbic Acid COVID-19 Source COVID-19 (STAR) SARS-CoV-2 (PCR) Slides for Path Review 05/06/20 05/06/20 05/06/20 15:20 15:20 18:35 WBC RBC Hgb Hct MCV MCH MCHC RDW Plt Count Lymph % (Auto) [place] % (Auto) Eos % (Auto) Baso % (Auto) Absolute Neuts (auto) Absolute Lymphs (auto) Absolute Monos (auto) Absolute Eos (auto) Absolute Basos (auto) Total Counted Seg Neutrophils % Seg Neuts % (Manual) Band Neutrophils % Lymphocytes % (Manual) Monocytes % (Manual) Eosinophils % (Manual) Basophils % (Manual) Metamyelocytes % Abs Neuts (Manual) Abs Lymphs (Manual) Abs Monocytes (Manual) Absolute Eos (Manual) Abs Basophils (Manual) Toxic Granulation Toxic Vacuolation Dohle Bodies Clumped Platelets Platelet Comment Poikilocytosis Anisocytosis Tear Drop Cells Ovalocytes [place] Cells Carbonic Acid HCO3/H2CO3 Ratio ABG pH ABG pCO2 ABG pO2 ABG HCO3 ABG Total CO2 ABG O2 Saturation ABG Base Excess VBG pH VBG pCO2 VBG HCO3 VBG Base Excess FiO2 Sodium Potassium Chloride Carbon Dioxide Anion Gap BUN Creatinine Est GFR ( Amer) Est GFR (MDRD) Non-Af Glucose POC Glucose 107 Calcium Phosphorus Magnesium Total Bilirubin Direct Bilirubin Neonat Total Bilirubin Neonat Direct Bilirubin Neonat Indirect Bili AST ALT Alkaline Phosphatase Troponin I NT-Pro-B Natriuret Pep Total Protein Albumin Lipase Urine Color Urine Appearance Urine pH Ur Specific [place] Urine Protein Urine Glucose (UA) Urine Ketones Urine Blood Urine Nitrite Urine Bilirubin Urine Urobilinogen Ur Leukocyte Esterase Urine WBC (Auto) Urine RBC (Auto) Squamous Epi Cells Auto Urine Mucus (Auto) Urine Ascorbic Acid COVID-19 Source Cancelled COVID-19 (STAR) Cancelled SARS-CoV-2 (PCR) NEGATIVE Slides for Path Review 05/07/20 05/07/20 05/07/20 01:36 03:58 03:58 WBC 2.5 L D RBC 4.76 Hgb 13.8 Hct 41.7 MCV 88 MCH 28.9 MCHC 33.1 RDW 15.4 H Plt Count 252 Lymph % (Auto) Not Reportable [place] % (Auto) Not Reportable Eos % (Auto) Not Reportable Baso % (Auto) Not Reportable Absolute Neuts (auto) Not Reportable Absolute Lymphs (auto) Not Reportable Absolute Monos (auto) Not Reportable Absolute Eos (auto) Not Reportable Absolute Basos (auto) Not Reportable Total Counted 100 Seg Neutrophils % Not Reportable Seg Neuts % (Manual) 58 Band Neutrophils % 8 H Lymphocytes % (Manual) 21 Monocytes % (Manual) 13 Eosinophils % (Manual) 0 Basophils % (Manual) 0 Metamyelocytes % Abs Neuts (Manual) 1.7 Abs Lymphs (Manual) 0.5 Abs Monocytes (Manual) 0.3 Absolute Eos (Manual) 0.0 Abs Basophils (Manual) 0.0 Toxic Granulation SLIGHT Toxic Vacuolation PRESENT Dohle Bodies Clumped Platelets PRESENT Platelet Comment ADEQUATE Poikilocytosis SLIGHT Anisocytosis SLIGHT Tear Drop Cells SLIGHT Ovalocytes SLIGHT [place] Cells SLIGHT Carbonic Acid HCO3/H2CO3 Ratio ABG pH ABG pCO2 ABG pO2 ABG HCO3 ABG Total CO2 ABG O2 Saturation ABG Base Excess VBG pH VBG pCO2 VBG HCO3 VBG Base Excess FiO2 Sodium 138.7 Potassium 4.4 Chloride 108 H Carbon Dioxide 23 Anion Gap 8 BUN 27 H Creatinine 0.95 Est GFR ( Amer) > 60 Est GFR (MDRD) Non-Af 59 L Glucose 116 H POC Glucose 101 Calcium 8.0 L Phosphorus Magnesium Total Bilirubin 0.8 Direct Bilirubin 0.7 H Neonat Total Bilirubin Not Reportable Neonat Direct Bilirubin Not Reportable Neonat Indirect Bili Not Reportable AST 22 ALT 13 Alkaline Phosphatase 67 Troponin I NT-Pro-B Natriuret Pep Total Protein 5.2 L Albumin 2.9 L Lipase Urine Color Urine Appearance Urine pH Ur Specific [place] Urine Protein Urine Glucose (UA) Urine Ketones Urine Blood Urine Nitrite Urine Bilirubin Urine Urobilinogen Ur Leukocyte Esterase Urine WBC (Auto) Urine RBC (Auto) Squamous Epi Cells Auto Urine Mucus (Auto) Urine Ascorbic Acid COVID-19 Source COVID-19 (STAR) SARS-CoV-2 (PCR) Slides for Path Review 05/07/20 05/07/20 05/07/20 06:03 06:05 06:05 WBC 4.1 RBC 4.73 Hgb 13.6 Hct 41.1 MCV 87 MCH 28.8 MCHC 33.2 RDW 15.1 H Plt Count 258 Lymph % (Auto) Not Reportable [place] % (Auto) Not Reportable Eos % (Auto) Not Reportable Baso % (Auto) Not Reportable Absolute Neuts (auto) Not Reportable Absolute Lymphs (auto) Not Reportable Absolute Monos (auto) Not Reportable Absolute Eos (auto) Not Reportable Absolute Basos (auto) Not Reportable Total Counted 100 Seg Neutrophils % Not Reportable Seg Neuts % (Manual) 36 L Band Neutrophils % 26 H D Lymphocytes % (Manual) 22 Monocytes % (Manual) 7 Eosinophils % (Manual) 0 Basophils % (Manual) 1 Metamyelocytes % 8 H Abs Neuts (Manual) 2.9 Abs Lymphs (Manual) 0.9 Abs Monocytes (Manual) 0.3 Absolute Eos (Manual) 0.0 Abs Basophils (Manual) 0.0 Toxic Granulation Toxic Vacuolation Dohle Bodies Clumped Platelets PRESENT Platelet Comment ADEQUATE Poikilocytosis SLIGHT Anisocytosis SLIGHT Tear Drop Cells Ovalocytes [place] Cells SLIGHT Carbonic Acid HCO3/H2CO3 Ratio ABG pH ABG pCO2 ABG pO2 ABG HCO3 ABG Total CO2 ABG O2 Saturation ABG Base Excess VBG pH VBG pCO2 VBG HCO3 VBG Base Excess FiO2 Sodium 138.3 Potassium 4.4 Chloride 107 Carbon Dioxide 25 Anion Gap 6 BUN 28 H Creatinine 1.21 Est GFR ( Amer) 54 L Est GFR (MDRD) Non-Af 45 L Glucose 106 POC Glucose 92 Calcium 7.6 L Phosphorus Magnesium 2.2 Total Bilirubin 0.7 Direct Bilirubin 0.6 H Neonat Total Bilirubin Not Reportable Neonat Direct Bilirubin Not Reportable Neonat Indirect Bili Not Reportable AST 31 ALT 13 Alkaline Phosphatase 61 Troponin I NT-Pro-B Natriuret Pep Total Protein 5.5 L Albumin 2.9 L Lipase Urine Color Urine Appearance Urine pH Ur Specific [place] Urine Protein Urine Glucose (UA) Urine Ketones Urine Blood Urine Nitrite Urine Bilirubin Urine Urobilinogen Ur Leukocyte Esterase Urine WBC (Auto) Urine RBC (Auto) Squamous Epi Cells Auto Urine Mucus (Auto) Urine Ascorbic Acid COVID-19 Source COVID-19 (STAR) SARS-CoV-2 (PCR) Slides for Path Review PATHOLOGIST REVIEWED 05/07/20 05/07/20 05/07/20 06:15 12:32 13:47 WBC RBC Hgb Hct MCV MCH MCHC RDW Plt Count Lymph % (Auto) [place] % (Auto) Eos % (Auto) Baso % (Auto) Absolute Neuts (auto) Absolute Lymphs (auto) Absolute Monos (auto) Absolute Eos (auto) Absolute Basos (auto) Total Counted Seg Neutrophils % Seg Neuts % (Manual) Band Neutrophils % Lymphocytes % (Manual) Monocytes % (Manual) Eosinophils % (Manual) Basophils % (Manual) Metamyelocytes % Abs Neuts (Manual) Abs Lymphs (Manual) Abs Monocytes (Manual) Absolute Eos (Manual) Abs Basophils (Manual) Toxic Granulation Toxic Vacuolation Dohle Bodies Clumped Platelets Platelet Comment Poikilocytosis Anisocytosis Tear Drop Cells Ovalocytes [place] Cells Carbonic Acid 1.50 H HCO3/H2CO3 Ratio 15:1 ABG pH 7.29 L ABG pCO2 49.8 H ABG pO2 79.8 L ABG HCO3 23.6 ABG Total CO2 25.1 H ABG O2 Saturation 94.4 ABG Base Excess -3.4 VBG pH VBG pCO2 VBG HCO3 VBG Base Excess FiO2 40% Sodium Potassium Chloride Carbon Dioxide Anion Gap BUN Creatinine Est GFR ( Amer) Est GFR (MDRD) Non-Af Glucose POC Glucose 69 L 127 H Calcium Phosphorus Magnesium Total Bilirubin Direct Bilirubin Neonat Total Bilirubin Neonat Direct Bilirubin Neonat Indirect Bili AST ALT Alkaline Phosphatase Troponin I NT-Pro-B Natriuret Pep Total Protein Albumin Lipase Urine Color Urine Appearance Urine pH Ur Specific [place] Urine Protein Urine Glucose (UA) Urine Ketones Urine Blood Urine Nitrite Urine Bilirubin Urine Urobilinogen Ur Leukocyte Esterase Urine WBC (Auto) Urine RBC (Auto) Squamous Epi Cells Auto Urine Mucus (Auto) Urine Ascorbic Acid COVID-19 Source COVID-19 (STAR) SARS-CoV-2 (PCR) Slides for Path Review 05/07/20 05/07/20 05/07/20 14:34 18:53 19:14 WBC RBC Hgb Hct MCV MCH MCHC RDW Plt Count Lymph % (Auto) [place] % (Auto) Eos % (Auto) Baso % (Auto) Absolute Neuts (auto) Absolute Lymphs (auto) Absolute Monos (auto) Absolute Eos (auto) Absolute Basos (auto) Total Counted Seg Neutrophils % Seg Neuts % (Manual) Band Neutrophils % Lymphocytes % (Manual) Monocytes % (Manual) Eosinophils % (Manual) Basophils % (Manual) Metamyelocytes % Abs Neuts (Manual) Abs Lymphs (Manual) Abs Monocytes (Manual) Absolute Eos (Manual) Abs Basophils (Manual) Toxic Granulation Toxic Vacuolation Dohle Bodies Clumped Platelets Platelet Comment Poikilocytosis Anisocytosis Tear Drop Cells Ovalocytes [place] Cells Carbonic Acid HCO3/H2CO3 Ratio ABG pH ABG pCO2 ABG pO2 ABG HCO3 ABG Total CO2 ABG O2 Saturation ABG Base Excess VBG pH VBG pCO2 VBG HCO3 VBG Base Excess FiO2 Sodium Potassium Chloride Carbon Dioxide Anion Gap BUN Creatinine Est GFR ( Amer) Est GFR (MDRD) Non-Af Glucose POC Glucose 65 L 102 Calcium Phosphorus Magnesium Total Bilirubin Direct Bilirubin Neonat Total Bilirubin Neonat Direct Bilirubin Neonat Indirect Bili AST ALT Alkaline Phosphatase Troponin I NT-Pro-B Natriuret Pep Total Protein Albumin Lipase Urine Color YELLOW Urine Appearance SLIGHTLY-CLOUDY Urine pH 5.0 Ur Specific [place] 1.031 Urine Protein 30 H Urine Glucose (UA) NEGATIVE Urine Ketones NEGATIVE Urine Blood LARGE H Urine Nitrite NEGATIVE Urine Bilirubin NEGATIVE Urine Urobilinogen NEGATIVE Ur Leukocyte Esterase NEGATIVE Urine WBC (Auto) 3 Urine RBC (Auto) 12 Squamous Epi Cells Auto <1 Urine Mucus (Auto) OCC Urine Ascorbic Acid NEGATIVE COVID-19 Source COVID-19 (STAR) SARS-CoV-2 (PCR) Slides for Path Review 05/08/20 05/08/20 05/08/20 00:24 04:39 04:39 WBC 12.7 H D RBC 4.37 Hgb 12.5 Hct 37.9 MCV 87 MCH 28.7 MCHC 33.1 RDW 15.3 H Plt Count 203 Lymph % (Auto) Not Reportable [place] % (Auto) Not Reportable Eos % (Auto) Not Reportable Baso % (Auto) Not Reportable Absolute Neuts (auto) Not Reportable Absolute Lymphs (auto) Not Reportable Absolute Monos (auto) Not Reportable Absolute Eos (auto) Not Reportable Absolute Basos (auto) Not Reportable Total Counted 100 Seg Neutrophils % Not Reportable Seg Neuts % (Manual) 86 H Band Neutrophils % 1 L Lymphocytes % (Manual) 3 L Monocytes % (Manual) 10 Eosinophils % (Manual) 0 Basophils % (Manual) 0 Metamyelocytes % Abs Neuts (Manual) 11.0 H Abs Lymphs (Manual) 0.4 L Abs Monocytes (Manual) 1.3 Absolute Eos (Manual) 0.0 Abs Basophils (Manual) 0.0 Toxic Granulation 1+ Toxic Vacuolation Dohle Bodies PRESENT Clumped Platelets Platelet Comment ADEQUATE Poikilocytosis Anisocytosis SLIGHT Tear Drop Cells SLIGHT Ovalocytes SLIGHT [place] Cells SLIGHT Carbonic Acid HCO3/H2CO3 Ratio ABG pH ABG pCO2 ABG pO2 ABG HCO3 ABG Total CO2 ABG O2 Saturation ABG Base Excess VBG pH VBG pCO2 VBG HCO3 VBG Base Excess FiO2 Sodium 142.0 Potassium 4.0 Chloride 109 H Carbon Dioxide 24 Anion Gap 9 BUN 31 H Creatinine 0.98 Est GFR ( Amer) > 60 Est GFR (MDRD) Non-Af 57 L Glucose 81 POC Glucose 76 Calcium 7.3 L Phosphorus Magnesium 2.3 Total Bilirubin Direct Bilirubin Neonat Total Bilirubin Neonat Direct Bilirubin Neonat Indirect Bili AST ALT Alkaline Phosphatase Troponin I NT-Pro-B Natriuret Pep Total Protein Albumin Lipase Urine Color Urine Appearance Urine pH Ur Specific [place] Urine Protein Urine Glucose (UA) Urine Ketones Urine Blood Urine Nitrite Urine Bilirubin Urine Urobilinogen Ur Leukocyte Esterase Urine WBC (Auto) Urine RBC (Auto) Squamous Epi Cells Auto Urine Mucus (Auto) Urine Ascorbic Acid COVID-19 Source COVID-19 (STAR) SARS-CoV-2 (PCR) Slides for Path Review 05/08/20 05/08/20 05:08 12:31 WBC RBC Hgb Hct MCV MCH MCHC RDW Plt Count Lymph % (Auto) [place] % (Auto) Eos % (Auto) Baso % (Auto) Absolute Neuts (auto) Absolute Lymphs (auto) Absolute Monos (auto) Absolute Eos (auto) Absolute Basos (auto) Total Counted Seg Neutrophils % Seg Neuts % (Manual) Band Neutrophils % Lymphocytes % (Manual) Monocytes % (Manual) Eosinophils % (Manual) Basophils % (Manual) Metamyelocytes % Abs Neuts (Manual) Abs Lymphs (Manual) Abs Monocytes (Manual) Absolute Eos (Manual) Abs Basophils (Manual) Toxic Granulation Toxic Vacuolation Dohle Bodies Clumped Platelets Platelet Comment Poikilocytosis Anisocytosis Tear Drop Cells Ovalocytes [place] Cells Carbonic Acid HCO3/H2CO3 Ratio ABG pH ABG pCO2 ABG pO2 ABG HCO3 ABG Total CO2 ABG O2 Saturation ABG Base Excess VBG pH VBG pCO2 VBG HCO3 VBG Base Excess FiO2 Sodium Potassium Chloride Carbon Dioxide Anion Gap BUN Creatinine Est GFR ( Amer) Est GFR (MDRD) Non-Af Glucose POC Glucose 78 78 Calcium Phosphorus Magnesium Total Bilirubin Direct Bilirubin Neonat Total Bilirubin Neonat Direct Bilirubin Neonat Indirect Bili AST ALT Alkaline Phosphatase Troponin I NT-Pro-B Natriuret Pep Total Protein Albumin Lipase Urine Color Urine Appearance Urine pH Ur Specific [place] Urine Protein Urine Glucose (UA) Urine Ketones Urine Blood Urine Nitrite Urine Bilirubin Urine Urobilinogen Ur Leukocyte Esterase Urine WBC (Auto) Urine RBC (Auto) Squamous Epi Cells Auto Urine Mucus (Auto) Urine Ascorbic Acid COVID-19 Source COVID-19 (STAR) SARS-CoV-2 (PCR) Slides for Path Review Abdomen/Pelvis CT 05/04/20 18:48 IMPRESSION: Findings consistent with high-grade small bowel obstruction with zone of transition in the anterior lower pelvis Edema and fluid in the mesentery and within the abdomen and pelvis Chest X-Ray 05/04/20 22:33 IMPRESSION: COPD. Lungs are clear copyright 2011 [employer]- All Rights Reserved KUB X-Ray 05/05/20 00:00 IMPRESSION: NG tube tip in the stomach. Chest X-Ray 05/05/20 00:38 IMPRESSION: NG tube tip in the stomach. Small Bowel X-Ray 05/05/20 21:39 IMPRESSION: FINDINGS ARE CONSISTENT WITH A SMALL BOWEL OBSTRUCTION WITH POINT OBSTRUCTION PRESUMABLY IN THE PROXIMAL TO MID ILEUM. FOLLOWING THE 5 HOUR IMAGE, PATIENT'S NG TUBE WAS PLACED TO SUCTION DUE TO PATIENT VOMITING. FINDINGS WERE DISCUSSED WITH DR. TAYLOR AT APPROXIMATELY 1400 HOURS. KUB X-Ray 05/06/20 00:00 IMPRESSION: No significant change. Chest X-Ray 05/08/20 05:00 IMPRESSION: Possible tiny left pleural effusion. Otherwise, no acute pulmonary process. IMPRESSION/RECOMMENDATION: 1. Small bowel obstruction. Patient underwent surgery for this. 2. Acute respiratory failure secondary to acute exacerbation of COPD and acute asthmatic attack. Patient although does not appear to be in any significant distress postoperatively she is on BiPAP. 3. Sinus tachycardia: Secondary to postop state and possibly dehydration. Continue IV fluids 4. Hypertension. Patient's blood pressure is low normal. 5. History of asthma 6. History of COPD steroid-depende 7. History of hyperlipidemia. At present cardiac status is stable in spite of sinus tachycardia. Medication reviewed. Medical regimen management plan reviewed. . Medical decision making today is of moderate complexity. 40 minutes spent on the patient more than 50% of time spent in direct patient care. Will follow.
[2020-05-09] MEDS: ACETAMINOPHEN 1,000 MG/100 ML RTUPB IV SCH ×4 (01:21→18:16)
[2020-05-09] MEDS: NORMAL SALINE 1000 ML 1,000 ML IV PRN ×3 (04:42→21:26)
[2020-05-09] MEDS: DEXAMETHASONE SOD PHOSPHATE INJ 4 MG/1 ML VIAL IV SCH ×3 (05:39→21:26)
[2020-05-09] MEDS: AMPICILLIN SODIUM/SULBACTAM NA 3 GM in NORMAL SALINE 100 ML IV SCH (05:39)
[2020-05-09] MEDS: BUDESONIDE NEB 0.5 MG/2 ML AMPUL NEB SCH ×2 (09:05→20:04)
[2020-05-09] MEDS: IPRATROPIUM/ALBUTEROL 0.5-2.5 MG/3 ML AMPUL NEB SCH ×4 (09:05→20:04)
--- NOTE | 2020-05-09 10:03 | PDOC PROGRESS REPORT ---
Subjective Progress Note for:: 05/09/20 Subjective:: Patient is came from ICU yesterday status post laparotomy for small bowel obstructions Patient is currently the BiPAP doing very well As per discussed with the hat ironer continues to steroid because patient is steroid-dependent Patient's denied any chest pain no short of breath Patient's daughter on the bedside Discussed with the surgery suggest no need for any antibiotic anymore Patient otherwise will continue to monitor repeat the CBC and Chem-7 Still not passing any gas Reason For Visit: SMALL BOWEL OBSTRUCTION, COPD ACUTE Physical Exam Vital Signs: Temp Pulse Resp BP Pulse Ox 98.0 F 107 H 20 141/87 H 96 05/09/20 09:31 05/09/20 09:05 05/09/20 09:05 05/09/20 08:32 05/09/20 09:05 Pulse Oximeter Continuous Start: 05/05/20 14:08 Freq: RTQ4 Status: Hold Protocol: Document 05/07/20 03:52 PMU (Rec: 05/07/20 03:56 PMU [email or web address]) Pulse Oximetry Assessment Oxygen Saturation (92-100) 997 Oxygen Delivery Method Bi-pap Fraction of Inspired Oxygen (FIO2) 40 Equipment Usage Equipment Standby Continuous SpO2 Machine # - Intake & Output 05/08/20 05/09/20 05/10/20 06:59 06:59 06:59 Intake Total 3650 1775 525 Output Total 1345 1590 100 Balance 2305 185 425 Weight 89.1 kg 95.3 kg General appearance: PRESENT: no acute distress Head exam: PRESENT: atraumatic, normocephalic Eye exam: PRESENT: conjunctiva pink, EOMI, PERRLA. ABSENT: scleral icterus Ear exam: PRESENT: normal external ear exam Mouth exam: PRESENT: moist, tongue midline Neck exam: PRESENT: full ROM. ABSENT: carotid bruit, JVD, lymphadenopathy, thyromegaly Respiratory exam: PRESENT: decreased breath sounds Cardiovascular exam: PRESENT: RRR. ABSENT: diastolic murmur, rubs, systolic murmur Vascular exam: PRESENT: normal capillary refill GI/Abdominal exam: ABSENT: distended, guarding, mass, organolmegaly, rebound, tenderness Additonal comments: Surgical dressing is intact Rectal exam: PRESENT: deferred Neurological exam: PRESENT: alert, awake, oriented to person, oriented to place, oriented to time, oriented to situation, CN II-XII grossly intact. ABSENT: motor sensory deficit Psychiatric exam: PRESENT: appropriate affect, normal mood. ABSENT: homicidal ideation, suicidal ideation Skin exam: PRESENT: dry, intact, warm. ABSENT: cyanosis, rash Results Laboratory Results: 05/08/20 04:39 05/08/20 04:39 05/06/20 06:40 Clean Catch Midstream Urine Culture - Final NO GROWTH 2 DAYS 05/04/20 19:08 Troponin I < 0.012 NT-Pro-B Natriuret Pep 29 Impressions: Abdomen/Pelvis CT 05/04/20 18:48 IMPRESSION: Findings consistent with high-grade small bowel obstruction with zone of transition in the anterior lower pelvis Edema and fluid in the mesentery and within the abdomen and pelvis Small Bowel X-Ray 05/05/20 21:39 IMPRESSION: FINDINGS ARE CONSISTENT WITH A SMALL BOWEL OBSTRUCTION WITH POINT OBSTRUCTION PRESUMABLY IN THE PROXIMAL TO MID ILEUM. FOLLOWING THE 5 HOUR IMAGE, PATIENT'S NG TUBE WAS PLACED TO SUCTION DUE TO PATIENT VOMITING. FINDINGS WERE DISCUSSED WITH DR. TAYLOR AT APPROXIMATELY 1400 HOURS. KUB X-Ray 05/06/20 00:00 IMPRESSION: No significant change. Chest X-Ray 05/08/20 05:00 IMPRESSION: Possible tiny left pleural effusion. Otherwise, no acute pulmonary process. Assessment & Plan - Diagnosis (1) SBO (small bowel obstruction) Is this a current diagnosis for this admission?: Yes Plan: Status post laparotomy (2) COPD with exacerbation Is this a current diagnosis for this admission?: Yes Plan: Nebulizer treatments (3) Coronary artery disease Qualifiers: Coronary Disease-Associated Artery/Lesion type: unspecified vessel or lesion type Is this a current diagnosis for this admission?: Yes Plan: Follow-up with the Dr. Downey (4) Acute and chronic respiratory failure with hypercapnia Is this a current diagnosis for this admission?: Yes Plan: on BiPAP patient also seen by Dr. Rock (5) GERD (gastroesophageal reflux disease) Qualifiers: Esophagitis presence: without esophagitis Qualified Code(s): K21.9 - Gastro-esophageal reflux disease without esophagitis Is this a current diagnosis for this admission?: Yes Plan: Continues the Protonix (6) Hypertension Qualifiers: Hypertension type: essential hypertension Qualified Code(s): I10 - Essential (primary) hypertension Is this a current diagnosis for this admission?: Yes - Time Time Spent with patient: 15-24 minutes Level of Care: IMCU Medications reviewed and adjusted accordingly: Yes Anticipated discharge: Home with Homehealth Anticipated DC Timeframe: Other - Plan Summary Plan Summary: Discussed with the patient and the daughter on the bedside Reviewed all ICU record Adjust the medications Discussed with the surgery
[2020-05-09] MEDS: DULOXETINE HCL 20 MG CAPSULE.DR PO SCH (10:07)
[2020-05-09] MEDS: CEFEPIME HCL 2 GM in DEXTROSE 5%-WATER 50 ML IV SCH (10:16)
[2020-05-09] MEDS: ENOXAPARIN SODIUM INJ 40 MG/0.4 ML DISP.SYRIN SUBCUT SCH (11:27)
[2020-05-09] MEDS: PANTOPRAZOLE SODIUM 40 MG VIAL IV SCH (11:27)
--- NOTE | 2020-05-09 12:14 | PDOC PROGRESS REPORT ---
Subjective Progress Note for:: 05/09/20 Reason For Visit: SMALL BOWEL OBSTRUCTION, COPD ACUTE Physical Exam Vital Signs: Temp Pulse Resp BP Pulse Ox 98.0 F 107 H 20 141/87 H 96 05/09/20 09:31 05/09/20 09:05 05/09/20 09:05 05/09/20 08:32 05/09/20 09:05 Pulse Oximeter Continuous Start: 05/05/20 14:08 Freq: RTQ4 Status: Hold Protocol: Document 05/07/20 03:52 PMU (Rec: 05/07/20 03:56 PMU [email or web address]) Pulse Oximetry Assessment Oxygen Saturation (92-100) 997 Oxygen Delivery Method Bi-pap Fraction of Inspired Oxygen (FIO2) 40 Equipment Usage Equipment Standby Continuous SpO2 Machine # - Intake & Output 05/08/20 05/09/20 05/10/20 06:59 06:59 06:59 Intake Total 3650 1775 1525 Output Total 1345 1590 100 Balance 2305 185 1425 Weight 89.1 kg 95.3 kg Results Laboratory Results: 05/08/20 04:39 05/08/20 04:39 05/06/20 06:40 Clean Catch Midstream Urine Culture - Final NO GROWTH 2 DAYS 05/04/20 19:08 Troponin I < 0.012 NT-Pro-B Natriuret Pep 29 Impressions: Abdomen/Pelvis CT 05/04/20 18:48 IMPRESSION: Findings consistent with high-grade small bowel obstruction with zone of transition in the anterior lower pelvis Edema and fluid in the mesentery and within the abdomen and pelvis Small Bowel X-Ray 05/05/20 21:39 IMPRESSION: FINDINGS ARE CONSISTENT WITH A SMALL BOWEL OBSTRUCTION WITH POINT OBSTRUCTION PRESUMABLY IN THE PROXIMAL TO MID ILEUM. FOLLOWING THE 5 HOUR IMAGE, PATIENT'S NG TUBE WAS PLACED TO SUCTION DUE TO PATIENT VOMITING. FINDINGS WERE DISCUSSED WITH DR. TAYLOR AT APPROXIMATELY 1400 HOURS. KUB X-Ray 05/06/20 00:00 IMPRESSION: No significant change. Chest X-Ray 05/08/20 05:00 IMPRESSION: Possible tiny left pleural effusion. Otherwise, no acute pulmonary process. Assessment & Plan - Diagnosis (1) SBO (small bowel obstruction) Is this a current diagnosis for this admission?: Yes - Time Anticipated Discharge Disposition: unknown Anticipated Discharge Timeframe: unknown - Plan Summary Plan Summary: 65-year-old female status post laparotomy for a small bowel obstruction. The p kerri is doing well today. She still denies passing flatus. I have inspected her incision. There is no evidence for infection. Her SKINNY continues to produce serosanguineous fluid. She is currently using her BiPAP. I have encouraged her to get out of bed and ambulate. Awaiting bowel function --> continue NG tube until passing flatus. OK for ice chips and popsicles.
[2020-05-09] MEDS: KETOROLAC TROMETHAMINE INJ/PF 30 MG/1 ML SDV IV PRN (14:45)
[2020-05-09] MEDS: ONDANSETRON HCL INJ/PF 4 MG/2 ML SDV IV PRN (19:28)
--- NOTE | 2020-05-09 20:38 | Progress Note ---
Provider Note Provider Note: CARDIOLOGY PROGRESS NOTE by Dr. Miya Erwin on 05/09/2020. OBJECTIVE: The patient shortness of breath is improved she is off the BiPAP and is on nasal cannula. She is not wheezing anymore. She does have chronic orthopnea but no PND. There is no arrhythmias seen on the monitor. Heart rate is much improved and is now 107 bpm. Still she has not passed any flatus. There is no nausea or vomiting. PHYSICAL EXAMINATION: The patient appears to be chronically ill. At present in no acute distress. Selected Entries 05/09/20 16:46 Temperature 98.0 F Temperature Axillary Source Respiratory 18 Rate Blood Pressure 134/79 H Blood Pressure 97 Mean BP Location Right Arm BP Position Supine O2 Sat by Pulse 97 Oximetry Oxygen Flow 2.00 Rate Oxygen Delivery Nasal Cannula Method HEAD: Is atraumatic normocephalic. EYES: Pupils are equal round regular reactive light accommodation. Extraocular movements are normal. There is no conjunctival pallor. There is no scleral icterus. EARS: Tympanic membranes are intact. External auditory canals are clear. NOSE: There is no deviated nasal septum. There is no inflammation of the nasal mucous membrane. MOUTH:. Tongue and Mucous membranes of mouth are dry. There is no ulcers. There is no bleeding from the gums. NG TUBE in situ THROAT: There is no redness of the oropharynx. There is no neck EXUDATES. Skin: There is no skin rashes or skin lesions. There is no particular ecchymosis. NECK: Supple. There is no JVD. Carotids are equal there is no bruit there is no lymphadenopathy. There is no goiter. There is no accessory muscle respiration use. Trachea central. LUNGS: There is diminished air entry and prolonged expiration throughout. On percussion there is hyperresonance. There is no crackles of pneumonia or rales of CHF. There is no rhonchi rales or wheezing. Palpation there is no chest wall tenderness. HEART: S1-S2 is heard. There is no S3 gallop. There is no S4 gallop. There is systolic murmur left sternal border and the apex there is no rub. ABDOMEN: Is soft. Abdomen is distended. There is mild diffuse tenderness without any rebound guarding rebound or rigidity. Bowel sounds are weak. EXTREMITIES: Femorals are diminished femorals are deep. There is no femoral bruits. Leg pulses are diminished. There is trace pedal edema bilaterally. There is no DVT or cellulitis. There is no sinus or clubbing. Capillary refill is normal. OIL [employer] G[employer] RECRUITER: The patient is conscious awake alert oriented x3 with no focal deficit. PSYCHIATRIC: The patient judgment insight are intact her affect is normal. Labs- All tests 24 hr 05/09/20 05/09/20 05/09/20 06:18 11:51 19:09 POC Glucose 113 H 116 H 114 H 05/10/20 00:03 POC Glucose 115 H Abdomen/Pelvis CT 05/04/20 18:48 IMPRESSION: Findings consistent with high-grade small bowel obstruction with zone of transition in the anterior lower pelvis Edema and fluid in the mesentery and within the abdomen and pelvis Chest X-Ray 05/04/20 22:33 IMPRESSION: COPD. Lungs are clear copyright 2011 [employer]- All Rights Reserved KUB X-Ray 05/05/20 00:00 IMPRESSION: NG tube tip in the stomach. Chest X-Ray 05/05/20 00:38 IMPRESSION: NG tube tip in the stomach. Small Bowel X-Ray 05/05/20 21:39 IMPRESSION: FINDINGS ARE CONSISTENT WITH A SMALL BOWEL OBSTRUCTION WITH POINT OBSTRUCTION PRESUMABLY IN THE PROXIMAL TO MID ILEUM. FOLLOWING THE 5 HOUR IMAGE, PATIENT'S NG TUBE WAS PLACED TO SUCTION DUE TO PATIENT VOMITING. FINDINGS WERE DISCUSSED WITH DR. TAYLOR AT APPROXIMATELY 1400 HOURS. KUB X-Ray 05/06/20 00:00 IMPRESSION: No significant change. Chest X-Ray 05/08/20 05:00 IMPRESSION: Possible tiny left pleural effusion. Otherwise, no acute pulmonary process. IMPRESSION/RECOMMENDATION: 1. Small bowel obstruction. Patient underwent surgery for this. Still awaiting return of bowel function 2. Acute respiratory failure secondary to acute exacerbation of COPD and acute asthmatic attack. This seems to have resolved and the patient is on nasal cannula and not BiPAP. 3. Sinus tachycardia: Secondary to postop state and possibly dehydration. Continue IV fluids the heart rate is much lower but still tachycardic. 4. Hypertension. Patient's blood pressure is now normal. 5. History of asthma 6. History of COPD steroid-depende 7. History of hyperlipidemia. At present cardiac status is stable in spite of sinus tachycardia. Medication reviewed. Medical regimen management plan reviewed. . Medical decision making today is of moderate complexity. 40 minutes spent on the patient more than 50% of time spent in direct patient care. Will follow.
[2020-05-10] MEDS: ACETAMINOPHEN 1,000 MG/100 ML RTUPB IV SCH (00:10)
[2020-05-10] MEDS: KETOROLAC TROMETHAMINE INJ/PF 30 MG/1 ML SDV IV PRN (02:03)
[2020-05-10] MEDS: NORMAL SALINE 1000 ML 1,000 ML IV PRN ×2 (04:02→18:25)
[2020-05-10] MEDS: DEXAMETHASONE SOD PHOSPHATE INJ 4 MG/1 ML VIAL IV SCH ×3 (05:12→22:17)
[2020-05-10 05:55] LABS: HEMATOCRIT 31.1 % (36.0-47.0); MEAN CORPUSCULAR HEMOGLOBIN 28.7 pg (27.0-33.4); MEAN CORPUSCULAR HGB CONC 33.3 g/dL (32.0-36.0); MEAN CORPUSCULAR VOLUME 86 fl (80-97); PLATELET COUNT 210 10^3/uL (150-450); RED CELL DISTRIBUTION WIDTH 15.2 % (11.5-14.0)
[2020-05-10 05:57] LABS: HEMOGLOBIN 10.3 g/dL (12.0-15.5)
[2020-05-10 06:22] LABS: ANION GAP 7 (5-19); BLOOD UREA NITROGEN 18 mg/dL (7-20); CARBON DIOXIDE 22 mmol/L (22-30); CHLORIDE 113 mmol/L (98-107); GLUCOSE 114 mg/dL (75-110); POTASSIUM 4.1 mmol/L (3.6-5.0)
[2020-05-10] MEDS: IPRATROPIUM/ALBUTEROL 0.5-2.5 MG/3 ML AMPUL NEB SCH ×5 (08:10→23:59)
[2020-05-10] MEDS: BUDESONIDE NEB 0.5 MG/2 ML AMPUL NEB SCH ×2 (08:10→20:02)
--- NOTE | 2020-05-10 09:49 | PDOC PROGRESS REPORT ---
Subjective Progress Note for:: 05/10/20 Subjective:: Patient is currently doing fair Still complaining of short of breath especially at nighttime Patient's currently using the BiPAP Denied any chest pain Still not passing any gas Reason For Visit: SMALL BOWEL OBSTRUCTION, COPD ACUTE Physical Exam Vital Signs: Temp Pulse Resp BP Pulse Ox 97.5 F 83 18 147/89 H 96 05/10/20 03:41 05/10/20 08:10 05/10/20 08:10 05/10/20 03:41 05/10/20 08:10 Pulse Oximeter Continuous Start: 05/05/20 14:08 Freq: RTQ4 Status: Hold Protocol: Document 05/07/20 03:52 PMU (Rec: 05/07/20 03:56 PMU [email or web address]) Pulse Oximetry Assessment Oxygen Saturation (92-100) 997 Oxygen Delivery Method Bi-pap Fraction of Inspired Oxygen (FIO2) 40 Equipment Usage Equipment Standby Continuous SpO2 Machine # - Intake & Output 05/09/20 05/10/20 05/11/20 06:59 06:59 06:59 Intake Total 1775 4869 Output Total 1590 1280 Balance 185 3589 Weight 95.3 kg 95.5 kg General appearance: PRESENT: no acute distress, well-developed, well-nourished Head exam: PRESENT: atraumatic, normocephalic Eye exam: PRESENT: conjunctiva pink, EOMI, PERRLA. ABSENT: scleral icterus Ear exam: PRESENT: normal external ear exam Mouth exam: PRESENT: moist, tongue midline Neck exam: PRESENT: full ROM. ABSENT: carotid bruit, JVD, lymphadenopathy, thyromegaly Cardiovascular exam: PRESENT: RRR. ABSENT: diastolic murmur, rubs, systolic murmur Vascular exam: PRESENT: normal capillary refill GI/Abdominal exam: ABSENT: distended, guarding, mass, organolmegaly, rebound, tenderness Additonal comments: Surgical scar is intact Rectal exam: PRESENT: deferred Neurological exam: PRESENT: alert, awake, oriented to person, oriented to place, oriented to time, oriented to situation, CN II-XII grossly intact. ABSENT: motor sensory deficit Psychiatric exam: PRESENT: appropriate affect, normal mood. ABSENT: homicidal ideation, suicidal ideation Skin exam: PRESENT: dry, intact, warm. ABSENT: cyanosis, rash Results Laboratory Results: 05/10/20 05:11 05/10/20 05:11 05/10/20 05/10/20 05:11 05:11 WBC 9.0 RBC 3.60 L Hgb 10.3 L D Hct 31.1 L MCV 86 MCH 28.7 MCHC 33.3 RDW 15.2 H Plt Count 210 Sodium 142.4 Potassium 4.1 Chloride 113 H Carbon Dioxide 22 Anion Gap 7 BUN 18 Creatinine 0.62 Est GFR ( Amer) > 60 Glucose 114 H Calcium 8.0 L 05/05/20 06:11 Blood Blood Culture - Final NO GROWTH IN 5 DAYS 05/05/20 05:26 Blood Blood Culture - Final NO GROWTH IN 5 DAYS 05/04/20 19:08 Troponin I < 0.012 NT-Pro-B Natriuret Pep 29 Impressions: Abdomen/Pelvis CT 05/04/20 18:48 IMPRESSION: Findings consistent with high-grade small bowel obstruction with zone of transition in the anterior lower pelvis Edema and fluid in the mesentery and within the abdomen and pelvis Small Bowel X-Ray 05/05/20 21:39 IMPRESSION: FINDINGS ARE CONSISTENT WITH A SMALL BOWEL OBSTRUCTION WITH POINT OBSTRUCTION PRESUMABLY IN THE PROXIMAL TO MID ILEUM. FOLLOWING THE 5 HOUR IMAGE, PATIENT'S NG TUBE WAS PLACED TO SUCTION DUE TO PATIENT VOMITING. FINDINGS WERE DISCUSSED WITH DR. TAYLOR AT APPROXIMATELY 1400 HOURS. KUB X-Ray 05/06/20 00:00 IMPRESSION: No significant change. Chest X-Ray 05/08/20 05:00 IMPRESSION: Possible tiny left pleural effusion. Otherwise, no acute pulmonary process. Assessment & Plan - Diagnosis (1) SBO (small bowel obstruction) Is this a current diagnosis for this admission?: Yes Plan: Status post surgery continues to follow with the surgeon (2) COPD with exacerbation Is this a current diagnosis for this admission?: Yes Plan: Continues the IV steroids patient is steroid-dependent discussed with the Dr. Rock he will reevaluate the patient's today (3) Coronary artery disease Qualifiers: Coronary Disease-Associated Artery/Lesion type: unspecified vessel or lesion type Is this a current diagnosis for this admission?: Yes Plan: Currently follow with the Dr. Atkinson (4) Acute and chronic respiratory failure with hypercapnia Is this a current diagnosis for this admission?: Yes Plan: We will get the ABG and also get the chest x-ray (5) GERD (gastroesophageal reflux disease) Qualifiers: Esophagitis presence: without esophagitis Qualified Code(s): K21.9 - Gastro-esophageal reflux disease without esophagitis Is this a current diagnosis for this admission?: Yes Plan: Continues the Protonix (6) Hypertension Qualifiers: Hypertension type: essential hypertension Qualified Code(s): I10 - Essential (primary) hypertension Is this a current diagnosis for this admission?: Yes - Time Time Spent with patient: 15-24 minutes Level of Care: IMCU Medications reviewed and adjusted accordingly: Yes Anticipated discharge: Home with Homehealth Anticipated DC Timeframe: Other - Plan Summary Plan Summary: Continue See me orders
--- NOTE | 2020-05-10 10:22 | RADIOLOGY REPORT (SQ) ---
EXAM DESCRIPTION: CHEST SINGLE VIEW IMAGES COMPLETED DATE/TIME: 05/10/2020 10:10 am REASON FOR STUDY: sob COMPARISON: 05/08/2020 EXAM PARAMETERS: NUMBER OF VIEWS: One view. TECHNIQUE: Single frontal radiographic view of the chest acquired. RADIATION DOSE: NA LIMITATIONS: None. FINDINGS: LUNGS AND PLEURA: Left basilar infiltrate consistent with atelectasis. Possible small lef t effusion. NG tube remains in place. MEDIASTINUM AND HILAR STRUCTURES: No masses. Contour normal. HEART AND VASCULAR STRUCTURES: Heart normal in size. Normal vasculature. BONES: No acute findings. HARDWARE: None in the chest. OTHER: No other significant finding. IMPRESSION: No significant interval change in the chest with minimal left basilar atelectasis and po ssible small left effusion. TECHNICAL DOCUMENTATION: JOB ID: [id number] 2010 [employer]- All Rights Reserved Reading location - IP/workstation name: [email or web address]
[2020-05-10] MEDS: ENOXAPARIN SODIUM INJ 40 MG/0.4 ML DISP.SYRIN SUBCUT SCH (10:36)
[2020-05-10] MEDS: DULOXETINE HCL 20 MG CAPSULE.DR PO SCH (10:37)
--- NOTE | 2020-05-10 16:34 | PDOC PROGRESS REPORT ---
Subjective Progress Note for:: 05/10/20 Subjective:: Better not well but somewhat better Reason For Visit: SMALL BOWEL OBSTRUCTION, COPD ACUTE Physical Exam Vital Signs: Temp Pulse Resp BP Pulse Ox 97.5 F 84 18 147/89 H 97 05/10/20 03:41 05/10/20 12:04 05/10/20 12:04 05/10/20 03:41 05/10/20 12:04 Pulse Oximeter Continuous Start: 05/05/20 14:08 Freq: RTQ4 Status: Hold Protocol: Document 05/07/20 03:52 PMU (Rec: 05/07/20 03:56 PMU [email or web address]) Pulse Oximetry Assessment Oxygen Saturation (92-100) 997 Oxygen Delivery Method Bi-pap Fraction of Inspired Oxygen (FIO2) 40 Equipment Usage Equipment Standby Continuous SpO2 Machine # - Intake & Output 05/09/20 05/10/20 05/11/20 06:59 06:59 06:59 Intake Total 1775 4869 Output Total 1590 1280 Balance 185 3589 Weight 95.3 kg 95.5 kg General appearance: PRESENT: no acute distress, cooperative, disheveled, obese, well-developed, well-nourished Head exam: PRESENT: atraumatic, normocephalic Eye exam: PRESENT: conjunctiva pale, EOMI. ABSENT: nystagmus, periorbital swelling, scleral icterus Mouth exam: PRESENT: dry mucosa, neck supple, tongue midline Neck exam: ABSENT: carotid bruit, full ROM, JVD, lymphadenopathy, meningismus, tenderness, thyromegaly, tracheal deviation, tracheostomy, other Respiratory exam: PRESENT: decreased breath sounds, prolonged expiratory phas, rhonchi, unlabored. ABSENT: retraction, stridor, tachypnea, wheezes Cardiovascular exam: PRESENT: RRR, +S1, +S2 Pulses: PRESENT: normal radial pulses GI/Abdominal exam: PRESENT: soft. ABSENT: firm, mass, rebound Extremities exam: ABSENT: calf tenderness, clubbing, full ROM, joint swelling, pedal edema Musculoskeletal exam: ABSENT: deformity, dislocation Neurological exam: PRESENT: alert, awake Psychiatric exam: PRESENT: appropriate affect Skin exam: PRESENT: dry, warm Results Laboratory Results: 05/10/20 05:11 05/10/20 05:11 09/21/20 09/21/20 05:11 05:11 WBC 9.0 RBC 3.60 L Hgb 10.3 L D Hct 31.1 L MCV 86 MCH 28.7 MCHC 33.3 RDW 15.2 H Plt Count 210 Sodium 142.4 Potassium 4.1 Chloride 113 H Carbon Dioxide 22 Anion Gap 7 BUN 18 Creatinine 0.62 Est GFR ( Amer) > 60 Glucose 114 H Calcium 8.0 L 05/05/20 06:11 Blood Blood Culture - Final NO GROWTH IN 5 DAYS 05/05/20 05:26 Blood Blood Culture - Final NO GROWTH IN 5 DAYS 05/04/20 19:08 Troponin I < 0.012 NT-Pro-B Natriuret Pep 29 Impressions: Abdomen/Pelvis CT 05/04/20 18:48 IMPRESSION: Findings consistent with high-grade small bowel obstruction with zone of transition in the anterior lower pelvis Edema and fluid in the mesentery and within the abdomen and pelvis Small Bowel X-Ray 05/05/20 21:39 IMPRESSION: FINDINGS ARE CONSISTENT WITH A SMALL BOWEL OBSTRUCTION WITH POINT OBSTRUCTION PRESUMABLY IN THE PROXIMAL TO MID ILEUM. FOLLOWING THE 5 HOUR IMAGE, PATIENT'S NG TUBE WAS PLACED TO SUCTION DUE TO PATIENT VOMITING. FINDINGS WERE DISCUSSED WITH DR. TAYLOR AT APPROXIMATELY 1400 HOURS. KUB X-Ray 05/06/20 00:00 IMPRESSION: No significant change. Chest X-Ray 05/10/20 00:00 IMPRESSION: No significant interval change in the chest with minimal left basilar atelectasis and possible small left effusion. Assessment & Plan - Diagnosis (1) Respiratory failure Qualifiers: Chronicity: acute on chronic Respiratory failure complication: hypoxia and hypercapnia Qualified Code(s): J96.21 - Acute and chronic respiratory failure with hypoxia; J96.22 - Acute and chronic respiratory failure with hypercapnia Is this a current diagnosis for this admission?: Yes Plan: Retaining CO2 despite being on BiPAP with increased BiPAP to 18/8 BG in the morning ;additional pressures will hopefully resolve that which is probably atelectasis (2) SBO (small bowel obstruction) Is this a current diagnosis for this admission?: Yes Plan: As per surgery as per surgeons (3) Hypertension Qualifiers: Hypertension type: essential hypertension Qualified Code(s): I10 - Essential (primary) hypertension Is this a current diagnosis for this admission?: Yes Plan: Stable at this time - Time Time Spent with patient: 35 minutes Time Spent with patient: 35 or more minutes Level of Care: IMCU
--- NOTE | 2020-05-10 16:35 | PDOC PROGRESS REPORT ---
Subjective Progress Note for:: 05/10/20 Reason For Visit: SMALL BOWEL OBSTRUCTION, COPD ACUTE Patient sitting in the chair, has been ambulating, tolerating nasogastric tube intermittently clamped. Physical Exam Vital Signs: Temp Pulse Resp BP Pulse Ox 98.0 F 90 18 137/82 H 100 05/10/20 12:20 05/10/20 14:00 05/10/20 12:20 05/10/20 12:20 05/10/20 12:20 Pulse Oximeter Continuous Start: 05/05/20 14:08 Freq: RTQ4 Status: Hold Protocol: Document 05/07/20 03:52 PMU (Rec: 05/07/20 03:56 PMU [id number]) Pulse Oximetry Assessment Oxygen Saturation (92-100) 997 Oxygen Delivery Method Bi-pap Fraction of Inspired Oxygen (FIO2) 40 Equipment Usage Equipment Standby Continuous SpO2 Machine # - Intake & Output 05/09/20 05/10/20 05/11/20 06:59 06:59 06:59 Intake Total 1775 4869 Output Total 1590 1280 400 Balance 185 3589 -400 Weight 95.3 kg 95.5 kg General appearance: PRESENT: no acute distress GI/Abdominal exam: PRESENT: other - Abdomen examined. All dressings removed. Left lower quadrant drain removed; right lower quadrant drain left in position; yana intact but no evidence of midline wound healing; the abdomen is soft, nontender otherwise Neurological exam: PRESENT: oriented to person, oriented to place, oriented to time, oriented to situation Results Laboratory Results: 05/10/20 05:11 05/10/20 05:11 05/10/20 05/10/20 05:11 05:11 WBC 9.0 RBC 3.60 L Hgb 10.3 L D Hct 31.1 L MCV 86 MCH 28.7 MCHC 33.3 RDW 15.2 H Plt Count 210 Sodium 142.4 Potassium 4.1 Chloride 113 H Carbon Dioxide 22 Anion Gap 7 BUN 18 Creatinine 0.62 Est GFR ( Amer) > 60 Glucose 114 H Calcium 8.0 L 05/05/20 06:11 Blood Blood Culture - Final NO GROWTH IN 5 DAYS 05/05/20 05:26 Blood Blood Culture - Final NO GROWTH IN 5 DAYS 05/04/20 19:08 Troponin I < 0.012 NT-Pro-B Natriuret Pep 29 Impressions: Abdomen/Pelvis CT 05/04/20 18:48 IMPRESSION: Findings consistent with high-grade small bowel obstruction with zone of transition in the anterior lower pelvis Edema and fluid in the mesentery and within the abdomen and pelvis Small Bowel X-Ray 05/05/20 21:39 IMPRESSION: FINDINGS ARE CONSISTENT WITH A SMALL BOWEL OBSTRUCTION WITH POINT OBSTRUCTION PRESUMABLY IN THE PROXIMAL TO MID ILEUM. FOLLOWING THE 5 HOUR IMAGE, PATIENT'S NG TUBE WAS PLACED TO SUCTION DUE TO PATIENT VOMITING. FINDINGS WERE DISCUSSED WITH DR. TAYLOR AT APPROXIMATELY 1400 HOURS. KUB X-Ray 05/06/20 00:00 IMPRESSION: No significant change. Chest X-Ray 05/10/20 00:00 IMPRESSION: No significant interval change in the chest with minimal left basilar atelectasis and possible small left effusion. Assessment & Plan - Diagnosis (1) SBO (small bowel obstruction) Is this a current diagnosis for this admission?: Yes Plan: Impression: Patient is postoperative day 3 status post exploratory laparotomy, l ysis of adhesions, closure of enterotomy, doing reasonably well with no evidence of postoperative complication, awaiting return of bowel function Plan: 1. The left lower quadrant drain- 2. We will discontinue Avery catheter today 3. Clamp nasogastric tube; if patient tolerates, anticipate NG tube removal tomorrow. 4. Discussed postoperative recovery with patient and her daughter on cell p kinsey; explained delayed wound healing and complication risks related to steroids. - Time Time Spent: 30 to 50 Minutes Critical Time spent with patient: Less than 15 minutes Anticipated Discharge Disposition: Home, Self Care Anticipated Discharge Timeframe: within 72 hours
[2020-05-10 16:50] LABS: ARTERIAL BLOOD BASE EXCESS 1.2 mmol/L; ARTERIAL BLOOD H2CO3 1.21 mmol/L (1.05-1.35); ARTERIAL BLOOD HCO3 25.7 mmol/L (20-24); ARTERIAL BLOOD O2 SATURATION 95.6 % (94-98); ARTERIAL BLOOD PCO2 40.3 mmHg (35-45); ARTERIAL BLOOD PH 7.42 (7.35-7.45); ARTERIAL BLOOD PO2 76.8 mmHg (80-100)
[2020-05-10 16:52] LABS: ARTERIAL BLOOD FIO2 28%
--- NOTE | 2020-05-10 20:43 | Progress Note ---
Provider Note Provider Note: CARDIOLOGY PROGRESS NOTE by Dr. Miya Downey on 05/10/2020. OBJECTIVE: The patient states that she still has not passed any flatus. She is tolerating intermittent clamping of the NG tube her shortness of breath is improved and there is no shortness of breath at rest. She is on nasal cannula. She has no chest pain or discomfort. Her heart rate is much improved and is below 100. There is no ventricular arrhythmias seen on the monitor. There is no pedal edema. PHYSICAL EXAMINATION: The patient appears to be chronically ill. In no acute distress. Selected Entries 05/10/20 16:20 Temperature 98.3 F Temperature Oral Source Pulse Rate 97 Respiratory 18 Rate Blood Pressure 144/79 H Blood Pressure 100 Mean BP Location Left Arm BP Position Sitting O2 Sat by Pulse 98 Oximetry Oxygen Flow 2.00 Rate Oxygen Delivery Nasal Cannula Method HEAD: Is atraumatic normocephalic. EYES: Pupils are equal round regular reactive light accommodation. Extraocular movements are normal. There is no conjunctival pallor. There is no scleral icterus. EARS: Tympanic membranes are intact. External auditory canals are clear. NOSE: There is no deviated nasal septum. There is no inflammation of the nasal mucous membrane. MOUTH:. Tongue and Mucous membranes of mouth are dry. There is no ulcers. There is no bleeding from the gums. NG TUBE in situ THROAT: There is no redness of the oropharynx. There is no neck EXUDATES. Skin: There is no skin rashes or skin lesions. There is no particular ecchymosis. NECK: Supple. There is no JVD. Carotids are equal there is no bruit there is no lymphadenopathy. There is no goiter. There is no accessory muscle respiration use. Trachea central. LUNGS: There is diminished air entry and prolonged expiration throughout. On percussion there is hyperresonance. There is no crackles of pneumonia or rales of CHF. There is no rhonchi rales or wheezing. Palpation there is no chest wall tenderness. HEART: S1-S2 is heard. There is no S3 gallop. There is no S4 gallop. There is systolic murmur left sternal border and the apex there is no rub. ABDOMEN: Is soft. Abdomen is distended. There is mild diffuse tenderness without any rebound guarding rebound or rigidity. Bowel sounds are weak. EXTREMITIES: Femorals are diminished femorals are deep. There is no femoral bruits. Leg pulses are diminished. There is trace pedal edema bilaterally. There is no DVT or cellulitis. There is no sinus or clubbing. Capillary refill is normal. ETIQUETTE COACH: The patient is conscious awake alert oriented x3 with no focal deficit. PSYCHIATRIC: The patient judgment insight are intact her affect is normal. Abdomen/Pelvis CT 05/04/20 18:48 IMPRESSION: Findings consistent with high-grade small bowel obstruction with zone of transition in the anterior lower pelvis Edema and fluid in the mesentery and within the abdomen and pelvis Chest X-Ray 05/04/20 22:33 IMPRESSION: COPD. Lungs are clear copyright 2010 [employer]- All Rights Reserved KUB X-Ray 05/05/20 00:00 IMPRESSION: NG tube tip in the stomach. Chest X-Ray 05/05/20 00:38 IMPRESSION: NG tube tip in the stomach. Small Bowel X-Ray 05/05/20 21:39 IMPRESSION: FINDINGS ARE CONSISTENT WITH A SMALL BOWEL OBSTRUCTION WITH POINT OBSTRUCTION PRESUMABLY IN THE PROXIMAL TO MID ILEUM. FOLLOWING THE 5 HOUR IMAGE, PATIENT'S NG TUBE WAS PLACED TO SUCTION DUE TO PATIENT VOMITING. FINDINGS WERE DISCUSSED WITH DR. TAYLOR AT APPROXIMATELY 1400 HOURS. KUB X-Ray 05/06/20 00:00 IMPRESSION: No significant change. Chest X-Ray 05/08/20 05:00 IMPRESSION: Possible tiny left pleural effusion. Otherwise, no acute pulmonary process. Chest X-Ray 05/10/20 00:00 IMPRESSION: No significant interval change in the chest with minimal left basilar atelectasis and possible small left effusion. Labs- All tests 24 hr 05/10/20 05/10/20 05/10/20 00:03 05:11 05:11 WBC 9.0 RBC 3.60 L Hgb 10.3 L D Hct 31.1 L MCV 86 MCH 28.7 MCHC 33.3 RDW 15.2 H Plt Count 210 Carbonic Acid HCO3/H2CO3 Ratio ABG pH ABG pCO2 ABG pO2 ABG HCO3 ABG Total CO2 ABG O2 Saturation ABG Base Excess FiO2 Sodium 142.4 Potassium 4.1 Chloride 113 H Carbon Dioxide 22 Anion Gap 7 BUN 18 Creatinine 0.62 Est GFR ( Amer) > 60 Est GFR (MDRD) Non-Af > 60 Glucose 114 H POC Glucose 115 H Calcium 8.0 L 05/10/20 05/10/20 05/10/20 06:06 12:19 16:30 WBC RBC Hgb Hct MCV MCH MCHC RDW Plt Count Carbonic Acid 1.21 HCO3/H2CO3 Ratio 21:1 ABG pH 7.42 ABG pCO2 40.3 ABG pO2 76.8 L ABG HCO3 25.7 H ABG Total CO2 27.0 H ABG O2 Saturation 95.6 ABG Base Excess 1.2 FiO2 28% Sodium Potassium Chloride Carbon Dioxide Anion Gap BUN Creatinine Est GFR ( Amer) Est GFR (MDRD) Non-Af Glucose POC Glucose 104 76 Calcium IMPRESSION/RECOMMENDATION: 1. Small bowel obstruction. Patient underwent surgery for this. Still awaiting return of bowel function 2. Acute respiratory failure secondary to acute exacerbation of COPD and acute asthmatic attack. This seems to have resolved and the patient is on nasal cannula and not BiPAP. 3. Sinus tachycardia: Secondary to postop state and possibly dehydration. Continue IV fluids the heart rate is much lower but still tachycardic. 4. Hypertension. Patient's blood pressure is now normal. 5. History of asthma 6. History of COPD steroid-depende 7. History of hyperlipidemia. At present cardiac status is stable in spite of sinus tachycardia. Medication reviewed. Medical regimen management plan reviewed. . Medical decision making today is of moderate complexity. 40 minutes spent on the patient more than 50% of time spent in direct patient care. Will follow.
[2020-05-11 02:16] LABS: APPEARANCE,URINE SLIGHTLY-CLOUDY; BILIRUBIN,URINE NEGATIVE (NEGATIVE); COLOR,URINE YELLOW; GLUCOSE, URINE NEGATIVE (NEGATIVE); KETONES,URINE NEGATIVE (NEGATIVE); LEUKOCYTE ESTERASE,URINE NEGATIVE (NEGATIVE); NITRITE,URINE NEGATIVE (NEGATIVE); PROTEIN,URINE 30 mg/dL (NEGATIVE); URINE SPECIFIC GRAVITY 1.025; UROBILINOGEN,URINE NEGATIVE mg/dL (<2.0)
[2020-05-11] MEDS: IPRATROPIUM/ALBUTEROL 0.5-2.5 MG/3 ML AMPUL NEB SCH ×5 (04:09→20:45)
[2020-05-11] MEDS: DEXAMETHASONE SOD PHOSPHATE INJ 4 MG/1 ML VIAL IV SCH ×3 (05:16→21:13)
[2020-05-11 07:39] LABS: ANION GAP 6 (5-19); BLOOD UREA NITROGEN 16 mg/dL (7-20); CALCIUM 8.3 mg/dL (8.4-10.2); CARBON DIOXIDE 22 mmol/L (22-30); CHLORIDE 113 mmol/L (98-107); GLUCOSE 124 mg/dL (75-110); POTASSIUM 3.9 mmol/L (3.6-5.0)
[2020-05-11] MEDS: BUDESONIDE NEB 0.5 MG/2 ML AMPUL NEB SCH ×2 (09:13→20:45)
[2020-05-11] MEDS: DULOXETINE HCL 20 MG CAPSULE.DR PO SCH (09:25)
[2020-05-11] MEDS: ENOXAPARIN SODIUM INJ 40 MG/0.4 ML DISP.SYRIN SUBCUT SCH (09:36)
--- NOTE | 2020-05-11 10:06 | PDOC PROGRESS REPORT ---
Subjective Progress Note for:: 05/11/20 Subjective:: Feels well. Does not feel distended nor nauseous this morning. She has had her NG tube clamped since yesterday. However she has not passed any gas nor had a bowel movement. Reason For Visit: SMALL BOWEL OBSTRUCTION, COPD ACUTE Physical Exam Vital Signs: Temp Pulse Resp BP Pulse Ox 97.9 F 82 16 139/88 H 99 05/11/20 08:19 05/11/20 09:13 05/11/20 09:13 05/11/20 03:42 05/11/20 09:13 Pulse Oximeter Continuous Start: 05/05/20 14:08 Freq: RTQ4 Status: Hold Protocol: Document 05/07/20 03:52 PMU (Rec: 05/07/20 03:56 PMU [email or web address]) Pulse Oximetry Assessment Oxygen Saturation (92-100) 997 Oxygen Delivery Method Bi-pap Fraction of Inspired Oxygen (FIO2) 40 Equipment Usage Equipment Standby Continuous SpO2 Machine # - Intake & Output 05/10/20 05/11/20 05/12/20 06:59 06:59 06:59 Intake Total 4869 1675 Output Total 1280 465 Balance 3589 1210 Weight 95.5 kg 98 kg General appearance: PRESENT: no acute distress, cooperative Respiratory exam: PRESENT: clear to auscultation nayely Cardiovascular exam: PRESENT: RRR GI/Abdominal exam: PRESENT: other - Soft, nondistended, diminished bowel sounds, mild diffuse abdominal tenderness without peritoneal signs. No erythema. Results Laboratory Results: 05/10/20 05:11 05/11/20 06:47 05/10/20 05/11/20 05/11/20 16:30 01:50 06:47 Carbonic Acid 1.21 HCO3/H2CO3 Ratio 21:1 ABG pH 7.42 ABG pCO2 40.3 ABG pO2 76.8 L ABG HCO3 25.7 H ABG O2 Saturation 95.6 ABG Base Excess 1.2 FiO2 28% Sodium 141.0 Potassium 3.9 Chloride 113 H Carbon Dioxide 22 Anion Gap 6 BUN 16 Creatinine 0.48 L Est GFR ( Amer) > 60 Glucose 124 H Calcium 8.3 L Urine Color YELLOW Urine Appearance SLIGHTLY-CLOUDY Urine pH 5.0 Ur Specific [place] 1.025 Urine Protein 30 H Urine Glucose (UA) NEGATIVE Urine Ketones NEGATIVE Urine Blood SMALL H Urine Nitrite NEGATIVE Ur Leukocyte Esterase NEGATIVE Urine WBC (Auto) 3 Urine RBC (Auto) 7 05/05/20 06:11 Blood Blood Culture - Final NO GROWTH IN 5 DAYS 05/04/20 19:08 Troponin I < 0.012 NT-Pro-B Natriuret Pep 29 Impressions: Abdomen/Pelvis CT 05/04/20 18:48 IMPRESSION: Findings consistent with high-grade small bowel obstruction with zone of transition in the anterior lower pelvis Edema and fluid in the mesentery and within the abdomen and pelvis Small Bowel X-Ray 05/05/20 21:39 IMPRESSION: FINDINGS ARE CONSISTENT WITH A SMALL BOWEL OBSTRUCTION WITH POINT OBSTRUCTION PRESUMABLY IN THE PROXIMAL TO MID ILEUM. FOLLOWING THE 5 HOUR IMAGE, PATIENT'S NG TUBE WAS PLACED TO SUCTION DUE TO PATIENT VOMITING. FINDINGS WERE DISCUSSED WITH DR. TAYLOR AT APPROXIMATELY 1400 HOURS. KUB X-Ray 05/06/20 00:00 IMPRESSION: No significant change. Chest X-Ray 05/10/20 00:00 IMPRESSION: No significant interval change in the chest with minimal left basilar atelectasis and possible small left effusion. Assessment & Plan - Diagnosis (1) SBO (small bowel obstruction) Is this a current diagnosis for this admission?: Yes Plan: Status post lysis of adhesions and enterotomy repair. Patient looks good postoperatively. Her NG output was minimal when it was placed back to suction this morning after being clamped since yesterday. Therefore NG tube was celia zaria. However will await flatus or bowel movements prior to beginning a diet. Encourage ambulation. - Time Critical Time spent with patient: Less than 15 minutes Anticipated Discharge Disposition: Home, Self Care Anticipated Discharge Timeframe: within 72 hours
[2020-05-11] MEDS: ONDANSETRON HCL INJ/PF 4 MG/2 ML SDV IV PRN ×2 (10:32→19:40)
[2020-05-11] MEDS: NORMAL SALINE 1000 ML 1,000 ML IV PRN (10:33)
[2020-05-11] MEDS: PANTOPRAZOLE SODIUM 40 MG VIAL IV SCH (22:26)
--- NOTE | 2020-05-11 22:34 | Progress Note ---
Provider Note Provider Note: CARDIOLOGY PROGRESS NOTE by Dr. Miya Downey on 05/11/2020. SUBJECTIVE: The patient's heart rate is not tachycardic anymore. There is no arrhythmias seen on the monitor. The patient's heart rate is below 100. She is off the BiPAP and is on nasal cannula and has no breathing problems at present. Her NG tube is out. Abdomen is slightly still distended but there are bowel sounds. She still gets to have a bowel movement. She has no chest pain or discomfort. There is no PND orthopnea or leg edema. PHYSICAL EXAMINATION: The patient appears to be chronically ill. At present in no acute distress. Selected Entries 05/11/20 12:01 Temperature 98.1 F Temperature Oral Source Pulse Rate 90 Respiratory 18 Rate Blood Pressure 145/88 H Blood Pressure 107 Mean BP Location Left Arm BP Position Supine O2 Sat by Pulse 100 Oximetry Oxygen Flow 2.00 Rate Oxygen Delivery Nasal Cannula Method HEAD: Is atraumatic normocephalic. EYES: Pupils are equal round regular reactive light accommodation. Extraocular movements are normal. There is no conjunctival pallor. There is no scleral icterus. EARS: Tympanic membranes are intact. External auditory canals are clear. NOSE: There is no deviated nasal septum. There is no inflammation of the nasal mucous membrane. MOUTH:. Tongue and Mucous membranes of mouth are dry. There is no ulcers. There is no bleeding from the gums. NG TUBE in situ THROAT: There is no redness of the oropharynx. There is no neck EXUDATES. Skin: There is no skin rashes or skin lesions. There is no particular ecchymosis. NECK: Supple. There is no JVD. Carotids are equal there is no bruit there is no lymphadenopathy. There is no goiter. There is no accessory muscle respiration use. Trachea central. LUNGS: There is diminished air entry and prolonged expiration throughout. On percussion there is hyperresonance. There is no crackles of pneumonia or rales of CHF. There is no rhonchi rales or wheezing. Palpation there is no chest wall tenderness. HEART: S1-S2 is heard. There is no S3 gallop. There is no S4 gallop. There is systolic murmur left sternal border and the apex there is no rub. ABDOMEN: Is soft. Abdomen is distended. There is mild diffuse tenderness without any rebound guarding rebound or rigidity. Bowel sounds are weak. EXTREMITIES: Femorals are diminished femorals are deep. There is no femoral bruits. Leg pulses are diminished. There is trace pedal edema bilaterally. There is no DVT or cellulitis. There is no sinus or clubbing. Capillary refill is normal. PRACTICING DERMATOLOGIST: The patient is conscious awake alert oriented x3 with no focal deficit. PSYCHIATRIC: The patient judgment insight are intact her affect is normal. Labs- All tests 24 hr 05/11/20 05/11/20 05/11/20 01:50 05:58 06:47 Sodium 141.0 Potassium 3.9 Chloride 113 H Carbon Dioxide 22 Anion Gap 6 BUN 16 Creatinine 0.48 L Est GFR ( Amer) > 60 Est GFR (MDRD) Non-Af > 60 Glucose 124 H POC Glucose 120 H Calcium 8.3 L Urine Color YELLOW Urine Appearance SLIGHTLY-CLOUDY Urine pH 5.0 Ur Specific [place] 1.025 Urine Protein 30 H Urine Glucose (UA) NEGATIVE Urine Ketones NEGATIVE Urine Blood SMALL H Urine Nitrite NEGATIVE Urine Bilirubin NEGATIVE Urine Urobilinogen NEGATIVE Ur Leukocyte Esterase NEGATIVE Urine WBC (Auto) 3 Urine RBC (Auto) 7 U Hyaline Cast (Auto) 1 Squamous Epi Cells Auto 8 Urine Mucus (Auto) RARE Urine Ascorbic Acid NEGATIVE 05/11/20 05/11/20 05/12/20 12:01 16:43 00:25 Sodium Potassium Chloride Carbon Dioxide Anion Gap BUN Creatinine Est GFR ( Amer) Est GFR (MDRD) Non-Af Glucose POC Glucose 109 115 H 103 Calcium Urine Color Urine Appearance Urine pH Ur Specific [place] Urine Protein Urine Glucose (UA) Urine Ketones Urine Blood Urine Nitrite Urine Bilirubin Urine Urobilinogen Ur Leukocyte Esterase Urine WBC (Auto) Urine RBC (Auto) U Hyaline Cast (Auto) Squamous Epi Cells Auto Urine Mucus (Auto) Urine Ascorbic Acid Abdomen/Pelvis CT 05/04/20 18:48 IMPRESSION: Findings consistent with high-grade small bowel obstruction with zone of transition in the anterior lower pelvis Edema and fluid in the mesentery and within the abdomen and pelvis Chest X-Ray 05/04/20 22:33 IMPRESSION: COPD. Lungs are clear copyright 2011 [employer]- All Rights Reserved KUB X-Ray 05/05/20 00:00 IMPRESSION: NG tube tip in the stomach. Chest X-Ray 05/05/20 00:38 IMPRESSION: NG tube tip in the stomach. Small Bowel X-Ray 05/05/20 21:39 IMPRESSION: FINDINGS ARE CONSISTENT WITH A SMALL BOWEL OBSTRUCTION WITH POINT OBSTRUCTION PRESUMABLY IN THE PROXIMAL TO MID ILEUM. FOLLOWING THE 5 HOUR IMAGE, PATIENT'S NG TUBE WAS PLACED TO SUCTION DUE TO PATIENT VOMITING. FINDINGS WERE DISCUSSED WITH DR. TAYLOR AT APPROXIMATELY 1400 HOURS. KUB X-Ray 05/06/20 00:00 IMPRESSION: No significant change. Chest X-Ray 05/08/20 05:00 IMPRESSION: Possible tiny left pleural effusion. Otherwise, no acute pulmonary process. Chest X-Ray 05/10/20 00:00 IMPRESSION: No significant interval change in the chest with minimal left basilar atelectasis and possible small left effusion. IMPRESSION/RECOMMENDATION: 1. Small bowel obstruction. Patient underwent surgery for this. Still awaiting return of bowel function. The patient's NG tube is out. She still states she has not had a bowel movement. 2. Acute respiratory failure secondary to acute exacerbation of COPD and acute asthmatic attack. This seems to have resolved and the patient is on nasal cannula and not BiPAP. 3. Sinus tachycardia: This is resolved and the patient's heart rate is below 100. 4. Hypertension. Patient's blood pressure is normal. 5. History of asthma 6. History of COPD steroid-depende 7. History of hyperlipidemia. At present cardiac status is stable in spite of sinus tachycardia. 8. CAD risk factors include the patient's age and hypertension. Later would recommend patient have an IV Lexiscan Cardiolite stress test. This can be done as an outpatient. Medication reviewed. Medical regimen management plan reviewed. . Medical decision making today is of moderate complexity. 40 minutes spent on the patient more than 50% of time spent in direct patient care. Cardiac status is stable. We will sign off.
[2020-05-12] MEDS: IPRATROPIUM/ALBUTEROL 0.5-2.5 MG/3 ML AMPUL NEB SCH ×5 (00:05→21:14)
[2020-05-12] MEDS: NORMAL SALINE 1000 ML 1,000 ML IV PRN ×2 (01:43→14:52)
--- NOTE | 2020-05-12 02:45 | PDOC PROGRESS REPORT ---
Subjective Progress Note for:: 05/12/20 Subjective:: Patient while using BiPAP had a small amount of emesis into the BiPAP. She had a little bit of initial coughing but she has no respiratory distress and she does not think she aspirated. Patient does feel bloated in the upper abdomen and feels much better after NG tube was replaced with drainage of a canister of bilious fluid. Currently she is very comfortable. Reason For Visit: SMALL BOWEL OBSTRUCTION, COPD ACUTE Physical Exam Vital Signs: Temp Pulse Resp BP Pulse Ox 99.1 F 87 18 130/80 H 97 05/11/20 23:03 05/12/20 00:00 05/12/20 00:00 05/12/20 00:39 05/11/20 23:03 Pulse Oximeter Continuous Start: 05/05/20 14:0 8 Freq: RTQ4 Status: Hold Protocol: Document 05/07/20 03:52 PMU (Rec: 05/07/20 03:56 PMU [email or web address]) Pulse Oximetry Assessment Oxygen Saturation (92-100) 997 Oxygen Delivery Method Bi-pap Fraction of Inspired Oxygen (FIO2) 40 Equipment Usage Equipment Standby Continuous SpO2 Machine # - Intake & Output 05/10/20 05/11/20 05/12/20 06:59 06:59 06:59 Intake Total 4869 2675 1653 Output Total 1280 485 205 Balance 3589 2190 1448 Weight 95.5 kg 98 kg General appearance: PRESENT: no acute distress, cooperative Respiratory exam: PRESENT: clear to auscultation nayely Cardiovascular exam: PRESENT: RRR GI/Abdominal exam: PRESENT: other - Soft, obese, feels slightly full, diminished bowel sounds, mild diffuse abdominal tenderness with no peritoneal signs. Wound is clean dry and intact. Drain output is serosanguineous. Results Laboratory Results: 05/10/20 05:11 05/11/20 06:47 05/11/20 06:47 Sodium 141.0 Potassium 3.9 Chloride 113 H Carbon Dioxide 22 Anion Gap 6 BUN 16 Creatinine 0.48 L Est GFR ( Amer) > 60 Glucose 124 H Calcium 8.3 L 05/04/20 19:08 Troponin I < 0.012 NT-Pro-B Natriuret Pep 29 Impressions: Abdomen/Pelvis CT 05/04/20 18:48 IMPRESSION: Findings consistent with high-grade small bowel obstruction with zone of transition in the anterior lower pelvis Edema and fluid in the mesentery and within the abdomen and pelvis Small Bowel X-Ray 05/05/20 21:39 IMPRESSION: FINDINGS ARE CONSISTENT WITH A SMALL BOWEL OBSTRUCTION WITH POINT OBSTRUCTION PRESUMABLY IN THE PROXIMAL TO MID ILEUM. FOLLOWING THE 5 HOUR IMAGE, PATIENT'S NG TUBE WAS PLACED TO SUCTION DUE TO PATIENT VOMITING. FINDINGS WERE DISCUSSED WITH DR. TAYLOR AT APPROXIMATELY 1400 HOURS. KUB X-Ray 05/06/20 00:00 IMPRESSION: No significant change. Chest X-Ray 05/10/20 00:00 IMPRESSION: No significant interval change in the chest with minimal left basilar atelectasis and possible small left effusion. Assessment & Plan - Diagnosis (1) SBO (small bowel obstruction) Is this a current diagnosis for this admission?: Yes Plan: Operative ileus. Uncertain why NG tube the output after clamping overnight last night yielded minimal output the following morning. We will keep the NG tube in to low wall intermittent suction until she has clear demonstration of bowel fu nction. Will check abdominal x-rays. She looks okay currently with clear breath sounds and good oxygenation and no respiratory symptoms and I do not think she had aspiration. - Time Anticipated Discharge Disposition: Home, Self Care Anticipated Discharge Timeframe: 1 week
--- NOTE | 2020-05-12 03:44 | RADIOLOGY REPORT (SQ) ---
EXAM DESCRIPTION: XR ABDOMEN 2 VIEWS SUPINE ERECT COMPLETED DATE/TME: 05/12/2020 00:00 CLINICAL HISTORY: 65 years, Female, s/p lysis of adhesions COMPARISON: 05/06/2020 NUMBER OF VIEWS: Two TECHNIQUE: Supine and upright images of the abdomen LIMITATIONS: None. FINDINGS: There is no intraperitoneal free air. The nasogastric tube is in satisfactory position terminating within the stomach. Surgical yana overlie the midline. A surgical drain terminates along the right side of the abdomen. Residual oral contrast is within the ascending and transverse colon. There are dilated loops of small bowel which measure up to 4.2 cm in diameter. There are changes of a right hip arthroplasty. IMPRESSION: Dilated loops of small bowel, likely related to a postoperative ileus. However, a small bowel obstruction may have a similar appearance. copyright 2011 [employer]- All Rights Reserved
[2020-05-12] MEDS: DEXAMETHASONE SOD PHOSPHATE INJ 4 MG/1 ML VIAL IV SCH ×3 (05:37→22:00)
[2020-05-12 06:08] LABS: HEMATOCRIT 31.6 % (36.0-47.0); HEMOGLOBIN 10.7 g/dL (12.0-15.5); MEAN CORPUSCULAR HEMOGLOBIN 28.9 pg (27.0-33.4); MEAN CORPUSCULAR HGB CONC 33.8 g/dL (32.0-36.0); MEAN CORPUSCULAR VOLUME 86 fl (80-97); PLATELET COUNT 228 10^3/uL (150-450); RED CELL DISTRIBUTION WIDTH 15.1 % (11.5-14.0); WHITE BLOOD COUNT 7.7 10^3/uL (4.0-10.5)
[2020-05-12 06:30] LABS: ANION GAP 8 (5-19); BLOOD UREA NITROGEN 14 mg/dL (7-20); CALCIUM 8.2 mg/dL (8.4-10.2); CARBON DIOXIDE 24 mmol/L (22-30); CHLORIDE 109 mmol/L (98-107); GLUCOSE 107 mg/dL (75-110)
--- NOTE | 2020-05-12 09:05 | PDOC PROGRESS REPORT ---
Subjective Progress Note for:: 05/12/20 Subjective:: feels ok, but vomited yesterday after ng removed ng replaced and 1500cc overnight. Reason For Visit: SMALL BOWEL OBSTRUCTION, COPD ACUTE Physical Exam Vital Signs: Temp Pulse Resp BP Pulse Ox 98.0 F 91 22 H 148/90 H 100 05/12/20 07:57 05/12/20 07:57 05/12/20 07:57 05/12/20 07:57 05/12/20 07:57 Pulse Oximeter Continuous Start: 05/05/20 14:08 Freq: RTQ4 Status: Hold Protocol: Document 05/07/20 03:52 PMU (Rec: 05/07/20 03:56 PMU [email or web address]) Pulse Oximetry Assessment Oxygen Saturation (92-100) 997 Oxygen Delivery Method Bi-pap Fraction of Inspired Oxygen (FIO2) 40 Equipment Usage Equipment Standby Continuous SpO2 Machine # - Intake & Output 05/11/20 05/12/20 05/13/20 06:59 06:59 06:59 Intake Total 2675 1653 Output Total 485 1535 Balance 2190 118 Weight 98 kg 97.4 kg General appearance: PRESENT: no acute distress Eye exam: PRESENT: EOMI Ear exam: PRESENT: normal external ear exam Mouth exam: PRESENT: moist Neck exam: PRESENT: full ROM Respiratory exam: PRESENT: clear to auscultation nayely Cardiovascular exam: PRESENT: RRR Pulses: PRESENT: normal femoral pulses, normal dorsalis pedis pul Vascular exam: PRESENT: normal capillary refill Breast: PRESENT: Normal GI/Abdominal exam: PRESENT: hypoactive bowel sounds, soft Rectal exam: PRESENT: deferred Extremities exam: PRESENT: full ROM Musculoskeletal exam: PRESENT: full ROM Neurological exam: PRESENT: alert, awake, oriented to person, oriented to place Psychiatric exam: PRESENT: appropriate affect Skin exam: PRESENT: dry Results Laboratory Results: 05/12/20 05:37 05/12/20 05:37 05/12/20 05/12/20 05:37 05:37 WBC 7.7 RBC 3.70 L Hgb 10.7 L Hct 31.6 L MCV 86 MCH 28.9 MCHC 33.8 RDW 15.1 H Plt Count 228 Sodium 140.8 Potassium 4.0 Chloride 109 H Carbon Dioxide 24 Anion Gap 8 BUN 14 Creatinine 0.44 L Est GFR ( Amer) > 60 Glucose 107 Calcium 8.2 L 05/04/20 19:08 Troponin I < 0.012 NT-Pro-B Natriuret Pep 29 Impressions: Abdomen/Pelvis CT 05/04/20 18:48 IMPRESSION: Findings consistent with high-grade small bowel obstruction with zone of transition in the anterior lower pelvis Edema and fluid in the mesentery and within the abdomen and pelvis Small Bowel X-Ray 05/05/20 21:39 IMPRESSION: FINDINGS ARE CONSISTENT WITH A SMALL BOWEL OBSTRUCTION WITH POINT OBSTRUCTION PRESUMABLY IN THE PROXIMAL TO MID ILEUM. FOLLOWING THE 5 HOUR IMAGE, PATIENT'S NG TUBE WAS PLACED TO SUCTION DUE TO PATIENT VOMITING. FINDINGS WERE DISCUSSED WITH DR. TAYLOR AT APPROXIMATELY 1400 HOURS. KUB X-Ray 05/06/20 00:00 IMPRESSION: No significant change. Chest X-Ray 05/10/20 00:00 IMPRESSION: No significant interval change in the chest with minimal left basi lar atelectasis and possible small left effusion. Abdomen X-Ray 05/12/20 00:00 IMPRESSION: Dilated loops of small bowel, likely related to a postoperative ileus. However, a small bowel obstruction may have a similar appearance. copyright 2010 [employer]- All Rights Reserved Assessment & Plan - Time Anticipated Discharge Disposition: Home, Self Care Anticipated Discharge Timeframe: unk - Plan Summary Plan Summary: pt st/p exlap for sbo still awaiting return of bowel function required replacement of ng last pm will cont ng today pt encouraged to ambulate ice chips ok.
[2020-05-12] MEDS: BUDESONIDE NEB 0.5 MG/2 ML AMPUL NEB SCH ×2 (09:06→21:14)
[2020-05-12] MEDS: DULOXETINE HCL 20 MG CAPSULE.DR PO SCH (09:49)
[2020-05-12] MEDS: PANTOPRAZOLE SODIUM 40 MG VIAL IV SCH ×2 (10:47→22:00)
[2020-05-12] MEDS: ENOXAPARIN SODIUM INJ 40 MG/0.4 ML DISP.SYRIN SUBCUT SCH (10:48)
--- NOTE | 2020-05-12 13:17 | PDOC PROGRESS REPORT ---
Subjective Progress Note for:: 05/12/20 Subjective:: Patient was complaining some abdominal discomfort some nausea this surgery sites per the NG tube patient is feeling better No short of breath no chest pain Reason For Visit: SMALL BOWEL OBSTRUCTION, COPD ACUTE Physical Exam Vital Signs: Temp Pulse Resp BP Pulse Ox 98.0 F 87 16 148/90 H 97 05/12/20 09:14 05/12/20 09:08 05/12/20 09:08 05/12/20 07:57 05/12/20 09:08 Pulse Oximeter Continuous Start: 05/05/20 14:08 Freq: RTQ4 Status: Hold Protocol: Document 05/07/20 03:52 PMU (Rec: 05/07/20 03:56 PMU [email or web address]) Pulse Oximetry Assessment Oxygen Saturation (92-100) 997 Oxygen Delivery Method Bi-pap Fraction of Inspired Oxygen (FIO2) 40 Equipment Usage Equipment Standby Continuous SpO2 Machine # - Intake & Output 05/11/20 05/12/20 05/13/20 06:59 06:59 06:59 Intake Total 2675 1653 Output Total 485 1535 Balance 2190 118 Weight 98 kg 97.4 kg General appearance: PRESENT: no acute distress, well-developed, well-nourished Head exam: PRESENT: atraumatic, normocephalic Eye exam: PRESENT: conjunctiva pink, EOMI, PERRLA. ABSENT: scleral icterus Ear exam: PRESENT: normal external ear exam Mouth exam: PRESENT: moist, tongue midline Neck exam: PRESENT: full ROM. ABSENT: carotid bruit, JVD, lymphadenopathy, thyromegaly Respiratory exam: PRESENT: clear to auscultation nayely Cardiovascular exam: PRESENT: RRR. ABSENT: diastolic murmur, rubs, systolic murmur Vascular exam: PRESENT: normal capillary refill GI/Abdominal exam: PRESENT: diminished bowel sounds, soft. ABSENT: distended, guarding, mass, organolmegaly, rebound, tenderness Rectal exam: PRESENT: deferred Neurological exam: PRESENT: alert, awake, oriented to person, oriented to place, oriented to time, oriented to situation, CN II-XII grossly intact. ABSENT: motor sensory deficit Psychiatric exam: PRESENT: appropriate affect, normal mood. ABSENT: homicidal ideation, suicidal ideation Skin exam: PRESENT: dry, intact, warm. ABSENT: cyanosis, rash Results Laboratory Results: 05/12/20 05:37 05/12/20 05:37 05/12/20 05/12/20 05:37 05:37 WBC 7.7 RBC 3.70 L Hgb 10.7 L Hct 31.6 L MCV 86 MCH 28.9 MCHC 33.8 RDW 15.1 H Plt Count 228 Sodium 140.8 Potassium 4.0 Chloride 109 H Carbon Dioxide 24 Anion Gap 8 BUN 14 Creatinine 0.44 L Est GFR ( Amer) > 60 Glucose 107 Calcium 8.2 L 05/04/20 19:08 Troponin I < 0.012 NT-Pro-B Natriuret Pep 29 Impressions: Abdomen/Pelvis CT 05/04/20 18:48 IMPRESSION: Findings consistent with high-grade small bowel obstruction with zone of transition in the anterior lower pelvis Edema and fluid in the mesentery and within the abdomen and pelvis Small Bowel X-Ray 05/05/20 21:39 IMPRESSION: FINDINGS ARE CONSISTENT WITH A SMALL BOWEL OBSTRUCTION WITH POINT OBSTRUCTION PRESUMABLY IN THE PROXIMAL TO MID ILEUM. FOLLOWING THE 5 HOUR IMAGE, PATIENT'S NG TUBE WAS PLACED TO SUCTION DUE TO PATIENT VOMITING. FINDINGS WERE DISCUSSED WITH DR. TAYLOR AT APPROXIMATELY 1400 HOURS. KUB X-Ray 05/06/20 00:00 IMPRESSION: No significant change. Chest X-Ray 05/10/20 00:00 IMPRESSION: No significant interval change in the chest with minimal left basilar atelectasis and possible small left effusion. Abdomen X-Ray 05/12/20 00:00 IMPRESSION: Dilated loops of small bowel, likely related to a postoperative ileus. However, a small bowel obstruction may have a similar appearance. copyright 2010 [employer]- All Rights Reserved Assessment & Plan - Diagnosis (1) SBO (small bowel obstruction) Is this a current diagnosis for this admission?: Yes (2) COPD with exacerbation Is this a current diagnosis for this admission?: Yes (3) Coronary artery disease Qualifiers: Coronary Disease-Associated Artery/Lesion type: unspecified vessel or lesion type Is this a current diagnosis for this admission?: Yes (4) Acute and chronic respiratory failure with hypercapnia Is this a current diagnosis for this admission?: Yes (5) GERD (gastroesophageal reflux disease) Qualifiers: Esophagitis presence: without esophagitis Qualified Code(s): K21.9 - Gastro-esophageal reflux disease without esophagitis Is this a current diagnosis for this admission?: Yes (6) Hypertension Qualifiers: Hypertension type: essential hypertension Qualified Code(s): I10 - Essential (primary) hypertension Is this a current diagnosis for this admission?: Yes - Time Time Spent with patient: 15-24 minutes Level of Care: IMCU Medications reviewed and adjusted accordingly: Yes Anticipated discharge: Home with Homehealth Anticipated DC Timeframe: Other - Plan Summary Plan Summary: Continues to current medications
--- NOTE | 2020-05-12 13:34 | RADIOLOGY REPORT (SQ) ---
EXAM DESCRIPTION: PICC INSERTION IMAGES COMPLETED DATE/TIME: 05/12/2020 1:17 pm REASON FOR STUDY: Possible TPN COMPARISON: None. FLUOROSCOPY TIME: 1.8 minutes 5 images saved to PACS. TECHNIQUE: Fluoroscopic and ultrasound guided PICC placement. LIMITATIONS: None. PROCEDURE: After written consent and assessment were obtained, the patient was brought into the fluo roscopy room and placed supine on the table. Ultrasound evaluation of potential access sites were per formed. After successfully identifying a patent right basilic vein, the right arm was prepped and jeannette ped in a sterile fashion along with the ultrasound probe. The entry site was anesthetized with 1% lid ocaine. A 21 gauge 7 cm needle was advanced through the skin and into the basilic vein under live ult rasound guidance. An ultrasound image was saved to PACS confirming access site. A .018 guide wire w as then inserted through the needle and into the venous system. The needle was then removed and an 11 blade scalpel was used to make a 1cm skin incision. A 5 fr peel-away sheath was advanced over the w radha and into the venous system. A measurement was then made using the existing wire and live fluorosc opic guidance. The wire was then removed and trimmed. The PICC was advanced through the peel-away she ath and into the venous system. The peel-away sheath was removed and the catheter was adhered to the patients arm with a stat lock. The catheter was then aspirated and flushed and a sterile bandage was placed over the access site. A fluoroscopic spot image was saved to PACS confirming the catheter tip within the superior vena cava. IMPRESSION: SUCCESSFUL PLACEMENT OF A 5 FR DUAL LUMEN 27.5 CM PICC IN THE RIGHT BASILIC VEIN. COMMENT: Patient medication list reviewed: Yes- Quality ID# [id number]:Eligible professional attests to doc umenting in the medical record they obtained, updated, or reviewed the patient's current medications. . Quality ID 145: Final reports for procedures using fluoroscopy that document radiation exposure anh meredith, or exposure time and number of fluorographic images (if radiation exposure indices are not avail able) Quality ID #76: The patient was prepped and draped using maximum sterile barrier technique including cap, mask, sterile gown, sterile gloves, a large sterile sheet, hand hygiene, and 2% Chlorhexidine fo r cutaneous antisepsis. When ultrasound is used, sterile ultrasound techniques are followed requiring sterile gel and sterile probes. TECHNICAL DOCUMENTATION: JOB ID: [id number] 2010 [employer]- All Rights Reserved rev-01/04 Reading location - IP/workstation name: [email or web address]
[2020-05-12] MEDS: ONDANSETRON HCL INJ/PF 4 MG/2 ML SDV IV PRN (22:00)
[2020-05-13] MEDS: IPRATROPIUM/ALBUTEROL 0.5-2.5 MG/3 ML AMPUL NEB SCH ×4 (02:16→21:03)
[2020-05-13 05:29] LABS: ABSOLUTE LYMPHOCYTES (AUTO) 0.9 10^3/uL (0.5-4.7); ABSOLUTE MONOCYTES (AUTO) 0.7 10^3/uL (0.1-1.4); ABSOLUTE NEUT (AUTO) 7.2 10^3/uL (1.7-8.2); BASOPHILS % (AUTO) 0.1 % (0-2); HEMATOCRIT 27.1 % (36.0-47.0); HEMOGLOBIN 9.1 g/dL (12.0-15.5); LYMPHOCYTES % (AUTO) 10.3 % (13-45); MEAN CORPUSCULAR HEMOGLOBIN 28.7 pg (27.0-33.4); MEAN CORPUSCULAR HGB CONC 33.6 g/dL (32.0-36.0); MEAN CORPUSCULAR VOLUME 86 fl (80-97); MONOCYTES % (AUTO) 7.9 % (3-13); PLATELET COUNT 220 10^3/uL (150-450); RED BLOOD COUNT 3.17 10^6/uL (3.72-5.28); RED CELL DISTRIBUTION WIDTH 15.1 % (11.5-14.0); SEGMENTED NEUTROPHILS % (AUTO) 81.7 % (42-78); TOTAL CELLS COUNTED % (AUTO) 100 %; WHITE BLOOD COUNT 8.8 10^3/uL (4.0-10.5)
[2020-05-13 05:46] LABS: ANION GAP 5 (5-19); BLOOD UREA NITROGEN 12 mg/dL (7-20); CALCIUM 7.1 mg/dL (8.4-10.2); CARBON DIOXIDE 25 mmol/L (22-30); CHLORIDE 110 mmol/L (98-107); GLUCOSE 84 mg/dL (75-110); POTASSIUM 3.4 mmol/L (3.6-5.0)
[2020-05-13] MEDS: DEXAMETHASONE SOD PHOSPHATE INJ 4 MG/1 ML VIAL IV SCH ×2 (06:17→21:17)
[2020-05-13] MEDS ORDERED: POTASSI CL 20 MEQ/50 ML RIDER 20 MEQ/50 ML RTUPB IV ONE (07:00)
[2020-05-13] MEDS: FENTANYL CITRATE INJ/PF 100 MCG/2 ML AMPUL IV PRN (08:14)
[2020-05-13] MEDS: NORMAL SALINE 1000 ML 1,000 ML IV PRN ×2 (08:15→21:17)
[2020-05-13] MEDS: BUDESONIDE NEB 0.5 MG/2 ML AMPUL NEB SCH ×2 (08:34→21:03)
--- NOTE | 2020-05-13 09:13 | PDOC PROGRESS REPORT ---
Subjective Progress Note for:: 05/13/20 Subjective:: Patient is currently doing well Patient passing the gas No chest pain no short of breath No abdominal pain patient's walk on the hallway Reason For Visit: SMALL BOWEL OBSTRUCTION, COPD ACUTE Physical Exam Vital Signs: Temp Pulse Resp BP Pulse Ox 98.4 F 95 19 137/80 H 99 05/13/20 08:06 05/13/20 08:06 05/13/20 08:06 05/13/20 08:06 05/13/20 08:06 Pulse Oximeter Continuous Start: 05/05/20 14:08 Freq: RTQ4 Status: Hold Protocol: Document 05/07/20 03:52 PMU (Rec: 05/07/20 03:56 PMU [email or web address]) Pulse Oximetry Assessment Oxygen Saturation (92-100) 997 Oxygen Delivery Method Bi-pap Fraction of Inspired Oxygen (FIO2) 40 Equipment Usage Equipment Standby Continuous SpO2 Machine # - Intake & Output 05/12/20 05/13/20 05/14/20 06:59 06:59 06:59 Intake Total 1653 1999 Output Total 1535 732 Balance 118 1268 Weight 97.4 kg 97.7 kg General appearance: PRESENT: no acute distress, well-developed, well-nourished Head exam: PRESENT: atraumatic, normocephalic Eye exam: PRESENT: conjunctiva pink, EOMI, PERRLA. ABSENT: scleral icterus Ear exam: PRESENT: normal external ear exam Mouth exam: PRESENT: moist, tongue midline Neck exam: PRESENT: full ROM. ABSENT: carotid bruit, JVD, lymphadenopathy, thyromegaly Respiratory exam: PRESENT: clear to auscultation nayely Cardiovascular exam: PRESENT: RRR. ABSENT: diastolic murmur, rubs, systolic murmur Pulses: PRESENT: normal dorsalis pedis pul, +2 pedal pulses bilateral Vascular exam: PRESENT: normal capillary refill GI/Abdominal exam: PRESENT: diminished bowel sounds, soft. ABSENT: distended, guarding, mass, organolmegaly, rebound, tenderness Rectal exam: PRESENT: deferred Neurological exam: PRESENT: alert, awake, oriented to person, oriented to place, oriented to time, oriented to situation, CN II-XII grossly intact. ABSENT: motor sensory deficit Psychiatric exam: PRESENT: appropriate affect, normal mood. ABSENT: homicidal ideation, suicidal ideation Skin exam: PRESENT: dry, intact, warm. ABSENT: cyanosis, rash Results Laboratory Results: 05/13/20 04:58 05/13/20 04:58 05/13/20 05/13/20 04:58 04:58 WBC 8.8 RBC 3.17 L Hgb 9.1 L Hct 27.1 L MCV 86 MCH 28.7 MCHC 33.6 RDW 15.1 H Plt Count 220 Seg Neutrophils % 81.7 H Sodium 139.5 Potassium 3.4 L Chloride 110 H Carbon Dioxide 25 Anion Gap 5 BUN 12 Creatinine 0.42 L Est GFR ( Amer) > 60 Glucose 84 Calcium 7.1 L 05/04/20 19:08 Troponin I < 0.012 NT-Pro-B Natriuret Pep 29 Impressions: Abdomen/Pelvis CT 05/04/20 18:48 IMPRESSION: Findings consistent with high-grade small bowel obstruction with zone of transition in the anterior lower pelvis Edema and fluid in the mesentery and within the abdomen and pelvis Small Bowel X-Ray 05/05/20 21:39 IMPRESSION: FINDINGS ARE CONSISTENT WITH A SMALL BOWEL OBSTRUCTION WITH POINT OBSTRUCTION PRESUMABLY IN THE PROXIMAL TO MID ILEUM. FOLLOWING THE 5 HOUR NICHOLAS GE, PATIENT'S NG TUBE WAS PLACED TO SUCTION DUE TO PATIENT VOMITING. FINDINGS WERE DISCUSSED WITH DR. TAYLOR AT APPROXIMATELY 1400 HOURS. KUB X-Ray 05/06/20 00:00 IMPRESSION: No significant change. Chest X-Ray 05/10/20 00:00 IMPRESSION: No significant interval change in the chest with minimal left basilar atelectasis and possible small left effusion. Abdomen X-Ray 05/12/20 00:00 IMPRESSION: Dilated loops of small bowel, likely related to a postoperative ileus. However, a small bowel obstruction may have a similar appearance. copyright 2010 [employer]- All Rights Reserved PICC Line Insertion 05/12/20 00:00 IMPRESSION: SUCCESSFUL PLACEMENT OF A 5 FR DUAL LUMEN 27.5 CM PICC IN THE RIGHT BASILIC VEIN. Assessment & Plan - Diagnosis (1) SBO (small bowel obstruction) Is this a current diagnosis for this admission?: Yes (2) COPD with exacerbation Is this a current diagnosis for this admission?: Yes (3) Coronary artery disease Qualifiers: Coronary Disease-Associated Artery/Lesion type: unspecified vessel or lesion type Is this a current diagnosis for this admission?: Yes (4) Acute and chronic respiratory failure with hypercapnia Is this a current diagnosis for this admission?: Yes (5) GERD (gastroesophageal reflux disease) Qualifiers: Esophagitis presence: without esophagitis Qualified Code(s): K21.9 - Gastro-esophageal reflux disease without esophagitis Is this a current diagnosis for this admission?: Yes (6) Hypertension Qualifiers: Hypertension type: essential hypertension Qualified Code(s): I10 - Essential (primary) hypertension Is this a current diagnosis for this admission?: Yes - Time Time Spent with patient: 15-24 minutes Level of Care: IMCU Medications reviewed and adjusted accordingly: Yes Anticipated discharge: Home with Homehealth Anticipated DC Timeframe: Other - Plan Summary Plan Summary: Continues to current medications
--- NOTE | 2020-05-13 09:46 | PDOC PROGRESS REPORT ---
Subjective Progress Note for:: 05/13/20 Subjective:: Feels much better. Passing gas. Hungry. Reason For Visit: SMALL BOWEL OBSTRUCTION, COPD ACUTE Physical Exam Vital Signs: Temp Pulse Resp BP Pulse Ox 98.4 F 95 19 137/80 H 99 05/13/20 08:06 05/13/20 08:06 05/13/20 08:06 05/13/20 08:06 05/13/20 08:06 Pulse Oximeter Continuous Start: 05/05/20 14:08 Freq: RTQ4 Status: Hold Protocol: Document 05/07/20 03:52 PMU (Rec: 05/07/20 03:56 PMU [email or web address]) Pulse Oximetry Assessment Oxygen Saturation (92-100) 997 Oxygen Delivery Method Bi-pap Fraction of Inspired Oxygen (FIO2) 40 Equipment Usage Equipment Standby Continuous SpO2 Machine # - Intake & Output 05/12/20 05/13/20 05/14/20 06:59 06:59 06:59 Intake Total 1653 2000 Output Total 1535 732 Balance 118 1268 Weight 97.4 kg 97.7 kg General appearance: PRESENT: no acute distress, cooperative Respiratory exam: PRESENT: clear to auscultation nayely Cardiovascular exam: PRESENT: RRR GI/Abdominal exam: PRESENT: other - Soft, nondistended, minimal tenderness, drain output is serosanguineous. Active bowel sounds. Patient still has some bile tinged to her NG tube output but it is mostly clear from ice chips she has been taking. Results Laboratory Results: 05/13/20 04:58 05/13/20 04:58 05/13/20 05/13/20 04:58 04:58 WBC 8.8 RBC 3.17 L Hgb 9.1 L Hct 27.1 L MCV 86 MCH 28.7 MCHC 33.6 RDW 15.1 H Plt Count 220 Seg Neutrophils % 81.7 H Sodium 139.5 Potassium 3.4 L Chloride 110 H Carbon Dioxide 25 Anion Gap 5 BUN 12 Creatinine 0.42 L Est GFR ( Amer) > 60 Glucose 84 Calcium 7.1 L 05/04/20 19:08 Troponin I < 0.012 NT-Pro-B Natriuret Pep 29 Impressions: Abdomen/Pelvis CT 05/04/20 18:48 IMPRESSION: Findings consistent with high-grade small bowel obstruction with zone of transition in the anterior lower pelvis Edema and fluid in the mesentery and within the abdomen and pelvis Small Bowel X-Ray 05/05/20 21:39 IMPRESSION: FINDINGS ARE CONSISTENT WITH A SMALL BOWEL OBSTRUCTION WITH POINT OBSTRUCTION PRESUMABLY IN THE PROXIMAL TO MID ILEUM. FOLLOWING THE 5 HOUR IMAGE, PATIENT'S NG TUBE WAS PLACED TO SUCTION DUE TO PATIENT VOMITING. FINDINGS WERE DISCUSSED WITH DR. TAYLOR AT APPROXIMATELY 1400 HOURS. KUB X-Ray 05/06/20 00:00 IMPRESSION: No significant change. Chest X-Ray 05/10/20 00:00 IMPRESSION: No significant interval change in the chest with minimal left basilar atelectasis and possible small left effusion. Abdomen X-Ray 05/12/20 00:00 IMPRESSION: Dilated loops of small bowel, likely related to a postoperative ileus. However, a small bowel obstruction may have a similar appearance. copyright 2011 [employer]- All Rights Reserved PICC Line Insertion 05/12/20 00:00 IMPRESSION: SUCCESSFUL PLACEMENT OF A 5 FR DUAL LUMEN 27.5 CM PICC IN THE RIGHT BASILIC VEIN. Assessment & Plan - Diagnosis (1) SBO (small bowel obstruction) Is this a current diagnosis for this admission?: Yes Plan: Status post lysis of adhesions and enterotomy repair. Patient looks much improved. Passing gas but I am reluctant to pull the NG tube without obtaining an abdominal x-ray since she had emesis couple of days ago and she has some bile tingeing to her NG output. If abdominal films look unremarkable will DC her NG and start diet. - Time Anticipated Discharge Disposition: Home, Self Care Anticipated Discharge Timeframe: within 72 hours
[2020-05-13] MEDS ORDERED: DEXAMETHASONE SOD PHOSPHATE INJ 4 MG/1 ML VIAL IV ONE (10:00)
[2020-05-13] MEDS: ENOXAPARIN SODIUM INJ 40 MG/0.4 ML DISP.SYRIN SUBCUT SCH (10:27)
[2020-05-13] MEDS: PANTOPRAZOLE SODIUM 40 MG VIAL IV SCH ×2 (10:27→21:17)
[2020-05-13] MEDS: DULOXETINE HCL 20 MG CAPSULE.DR PO SCH (10:28)
--- NOTE | 2020-05-13 10:54 | RADIOLOGY REPORT (SQ) ---
EXAM DESCRIPTION: ABDOMEN 2 VIEWS IMAGES COMPLETED DATE/TIME: 05/13/2020 10:18 am REASON FOR STUDY: r/o ileus COMPARISON: Previous day. NUMBER OF VIEWS: Two views. TECHNIQUE: Supine and erect/decubitus radiographic images of the abdomen acquired. LIMITATIONS: None. FINDINGS: FREE AIR: None. No abnormal gas collections. LUNG BASES: Clear. BOWEL GAS PATTERN: Nasogastric tube in the stomach. Drain right lower quadrant. Skin yana midlin e. Mildly dilated loops of small bowel in the central abdomen. Contrast within nondilated colon. CALCIFICATIONS: No suspicious calcifications. SOFT TISSUES: No gross mass or suggestion of organomegaly. HARDWARE: None in the abdomen. BONES: No acute fracture. No worrisome bone lesions. OTHER: No other significant finding. IMPRESSION: Postop ileus. TECHNICAL DOCUMENTATION: JOB ID: [id number] 2010 [employer]- All Rights Reserved Reading location - IP/workstation name: [email or web address]
[2020-05-13] MEDS: DEXTROSE 50%-WATER 25 GM/50 ML DISP.SYRIN IV PRN (12:07)
--- NOTE | 2020-05-13 12:47 | PDOC PROGRESS REPORT ---
Subjective Progress Note for:: 05/13/20 Reason For Visit: SMALL BOWEL OBSTRUCTION, COPD ACUTE Physical Exam Vital Signs: Temp Pulse Resp BP Pulse Ox 98.4 F 82 14 137/80 H 98 05/13/20 10:00 05/13/20 08:34 05/13/20 08:34 05/13/20 08:06 05/13/20 08:34 Pulse Oximeter Continuous Start: 05/05/20 14:08 Freq: RTQ4 Status: Hold Protocol: Document 05/07/20 03:52 PMU (Rec: 05/07/20 03:56 PMU [email or web address]) Pulse Oximetry Assessment Oxygen Saturation (92-100) 997 Oxygen Delivery Method Bi-pap Fraction of Inspired Oxygen (FIO2) 40 Equipment Usage Equipment Standby Continuous SpO2 Machine # - Intake & Output 05/12/20 05/13/20 05/14/20 06:59 06:59 06:59 Intake Total 1653 2000 Output Total 1535 732 40 Balance 118 1268 -40 Weight 97.4 kg 97.7 kg Results Laboratory Results: 05/13/20 04:58 05/13/20 04:58 05/13/20 05/13/20 04:58 04:58 WBC 8.8 RBC 3.17 L Hgb 9.1 L Hct 27.1 L MCV 86 MCH 28.7 MCHC 33.6 RDW 15.1 H Plt Count 220 Seg Neutrophils % 81.7 H Sodium 139.5 Potassium 3.4 L Chloride 110 H Carbon Dioxide 25 Anion Gap 5 BUN 12 Creatinine 0.42 L Est GFR ( Amer) > 60 Glucose 84 Calcium 7.1 L 05/04/20 19:08 Troponin I < 0.012 NT-Pro-B Natriuret Pep 29 Impressions: Abdomen/Pelvis CT 05/04/20 18:48 IMPRESSION: Findings consistent with high-grade small bowel obstruction with zone of transition in the anterior lower pelvis Edema and fluid in the mesentery and within the abdomen and pelvis Small Bowel X-Ray 05/05/20 21:39 IMPRESSION: FINDINGS ARE CONSISTENT WITH A SMALL BOWEL OBSTRUCTION WITH POINT OBSTRUCTION PRESUMABLY IN THE PROXIMAL TO MID ILEUM. FOLLOWING THE 5 HOUR IMAGE, PATIENT'S NG TUBE WAS PLACED TO SUCTION DUE TO PATIENT VOMITING. FINDINGS WERE DISCUSSED WITH DR. TAYLOR AT APPROXIMATELY 1400 HOURS. KUB X-Ray 05/06/20 00:00 IMPRESSION: No significant change. Chest X-Ray 05/10/20 00:00 IMPRESSION: No significant interval change in the chest with minimal left basilar atelectasis and possible small left effusion. PICC Line Insertion 05/12/20 00:00 IMPRESSION: SUCCESSFUL PLACEMENT OF A 5 FR DUAL LUMEN 27.5 CM PICC IN THE RIGHT BASILIC VEIN. Abdomen X-Ray 05/13/20 00:00 IMPRESSION: Postop ileus. Assessment & Plan - Diagnosis (1) SBO (small bowel obstruction) Is this a current diagnosis for this admission?: Yes Plan: Status post lysis of adhesions and enterotomy repair. Patient looks much improved. Patient is passing gas but her NG output is still bile tinged. Abdominal x-rays demonstrate improvement of her small bowel distention but she still has some dilated mid small bowel loops. We will hold off pulling out her NG tube for another day especially in light of her emesis 2 nights ago. - Time Anticipated Discharge Disposition: Home, Self Care Anticipated Discharge Timeframe: within 72 hours
[2020-05-13] MEDS: KETOROLAC TROMETHAMINE INJ/PF 30 MG/1 ML SDV IV PRN (16:57)
[2020-05-14] MEDS: IPRATROPIUM/ALBUTEROL 0.5-2.5 MG/3 ML AMPUL NEB SCH ×4 (02:01→20:03)
[2020-05-14 06:32] LABS: ANION GAP 5 (5-19); BLOOD UREA NITROGEN 8 mg/dL (7-20); CARBON DIOXIDE 26 mmol/L (22-30); CHLORIDE 108 mmol/L (98-107); GLUCOSE 86 mg/dL (75-110)
[2020-05-14 06:51] LABS: CALCIUM 6.7 mg/dL (8.4-10.2)
[2020-05-14] MEDS: BUDESONIDE NEB 0.5 MG/2 ML AMPUL NEB SCH ×2 (08:40→20:03)
--- NOTE | 2020-05-14 09:11 | PDOC PROGRESS REPORT ---
Subjective Progress Note for:: 05/14/20 Subjective:: Patient is currently doing well Patient is passing gas No chest pain no short of breath patient still have NG tube Patient's potassium and calcium is low Reason For Visit: SMALL BOWEL OBSTRUCTION, COPD ACUTE Physical Exam Vital Signs: Temp Pulse Resp BP Pulse Ox 98.2 F 82 16 112/68 97 05/14/20 08:08 05/14/20 08:40 05/14/20 08:40 05/14/20 08:06 05/14/20 08:40 Pulse Oximeter Continuous Start: 05/05/20 14:08 Freq: RTQ4 Status: Hold Protocol: Document 05/07/20 03:52 PMU (Rec: 05/07/20 03:56 PMU [email or web address]) Pulse Oximetry Assessment Oxygen Saturation (92-100) 997 Oxygen Delivery Method Bi-pap Fraction of Inspired Oxygen (FIO2) 40 Equipment Usage Equipment Standby Continuous SpO2 Machine # - Intake & Output 05/13/20 05/14/20 05/15/20 06:59 06:59 06:59 Intake Total 2000 1250 Output Total 732 565 Balance 1268 685 Weight 97.7 kg 97.7 kg General appearance: PRESENT: no acute distress, well-developed, well-nourished Head exam: PRESENT: atraumatic, normocephalic Eye exam: PRESENT: conjunctiva pink, EOMI, PERRLA. ABSENT: scleral icterus Ear exam: PRESENT: normal external ear exam Mouth exam: PRESENT: moist, tongue midline Neck exam: PRESENT: full ROM. ABSENT: carotid bruit, JVD, lymphadenopathy, thyromegaly Respiratory exam: PRESENT: clear to auscultation nayely Cardiovascular exam: PRESENT: RRR. ABSENT: diastolic murmur, rubs, systolic murmur Vascular exam: PRESENT: normal capillary refill GI/Abdominal exam: PRESENT: diminished bowel sounds, soft. ABSENT: distended, guarding, mass, organolmegaly, rebound, tenderness Rectal exam: PRESENT: deferred Neurological exam: PRESENT: alert, awake, oriented to person, oriented to place, oriented to time, oriented to situation, CN II-XII grossly intact. ABSENT: motor sensory deficit Psychiatric exam: PRESENT: appropriate affect, normal mood. ABSENT: homicidal ideation, suicidal ideation Skin exam: PRESENT: dry, intact, warm. ABSENT: cyanosis, rash Results Laboratory Results: 05/13/20 04:58 05/14/20 06:00 05/14/20 06:00 Sodium 138.6 Potassium 3.0 L* Chloride 108 H Carbon Dioxide 26 Anion Gap 5 BUN 8 Creatinine 0.36 L Est GFR ( Amer) > 60 Glucose 86 Calcium 6.7 L* 05/04/20 19:08 Troponin I < 0.012 NT-Pro-B Natriuret Pep 29 Impressions: Abdomen/Pelvis CT 05/04/20 18:48 IMPRESSION: Findings consistent with high-grade small bowel obstruction with zone of transition in the anterior lower pelvis Edema and fluid in the mesentery and within the abdomen and pelvis Small Bowel X-Ray 05/05/20 21:39 IMPRESSION: FINDINGS ARE CONSISTENT WITH A SMALL BOWEL OBSTRUCTION WITH POINT OBSTRUCTION PRESUMABLY IN THE PROXIMAL TO MID ILEUM. FOLLOWING THE 5 HOUR IMAGE, PATIENT'S NG TUBE WAS PLACED TO SUCTION DUE TO PATIENT VOMITING. FINDINGS WERE DISCUSSED WITH DR. TAYLOR AT APPROXIMATELY 1400 HOURS. KUB X-Ray 05/06/20 00:00 IMPRESSION: No significant change. Chest X-Ray 05/10/20 00:00 IMPRESSION: No significant interval change in the chest with minimal left basilar atelectasis and possible small left effusion. PICC Line Insertion 05/12/20 00:00 IMPRESSION: SUCCESSFUL PLACEMENT OF A 5 FR DUAL LUMEN 27.5 CM PICC IN THE RIGHT BASILIC VEIN. Assessment & Plan - Diagnosis (1) SBO (small bowel obstruction) Is this a current diagnosis for this admission?: Yes (2) COPD with exacerbation Is this a current diagnosis for this admission?: Yes (3) Coronary artery disease Qualifiers: Coronary Disease-Associated Artery/Lesion type: unspecified vessel or lesion type Is this a current diagnosis for this admission?: Yes (4) Acute and chronic respiratory failure with hypercapnia Is this a current diagnosis for this admission?: Yes (5) GERD (gastroesophageal reflux disease) Qualifiers: Esophagitis presence: without esophagitis Qualified Code(s): K21.9 - Gastro-esophageal reflux disease without esophagitis Is this a current diagnosis for this admission?: Yes (6) Hypertension Qualifiers: Hypertension type: essential hypertension Qualified Code(s): I10 - Essential (primary) hypertension Is this a current diagnosis for this admission?: Yes - Time Time Spent with patient: 15-24 minutes Level of Care: IMCU Medications reviewed and adjusted accordingly: Yes Anticipated discharge: Home with Homehealth Anticipated DC Timeframe: Other - Plan Summary Plan Summary: Replace the potassium calciums continues to follow with the Surgery
[2020-05-14 09:47] LABS: HEMATOCRIT 28.2 % (36.0-47.0); HEMOGLOBIN 9.5 g/dL (12.0-15.5); MEAN CORPUSCULAR HEMOGLOBIN 28.6 pg (27.0-33.4); MEAN CORPUSCULAR HGB CONC 33.7 g/dL (32.0-36.0); MEAN CORPUSCULAR VOLUME 85 fl (80-97); PLATELET COUNT 269 10^3/uL (150-450); RED BLOOD COUNT 3.32 10^6/uL (3.72-5.28); RED CELL DISTRIBUTION WIDTH 14.8 % (11.5-14.0); WHITE BLOOD COUNT 11.7 10^3/uL (4.0-10.5)
[2020-05-14] MEDS: POTASSI CL 20 MEQ/50 ML RIDER 20 MEQ/50 ML RTUPB IV SCH ×2 (09:54→11:48)
[2020-05-14] MEDS: ENOXAPARIN SODIUM INJ 40 MG/0.4 ML DISP.SYRIN SUBCUT SCH (09:55)
[2020-05-14] MEDS: DEXAMETHASONE SOD PHOSPHATE INJ 4 MG/1 ML VIAL IV SCH ×2 (10:01→22:17)
[2020-05-14] MEDS: DULOXETINE HCL 20 MG CAPSULE.DR PO SCH (10:01)
[2020-05-14] MEDS: PANTOPRAZOLE SODIUM 40 MG VIAL IV SCH ×2 (10:01→22:17)
--- NOTE | 2020-05-14 12:31 | RADIOLOGY REPORT (SQ) ---
EXAM DESCRIPTION: ABDOMEN 2 VIEWS IMAGES COMPLETED DATE/TIME: 05/14/2020 9:08 am REASON FOR STUDY: flat and upright. SBO COMPARISON: 05/13/2020 NUMBER OF VIEWS: Two views. TECHNIQUE: Supine and erect/decubitus radiographic images of the abdomen acquired. LIMITATIONS: None. FINDINGS: FREE AIR: None. No abnormal gas collections. LUNG BASES: Clear. BOWEL GAS PATTERN: There is a small amount of gas in the small bowel loops but they do not appear is dilated as they were on the prior study. Gastrografin is present in the colon. CALCIFICATIONS: No suspicious calcifications. SOFT TISSUES: No gross mass or suggestion of organomegaly. HARDWARE: NG tube remains in place. Midline skin yana. BONES: No acute fracture. No worrisome bone lesions. OTHER: No other significant finding. IMPRESSION: There is improved appearance of the abdomen. The Gastrografin is in the colon. TECHNICAL DOCUMENTATION: JOB ID: [id number] 2010 [employer]- All Rights Reserved Reading location - IP/workstation name: [email or web address]
[2020-05-14] MEDS: CALCIUM GLUC IN NACL, ISO-OSM 1 GM/50 ML RTUPB IV SCH (12:57)
[2020-05-14] MEDS: NORMAL SALINE 1000 ML 1,000 ML IV PRN (13:42)
[2020-05-14] MEDS: ALBUMIN HUMAN 12.5 GM/50 ML RTUINJ IV SCH ×2 (13:42→13:50)
[2020-05-14] MEDS: KETOROLAC TROMETHAMINE INJ/PF 30 MG/1 ML SDV IV PRN (18:31)
--- NOTE | 2020-05-14 20:27 | PDOC PROGRESS REPORT ---
Subjective Progress Note for:: 05/14/20 Reason For Visit: SMALL BOWEL OBSTRUCTION, COPD ACUTE Physical Exam Vital Signs: Temp Pulse Resp BP Pulse Ox 98.7 F 89 16 105/73 97 05/14/20 15:52 05/14/20 19:55 05/14/20 19:55 05/14/20 15:52 05/14/20 19:55 Pulse Oximeter Continuous Start: 05/05/20 14:08 Freq: RTQ4 Status: Hold Protocol: Document 05/07/20 03:52 PMU (Rec: 05/07/20 03:56 PMU [email or web address]) Pulse Oximetry Assessment Oxygen Saturation (92-100) 997 Oxygen Delivery Method Bi-pap Fraction of Inspired Oxygen (FIO2) 40 Equipment Usage Equipment Standby Continuous SpO2 Machine # - Intake & Output 05/13/20 05/14/20 05/15/20 06:59 06:59 06:59 Intake Total 1999 1250 1485 Output Total 732 565 55 Balance 9070 982 2438 Weight 97.7 kg 97.7 kg 97.7 kg Results Laboratory Results: 05/14/20 09:20 05/14/20 06:00 05/14/20 05/14/20 05/14/20 06:00 06:00 09:20 WBC 11.7 H RBC 3.32 L Hgb 9.5 L Hct 28.2 L MCV 85 MCH 28.6 MCHC 33.7 RDW 14.8 H Plt Count 269 Sodium 138.6 Potassium 3.0 L* Chloride 108 H Carbon Dioxide 26 Anion Gap 5 BUN 8 Creatinine 0.36 L Est GFR ( Amer) > 60 Glucose 86 Calcium 6.7 L* Albumin 2.0 L 05/04/20 19:08 Troponin I < 0.012 NT-Pro-B Natriuret Pep 29 Impressions: Abdomen/Pelvis CT 05/04/20 18:48 IMPRESSION: Findings consistent with high-grade small bowel obstruction with zone of transition in the anterior lower pelvis Edema and fluid in the mesentery and within the abdomen and pelvis Small Bowel X-Ray 05/05/20 21:39 IMPRESSION: FINDINGS ARE CONSISTENT WITH A SMALL BOWEL OBSTRUCTION WITH POINT OBSTRUCTION PRESUMABLY IN THE PROXIMAL TO MID ILEUM. FOLLOWING THE 5 HOUR IMAGE, PATIENT'S NG TUBE WAS PLACED TO SUCTION DUE TO PATIENT VOMITING. FINDINGS WERE DISCUSSED WITH DR. TAYLOR AT APPROXIMATELY 1400 HOURS. KUB X-Ray 05/06/20 00:00 IMPRESSION: No significant change. Chest X-Ray 05/10/20 00:00 IMPRESSION: No significant interval change in the chest with minimal left basilar atelectasis and possible small left effusion. PICC Line Insertion 05/12/20 00:00 IMPRESSION: SUCCESSFUL PLACEMENT OF A 5 FR DUAL LUMEN 27.5 CM PICC IN THE RIGHT BASILIC VEIN. Abdomen X-Ray 05/14/20 00:00 IMPRESSION: There is improved appearance of the abdomen. The Gastrografin is in the colon. Assessment & Plan - Diagnosis (1) SBO (small bowel obstruction) Is this a current diagnosis for this admission?: Yes - Time Anticipated Discharge Disposition: Home with Home Health Anticipated Discharge Timeframe: within 72 hours - Plan Summary Plan Summary: 65-year-old female status post laparotomy for bowel obstruction. The patient is doing well today. She is passing large amounts of flatus. I have removed her NG tube and started her on clear liquids. She seems to be tolerating this well. She is out of bed. Her x-ray shows air throughout the colon. She has contrast within the colon, that appears to be moving through. Aggressive pulmonary toilet. Ambulate in hallways. Start stool softeners.
[2020-05-15] MEDS: IPRATROPIUM/ALBUTEROL 0.5-2.5 MG/3 ML AMPUL NEB SCH ×4 (02:22→20:33)
[2020-05-15] MEDS: NORMAL SALINE 1000 ML 1,000 ML IV PRN (04:43)
[2020-05-15] MEDS: NORMAL SALINE 10 ML SDV (AFTER EACH USE) IV PRN ×2 (05:44→10:14)
[2020-05-15 06:21] LABS: ANION GAP 6 (5-19); BLOOD UREA NITROGEN 7 mg/dL (7-20); CALCIUM 7.6 mg/dL (8.4-10.2); CARBON DIOXIDE 26 mmol/L (22-30); CHLORIDE 106 mmol/L (98-107); GLUCOSE 110 mg/dL (75-110); POTASSIUM 3.6 mmol/L (3.6-5.0)
[2020-05-15] MEDS: BUDESONIDE NEB 0.5 MG/2 ML AMPUL NEB SCH ×2 (08:44→20:33)
[2020-05-15] MEDS: ENOXAPARIN SODIUM INJ 40 MG/0.4 ML DISP.SYRIN SUBCUT SCH (10:11)
[2020-05-15] MEDS: PANTOPRAZOLE SODIUM 40 MG VIAL IV SCH ×2 (10:11→23:04)
[2020-05-15] MEDS: DULOXETINE HCL 20 MG CAPSULE.DR PO SCH (10:12)
[2020-05-15] MEDS: NORMAL SALINE 10 ML SDV (SCHEDULED) IV SCH ×2 (10:13→23:05)
[2020-05-15] MEDS: DEXAMETHASONE SOD PHOSPHATE INJ 4 MG/1 ML VIAL IV SCH ×2 (10:13→23:04)
--- NOTE | 2020-05-15 12:41 | PDOC PROGRESS REPORT ---
Subjective Progress Note for:: 05/15/20 Reason For Visit: SMALL BOWEL OBSTRUCTION, COPD ACUTE Patient up, transferring bed to chair, tolerating clear liquids. Off intravenous antibiotics Physical Exam Vital Signs: Temp Pulse Resp BP Pulse Ox 98.6 F 93 16 109/67 97 05/15/20 11:19 05/15/20 11:19 05/15/20 11:19 05/15/20 11:19 05/15/20 11:19 Pulse Oximeter Continuous Start: 05/05/20 14:08 Freq: RTQ4 Status: Hold Protocol: Document 05/07/20 03:52 PMU (Rec: 05/07/20 03:56 PMU [email or web address]) Pulse Oximetry Assessment Oxygen Saturation (92-100) 997 Oxygen Delivery Method Bi-pap Fraction of Inspired Oxygen (FIO2) 40 Equipment Usage Equipment Standby Continuous SpO2 Machine # - Intake & Output 05/14/20 05/15/20 05/16/20 06:59 06:59 06:59 Intake Total 1250 3105 240 Output Total 565 85 Balance 685 3020 240 Weight 97.7 kg 97.4 kg General appearance: PRESENT: no acute distress GI/Abdominal exam: PRESENT: other - All dressings removed. Midline incision with small open areas, starting to granulate in. Abdomen soft; remaining right lower quadrant drain removed uneventfully. Results Laboratory Results: 05/14/20 09:20 05/15/20 05:38 05/15/20 05:38 Sodium 138.4 Potassium 3.6 Chloride 106 Carbon Dioxide 26 Anion Gap 6 BUN 7 Creatinine 0.44 L Est GFR ( Amer) > 60 Glucose 110 Calcium 7.6 L 05/04/20 19:08 Troponin I < 0.012 NT-Pro-B Natriuret Pep 29 Impressions: Abdomen/Pelvis CT 05/04/20 18:48 IMPRESSION: Findings consistent with high-grade small bowel obstruction with zone of transition in the anterior lower pelvis Edema and fluid in the mesentery and within the abdomen and pelvis Small Bowel X-Ray 05/05/20 21:39 IMPRESSION: FINDINGS ARE CONSISTENT WITH A SMALL BOWEL OBSTRUCTION WITH POINT OBSTRUCTION PRESUMABLY IN THE PROXIMAL TO MID ILEUM. FOLLOWING THE 5 HOUR IMAGE, PATIENT'S NG TUBE WAS PLACED TO SUCTION DUE TO PATIENT VOMITING. FINDINGS WERE DISCUSSED WITH DR. TAYLOR AT APPROXIMATELY 1400 HOURS. KUB X-Ray 05/06/20 00:00 IMPRESSION: No significant change. Chest X-Ray 05/10/20 00:00 IMPRESSION: No significant interval change in the chest with minimal left basilar atelectasis and possible small left effusion. PICC Line Insertion 05/12/20 00:00 IMPRESSION: SUCCESSFUL PLACEMENT OF A 5 FR DUAL LUMEN 27.5 CM PICC IN THE RIGHT BASILIC VEIN. Abdomen X-Ray 05/14/20 00:00 IMPRESSION: There is improved appearance of the abdomen. The Gastrografin is in the colon. Assessment & Plan - Diagnosis (1) SBO (small bowel obstruction) Is this a current diagnosis for this admission?: Yes (2) S/P exploratory laparotomy Is this a current diagnosis for this admission?: Yes Plan: Impression: Patient is 5 days status post exploratory laparotomy, lysis of adhesions, closure of enterotomy, doing well, with resumption of bowel function, drains out, voiding. Plan: 1. We will advance diet to full liquids 2. Continue steroids per medical service 3. Anticipate discharge home in the next 24 to 48 hours (3) COPD with exacerbation Is this a current diagnosis for this admission?: Yes - Time Time Spent: 30 to 50 Minutes Critical Time spent with patient: Less than 15 minutes Medications reviewed and adjusted accordingly: Yes Anticipated Discharge Disposition: Home, Self Care Anticipated Discharge Timeframe: within 48 hours
[2020-05-15] MEDS: DOCUSATE SODIUM 100 MG CAPSULE PO SCH ×2 (12:43→17:27)
--- NOTE | 2020-05-15 18:54 | PDOC PROGRESS REPORT ---
Subjective Progress Note for:: 05/15/20 Subjective:: Patient seen by the bedside, status post by exploratory laparotomy, she had a BM today Reason For Visit: SMALL BOWEL OBSTRUCTION, COPD ACUTE Physical Exam Vital Signs: Temp Pulse Resp BP Pulse Ox 98.0 F 82 12 141/72 H 97 05/15/20 15:46 05/15/20 15:46 05/15/20 15:46 05/15/20 15:46 05/15/20 15:46 Pulse Oximeter Continuous Start: 05/05/20 14:08 Freq: RTQ4 Status: Hold Protocol: Document 05/07/20 03:52 PMU (Rec: 05/07/20 03:56 PMU [email or web address]) Pulse Oximetry Assessment Oxygen Saturation (92-100) 997 Oxygen Delivery Method Bi-pap Fraction of Inspired Oxygen (FIO2) 40 Equipment Usage Equipment Standby Continuous SpO2 Machine # - Intake & Output 05/14/20 05/15/20 05/16/20 06:59 06:59 06:59 Intake Total 1250 3105 1480 Output Total 565 85 Balance 685 3020 1480 Weight 97.7 kg 97.4 kg General appearance: PRESENT: no acute distress Eye exam: PRESENT: PERRLA Respiratory exam: PRESENT: clear to auscultation nayely Cardiovascular exam: PRESENT: +S1, +S2 GI/Abdominal exam: PRESENT: soft Neurological exam: PRESENT: alert Results Laboratory Results: 05/14/20 09:20 05/15/20 05:38 05/15/20 05:38 Sodium 138.4 Potassium 3.6 Chloride 106 Carbon Dioxide 26 Anion Gap 6 BUN 7 Creatinine 0.44 L Est GFR ( Amer) > 60 Glucose 110 Calcium 7.6 L 05/04/20 19:08 Troponin I < 0.012 NT-Pro-B Natriuret Pep 29 Impressions: Abdomen/Pelvis CT 05/04/20 18:48 IMPRESSION: Findings consistent with high-grade small bowel obstruction with zone of transition in the anterior lower pelvis Edema and fluid in the mesentery and within the abdomen and pelvis Small Bowel X-Ray 05/05/20 21:39 IMPRESSION: FINDINGS ARE CONSISTENT WITH A SMALL BOWEL OBSTRUCTION WITH POINT OBSTRUCTION PRESUMABLY IN THE PROXIMAL TO MID ILEUM. FOLLOWING THE 5 HOUR IMAGE, PATIENT'S NG TUBE WAS PLACED TO SUCTION DUE TO PATIENT VOMITING. FINDINGS WERE DISCUSSED WITH DR. TAYLOR AT APPROXIMATELY 1400 HOURS. KUB X-Ray 05/06/20 00:00 IMPRESSION: No significant change. Chest X-Ray 05/10/20 00:00 IMPRESSION: No significant interval change in the chest with minimal left basi lar atelectasis and possible small left effusion. PICC Line Insertion 05/12/20 00:00 IMPRESSION: SUCCESSFUL PLACEMENT OF A 5 FR DUAL LUMEN 27.5 CM PICC IN THE RIGHT BASILIC VEIN. Abdomen X-Ray 05/14/20 00:00 IMPRESSION: There is improved appearance of the abdomen. The Gastrografin is in the colon. Assessment & Plan - Diagnosis (1) Bolus obstruction of intestine Is this a current diagnosis for this admission?: Yes (2) Atherosclerotic heart disease of [place] coronary artery without angina pectoris Qualifiers: [place] vs. transplanted heart: [place] heart Qualified Code(s): I25.10 - Atherosclerotic heart disease of [place] coronary artery without angina pectoris Is this a current diagnosis for this admission?: Yes (3) COPD with exacerbation Is this a current diagnosis for this admission?: Yes (4) Respiratory failure Qualifiers: Chronicity: acute on chronic Respiratory failure complication: hypoxia and hypercapnia Qualified Code(s): J96.21 - Acute and chronic respiratory failure with hypoxia; J96.22 - Acute and chronic respiratory failure with hypercapnia Is this a current diagnosis for this admission?: Yes - Time Time Spent with patient: 25-34 minutes Level of Care: MEDICAL Medications reviewed and adjusted accordingly: Yes Anticipated discharge: Home Anticipated DC Timeframe: Other - Plan Summary Plan Summary: Patient will continue present management
[2020-05-16] MEDS: MELATONIN 3 MG TABLET PO PRN ×2 (02:08→22:55)
[2020-05-16] MEDS: IPRATROPIUM/ALBUTEROL 0.5-2.5 MG/3 ML AMPUL NEB SCH ×4 (03:02→20:36)
[2020-05-16] MEDS: BUDESONIDE NEB 0.5 MG/2 ML AMPUL NEB SCH ×2 (07:58→20:36)
[2020-05-16] MEDS: ENOXAPARIN SODIUM INJ 40 MG/0.4 ML DISP.SYRIN SUBCUT SCH (09:10)
[2020-05-16] MEDS: PANTOPRAZOLE SODIUM 40 MG VIAL IV SCH ×2 (09:10→22:55)
[2020-05-16] MEDS: NORMAL SALINE 10 ML SDV (SCHEDULED) IV SCH ×2 (09:11→22:55)
[2020-05-16] MEDS: DULOXETINE HCL 20 MG CAPSULE.DR PO SCH (09:11)
[2020-05-16] MEDS: DEXAMETHASONE SOD PHOSPHATE INJ 4 MG/1 ML VIAL IV SCH ×2 (09:12→22:54)
[2020-05-16] MEDS: DOCUSATE SODIUM 100 MG CAPSULE PO SCH ×2 (09:12→18:34)
--- NOTE | 2020-05-16 16:05 | PDOC PROGRESS REPORT ---
Subjective Subjective:: Tolerating a diet; ambulating; pain controlled Reason For Visit: SMALL BOWEL OBSTRUCTION, COPD ACUTE Physical Exam Vital Signs: Temp Pulse Resp BP Pulse Ox 98.9 F 89 16 138/76 H 98 05/16/20 09:04 05/16/20 14:39 05/16/20 14:39 05/16/20 07:24 05/16/20 14:39 Pulse Oximeter Continuous Start: 05/05/20 14:08 Freq: RTQ4 Status: Hold Protocol: Document 05/07/20 03:52 PMU (Rec: 05/07/20 03:56 PMU [email or web address]) Pulse Oximetry Assessment Oxygen Saturation (92-100) 997 Oxygen Delivery Method Bi-pap Fraction of Inspired Oxygen (FIO2) 40 Equipment Usage Equipment Standby Continuous SpO2 Machine # - Intake & Output 05/15/20 05/16/20 05/17/20 06:59 06:59 06:59 Intake Total 3105 1480 Output Total 85 Balance 3020 1480 Weight 97.4 kg 97.5 kg General appearance: PRESENT: no acute distress GI/Abdominal exam: PRESENT: other - Abdomen soft; midline wound looks good with small open areas beginning to granulate in, minimal drainage. Results Laboratory Results: 05/14/20 09:20 05/15/20 05:38 05/04/20 19:08 Troponin I < 0.012 NT-Pro-B Natriuret Pep 29 Impressions: Abdomen/Pelvis CT 05/04/20 18:48 IMPRESSION: Findings consistent with high-grade small bowel obstruction with zone of transition in the anterior lower pelvis Edema and fluid in the mesentery and within the abdomen and pelvis Small Bowel X-Ray 05/05/20 21:39 IMPRESSION: FINDINGS ARE CONSISTENT WITH A SMALL BOWEL OBSTRUCTION WITH POINT OBSTRUCTION PRESUMABLY IN THE PROXIMAL TO MID ILEUM. FOLLOWING THE 5 HOUR IMAGE, PATIENT'S NG TUBE WAS PLACED TO SUCTION DUE TO PATIENT VOMITING. FINDINGS WERE DISCUSSED WITH DR. TAYLOR AT APPROXIMATELY 1400 HOURS. KUB X-Ray 05/06/20 00:00 IMPRESSION: No significant change. Chest X-Ray 05/10/20 00:00 IMPRESSION: No significant interval change in the chest with minimal left basilar atelectasis and possible small left effusion. PICC Line Insertion 05/12/20 00:00 IMPRESSION: SUCCESSFUL PLACEMENT OF A 5 FR DUAL LUMEN 27.5 CM PICC IN THE RIGHT BASILIC VEIN. Abdomen X-Ray 05/14/20 00:00 IMPRESSION: There is improved appearance of the abdomen. The Gastrografin is in the colon. Assessment & Plan - Diagnosis (1) SBO (small bowel obstruction) Is this a current diagnosis for this admission?: Yes (2) S/P exploratory laparotomy Is this a current diagnosis for this admission?: Yes Plan: I impression: Patient 61 status post oratory laparotomy, lysis of adhesions, closure of enterotomy, doing well, no complications, tolerating diet, off an tibiotics, with acceptable bowel function Recommendations: 1. Arrange for patient to follow-up with [facility] in 1 week to 10 days 2. No further antibiotics required 3. Encourage patient to shower, blot midline incision with cloth, and cover with honeycomb dressing 4. Surgery will sign off; reconsult if clinically indicated (3) COPD with exacerbation Is this a current diagnosis for this admission?: Yes - Time Time Spent: 30 to 50 Minutes Critical Time spent with patient: Less than 15 minutes Medications reviewed and adjusted accordingly: Yes Anticipated Discharge Disposition: Home with Home Health Anticipated Discharge Timeframe: within 24 hours
--- NOTE | 2020-05-16 16:32 | PDOC PROGRESS REPORT ---
Subjective Progress Note for:: 05/16/20 Subjective:: Patient continues to improve Reason For Visit: SMALL BOWEL OBSTRUCTION, COPD ACUTE Physical Exam Vital Signs: Temp Pulse Resp BP Pulse Ox 98.9 F 89 16 138/76 H 98 05/16/20 09:04 05/16/20 14:39 05/16/20 14:39 05/16/20 07:24 05/16/20 14:39 Pulse Oximeter Continuous Start: 05/05/20 14:08 Freq: RTQ4 Status: Hold Protocol: Document 05/07/20 03:52 PMU (Rec: 05/07/20 03:56 PMU [email or web address]) Pulse Oximetry Assessment Oxygen Saturation (92-100) 997 Oxygen Delivery Method Bi-pap Fraction of Inspired Oxygen (FIO2) 40 Equipment Usage Equipment Standby Continuous SpO2 Machine # - Intake & Output 05/15/20 05/16/20 05/17/20 06:59 06:59 06:59 Intake Total 3105 1480 Output Total 85 Balance 3020 1480 Weight 97.4 kg 97.5 kg General appearance: PRESENT: no acute distress Eye exam: PRESENT: PERRLA Respiratory exam: PRESENT: clear to auscultation nayely Cardiovascular exam: PRESENT: +S1, +S2 GI/Abdominal exam: PRESENT: soft Neurological exam: PRESENT: alert Results Laboratory Results: 05/14/20 09:20 05/15/20 05:38 05/04/20 19:08 Troponin I < 0.012 NT-Pro-B Natriuret Pep 29 Impressions: Abdomen/Pelvis CT 05/04/20 18:48 IMPRESSION: Findings consistent with high-grade small bowel obstruction with zone of transition in the anterior lower pelvis Edema and fluid in the mesentery and within the abdomen and pelvis Small Bowel X-Ray 05/05/20 21:39 IMPRESSION: FINDINGS ARE CONSISTENT WITH A SMALL BOWEL OBSTRUCTION WITH POINT OBSTRUCTION PRESUMABLY IN THE PROXIMAL TO MID ILEUM. FOLLOWING THE 5 HOUR IMAGE, PATIENT'S NG TUBE WAS PLACED TO SUCTION DUE TO PATIENT VOMITING. FINDINGS WERE DISCUSSED WITH DR. TAYLOR AT APPROXIMATELY 1400 HOURS. KUB X-Ray 05/06/20 00:00 IMPRESSION: No significant change. Chest X-Ray 05/10/20 00:00 IMPRESSION: No significant interval change in the chest with minimal left ba silar atelectasis and possible small left effusion. PICC Line Insertion 05/12/20 00:00 IMPRESSION: SUCCESSFUL PLACEMENT OF A 5 FR DUAL LUMEN 27.5 CM PICC IN THE RIGHT BASILIC VEIN. Abdomen X-Ray 05/14/20 00:00 IMPRESSION: There is improved appearance of the abdomen. The Gastrografin is in the colon. Assessment & Plan - Diagnosis (1) Bolus obstruction of intestine Is this a current diagnosis for this admission?: Yes (2) Atherosclerotic heart disease of [place] coronary artery without angina pectoris Qualifiers: [place] vs. transplanted heart: [place] heart Qualified Code(s): I25.10 - Atherosclerotic heart disease of [place] coronary artery without angina pectoris Is this a current diagnosis for this admission?: Yes (3) COPD with exacerbation Is this a current diagnosis for this admission?: Yes (4) Respiratory failure Qualifiers: Chronicity: acute on chronic Respiratory failure complication: hypoxia and hypercapnia Qualified Code(s): J96.21 - Acute and chronic respiratory failure with hypoxia; J96.22 - Acute and chronic respiratory failure with hypercapnia Is this a current diagnosis for this admission?: Yes - Time Time Spent with patient: 15-24 minutes Level of Care: MEDICAL Medications reviewed and adjusted accordingly: Yes Anticipated discharge: Home Anticipated DC Timeframe: within 72 hours
[2020-05-17] MEDS: IPRATROPIUM/ALBUTEROL 0.5-2.5 MG/3 ML AMPUL NEB SCH ×4 (02:55→20:18)
[2020-05-17 07:36] LABS: HEMATOCRIT 27.4 % (36.0-47.0); HEMOGLOBIN 9.2 g/dL (12.0-15.5); MEAN CORPUSCULAR HEMOGLOBIN 28.5 pg (27.0-33.4); MEAN CORPUSCULAR HGB CONC 33.6 g/dL (32.0-36.0); MEAN CORPUSCULAR VOLUME 85 fl (80-97); PLATELET COUNT 410 10^3/uL (150-450); RED BLOOD COUNT 3.24 10^6/uL (3.72-5.28); RED CELL DISTRIBUTION WIDTH 14.8 % (11.5-14.0); WHITE BLOOD COUNT 11.7 10^3/uL (4.0-10.5)
[2020-05-17] MEDS: BUDESONIDE NEB 0.5 MG/2 ML AMPUL NEB SCH ×2 (07:37→20:18)
[2020-05-17] MEDS: ENOXAPARIN SODIUM INJ 40 MG/0.4 ML DISP.SYRIN SUBCUT SCH (10:46)
[2020-05-17] MEDS: NORMAL SALINE 10 ML SDV (SCHEDULED) IV SCH (10:46)
[2020-05-17] MEDS: PANTOPRAZOLE SODIUM 40 MG VIAL IV SCH (10:47)
[2020-05-17] MEDS: DOCUSATE SODIUM 100 MG CAPSULE PO SCH (10:47)
[2020-05-17] MEDS: DULOXETINE HCL 20 MG CAPSULE.DR PO SCH (10:47)
[2020-05-17] MEDS: DEXAMETHASONE SOD PHOSPHATE INJ 4 MG/1 ML VIAL IV SCH (10:49)
[2020-05-17 19:45] VITALS: BP 116/70
--- NOTE | 2020-05-17 21:23 | PDOC DISCHARGE SUMMARY ---
Impression - Admit/DC Date/PCP Admission Date/Primary Care Provider: 05/04/20 23:02 JEYSON SHIRLEY MD Discharge Date: 05/17/20 - Discharge Diagnosis (1) Complete small bowel obstruction Is this a current diagnosis for this admission?: Yes (2) Atherosclerotic heart disease of [place] coronary artery without angina pectoris Is this a current diagnosis for this admission?: Yes (3) COPD with exacerbation Is this a current diagnosis for this admission?: Yes (4) Respiratory failure Is this a current diagnosis for this admission?: Yes - Additional Information Resuscitation Status: Full Code Discharge Activity: Activity As Tolerated, Balance Activity w/Rest, No Driving, No Lifting Over 10 Pounds, Slowly Increase Activity, No tub bath Referrals: KOBE HALLMAN MD [ACTIVE STAFF] - (05/06 S/P EX LAPAROTOMY WITH DRAINAGE OF PERITONEAL AND PELVIC CAVITIES) Home Medications: RX: Cetirizine HCl [Zyrtec 10 mg Tablet] 10 mg PO DAILY 01/05/18 RX: Ipratropium/Albuterol Sulfate [Duoneb 3 ml Ampul] 3 ml NEB RTQ6HP PRN 01/05/18 RX: Montelukast Sodium [Singulair 10 mg Tablet] 10 mg PO QHS 01/05/18 RX: Tiotropium Mason [Spiriva Respimat] 2 puff IH DAILY 01/05/18 RX: Donepezil HCl [Aricept] 10 mg PO QHS 04/06/19 RX: Duloxetine HCl [Cymbalta 20 mg Capsule.dr] 40 mg PO DAILY 04/06/19 RX: Telmisartan/Hydrochlorothiazid [Micardis HCT 80-25 mg Tablet] 1 each PO D AILY 04/06/19 RX: Atorvastatin Calcium [Lipitor 20 mg Tablet] 20 mg PO QHS 05/05/20 RX: Benzonatate [Tessalon Perles 100 mg Capsule] 200 mg PO Q8HP PRN 05/05/20 RX: Methocarbamol [Robaxin 750 mg Tablet] 750 mg PO Q12 05/05/20 RX: Ondansetron [Zofran Odt 4 mg Tablet] 4 mg PO Q8HP PRN 05/05/20 RX: Polyethylene Glycol 3350 [Miralax Powder 17 gm/Packet] 1 packet PO DAILYP PRN 05/05/20 RX: Prednisone [Deltasone 5 mg Tablet] 5 mg PO DAILY 05/05/20 RX: Roflumilast [Daliresp] 500 mcg PO DAILY 05/05/20 History of Present Illiness History of Present Illness: ELIJAH REED is a 65 year old female complaining of increasing abdominal pain for the last 3 days before presentation and was admitted to [place] by her primary care provider Dr. Shirley. The patient does have a past medical history to include COPD and she is oxygen dependent and wears cpap at home at night. The patient was found to have a small bowel obstruction and surgery was consulted by primary for assistance in management. Initial treatment consist of NG tube and fluids however the patient had continued worsening symptoms and the decision was made to take the pateint to surgery on 05/06/2020. The patient was taken to the OR for an exploratory laparotomy and during the procedure had a small bowel perforation and per the surgery noted a wash out was performed and the perforat ed area was repaired without requiring resection. Post operatively the patient was extubated and was doing well. She then became tachycardic and began having respiratory issues. The patient was placed on BIPAP and was given IV cardizem for the tachycardia. The patient was given IV fluids and her tachycardia slowed and the use of bipap improved her respiratory issues ( the patient is home dependent [place] and requires cpap at night). The surgeon felt the patient needed to be transferred to the ICU due to her tachycardia and increased resp effort. Transfer orders was placed by the surgeon. Hospital Course Hospital Course: Patient was admitted for the management of small bowel obstruction she underwent exploratory laparotomy on May 08, 2020 she underwent lysis of adhesions during the process the small bowel perforated approximately 40 cm proximal to the first loop of small bowel, this segment was repaired rather than resection of the segment. She was subsequently managed in ICU she was seen by business applications developer in the unit she was managed on mechanical ventilator, she was seen by pulmonary, cardiology Dr. Atkinson,She had a 2D echo done demonstrated preserved ejection fraction of left ventricle, estimated EF more than 60% there was grade 1 diastolic dysfunction.On admission she had CAT scan of the abdomen and pelvis with IV contrast, it demonstrated free fluid in the abdomen and pelvis, the liver spleen and pancreas were unremarkable the kidneys appear unremarkable there was moderate fluid-filled distention of the small bowel in a pattern consistent with obstruction is edema in the mesentery, She has electrolyte derangements and was replaced. It was felt that patient is stable enough for discharge home today Physical Exam Vital Signs: Temp Pulse Resp BP Pulse Ox 98.2 F 89 17 116/70 96 05/17/20 15:49 05/17/20 15:49 05/17/20 15:49 05/17/20 15:49 05/17/20 15:49 Pulse Oximeter Continuous Start: 05/05/20 14:08 Freq: RTQ4 Status: Discharge Protocol: Document 05/07/20 03:52 PMU (Rec: 05/07/20 03:56 PMU [id number]) Pulse Oximetry Assessment Oxygen Saturation (92-100) 997 Oxygen Delivery Method Bi-pap Fraction of Inspired Oxygen (FIO2) 40 Equipment Usage Equipment Standby Continuous SpO2 Machine # - Intake & Output 05/16/20 05/17/20 05/18/20 06:59 06:59 06:59 Intake Total 1480 477 350 Balance 1480 477 350 Weight 97.5 kg 97.5 kg 97.5 kg General appearance: PRESENT: no acute distress Eye exam: PRESENT: PERRLA Respiratory exam: PRESENT: clear to auscultation nayely Cardiovascular exam: PRESENT: +S1, +S2 GI/Abdominal exam: PRESENT: soft Neurological exam: PRESENT: alert, CN II-XII grossly intact Results Laboratory Results: WBC 11.7 10^3/uL (4.0-10.5) H 05/17/20 07:15 RBC 3.24 10^6/uL (3.72-5.28) L 05/17/20 07:15 Hgb 9.2 g/dL (12.0-15.5) L 05/17/20 07:15 Hct 27.4 % (36.0-47.0) L 05/17/20 07:15 MCV 85 fl (80-97) 05/17/20 07:15 MCH 28.5 pg (27.0-33.4) 05/17/20 07:15 MCHC 33.6 g/dL (32.0-36.0) 05/17/20 07:15 RDW 14.8 % (11.5-14.0) H 05/17/20 07:15 Plt Count 410 10^3/uL (150-450) 05/17/20 07:15 Lymph % (Auto) 10.3 % (13-45) L 05/13/20 04:58 Keith % (Auto) 7.9 % (3-13) 05/13/20 04:58 Eos % (Auto) 0.0 % (0-6) 05/13/20 04:58 Baso % (Auto) 0.1 % (0-2) 05/13/20 04:58 Absolute Neuts (auto) 7.2 10^3/uL (1.7-8.2) 05/13/20 04:58 Absolute Lymphs (auto) 0.9 10^3/uL (0.5-4.7) 05/13/20 04:58 Absolute Monos (auto) 0.7 10^3/uL (0.1-1.4) 05/13/20 04:58 Absolute Eos (auto) 0.0 10^3/uL (0.0-0.6) 05/13/20 04:58 Absolute Basos (auto) 0.0 10^3/uL (0.0-0.2) 05/13/20 04:58 Total Counted 100 05/08/20 04:39 Seg Neutrophils % 81.7 % (42-78) H 05/13/20 04:58 Seg Neuts % (Manual) 86 % (42-78) H 05/08/20 04:39 Band Neutrophils % 1 % (3-5) L 05/08/20 04:39 Lymphocytes % (Manual) 3 % (13-45) L 05/08/20 04:39 Monocytes % (Manual) 10 % (3-13) 05/08/20 04:39 Eosinophils % (Manual) 0 % (0-6) 05/08/20 04:39 Basophils % (Manual) 0 % (0-2) 05/08/20 04:39 Metamyelocytes % 8 % (0-1) H 05/07/20 06:05 Abs Neuts (Manual) 11.0 10^3/uL (1.7-8.2) H 05/08/20 04:39 Abs Lymphs (Manual) 0.4 10^3/uL (0.5-4.7) L 05/08/20 04:39 Abs Monocytes (Manual) 1.3 10^3/uL (0.1-1.4) 05/08/20 04:39 Absolute Eos (Manual) 0.0 10^3/uL (0.0-0.6) 05/08/20 04:39 Abs Basophils (Manual) 0.0 10^3/uL (0.0-0.2) 05/08/20 04:39 Toxic Granulation 1+ 05/08/20 04:39 Toxic Vacuolation PRESENT 05/07/20 03:58 Dohle Bodies PRESENT 05/08/20 04:39 Clumped Platelets PRESENT 05/07/20 06:05 Platelet Comment ADEQUATE 05/08/20 04:39 Poikilocytosis SLIGHT 05/07/20 06:05 Anisocytosis SLIGHT 05/08/20 04:39 Tear Drop Cells SLIGHT 05/08/20 04:39 Ovalocytes SLIGHT 05/08/20 04:39 Eyad Cells SLIGHT 05/08/20 04:39 Carbonic Acid 1.21 mmol/L (1.05-1.35) 05/10/20 16:30 HCO3/H2CO3 Ratio 21:1 05/10/20 16:30 ABG pH 7.42 (7.35-7.45) 05/10/20 16:30 ABG pCO2 40.3 mmHg (35-45) 05/10/20 16:30 ABG pO2 76.8 mmHg (80-100) L 05/10/20 16:30 ABG HCO3 25.7 mmol/L (20-24) H 05/10/20 16:30 ABG Total CO2 27.0 mmol/L (21-25) H 05/10/20 16:30 ABG O2 Saturation 95.6 % (94-98) 05/10/20 16:30 ABG Base Excess 1.2 mmol/L 05/10/20 16:30 VBG pH 7.30 (7.30-7.42) 05/04/20 22:50 VBG pCO2 53.5 mmHg (35-63) 05/04/20 22:50 VBG HCO3 25.5 mmol/L (20-32) 05/04/20 22:50 VBG Base Excess -1.9 mmol/L 05/04/20 22:50 FiO2 28% 05/10/20 16:30 Sodium 138.4 mmol/L (137-145) 05/15/20 05:38 Potassium 3.6 mmol/L (3.6-5.0) 05/15/20 05:38 Chloride 106 mmol/L (98-107) 05/15/20 05:38 Carbon Dioxide 26 mmol/L (22-30) 05/15/20 05:38 Anion Gap 6 (5-19) 05/15/20 05:38 BUN 7 mg/dL (7-20) 05/15/20 05:38 Creatinine 0.44 mg/dL (0.52-1.25) L 05/15/20 05:38 Est GFR ( Amer) > 60 (>60) 05/15/20 05:38 Est GFR (MDRD) Non-Af > 60 (>60) 05/15/20 05:38 Glucose 110 mg/dL (75-110) 05/15/20 05:38 POC Glucose 110 mg/dL (70-110) 05/15/20 11:22 Calcium 7.6 mg/dL (8.4-10.2) L 05/15/20 05:38 Phosphorus 4.9 mg/dL (2.5-4.5) H 05/05/20 05:26 Magnesium 2.3 mg/dL (1.6-2.3) 05/08/20 04:39 Total Bilirubin 0.7 mg/dL (0.2-1.3) 05/07/20 06:05 Direct Bilirubin 0.6 mg/dL (0.0-0.4) H 05/07/20 06:05 Neonat Total Bilirubin Not Reportable 05/07/20 06:05 Neonat Direct Bilirubin Not Reportable 05/07/20 06:05 Neonat Indirect Bili Not Reportable 05/07/20 06:05 AST 31 U/L (14-36) 05/07/20 06:05 ALT 13 U/L (<35) 05/07/20 06:05 Alkaline Phosphatase 61 U/L (38-126) 05/07/20 06:05 Troponin I < 0.012 ng/mL 05/04/20 19:08 NT-Pro-B Natriuret Pep 29 pg/mL (<125) 05/04/20 19:08 Total Protein 5.5 g/dL (6.3-8.2) L 05/07/20 06:05 Albumin 2.0 g/dL (3.5-5.0) L 05/14/20 06:00 Lipase 21.9 U/L (23-300) L 05/04/20 19:08 Urine Color YELLOW 05/11/20 01:50 Urine Appearance SLIGHTLY-CLOUDY 05/11/20 01:50 Urine pH 5.0 (5.0-9.0) 05/11/20 01:50 Ur Specific [place] 1.025 05/11/20 01:50 Urine Protein 30 mg/dL (NEGATIVE) H 05/11/20 01:50 Urine Glucose (UA) NEGATIVE mg/dL (NEGATIVE) 05/11/20 01:50 Urine Ketones NEGATIVE mg/dL (NEGATIVE) 05/11/20 01:50 Urine Blood SMALL (NEGATIVE) H 05/11/20 01:50 Urine Nitrite NEGATIVE (NEGATIVE) 05/11/20 01:50 Urine Bilirubin NEGATIVE (NEGATIVE) 05/11/20 01:50 Urine Urobilinogen NEGATIVE mg/dL (<2.0) 05/11/20 01:50 Ur Leukocyte Esterase NEGATIVE (NEGATIVE) 05/11/20 01:50 Urine WBC (Auto) 3 /HPF 05/11/20 01:50 Urine RBC (Auto) 7 /HPF 05/11/20 01:50 U Hyaline Cast (Auto) 1 /LPF 05/11/20 01:50 Squamous Epi Cells Auto 8 /HPF 05/11/20 01:50 Urine Mucus (Auto) RARE /LPF 05/11/20 01:50 Urine Ascorbic Acid NEGATIVE (NEGATIVE) 05/11/20 01:50 COVID-19 Source Cancelled 05/06/20 15:20 COVID-19 (STAR) Cancelled 05/06/20 15:20 SARS-CoV-2 (PCR) NEGATIVE (NEGATIVE) 05/06/20 15:20 Slides for Path Review PATHOLOGIST REVIEWED 05/07/20 06:05 05/04/20 19:08 Troponin I < 0.012 NT-Pro-B Natriuret Pep 29 Impressions: Abdomen/Pelvis CT 05/04/20 18:48 IMPRESSION: Findings consistent with high-grade small bowel obstruction with zone of transition in the anterior lower pelvis Edema and fluid in the mesentery and within the abdomen and pelvis Chest X-Ray 05/04/20 22:33 IMPRESSION: COPD. Lungs are clear copyright 2011 [employer]- All Rights Reserved KUB X-Ray 05/05/20 00:00 IMPRESSION: NG tube tip in the stomach. Chest X-Ray 05/05/20 00:38 IMPRESSION: NG tube tip in the stomach. Small Bowel X-Ray 05/05/20 21:39 IMPRESSION: FINDINGS ARE CONSISTENT WITH A SMALL BOWEL OBSTRUCTION WITH POINT OBSTRUCTION PRESUMABLY IN THE PROXIMAL TO MID ILEUM. FOLLOWING THE 5 HOUR IMAGE, PATIENT'S NG TUBE WAS PLACED TO SUCTION DUE TO PATIENT VOMITING. FINDINGS WERE DISCUSSED WITH DR. SHIRLEY AT APPROXIMATELY 1400 HOURS. KUB X-Ray 05/06/20 00:00 IMPRESSION: No significant change. Chest X-Ray 05/08/20 05:00 IMPRESSION: Possible tiny left pleural effusion. Otherwise, no acute pulmonary process. Chest X-Ray 05/10/20 00:00 IMPRESSION: No significant interval change in the chest with minimal left basilar atelectasis and possible small left effusion. Abdomen X-Ray 05/12/20 00:00 IMPRESSION: Dilated loops of small bowel, likely related to a postoperative ileus. However, a small bowel obstruction may have a similar appearance. copyright 2010 [employer]- All Rights Reserved PICC Line Insertion 05/12/20 00:00 IMPRESSION: SUCCESSFUL PLACEMENT OF A 5 FR DUAL LUMEN 27.5 CM PICC IN THE RIGHT BASILIC VEIN. Abdomen X-Ray 05/13/20 00:00 IMPRESSION: Postop ileus. Abdomen X-Ray 05/14/20 00:00 IMPRESSION: There is improved appearance of the abdomen. The Gastrografin is in the colon. Stroke Is this a Stroke Patient?: No Acute Heart Failure Is this a Heart Failure Patient?: No
== END 2020-05-17 18:45 | disposition home health service (06) | DRG 329 ==
LOC: ER 18:37 → EH 23:02 → 5 05-05 01:53 → ICU 05-07 00:21 → 3S 05-08 16:00 → 4S 05-14 01:20
PROVIDERS: ADMIT Family Medicine; ATTEND Family Medicine
PROC: 5A09357 Assistance with Respiratory Ventilation, Less than 24 Consecutive Hours, Continuous Positive Airway Pressure (ICD-10-PCS; 2020-05-04)
PROC: 0DN80ZZ Release Small Intestine, Open Approach (ICD-10-PCS; 2020-05-06)
PROC: 0DJD0ZZ Inspection of Lower Intestinal Tract, Open Approach (ICD-10-PCS; 2020-05-06)
PROC: 3E1M38Z Irrigation of Peritoneal Cavity using Irrigating Substance, Percutaneous Approach (ICD-10-PCS; 2020-05-06)
PROC: 0DQ80ZZ Repair Small Intestine, Open Approach (ICD-10-PCS; principal; 2020-05-06 19:30)
PROC: 5A09557 Assistance with Respiratory Ventilation, Greater than 96 Consecutive Hours, Continuous Positive Airway Pressure (ICD-10-PCS; 2020-05-07)
PROC: 02HV33Z Insertion of Infusion Device into Superior Vena Cava, Percutaneous Approach (ICD-10-PCS; 2020-05-12)
PROC: B518ZZA Fluoroscopy of Superior Vena Cava, Guidance (ICD-10-PCS; 2020-05-12)
PROC: B548ZZA Ultrasonography of Superior Vena Cava, Guidance (ICD-10-PCS; 2020-05-12)
DX: K56.52 Intestinal adhesions [bands] with complete obstruction (principal); J96.22 Acute and chronic respiratory failure with hypercapnia; K91.71 Accidental puncture and laceration of a digestive system organ or structure during a digestive system procedure; J44.1 Chronic obstructive pulmonary disease with (acute) exacerbation; J45.901 Unspecified asthma with (acute) exacerbation; I10 Essential (primary) hypertension; K21.9 Gastro-esophageal reflux disease without esophagitis; I44.4 Left anterior fascicular block; I25.10 Atherosclerotic heart disease of native coronary artery without angina pectoris; D57.1 Sickle-cell disease without crisis; G47.33 Obstructive sleep apnea (adult) (pediatric); Y83.8 Other surgical procedures as the cause of abnormal reaction of the patient, or of later complication, without mention of misadventure at the time of the procedure; Y92.234 Operating room of hospital as the place of occurrence of the external cause; Z20.828 Contact with and (suspected) exposure to other viral communicable diseases; Z96.641 Presence of right artificial hip joint; Z79.51 Long term (current) use of inhaled steroids; Z79.52 Long term (current) use of systemic steroids; Z79.899 Other long term (current) drug therapy; R00.0 Tachycardia, unspecified
CPT/HCPCS: 36415; 36573; 36600; 71045; 74018; 74019; 74177; 74250; 790; 80048; 80053; 80076; 81001; 82040; 82803; 82962; 83690; 83735; 83880; 84100; 84484; 85025; 85027; 87040; 87070; 87086; 87635; 93005; 93010; 93306; 94640; 94660; 94762; 94799; 96365; 96375; 99140; 99221; 99285; 99291; C1758; C9113; C9803; J0131; J0295; J0330; J0692; J1100; J1170; J1642; J1650; J1885; J2250; J2405; J2704; J2710; J2795; J2920; J2930; J3010; J3480; J3490; J7030; J7050; J7060; J7120; J7613; J7644; P9047; S0028

== ENCOUNTER → 2020-06-07 | Outpatient (CLI) | payer MEDICARE, OTHER ==
--- NOTE | 2020-06-07 16:43 | RADIOLOGY REPORT (SQ) ---
EXAM DESCRIPTION: ABDOMEN 2 VIEWS IMAGES COMPLETED DATE/TIME: 06/07/2020 3:56 pm REASON FOR STUDY: ABDOMINAL PAIN R10.9 UNSPECIFIED ABDOMINAL PAIN COMPARISON: 05/14/2020 NUMBER OF VIEWS: Two views. TECHNIQUE: Supine and erect/decubitus radiographic images of the abdomen acquired. LIMITATIONS: None. FINDINGS: FREE AIR: None. No abnormal gas collections. LUNG BASES: Linear bibasilar opacities, likely atelectasis or scarring. BOWEL GAS PATTERN: Nonobstructive pattern. No dilated loops or air fluid levels. CALCIFICATIONS: No suspicious calcifications. SOFT TISSUES: No gross mass or suggestion of organomegaly. HARDWARE: None in the abdomen. BONES: No acute findings. Partially visualize right hip hardware. OTHER: No other significant finding. IMPRESSION: No evidence of intestinal obstruction or other acute intra-abdominal/pelvic process. Minimal linear bibasilar opacities, likely atelectasis or scarring. TECHNICAL DOCUMENTATION: JOB ID: [id number] 2010 [employer]- All Rights Reserved Reading location - IP/workstation name: [email or web address]
== END ==
LOC: OD 15:42
PROVIDERS: ATTEND Family Medicine
DX: R10.9 Unspecified abdominal pain (principal)
CPT/HCPCS: 74019

== ENCOUNTER → 2020-06-21 | Outpatient (CLI) | payer MEDICARE, OTHER ==
[2020-06-21 10:34] LABS: ABSOLUTE EOSINOPHILS # (AUTO) 0.4 10^3/uL (0.0-0.6); ABSOLUTE LYMPHOCYTES (AUTO) 1.4 10^3/uL (0.5-4.7); ABSOLUTE MONOCYTES (AUTO) 0.7 10^3/uL (0.1-1.4); ABSOLUTE NEUT (AUTO) 4.4 10^3/uL (1.7-8.2); BASOPHILS % (AUTO) 0.7 % (0-2); EOSINOPHILS % (AUTO) 5.2 % (0-6); HEMATOCRIT 32.4 % (36.0-47.0); HEMOGLOBIN 10.7 g/dL (12.0-15.5); LYMPHOCYTES % (AUTO) 19.8 % (13-45); MEAN CORPUSCULAR HEMOGLOBIN 28.4 pg (27.0-33.4); MEAN CORPUSCULAR HGB CONC 33.2 g/dL (32.0-36.0); MEAN CORPUSCULAR VOLUME 86 fl (80-97); PLATELET COUNT 278 10^3/uL (150-450); RED BLOOD COUNT 3.78 10^6/uL (3.72-5.28); RED CELL DISTRIBUTION WIDTH 14.9 % (11.5-14.0); SEGMENTED NEUTROPHILS % (AUTO) 64.3 % (42-78); TOTAL CELLS COUNTED % (AUTO) 100 %; WHITE BLOOD COUNT 6.9 10^3/uL (4.0-10.5)
== END ==
LOC: OD 09:22
PROVIDERS: ATTEND Internal Medicine Pulmonary Disease
DX: J45.21 Mild intermittent asthma with (acute) exacerbation (principal); J30.89 Other allergic rhinitis; J44.9 Chronic obstructive pulmonary disease, unspecified
CPT/HCPCS: 36415; 82785; 85025